=== PATIENT | female | born 1955 | race Caucasian/White ===

== ENCOUNTER → 2017-08-03 08:22 | Outpatient (CLI) | payer BC, SELFPAY ==
[2017-08-03 09:57] LABS: Absolute Lymphocyte Count 2.23 X10^3/ul (0.83-4.51); Absolute Neutrophil Count 3.3 X10^3/uL (2.0-7.7); Basophil# 0.04 X10^3/uL; Basophil% 0.6 % (0-1); Eosinophil# 0.09 X10^3/uL; Eosinophils% 1.4 % (0-5); Hematocrit 40.1 % (37-47); Hemoglobin 13.2 g/dl (12.0-15.0); Lymphocyte # 2.23 X10^3/ul (4.0); Mean Corp Hgb Conc 32.9 g/gl (32-36); Mean Corpuscular Hgb 30.2 pg (27.0-32.0); Mean Corpuscular Volume 91.8 fL (81-99); Mean Platelet Vol. 9.4 fl (6.2-12.0); Neutrophil # 3.31 X10^3/uL (2.7-7.7); Neutrophil % 51.8 % (47-70); POSITIVE COUNT NO; POSITIVE DIFFERENTIAL NO; POSITIVE MORPHOLOGY NO; Platelet Count 265 K/mm3 (150-450); RBC Distribution Width CV 13.2 % (11.6-14.6); Red Blood Count 4.37 M/mm3 (4.2-5.4); White Blood Count 6.4 K/mm3 (4.4-11.0)
[2017-08-03 10:49] LABS: AST(SGOT) 30 U/L (15-37); Alanine Aminotransfer ALT/SGPT 54 U/L (13-56); Albumin, Serum 3.8 g/dL (3.2-5.0); Alkaline Phosphatase 104 U/L (45-117); Anion Gap 5 (5-15); BUN 14 mg/dL (7-18); BUN/Creat Ratio 13.6 RATIO (10-20); Chloride 104 mmol/L (98-107); Creatinine, Serum 1.03 mg/dL (0.55-1.02); EST Glomerular Filtration Rate 58 mL/min (>60); Est Glom Filt Rate - Afr Amer 70 mL/min (>60); Globulin 3.9 g/dL (2.2-4.2); Glucose 70 mg/dL (74-106); Potassium 4.3 mmol/L (3.5-5.1); Protein, Total 7.7 g/dL (6.4-8.2); Sodium Level 139 mmol/L (136-145)
== END ==
PROVIDERS: Family Provider Family Medicine; PCP Family Medicine; Visit Provider Family Medicine
DX: K21.9 Gastro-esophageal reflux disease without esophagitis (principal); E53.1 Pyridoxine deficiency
CPT/HCPCS: 36415; 80053; 85025

== ENCOUNTER → 2017-08-16 08:24 | Outpatient (CLI) | payer BC, SELFPAY ==
[2017-08-16 10:31] LABS: Anion Gap 9 (5-15); BUN 15 mg/dL (7-18); BUN/Creat Ratio 13.4 RATIO (10-20); Calcium,Total 8.8 mg/dL (8.5-10.1); Chloride 106 mmol/L (98-107); Creatinine, Serum 1.12 mg/dL (0.55-1.02); EST Glomerular Filtration Rate 53 mL/min (>60); Est Glom Filt Rate - Afr Amer 64 mL/min (>60); Glucose 59 mg/dL (74-106); Potassium 3.9 mmol/L (3.5-5.1); Sodium Level 140 mmol/L (136-145)
== END ==
PROVIDERS: Family Provider Family Medicine; PCP Family Medicine; Visit Provider Family Medicine
DX: N28.9 Disorder of kidney and ureter, unspecified (principal)
CPT/HCPCS: 36415; 80048

== ENCOUNTER → 2017-08-18 08:11 | Outpatient (CLI) | payer BC, SELFPAY ==
--- NOTE | 2017-08-18 08:25 | RAD_ITS ---
STUDY: X-RAY - ESOPHAGUS (BARIUM SWALLOW) WITH FLUOROSCOPY REASON FOR EXAM: Female, 62 years old. Gastroesophageal reflux disease. Dysphagia. TECHNIQUE: 15 view(s) of the esophagus were obtained following swallowing of barium. FLUOROSCOPY TIME (if supplied): (0:33) minutes/seconds COMPARISON: None. FINDINGS: There is no demonstrated esophageal foreign body. There is no demonstrated stricture or mucosal abnormality. Normal gastroesophageal junction, without a demonstrated hiatal hernia. The patient ingested a 12 mm tablet of barium without any difficulty. There is atherosclerotic tortuosity of the aortic arch and descending thoracic aorta. Normal visualized pulmonary parenchyma. Normal visualized osseous structures of the thorax. RAD/Esophagus Only IMPRESSION: Normal plain film x-ray examination (barium swallow) of the esophagus. Electronically Signed: Darrin Esposito MD at 9:41 EDT Tel [phone], Service support ,
== END ==
PROVIDERS: Family Provider Family Medicine; PCP Family Medicine; Visit Provider Internal Medicine Gastroenterology
DX: R13.10 Dysphagia, unspecified (principal)
CPT/HCPCS: 74220

== ENCOUNTER → 2017-09-20 08:47 | Outpatient (CLI) | payer BC, SELFPAY | PROVIDERS: Family Provider Family Medicine; PCP Family Medicine; Visit Provider Family Medicine | DX: N32.9 Bladder disorder, unspecified (principal); N28.9 Disorder of kidney and ureter, unspecified | CPT/HCPCS: 76770 ==

== ENCOUNTER 2017-10-03 06:53 | Day surgery (SDC) | payer BC, SELFPAY ==
[2017-10-03 07:36] VITALS: BP 124/71; PULSE 67; RESP 12; TEMP 36.5; O2SAT 98; BMI 24.3
--- NOTE | 2017-10-03 08:50 | BLB_PTH ---
PATIENT: JAH PUCKETT LOC[place] [facility] [place][id number] AGE/SX: 62/F ROOM: RE10/03/[address]: Dr. Pilar Newton MD : 1955 BED: DIS: 10/03/2017 SPEC #: [id number] RECD: 10/03/17 13:48 STATUS: STONE SONIA #: [id number] HOSSEIN: 10/03/17 08:[address]: Pilar Newton DEPT: SURGICAL PATHOLOGY RECD BY: Yayo Espinal ENTERED: 10/03/17 13:48 SP TYPE: TURB OTHR DR: Dr. Wes Alex MD Tissues: Urinary bladder, NOS Procedures: Surgery Specimen Level V HEADER OPERATION: Cysto, TUR bladder tumor PRE-OP DIAGNOSIS: Bladder mass TISSUE SUBMITTED: Bladder tumor MICROSCOPIC DIAGNOSIS Urinary bladder tumor, transurethral resection: Papillary urothelial carcinoma. AM:kat 10/05/17 COMMENT BLADDER CANCER (TUR) SUMMARY: Procedure - TURBT Histologic type - urothelial carcinoma Associated epithelial lesions - none identified Histologic grade - low grade Tumor configuration - papillary Detrusor muscle - not present in biopsy. Lymph-Vascular invasion - not identified Microscopic extent of tumor - noninvasive papillary carcinoma Additional pathologic findings - none The above summary is in compliance with [employer] (CAP) Cancer Protocols Checklist and [place] [employer] on Cancer (AJCC), Staging Manual, 8th Ed. Discussed with Dr. Newton on 11/02/17 at 10:00 a.m. MICROSCOPIC DESCRIPTION Slides are reviewed. GROSS DESCRIPTION Received in fixative is one container labeled with the patient's name and designated bladder tumor. The specimen consists of multiple irregular and friable fragments of light pink-meyers soft tissue that in aggregate measure 2 x 1.5 x 0.2 cm. The specimen is totally submitted in one cassette. / AM:rg 10/03/17 TC:0 CPT: 67148
[2017-10-03] MEDS: Lubricating Jelly 60 GM Tube 30 GM TOPICAL (09:00)
[2017-10-03] MEDS: Cefazolin 2 GM in 0.9% Normal Saline 100 ML IV (09:10)
--- NOTE | 2017-10-03 09:13 | PCM.DC.URO ---
Discharge Diet: No Restrictions Discharge Activity: May not drive while taking narcotic pain medications., May Shower Call your doctor if you observe: Fever of 101 or Higher, Inability to urinate, Inability to have a bowel movement, Shortness of breath, Chest pain, Calf discomfort, Uncontrolled pain Allergies/Adverse Reactions: Allergies No Known Allergies Allergy (Verified 10/03/17 07:22) Medications to take at Discharge Adalimumab [Humira Pen] 40 mg SQ QWEEK 09/29/17 Calcium (Elemental) [Os-Jermaine 500] 500 mg PO DAILY@79909/29/17 Cyanocobalamin [Vitamin B12] 500 mcg PO DAILY@79909/29/17 Loratadine [Claritin] 10 mg PO DAILY 09/29/17 Omeprazole [Prilosec] 20 mg PO DAILY 09/29/17 Cephalexin [Keflex] 500 mg PO Q12 3 Days #6 cap 10/03/17 Ondansetron HCl [Zofran] 8 mg PO Q8H PRN PRN 3 Days #10 tab 10/03/17 Oxycodone HCl/Acetaminophen [Percocet 5/325] 2 tab PO Q6H PRN PRN 7 Days #30 tab 10/03/17 Phenazopyridine [Pyridium] 200 mg PO TID PRN 10 Days #30 tab 10/03/17 The following prescriptions were given: Oxycodone HCl/Acetaminophen [Percocet 5/325] 2 tab PO Q6H PRN PRN 7 Days #30 tab PRN Reason: Pain Ondansetron HCl [Zofran] 8 mg PO Q8H PRN PRN 3 Days #10 tab PRN Reason: Nausea Cephalexin [Keflex] 500 mg PO Q12 3 Days #6 cap Phenazopyridine [Pyridium] 200 mg PO TID PRN 10 Days #30 tab PRN Reason: Bladder Spasms Primary Care Physician: Wes Alex MD [Primary Care Provider] - Test Results: Test results from this visit will be discussed in further detail at your follow-up appointment, if applicable. Please Follow Up With: Pilar Newton MD When: 1 week
[2017-10-03 10:13] VITALS: BP 104/83; BP 124/71; PULSE 74; RESP 16; TEMP 35.9; O2SAT 96
[2017-10-03 10:15] VITALS: BP 111/68; BP 124/71; PULSE 70; RESP 16; O2SAT 95
[2017-10-03 10:26] VITALS: BP 107/78; BP 124/71; PULSE 69; RESP 16; TEMP 36.2; O2SAT 97
--- NOTE | 2017-10-03 10:37 | PCM.IMDPSTOP ---
Immediate Post-Op Note Date of Procedure: 10/03/17 Primary Surgeon/Physician: Pilar Newton MD surface supply breathing apparatus: Pilar Newton Pre-Operative Diagnosis: bladder mass Post-Operative Diagnosis: same Surgery/Procedure Performed:: cystoscopy, transurethral resection bladder tumor 2cm Description of Surgical Findings:: bladder mass left lateral wall, within 5mm of left ureteral orifice but not including the orifice. all tumor resected with muscle in specimen. No obvious perforation. Estimated Blood Loss: 3cc Specimen's removed: bladder mass - Admit VTE Documentation VTE Present on Admission: Yes VTE Mechan Device Prophylaxis: SCD's VTE Pharm Prophylaxis ordered?: No Reason prophylaxis not ordered:: Treatment Not Indicated
[2017-10-03 11:30] VITALS: BP 106/72; BP 124/71; PULSE 70; RESP 16; TEMP 36.4; O2SAT 97
--- NOTE | 2017-10-03 11:38 | PCM.OPRPT ---
Problem List (1) Bladder neoplasm of uncertain malignant potential Status: Acute Report of Operation Date of Procedure: 10/03/17 Pre-Operative Diagnosis: bladder mass Post-Operative Diagnosis: same Surgery/Procedure Performed:: cystoscopy, transurethral resection bladder tumor 2cm Description of Surgical Findings:: bladder mass left lateral wall, within 5mm of left ureteral orifice but not including the orifice. all tumor resected with muscle in specimen. No obvious perforation. organ builder: Pilar Newton Type of Anesthesia:: General Specimen's removed: bladder mass Estimated Blood Loss (mL): 3cc Description of Procedure: The patient is a 62-year-old female presented to the office with an incidental finding of a bladder mass on imaging study. After discussing all the risks benefits and alternatives she agreed to proceed with resection under anesthesia. The patient was taken in the operating room placed on the operating room table. Anesthesia monitored the head, neck, vital signs and IV access throughout the case. Once anesthesia was appropriately administered the patient was placed into dorsal lithotomy position and was prepped and draped in usual sterile fashion. Using a 21 Occitan cystoscope a thorough cystoscopic evaluation was performed of the urinary bladder and urethra. An approximately 2-2.5 cm left lateral bladder wall lesion was identified. As papillary in nature and approximately 0.5-0.75 cm away on the lateral side from the left ureteral orifice. There are no other satellite lesions identified. There is clear urine effluxing from both ureters. At this time using a resectoscope the lesion in its entirety was removed from the bladder. Muscle was present in the specimen. There was no perforation through the bladder wall. Coagulation was performed for hemostatic control and tissue treatment. The ureter remained entirely intact throughout the case and at the conclusion. At this time the specimen was removed via irrigation from the bladder. The patient's bladder was emptied and she was awakened and taken to the recovery room in good condition. There were no complications during this procedure. - Complications none - Admit VTE Documentation VTE Present on Admission: Yes VTE Mechan Device Prophylaxis: SCD's VTE Pharm Prophylaxis ordered?: No Reason prophylaxis not ordered:: Treatment Not Indicated
== END 2017-10-03 11:45 | disposition home or self-care (01) ==
LOC: SDC 06:54 → AC 06:55
PROVIDERS: Family Provider Family Medicine; PCP Family Medicine; Visit Provider Urology
PROC: 0TBB8ZZ Excision of Bladder, Via Natural or Artificial Opening Endoscopic (ICD-10-PCS; CPT 52234; principal; 2017-10-03 08:40)
DX: C67.2 Malignant neoplasm of lateral wall of bladder (principal); K21.9 Gastro-esophageal reflux disease without esophagitis; E53.8 Deficiency of other specified B group vitamins; L40.9 Psoriasis, unspecified; Z85.828 Personal history of other malignant neoplasm of skin; Z79.899 Other long term (current) drug therapy
CPT/HCPCS: 00912; 52234; 88307; 93005; J7120; J2405

== ENCOUNTER → 2017-10-18 14:46 | Outpatient (CLI) | payer BC, SELFPAY ==
[2017-10-18 16:01] LABS: Absolute Lymphocyte Count 2.59 X10^3/ul (0.83-4.51); Absolute Neutrophil Count 3.4 X10^3/uL (2.0-7.7); Anion Gap 8 (5-15); BUN 16 mg/dL (7-18); BUN/Creat Ratio 18.3 RATIO (10-20); Basophil# 0.03 X10^3/uL; Basophil% 0.4 % (0-1); Chloride 106 mmol/L (98-107); Creatinine, Serum 0.87 mg/dL (0.55-1.02); EST Glomerular Filtration Rate 70 mL/min (>60); Eosinophil# 0.07 X10^3/uL; Est Glom Filt Rate - Afr Amer 85 mL/min (>60); Glucose 91 mg/dL (74-106); Hematocrit 39.2 % (37-47); Hemoglobin 12.9 g/dl (12.0-15.0); Lymphocyte # 2.59 X10^3/ul (4.0); Lymphocyte % 38.3 % (19-41); Mean Corp Hgb Conc 32.9 g/gl (32-36); Mean Corpuscular Hgb 30.6 pg (27.0-32.0); Mean Corpuscular Volume 92.9 fL (81-99); Mean Platelet Vol. 9.7 fl (6.2-12.0); Monocyte# 0.62 X10^3/uL; Monocyte% 9.2 % (0-10); Neutrophil # 3.44 X10^3/uL (2.7-7.7); Phosphorus 3.6 mg/dL (2.5-4.9); Platelet Count 283 K/mm3 (150-450); Potassium 4.3 mmol/L (3.5-5.1); RBC Distribution Width CV 12.8 % (11.6-14.6); RBC Distribution Width SD 42.5 fl (35.1-43.9); Red Blood Count 4.22 M/mm3 (4.2-5.4); Sodium Level 143 mmol/L (136-145); White Blood Count 6.8 K/mm3 (4.4-11.0)
[2017-10-18 16:02] LABS: POSITIVE COUNT NO; POSITIVE DIFFERENTIAL NO; POSITIVE MORPHOLOGY NO
[2017-10-18 16:11] LABS: Creatinine, Urine (random) < 13.00 mg/dL (NO RANGE EST.); Protein, Urine (Random) < 6.0 mg/dL (<11.9)
[2017-10-18 16:20] LABS: Vitamin D,25 Hydroxy 34.8 ng/mL (29.95-100.01)
== END ==
PROVIDERS: Family Provider Family Medicine; PCP Family Medicine; Visit Provider Family Medicine
DX: N18.3 Chronic kidney disease, stage 3 (moderate) (principal)
CPT/HCPCS: 36415; 80048; 82306; 82570; 83970; 84100; 84156; 85025

== ENCOUNTER → 2017-12-13 07:21 | Outpatient (CLI) | payer BC, SELFPAY ==
[2017-12-13 10:26] LABS: Absolute Lymphocyte Count 2.56 X10^3/ul (0.83-4.51); Absolute Neutrophil Count 3.3 X10^3/uL (2.0-7.7); Basophil# 0.02 X10^3/uL; Basophil% 0.3 % (0-1); Eosinophil# 0.11 X10^3/uL; Eosinophils% 1.7 % (0-5); Hematocrit 39.5 % (37-47); Lymphocyte # 2.56 X10^3/ul (4.0); Lymphocyte % 38.4 % (19-41); Mean Corp Hgb Conc 32.9 g/gl (32-36); Mean Corpuscular Hgb 30.6 pg (27.0-32.0); Mean Corpuscular Volume 92.9 fL (81-99); Mean Platelet Vol. 9.8 fl (6.2-12.0); Monocyte% 10.5 % (0-10); Neutrophil # 3.26 X10^3/uL (2.7-7.7); Neutrophil % 48.9 % (47-70); POSITIVE COUNT NO; POSITIVE DIFFERENTIAL NO; POSITIVE MORPHOLOGY NO; Platelet Count 251 K/mm3 (150-450); RBC Distribution Width CV 12.7 % (11.6-14.6); RBC Distribution Width SD 42.4 fl (35.1-43.9); Red Blood Count 4.25 M/mm3 (4.2-5.4); White Blood Count 6.7 K/mm3 (4.4-11.0)
[2017-12-13 10:35] LABS: ALB/GLOB Ratio 0.9 RATIO (0.9-2.4); AST(SGOT) 23 U/L (15-37); Alanine Aminotransfer ALT/SGPT 62 U/L (13-56); Albumin, Serum 3.7 g/dL (3.2-5.0); Alkaline Phosphatase 134 U/L (45-117); Anion Gap 9 (5-15); BUN 16 mg/dL (7-18); BUN/Creat Ratio 14.8 RATIO (10-20); Calcium,Total 8.9 mg/dL (8.5-10.1); Chloride 105 mmol/L (98-107); Creatinine, Serum 1.08 mg/dL (0.55-1.02); EST Glomerular Filtration Rate 55 mL/min (>60); Est Glom Filt Rate - Afr Amer 66 mL/min (>60); Globulin 3.9 g/dL (2.2-4.2); Glucose 49 mg/dL (74-106); Potassium 4.3 mmol/L (3.5-5.1); Protein, Total 7.6 g/dL (6.4-8.2); Sodium Level 143 mmol/L (136-145)
== END ==
PROVIDERS: Family Provider Family Medicine; PCP Family Medicine; Referring Provider Dermatology Pediatric Dermatology; Visit Provider Dermatology Pediatric Dermatology
DX: L40.0 Psoriasis vulgaris (principal); L82.1 Other seborrheic keratosis; L81.4 Other melanin hyperpigmentation; D22.5 Melanocytic nevi of trunk; D18.01 Hemangioma of skin and subcutaneous tissue; L57.8 Other skin changes due to chronic exposure to nonionizing radiation; C44.41 Basal cell carcinoma of skin of scalp and neck; C44.219 Basal cell carcinoma of skin of left ear and external auricular canal; E53.1 Pyridoxine deficiency; N18.3 Chronic kidney disease, stage 3 (moderate); Z79.899 Other long term (current) drug therapy; Z85.820 Personal history of malignant melanoma of skin
CPT/HCPCS: 36415; 80053; 85025

== ENCOUNTER → 2018-01-04 07:44 | Outpatient (CLI) | payer BC, SELFPAY ==
[2018-01-04 10:22] LABS: Anion Gap 5 (5-15); BUN 14 mg/dL (7-18); BUN/Creat Ratio 13.9 RATIO (10-20); Calcium,Total 8.8 mg/dL (8.5-10.1); Chloride 106 mmol/L (98-107); Creatinine, Serum 1.01 mg/dL (0.55-1.02); EST Glomerular Filtration Rate 59 mL/min (>60); Est Glom Filt Rate - Afr Amer 72 mL/min (>60); Glucose 84 mg/dL (74-106); Potassium 3.9 mmol/L (3.5-5.1); Sodium Level 141 mmol/L (136-145)
--- OUTSIDE RECORDS SUMMARY | 2018-03-01 07:15 | XMS RPT_ITS ---
:1955 Author Organization [place] Support Name Relationship Address Phone LAVERN GERALD Unavailable [address] + [place] [address] MEADEN AND JORDAN Unavailable [address] + [place] [address] GERALD PUCKETT Unavailable [address] + [place] [address] MEADEN AND JORDAN Unavailable [address] + [place] [address] GERALD PUCKETT Unavailable [address] + [place] [address] MEADEN AND JORDAN Unavailable [address] + [place] [address] GERALD PUCKETT Unavailable [address] + [place] [address] MEADEN AND JORDAN Unavailable [address] + [place] [address] GERALD PUCKETT Unavailable [address] + [place] [address] FANYDEN AND JORDAN Unavailable [address] + [place] [address] GERALD PUCKETT Unavailable [address] + [place] [address] MEADEN AND JORDAN Unavailable [address] + [place] [address] GERALD PUCKETT Unavailable [address] + [place] [address] MEADEN AND JORDAN Unavailable [address] + [place] [address] GERALD PUCKETT Unavailable [address] + [place] [address] MEADEN [employer] JORDAN Unavailable [address] + [place] [address] MADDYEUGENIOGERALD Unavailable [address] + [place] [address] MEADEN AND JORDAN Unavailable [address] + [place] [address] MADDYJOANAGERALD Sherman Unavailable [address] + [place] [address] MEADEN AND JORDAN Unavailable [address] + [place] [address] GERALD PUCKETT Unavailable [address] + [place] [address] MEADEN AND JORDAN Unavailable [address] + [place] [address] Care Team Providers Name Role Phone ATIYA MIRANDA ([facility]) Attending Unavailable ATIYA MIRANDA ([facility]) Referring Unavailable Aramis Lopez Attending Unavailable Aramis Lopez Referring Unavailable Schian, Wes E Primary Care Unavailable Wes Alex E Attending Unavailable Wes Alex E Primary Care Unavailable Aramis Lopez Attending Unavailable Aramis Lopez Referring Unavailable SchWes sosa Primary Care Unavailable SchWes sosa Attending Unavailable Wes Alex Primary Care Unavailable SchWes sosa Attending Unavailable Wes Alex E Referring Unavailable Schlauraner, Wes E Primary Care Unavailable Pilar Newton Attending Unavailable Pilar Newton Referring Unavailable SchWes sosa Primary Care Unavailable SchWes sosa Attending Unavailable Wes Alex Referring Unavailable Schian, Wes E Primary Care Unavailable Ramon Sun Attending Unavailable Pilar Newton Referring Unavailable Schian, Wes Izquierdo Primary Care Unavailable Roxana Schuster Attending Unavailable Roxana Schuster Referring Unavailable Pilar Newton Attending Unavailable Pilar Newton Referring Unavailable SchWes sosa E Primary Care Unavailable Wes Alex E Attending Unavailable Wes Alex E Referring Unavailable SchWes sosa E Primary Care Unavailable PROBLEMS PROBLEMS DATE TYPE CONDITION / CODE ATTENDING STATUS SOURCE 01/16/2018 Unknown L40.0 - Psoriasis Roxana Schuster Active [place] vulgaris / Community L40.0(ICD-10) Hospital Repository 10/03/2017 Unknown N32.89 - Other Pilar Newton Active [place] specified disorders Community of bladder / Hospital N32.89(ICD-10) Repository 11/03/2017 Unknown Z01.810 - Encounter Ramon Sun Active [place] for preprocedural [facility] cardiovascular [facility] examination / Repository Z01.810(ICD-10) 08/15/2017 Unknown K21.9 - HeracliotracyWes Active [place] Gastro-esophageal E [facility] reflux disease Hospital without esophagitis Repository / K21.9(ICD-10) 03/02/2017 Active Encounter for NA Active [place] screening [facility] for malignant [place] neoplasm of breast / Repository Z12.31(ICD-10) PROCEDURES PROCEDURES No Procedure Records FoundRESULTS RESULTS CT ABD/PELVIS W/WO Observed: 01/08/2018 Status: F Source: [place] CONTRAST 5:00 PM [facility] REPOSITORY [facility] Imaging Services [address] [place] [address] CT Abd/Pelvis W/WO Contrast MR#: [id number] Acct: [id number] Name: LAVERNDOROTHY Aravind Rep #: [id number] : 1955 F 62 From: Jcarlos Hernandez MD PCP: Wes Alex MD Status: REG CLI Study: CT Abd/Pelvis W/WO Contrast Date of Exam: 01/08/18 Exam# [id number] Ordering Dr: Pilar Newton MD STUDY: CT ABDOMEN AND PELVIS WITH AND WITHOUT CONTRAST REASON FOR EXAM: Female, 62 years old. History of bladder neoplasm RADIATION DOSAGE (If Supplied By Facility): CTDIvol = ( 12.18 ) mGy, DLP = ( 1557.90 ) mGycm TECHNIQUE: Transaxial images were obtained from the dome of the diaphragm to the symphysis pubis with oral contrast. 100mL ml of Isovue 300 contrast was administered. Sagittal and coronal images were reconstructed. Individualized dose optimization techniques were used for this CT. COMPARISON: None. FINDINGS: The visualized lung bases are unremarkable. The visualized portions of the heart are within normal limits. Liver is unremarkable aside from scattered simple cysts. Normal gallbladder and extrahepatic biliary system. Normal spleen. Normal pancreas. Normal bilateral adrenal glands. Normal right kidney. Normal left kidney. Normal visualized stomach. Multiple nondistended fluid-filled small bowel loops are noted consistent with ileus. Retained stool is noted in the colon There is non-visualization of the appendix. Normal abdominal aorta. Normal inferior vena cava. Normal retroperitoneum. Normal urinary bladder. Uterus is still present, the endometrium is not visualized. Normal abdominal wall. There are diffuse degenerative changes of the visualized lumbar spine. CT/CT Abd/Pelvis W/WO Contrast IMPRESSION: Simple hepatic cysts No CT evidence of retroperitoneal or mesenteric adenopathy. Small bowel ileus, there are a few small bowel loops with internal debris likely food. Retained stool in the colon Unremarkable bladder Degenerative bony changes Electronically Signed: Josh Hernandez MD at 17:22 EST , Service support , CC: Pilar Newton MD; Wes Alex MD Chief Electrician: Signed BASIC METABOLIC Collected: 01/04/2018 Status: F Source: [place] PROFILE (BMP) 7:47 AM [facility] [place] TYPE CODE TESTS RESULT OUT OF RANGE REFERENCE UNITS LAB L501.0100 74-106 mg/dL Normal GLU 84 Result Comment: Please note revised GLUCOSE reference range effective 2017. LAB L501.1000 7-18 mg/dL Normal BUN 14 LAB L501.1100 0.55-1.02 mg/dL Normal CREAT,SERUM 1.01 Result Comment: The validity of the calculated GFR AND GFRAA in patients over 70 years has not been determined. Clinical correlation is essential. LAB L501.1110 >60 mL/min Low EST GFR 59 Result Comment: Non- GFR Calc LAB L501.1115 >60 mL/min Normal EST GFR - AA 72 Result Comment: GFR Calc LAB L501.1300 10-20 RATIO Normal BUN/CRE 13.9 LAB L501.2200 8.5-10.1 mg/dL CA Normal 8.8 LAB L501.5300 136-145 mmol/L NA Normal 141 LAB L501.5600 3.5-5.1 mmol/L K Normal 3.9 LAB L501.5900 98-107 mmol/L CL Normal 106 LAB L501.6100 21.0-32.0 mmol/L Normal CO2 30.0 LAB L501.6200 5-15 Normal GAP 5 Performed By: #### L500.2500 #### [facility] [address] [place], [place], [address] CBC W/DIFF, AUTOMATED Collected: 12/13/2017 Status: F Source: [place] 7:33 AM [facility] [place] Order Comment: DR DE LA TORRE ORDERED BMP/B6 DR SCHUSTER ORDERED CMP/QFT/CBCD TYPE CODE TESTS RESULT OUT OF RANGE REFERENCE UNITS LAB L100.1000 4.4-11.0 K/mm3 Normal WBC 6.7 LAB L100.1200 4.2-5.4 M/mm3 Normal RBC 4.25 LAB L100.1300 12.0-15.0 g/dl Normal HGB 13.0 LAB L100.1400 37-47 % Normal HCT 39.5 LAB L100.1500 81-99 fL Normal MCV 92.9 LAB L100.1600 27.0-32.0 pg Normal MCH 30.6 LAB L100.1700 32-36 g/gl Normal MCHC 32.9 LAB L100.1810 11.6-14.6 % Normal RDW CV 12.7 LAB L100.1820 35.1-43.9 fl Normal RDW SD 42.4 LAB L100.1900 150-450 K/mm3 Normal PLT 251 LAB L100.2000 6.2-12.0 fl Normal MPV 9.8 LAB L100.2100 47-70 % Normal NEUT% 48.9 LAB L100.2200 19-41 % Normal LY% 38.4 LAB L100.2300 0-10 % High MONO% 10.5 LAB L100.2400 0-5 % Normal EO% 1.7 LAB L100.2500 0-1 % Normal BASO% 0.3 LAB L100.2550 0.0-0.9 % Normal IM GRAN % 0.200 Result Comment: IG% - Immature Granulocytes (promyelocytes, myelocytes and metamyelocytes) > 1% indicates that a LEFT SHIFT is Present. LAB L100.2620 2.0-7.7 X10 3/uL Normal Absolute Neut 3.3 LAB L100.2720 0.83-4.51 X10 3/ul Normal Absolute Lymph 2.56 Performed By: #### L100.0100 #### [facility] [address] [place], [address] MISCELLANEOUS LAB Collected: 12/13/2017 Status: F Source: [place] PROCEDURE 2 7:33 AM [facility] [place] Order Comment: DR DE LA TORRE ORDERED BMP/B6 DR SCHUSTER ORDERED CMP/QFT/CBCD Comments: QFT [id number] List Test(s) Ordered by Physician: QFT [id number] TYPE CODE TESTS RESULT OUT OF RANGE REFERENCE UNITS LAB L801.1543 Normal [facility] LAB TEST 2 Result Comment: TEST RESULT UNITS REF INTERVAL QFT-TB Plus (Client Incubated) QuantiFERON Criteria The QuantiFERON-TB Gold Plus result is determined by subtracting the Nil value from either TB antigen (Ag) tube. The mitogen tube serves as a control for the test. QuantiFERON TB1 Ag Value 0.01 IU/mL QuantiFERON TB2 Ag Value 0.02 IU/mL QuantiFERON Nil Value 0.02 IU/mL QuantiFERON Mitogen Value >10.00 IU/mL QuantiFERON-TB Gold Plus Negative Negative The specimen received for QuantiFERON testing was incubated by the ordering institution. Specific procedures outlined in our Directory of Services and in the package insert for the QuantiFERON Gold (In Tube) test must be followed to enable for proper stimulation of cells for the production of interferon gamma. TESTING PERFORMED AT [facility]. ORIGINAL REPORT ON FILE IN LAB CONTAINS ADDITIONAL TEST SITE INFORMATION. Performed By: #### L801.1543 #### [facility] [address] [place], [address] MISCELLANEOUS LAB Collected: 12/13/2017 Status: F Source: [place] PROCEDURE 7:33 AM [facility] [place] Order Comment: DR DE LA TORRE ORDERED BMP/B6 DR SCHUSTER ORDERED CMP/QFT/CBCD Comments: QFT [id number] Test(s) Ordered: B6 [id number] LAV PLASMA LP FZ TYPE CODE TESTS RESULT OUT OF RANGE REFERENCE UNITS LAB L801.1541 Normal [facility] LAB TEST Result Comment: TEST RESULT FLAGS UNITS REF INTERVAL VITAMIN B6, PLASMA 68.6 HIGH ug/L 2.0 - 32.8 DISCLAIMER: This test was developed and its performance characteristics determined by [employer]. It has not been cleared or approved by the U.S. Food and Drug Administration. TESTING PERFORMED AT [facility]. ORIGINAL REPORT ON FILE IN LAB CONTAINS ADDITIONAL TEST SITE INFORMATION. Performed By: #### L801.1541 #### [facility] [address] [place], [address] COMPREHENSIVE METABOLIC Collected: 12/13/2017 Status: F Source: [place] PROFIL 7:28 AM [facility] [place] Order Comment: DR DE LA TORRE ORDERED BMP/B6 DR SCHUSTER ORDERED CMP/QFT/CBCD Comments: QFT [id number] TYPE CODE TESTS RESULT OUT OF RANGE REFERENCE UNITS LAB L501.0100 74-106 mg/dL Low GLU 49 Result Comment: Glucose result less than 50 mg/dL suggests HYPOGLYCEMIA. Please note revised GLUCOSE reference range effective 2017. LAB L501.1000 7-18 mg/dL Normal BUN 16 LAB L501.1100 0.55-1.02 mg/dL High CREAT,SERUM 1.08 Result Comment: The validity of the calculated GFR AND GFRAA in patients over 70 years has not been determined. Clinical correlation is essential. LAB L501.1110 >60 mL/min Low EST GFR 55 Result Comment: Non- GFR Calc LAB L501.1115 >60 mL/min Normal EST GFR - AA 66 Result Comment: GFR Calc LAB L501.1300 10-20 RATIO Normal BUN/CRE 14.8 LAB L501.1500 6.4-8.2 g/dL T Normal PROT 7.6 LAB L501.1800 3.2-5.0 g/dL Normal ALB 3.7 LAB L501.1950 2.2-4.2 g/dL Normal GLOB 3.9 LAB L501.2000 0.9-2.4 RATIO Normal A/G 0.9 LAB L501.2200 8.5-10.1 mg/dL CA Normal 8.9 LAB L501.4100 15-37 U/L Normal AST 23 LAB L501.4305 45-117 U/L High ALK P 134 LAB L501.4405 13-56 U/L High ALT 62 LAB L501.4600 0.20-1.00 mg/dL T Normal BILI 0.30 LAB L501.5300 136-145 mmol/L NA Normal 143 LAB L501.5600 3.5-5.1 mmol/L K Normal 4.3 LAB L501.5900 98-107 mmol/L CL Normal 105 LAB L501.6100 21.0-32.0 mmol/L Normal CO2 29.0 LAB L501.6200 5-15 Normal GAP 9 Performed By: #### L500.4050 #### [facility] [address] [place], [place], [address] PROTEIN+CREATININE Collected: Status: F [facility] 10/18/2017 2:51 PM [facility] [place] TYPE CODE TESTS RESULT OUT OF RANGE REFERENCE UNITS LAB L501.1200 NO RANGE EST. mg/dL < Normal UR 13.00 CREAT LAB L501.1930 <11.9 mg/dL < 6.0 Normal PROTEIN,UR. RAN. LAB L501.1940 0-200 mg/g CRE Test Normal not performed PROT:CRE RATIO Performed By: #### L501.0900 #### [facility] [address] [place], [address] BASIC METABOLIC Collected: 10/18/2017 Status: F Source: [place] PROFILE (BMP) 2:50 PM [facility] [place] Order Comment: Order Date: 10/18/17 Order Info: 0667-1 - BMP Order Info: 2777-1 - PHOS TYPE CODE TESTS RESULT OUT OF RANGE REFERENCE UNITS LAB L501.0100 74-106 mg/dL Normal GLU 91 Result Comment: Please note revised GLUCOSE reference range effective 2017. LAB L501.1000 7-18 mg/dL Normal BUN 16 LAB L501.1100 0.55-1.02 mg/dL Normal CREAT,SERUM 0.87 Result Comment: The validity of the calculated GFR AND GFRAA in patients over 70 years has not been determined. Clinical correlation is essential. LAB L501.1110 >60 mL/min Normal EST GFR 70 Result Comment: Non- GFR Calc LAB L501.1115 >60 mL/min Normal EST GFR - AA 85 Result Comment: GFR Calc LAB L501.1300 10-20 RATIO Normal BUN/CRE 18.3 LAB L501.2200 8.5-10.1 mg/dL CA Normal 9.0 LAB L501.5300 136-145 mmol/L NA Normal 143 LAB L501.5600 3.5-5.1 mmol/L K Normal 4.3 LAB L501.5900 98-107 mmol/L CL Normal 106 LAB L501.6100 21.0-32.0 mmol/L Normal CO2 29.0 LAB L501.6200 5-15 Normal GAP 8 Performed By: #### L500.2500, L501.2300, L100.0100, L506.1000, L509.1000 #### [facility] [address] [place], [address] PHOSPHORUS Collected: 10/18/2017 Status: F Source: [place] 2:50 PM [facility] [place] Order Comment: Order Date: 10/18/17 Order Info: 0667-1 - BMP Order Info: 2777-1 - PHOS TYPE CODE TESTS RESULT OUT OF RANGE REFERENCE UNITS LAB L501.2300 2.5-4.9 mg/dL Normal PHOS 3.6 Performed By: #### L500.2500, L501.2300, L100.0100, L506.1000, L509.1000 #### [facility] [place], [address] CBC W/DIFF, AUTOMATED Collected: 10/18/2017 Status: F Source: [place] 2:50 PM [facility] [place] Order Comment: Order Date: 10/18/17 Order Info: 0184-1 - CBCD TYPE CODE TESTS RESULT OUT OF RANGE REFERENCE UNITS LAB L100.1000 4.4-11.0 K/mm3 Normal WBC 6.8 LAB L100.1200 4.2-5.4 M/mm3 Normal RBC 4.22 LAB L100.1300 12.0-15.0 g/dl Normal HGB 12.9 LAB L100.1400 37-47 % Normal HCT 39.2 LAB L100.1500 81-99 fL Normal MCV 92.9 LAB L100.1600 27.0-32.0 pg Normal MCH 30.6 LAB L100.1700 32-36 g/gl Normal MCHC 32.9 LAB L100.1810 11.6-14.6 % Normal RDW CV 12.8 LAB L100.1820 35.1-43.9 fl Normal RDW SD 42.5 LAB L100.1900 150-450 K/mm3 Normal PLT 283 LAB L100.2000 6.2-12.0 fl Normal MPV 9.7 LAB L100.2100 47-70 % Normal NEUT% 51.0 LAB L100.2200 19-41 % Normal LY% 38.3 LAB L100.2300 0-10 % Normal MONO% 9.2 LAB L100.2400 0-5 % Normal EO% 1.0 LAB L100.2500 0-1 % Normal BASO% 0.4 LAB L100.2550 0.0-0.9 % Normal IM GRAN % 0.100 Result Comment: IG% - Immature Granulocytes (promyelocytes, myelocytes and metamyelocytes) > 1% indicates that a LEFT SHIFT is Present. LAB L100.2620 2.0-7.7 X10 3/uL Normal Absolute Neut 3.4 LAB L100.2720 0.83-4.51 X10 3/ul Normal Absolute Lymph 2.59 Performed By: #### L500.2500, L501.2300, L100.0100, L506.1000, L509.1000 #### [facility] [address] [place], [address] VITAMIN D,25 HYDROXY Collected: 10/18/2017 Status: F Source: [place] 2:50 PM [facility] [place] Order Comment: Order Date: 10/18/17 Order Info: 04410-0 - VITD25 TYPE CODE TESTS RESULT OUT OF RANGE REFERENCE UNITS LAB L506.1000 29.95-100.01 ng/mL Normal Vitamin D 34.8 25-OH Result Comment: Vitamin D 25(OH) Status Range Deficiency <20 ng/mL (50nmol/L) Insuffciency 20 - 30 ng/mL (50 - 75 nmol/L) Sufficiency 30 - 100 ng/mL (75 - 250 nmol/L) Toxicity >100 ng/mL (>250 nmol/L) Performed By: #### L500.2500, L501.2300, L100.0100, L506.1000, L509.1000 #### [facility] [address] [place], [address] PTHIN Collected: 10/18/2017 Status: F Source: [place] 2:50 PM [facility] [place] Order Comment: Order Date: 10/18/17 Order Info: 0565-1 - PTHIN TYPE CODE TESTS RESULT OUT OF RANGE REFERENCE UNITS LAB L509.1000 18.4-80.1 pg/mL Normal PTHIN 58.0 Performed By: #### L500.2500, L501.2300, L100.0100, L506.1000, L509.1000 #### [facility] [address] [place], [address] 12 LEAD ELECTROCARDIOGRAM Observed: 10/04/2017 Status: F Source: [place] 1:56 PM [facility] [place] [facility] Cardiovascular Services [address] [place] [address] 12 Lead EKG 10/03/17 0722 MR#: [id number] Acct: [id number] Name: DOROTHY PUCKETT Rep #: [id number] : 1955 62 From: Ramon Sun MD Attending Dr: Pilar Newton MD Status: DEP [facility] [place] Ordering Dr: Jareth Gonzalez MD Date: 10/03/17 Location: [facility] Sex: F C Admitted: Test Reason : PRE OP Blood Pressure : / mmHG Vent. Rate : 060 BPM Atrial Rate : 060 BPM P-R Int : 196 ms QRS Dur : 088 ms QT Int : 432 ms P-R-T Axes : 037 055 042 degrees QTc Int : 432 ms Normal sinus rhythm Normal ECG Confirmed by DINO AL, RAMON ([id number]), editor news JAMAL MASON ([id number]) on 10/04/2017 1:56:30 PM Referred By: Pilar Newton Confirmed By:RAMON SUN MD 10/04/17 1356 Date Ramon Sun MD CC: Jareth Gonzalez MD; Pilar Newton MD; Wes Alex MD Signed OPERATIVE REPORT Observed: 10/03/2017 Status: F Source: [place] 11:42 AM [facility] [place] [facility] Medical Records Department [address] [place] [address] Operative Report 10/03/17 1138 MR#: [id number] Acct: [id number] Name: DOROTHY PUCKETT Rep #: [id number] : 1955 62 From: Pilar Newton MD PCP: Wes Alex MD Status: [facility] Y Location: [place] [address] Problem List (1) Bladder neoplasm of uncertain malignant potential Status: Acute Report of Operation Date of Procedure: 10/03/17 Pre-Operative Diagnosis: bladder mass Post-Operative Diagnosis: same Surgery/Procedure Performed:: cystoscopy, transurethral resection bladder tumor 2cm Description of Surgical Findings:: bladder mass left lateral wall, within 5mm of left ureteral orifice but not including the orifice. all tumor resected with muscle in specimen. No obvious perforation. commercial energy rater: Pilar Newton Type of Anesthesia:: General Specimen's removed: bladder mass Estimated Blood Loss (mL): 3cc Description of Procedure: The patient is a 62-year-old female presented to the office with an incidental finding of a bladder mass on imaging study. After discussing all the risks benefits and alternatives she agreed to proceed with resection under anesthesia. The patient was taken in the operating room placed on the operating room table. Anesthesia monitored the head, neck, vital signs and IV access throughout the case. Once anesthesia was appropriately administered the patient was placed into dorsal lithotomy position and was prepped and draped in usual sterile fashion. Using a 21 [place]hi cystoscope a thorough cystoscopic evaluation was performed of the urinary bladder and urethra. An approximately 2-2.5 cm left lateral bladder wall lesion was identified. As papillary in nature and approximately 0.5-0.75 cm away on the lateral side from the left ureteral orifice. There are no other satellite lesions identified. There is clear urine effluxing from both ureters. At this time using a resectoscope the lesion in its entirety was removed from the bladder. Muscle was present in the specimen. There was no perforation through the bladder wall. Coagulation was performed for hemostatic control and tissue treatment. The ureter remained entirely intact throughout the case and at the conclusion. At this time the specimen was removed via irrigation from the bladder. The patient's bladder was emptied and she was awakened and taken to the recovery room in good condition. There were no complications during this procedure. - Complications none - Admit VTE Documentation VTE Present on Admission: Yes VTE Mechan Device Prophylaxis: SCD's VTE Pharm Prophylaxis ordered?: No Reason prophylaxis not ordered:: Treatment Not Indicated 10/03/17 1142 <Electronically signed by Pilar Newton MD> Date Pilar Newton MD CC: Pilar Newton MD; Wes Alex MD Signed DISCHARGE INSTRUCTION Observed: 10/03/2017 Status: F Source: [place] 9:15 AM [facility] [place] [facility] Medical Records Department [address] [place] [address] Instructions for Home/Discharge Instructions 10/03/17 0913 MR#: [id number] Acct: [id number] Name: DOROTHY PUCKETT Rep #: [id number] : 1955 62 From: Pilar Newton MD PCP: Wes Alex MD Status: REG [facility] Discharge Diet: No Restrictions Discharge Activity: May not drive while taking narcotic pain medications., May Shower Call your doctor if you observe: Fever of 101 or Higher, Inability to urinate, Inability to have a bowel movement, Shortness of breath, Chest pain, Calf discomfort, Uncontrolled pain Allergies/Adverse Reactions: Allergies No Known Allergies Allergy (Verified 10/03/17 07:22) Medications to take at Discharge Adalimumab [Humira Pen] 40 mg SQ QWEEK 09/29/17 Calcium (Elemental) [Os-Jermaine 500] 500 mg PO DAILY@79909/29/17 Cyanocobalamin [Vitamin B12] 500 mcg PO DAILY@79909/29/17 Loratadine [Claritin] 10 mg PO DAILY 09/29/17 Omeprazole [Prilosec] 20 mg PO DAILY 09/29/17 Cephalexin [Keflex] 500 mg PO Q12 3 Days #6 cap 10/03/17 Ondansetron HCl [Zofran] 8 mg PO Q8H PRN PRN 3 Days #10 tab 10/03/17 Oxycodone HCl/Acetaminophen [Percocet 5/325] 2 tab PO Q6H PRN PRN 7 Days #30 tab 10/03/17 Phenazopyridine [Pyridium] 200 mg PO TID PRN 10 Days #30 tab 10/03/17 The following prescriptions were given: Oxycodone HCl/Acetaminophen [Percocet 5/325] 2 tab PO Q6H PRN PRN 7 Days #30 tab PRN Reason: Pain Ondansetron HCl [Zofran] 8 mg PO Q8H PRN PRN 3 Days #10 tab PRN Reason: Nausea Cephalexin [Keflex] 500 mg PO Q12 3 Days #6 cap Phenazopyridine [Pyridium] 200 mg PO TID PRN 10 Days #30 tab PRN Reason: Bladder Spasms Primary Care Physician: Wes Alex MD [Primary Care Provider] - Test Results: Test results from this visit will be discussed in further detail at your follow-up appointment, if applicable. Please Follow Up With: Pilar Newton MD When: 1 week 10/03/17 0915 <Electronically signed by Pilar Newton MD> Date Pilar Newton MD CC: Wes Alex MD BLADDER TUR Observed: 10/03/2017 Status: F Source: [place] 8:50 AM [facility] [place] Patient: DOROTHY PUCKETT : 1955 (62/F) Acct Num: [id number] Phys: Pliar Newton MD Unit Num: [id number] Loc: [facility] Specimen: [id number] Received: 10/03/17 - 1348 Spec Type: TURB TISSUES 1 TISSUES: Urinary bladder, NOS COMMENT BLADDER CANCER (TUR) SUMMARY: Procedure - TURBT Histologic type - urothelial carcinoma Associated epithelial lesions - none identified Histologic grade - low grade Tumor configuration - papillary Detrusor muscle - not present in biopsy. Lymph-Vascular invasion - not identified Microscopic extent of tumor - noninvasive papillary carcinoma Additional pathologic findings - none The above summary is in compliance with [employer] ([employer]) Cancer Protocols Checklist and [place] Committee on Cancer (AJCC), Staging Manual, 8th Ed. Discussed with Dr. Newton on 11/02/17 at 10:00 a.m. GROSS DESCRIPTION Received in fixative is one container labeled with the patient's name and designated bladder tumor. The specimen consists of multiple irregular and friable fragments of light pink-meyers soft tissue that in aggregate measure 2 x 1.5 x 0.2 cm. The specimen is totally submitted in one cassette. / AM:kat TC:0 CPT: 18738 HEADER OPERATION: Cysto, TUR bladder tumor PRE-OP DIAGNOSIS: Bladder mass TISSUE SUBMITTED: Bladder tumor MICROSCOPIC DESCRIPTION Slides are reviewed. MICROSCOPIC DIAGNOSIS Urinary bladder tumor, transurethral resection: Papillary urothelial carcinoma. AM:kat 10/05/17 Signed Terry Davila 10/05/17 <signature on file> Performed By: #### PBLB #### [facility] [address] [place], [address] KIDNEY AND BLADDER Observed: 09/20/2017 Status: F Source: [place] 8:51 AM [facility] [place] [facility] Imaging Services [address] [place] [address] Kidney and Bladder MR#: [id number] Acct: [id number] Name: DOROTHY PUCKETT Rep #: [id number] : 1955 F 62 From: Morgan Nolasco MD PCP: Wes Alex MD Status: REG CLI Study: Kidney and Bladder Date of Exam: 09/20/17 Exam# [id number] Ordering Dr: Wes Alex MD STUDY: RENAL ULTRASOUND - COMPLETE REASON FOR EXAM: Female, 62 years old. Decreased renal function TECHNIQUE: Ultrasound evaluation of the kidneys was performed with real-time and static kwon-scale imaging. COMPARISON: None. FINDINGS: RIGHT KIDNEY: Normal location of the right kidney, which is normal in size. The right kidney measures 9.7 cm. There is a normal cortex of the right kidney. The renal cortex measures 1.8 cm. There is no right renal mass or cyst. There are 0.3 cm echogenic foci. There is no right hydronephrosis. DISTAL RIGHT URETER: There is non-visualization of the distal right ureter. There is no demonstrated right ureterovesical junction calculus. There is a visualized right ureteral jet. LEFT KIDNEY: Normal location of the left kidney, which is normal in size. The left kidney measures 9.9 cm. There is a normal cortex of the left kidney. The renal cortex measures 1.6 cm. There is no left renal mass or cyst. There are 0.3 cm echogenic foci. There is no left hydronephrosis. DISTAL LEFT URETER: There is non-visualization of the distal left ureter. There is no demonstrated left ureterovesical junction calculus. There is a visualized left ureteral jet. BLADDER: The distended urinary bladder has a volume of 287 ml. The empty urinary bladder has a volume of 6 ml. There is a normal wall thickness of the distended urinary bladder. There is 2.5 x 2.2 cm mass on the left side There are no demonstrated bladder calculi. US/Kidney and Bladder IMPRESSION: No hydronephrosis. Echogenic foci with small stones or vascular calcifications of the bilateral kidneys. Mass in the urinary bladder. Cystoscopic correlation recommended. Electronically Signed: Morgan Nolasco MD at 23:57 EDT , Service support , CC: Wes Alex MD Chief Electrician: Signed ESOPHAGUS ONLY Observed: 08/18/2017 Status: F Source: [place] 8:16 AM [facility] [place] [facility] Imaging Services [address] [place] [id number] Esophagus Only MR#: [id number] Acct: [id number] Name: DOROTHY PUCKETT Rep #: [id number] : 1955 F 62 From: Darrin Esposito MD PCP: Wes Alex MD Status: REG CLI Study: Esophagus Only Date of Exam: 08/18/17 Exam# [id number] Ordering Dr: Aramis Lopez MD STUDY: X-RAY - ESOPHAGUS (BARIUM SWALLOW) WITH FLUOROSCOPY REASON FOR EXAM: Female, 62 years old. Gastroesophageal reflux disease. Dysphagia. TECHNIQUE: 15 view(s) of the esophagus were obtained following swallowing of barium. FLUOROSCOPY TIME (if supplied): (0:33) minutes/seconds COMPARISON: None. FINDINGS: There is no demonstrated esophageal foreign body. There is no demonstrated stricture or mucosal abnormality. Normal gastroesophageal junction, without a demonstrated hiatal hernia. The patient ingested a 12 mm tablet of barium without any difficulty. There is atherosclerotic tortuosity of the aortic arch and descending thoracic aorta. Normal visualized pulmonary parenchyma. Normal visualized osseous structures of the thorax. RAD/Esophagus Only IMPRESSION: Normal plain film x-ray examination (barium swallow) of the esophagus. Electronically Signed: Darrin Esposito MD at 9:41 EDT Tel [phone], Service support , CC: Wes Alex MD; Aramis Lopez Chief Electrician: Signed BASIC METABOLIC Collected: 08/16/2017 Status: F Source: RADHA PROFILE (BMP) 8:52 AM [facility] [place] Order Comment: Order Date: 08/03/17 Order Info: [id number] - BMP TYPE CODE TESTS RESULT OUT OF RANGE REFERENCE UNITS LAB L501.0100 74-106 mg/dL Low GLU 59 Result Comment: Please note revised GLUCOSE reference range effective 2017. LAB L501.1000 7-18 mg/dL Normal BUN 15 LAB L501.1100 0.55-1.02 mg/dL High CREAT,SERUM 1.12 Result Comment: The validity of the calculated GFR AND GFRAA in patients over 70 years has not been determined. Clinical correlation is essential. LAB L501.1110 >60 mL/min Low EST GFR 53 Result Comment: Non- GFR Calc LAB L501.1115 >60 mL/min Normal EST GFR - AA 64 Result Comment: GFR Calc LAB L501.1300 10-20 RATIO Normal BUN/CRE 13.4 LAB L501.2200 8.5-10.1 mg/dL CA Normal 8.8 LAB L501.5300 136-145 mmol/L NA Normal 140 LAB L501.5600 3.5-5.1 mmol/L K Normal 3.9 LAB L501.5900 98-107 mmol/L CL Normal 106 LAB L501.6100 21.0-32.0 mmol/L Normal CO2 25.0 LAB L501.6200 5-15 Normal GAP 9 Performed By: #### L500.2500 #### [facility] [address] [place], [place], [id number] CBC W/DIFF, AUTOMATED Collected: 08/03/2017 Status: F Source: [place] 8:22 AM [facility] [place] Order Comment: Order Date: 08/03/17 Order Info: [id number] - CBCD TYPE CODE TESTS RESULT OUT OF RANGE REFERENCE UNITS LAB L100.1000 4.4-11.0 K/mm3 Normal WBC 6.4 LAB L100.1200 4.2-5.4 M/mm3 Normal RBC 4.37 LAB L100.1300 12.0-15.0 g/dl Normal HGB 13.2 LAB L100.1400 37-47 % Normal HCT 40.1 LAB L100.1500 81-99 fL Normal MCV 91.8 LAB L100.1600 27.0-32.0 pg Normal MCH 30.2 LAB L100.1700 32-36 g/gl Normal MCHC 32.9 LAB L100.1810 11.6-14.6 % Normal RDW CV 13.2 LAB L100.1820 35.1-43.9 fl High RDW SD 44.0 LAB L100.1900 150-450 K/mm3 Normal PLT 265 LAB L100.2000 6.2-12.0 fl Normal MPV 9.4 LAB L100.2100 47-70 % Normal NEUT% 51.8 LAB L100.2200 19-41 % Normal LY% 35.0 LAB L100.2300 0-10 % High MONO% 11.0 LAB L100.2400 0-5 % Normal EO% 1.4 LAB L100.2500 0-1 % Normal BASO% 0.6 LAB L100.2550 0.0-0.9 % Normal IM GRAN % 0.200 Result Comment: IG% - Immature Granulocytes (promyelocytes, myelocytes and metamyelocytes) > 1% indicates that a LEFT SHIFT is Present. LAB L100.2620 2.0-7.7 X10 3/uL Normal Absolute Neut 3.3 LAB L100.2720 0.83-4.51 X10 3/ul Normal Absolute Lymph 2.23 Performed By: #### L100.0100, L500.4050 #### [facility] [address] [place], [address] COMPREHENSIVE METABOLIC Collected: 08/03/2017 Status: F Source: RADHA [place] 8:22 AM [facility] [place] Order Comment: Order Date: 08/03/17 Order Info: [id number] - CMP Comments: #4655 B6 PLASMA FROZEN PFL TYPE CODE TESTS RESULT OUT OF RANGE REFERENCE UNITS LAB L501.0100 74-106 mg/dL Low GLU 70 Result Comment: Please note revised GLUCOSE reference range effective 2017. LAB L501.1000 7-18 mg/dL Normal BUN 14 LAB L501.1100 0.55-1.02 mg/dL High CREAT,SERUM 1.03 Result Comment: The validity of the calculated GFR AND GFRAA in patients over 70 years has not been determined. Clinical correlation is essential. LAB L501.1110 >60 mL/min Low EST GFR 58 Result Comment: Non- GFR Calc LAB L501.1115 >60 mL/min Normal EST GFR - AA 70 Result Comment: GFR Calc LAB L501.1300 10-20 RATIO Normal BUN/CRE 13.6 LAB L501.1500 6.4-8.2 g/dL T Normal PROT 7.7 LAB L501.1800 3.2-5.0 g/dL Normal ALB 3.8 LAB L501.1950 2.2-4.2 g/dL Normal GLOB 3.9 LAB L501.2000 0.9-2.4 RATIO Normal A/G 1.0 LAB L501.2200 8.5-10.1 mg/dL CA Normal 9.0 LAB L501.4100 15-37 U/L Normal AST 30 LAB L501.4305 45-117 U/L Normal ALK P 104 LAB L501.4405 13-56 U/L Normal ALT 54 LAB L501.4600 0.20-1.00 mg/dL T Normal BILI 0.50 LAB L501.5300 136-145 mmol/L NA Normal 139 LAB L501.5600 3.5-5.1 mmol/L K Normal 4.3 LAB L501.5900 98-107 mmol/L CL Normal 104 LAB L501.6100 21.0-32.0 mmol/L Normal CO2 30.0 LAB L501.6200 5-15 Normal GAP 5 Performed By: #### L100.0100, L500.4050 #### [facility] [address], [address] MISCELLANEOUS LAB Collected: 08/03/2017 Status: F Source: RAD[place]ED[place] 8:22 AM [facility] [place] Order Comment: Comments: #4655 B6 PLASMA FROZEN PFL Test(s) Ordered: #4655 B6 PLASMA FROZEN PFL TYPE CODE TESTS RESULT OUT OF RANGE REFERENCE UNITS LAB L801.1541 Normal [facility] LAB TEST Result Comment: TEST RESULT FLAG UNITS REFERENCE INTERVAL Vitamin B6, Plasma Vitamin B6 69.6 High ug/L 2.0 - 32.8 Disclaimer: This test was developed and its performance characteristics determined by [employer]. It has not been cleared or approved by the Food and Drug Administration. TESTING PERFORMED AT [facility]. ORIGINAL REPORT ON FILE IN LAB CONTAINS ADDITIONAL TEST SITE INFORMATION. Performed By: #### L801.1541 #### [facility] [address] [place], [address] [facility] Observed: 03/02/2017 Status: COMPLETED Source: [place] 11:54 AM [facility] REPOSITORY O ID: [id number] Author: Mammography Coordinator Service: (none) Author Type: Physician Type: Letter Filed: 03/06/2017 11:31 PM Note Text: March 02, 2017 PID: [id number] Dorothy Puckett [address] [place] [address] Dear Ms. Puckett, We are pleased to inform you that the results of your recent breast imaging exam on 03/02/2017 are normal. Your mammogram demonstrates that you have dense breast tissue, which could hide abnormalities. Dense breast tissue, in and of itself, is a relatively common condition. Therefore, this information is not provided to cause undue concern; rather, it is to raise your awareness and promote discussion with your health care provider regarding the presence of dense breast tissue in addition to other risk factors. Early detection of cancer is very important. We also understand recommendations regarding breast cancer screening are controversial. Please discuss with your primary care provider which strategy is best for you and whether a mammogram is right for you. Your imaging studies and report will be kept on file at [facility] as part of your permanent medical record and are available for your continuing care. Thank you for allowing us to help in meeting your health care needs. Sincerely, Dr. Maria Interpreting Radiologist [facility] (Normal over 40) PROGRESS Observed: 03/02/2017 Status: COMPLETED Source: [place] 8:01 AM [facility] REPOSITORY HNO ID: [id number] Author: Atiya Miranda Service: (none) Author Type: Nurse Practitioner Type: Progress Notes Filed: 03/02/2017 8:38 AM Note Text: Dorothy Puckett is a 61 year old who presents for her annual gynecologic exam without complaints. Postmenopausal: Yes since age early 50s HRT use: No. Last Pap: 2015 normal HPV: 2016 negative History of abnormal pap: No Last mammogram: Today, pending History of abnormal mammogram: No, after additional imaging Sexually active: No Patient concerns for STD exposure: No. Time with current partner: 32 years Pain with intercourse: No Postcoital bleeding: No Hot flashes: Yes, rare Night sweats: No Vaginal dryness: No Mood swings: No Insomnia: No Exercise: 2 times a week for 30 minutes. Type: gym; motion machine twice daily Diet: balanced Seatbelt use: Yes Obstetric History T2 L2 SAB0 TAB0 Ectopic0 Multiple0 Live Births0 PAST MEDICAL HISTORY Diagnosis Date - PMB (postmenopausal bleeding) - Psoriasis - Uterine fibroid PAST SURGICAL HISTORY Procedure Laterality Date - ANESTHESIA KNEE, ARTHROSCOPIC right knee meniscus repair - COLONOSCOPY 1999, 2009 - EXTRACTION ERUPTED TOOTH/EXR - L'SCOPE REM ADNEX W/PART/TOT OOPH/SALP 10/20/09 Performed by FER ROMO at [facility] - LAPAROSCOPY, SURGICAL, APPENDECTOMY 10/20/09 Performed by FER ROMO at [facility] - LIGATE FALLOPIAN TUBE - PAST SURGICAL HISTORY OF right thumb surgery FAMILY HISTORY Problem Relation Age of Onset - Hypertension Mother - Thyroid Mother - Stroke Mother fatal stroke @ 85yrs of age - Stroke Brother fatal aneurysm @ 72yrs of age SOCIAL HISTORY Social History Substance Use Topics - Smoking status: Never Smoker - Smokeless tobacco: Never Used - Alcohol use Yes Comment: Rarely REVIEW OF SYSTEMS Abdomen: No abdominal pain, nausea, vomiting, diarrhea, or constipation. No bloating, early satiety, indigestion, or increased flatulence. Bladder: No dysuria, gross hematuria, urinary frequency, urinary urgency, or incontinence Breast: No breast lumps, nipple d/c, overlying skin changes, redness or skin retraction Allergies and current medication updated:Yes EXAM: BP 110/68 Ht 5' 6 (1.68m) Wt 165 lb (74.8kg) LMP 09/07/2010 BMI 26.64 kg/(m2). GENERAL: pleasant, female in no apparent distress HEENT: Normocephalic, atraumatic, mucus membranes moist and no lesions NECK: Supple, full range of motion, no adenopathy and thyroid normal DERMATOLOGY: Normal, without lesions, non-icteric and non-hirsute BREAST: soft, non-tender, symmetric, no dominant mass, normal nipple-areolar complex, no lymphadenopathy and no nipple discharge CHEST: Normal inspiratory effort ABDOMEN: soft, non-tender and no masses PELVIC: external genitalia normal, normal Bartholin's glands, urethra, [place]'s glands, no vulvar lesions, no cervical lesions, good vaginal support, physiologic discharge present, normal appearing perineal body and perianal region BIMANUAL: uterus normal size, shape and consistency, no adnexal masses and non-tender RECTOVAGINAL: deferred. NEURO: alert and oriented x3,exam grossly non-focal EXTREMITIES: normal ASSESSMENT/PLAN: 1) Health maintenance: Pap/HPV up to date. Mammogram up to date Nutrition, exercise and routine health maintenance exams reviewed. Calcium/Vitamin D supplementation information provided. Colon cancer screening: will complete this summer 2) Follow up one year or sooner as needed ALANIS HUERTA Observed: 03/02/2017 Status: COMPLETED Source: [place] 8:00 AM [facility] REPOSITORY Office Visit (WOOB) DOROTHY PUCKETT ([id number]) 1955 F Date Time Provider Department 03/02/17 8:00 AM ATIYA MIRANDA (ALANIS) WOOB During your visit today, we recorded the following information about you: Blood pressure Weight Height 110/68 74.8 kg 1.676 m ATIYA MIRANDA CNP 03/02/2017 8:38 AM Signed Dorothy Puckett is a 61 year old who presents for her annual gynecologic exam without complaints. Postmenopausal: Yes since age early 50s HRT use: No. Last Pap: 2015 normal HPV: 2015 negative History of abnormal pap: No Last mammogram: Today, pending History of abnormal mammogram: No, after additional imaging Sexually active: No Patient concerns for STD exposure: No. Time with current partner: 32 years Pain with intercourse: No Postcoital bleeding: No Hot flashes: Yes, rare Night sweats: No Vaginal dryness: No Mood swings: No Insomnia: No Exercise: 2 times a week for 30 minutes. Type: gym; motion machine twice daily Diet: balanced Seatbelt use: Yes Obstetric History T2 L2 SAB0 TAB0 Ectopic0 Multiple0 Live Births0 PAST MEDICAL HISTORY Diagnosis Date - PMB (postmenopausal bleeding) - Psoriasis - Uterine fibroid PAST SURGICAL HISTORY Procedure Laterality Date - ANESTHESIA KNEE, ARTHROSCOPIC right knee meniscus repair - COLONOSCOPY 1999, 2009 - EXTRACTION ERUPTED TOOTH/EXR - L'SCOPE REM ADNEX W/PART/TOT OOPH/SALP 10/20/09 Performed by FER ROMO at [facility] - LAPAROSCOPY, SURGICAL, APPENDECTOMY 10/20/09 Performed by FER ROMO at [facility] - LIGATE FALLOPIAN TUBE - PAST SURGICAL HISTORY OF right thumb surgery FAMILY HISTORY Problem Relation Age of Onset - Hypertension Mother - Thyroid Mother - Stroke Mother fatal stroke @ 85yrs of age - Stroke Brother fatal aneurysm @ 72yrs of age SOCIAL HISTORY Social History Substance Use Topics - Smoking status: Never Smoker - Smokeless tobacco: Never Used - Alcohol use Yes Comment: Rarely REVIEW OF SYSTEMS Abdomen: No abdominal pain, nausea, vomiting, diarrhea, or constipation. No bloating, early satiety, indigestion, or increased flatulence. Bladder: No dysuria, gross hematuria, urinary frequency, urinary urgency, or incontinence Breast: No breast lumps, nipple d/c, overlying skin changes, redness or skin retraction Allergies and current medication updated:Yes EXAM: BP 110/68 Ht 5' 6ANDquot; (1.68m) Wt 165 lb (74.8kg) LMP 09/07/2010 BMI 26.64 kg/(m2). GENERAL: pleasant, female in no apparent distress HEENT: Normocephalic, atraumatic, mucus membranes moist and no lesions NECK: Supple, full range of motion, no adenopathy and thyroid normal DERMATOLOGY: Normal, without lesions, non-icteric and non-hirsute BREAST: soft, non-tender, symmetric, no dominant mass, normal nipple-areolar complex, no lymphadenopathy and no nipple discharge CHEST: Normal inspiratory effort ABDOMEN: soft, non-tender and no masses PELVIC: external genitalia normal, normal Bartholin's glands, urethra, [place]'s glands, no vulvar lesions, no cervical lesions, good vaginal support, physiologic discharge present, normal appearing perineal body and perianal region BIMANUAL: uterus normal size, shape and consistency, no adnexal masses and non-tender RECTOVAGINAL: deferred. NEURO: alert and oriented x3,exam grossly non-focal EXTREMITIES: normal ASSESSMENT/PLAN: 1) Health maintenance: Pap/HPV up to date. Mammogram up to date Nutrition, exercise and routine health maintenance exams reviewed. Calcium/Vitamin D supplementation information provided. Colon cancer screening: will complete this summer 2) Follow up one year or sooner as needed ALANIS HUERTA CNP 03/02/2017 8:26 AM Signed Calcium and Vitamin D Supplementation (from the National Institutes of Health Office of Dietary Supplements 2010) Calcium 600 mg twice daily and Vit D 1000 IU daily Calcium is required by the body for blood vessel, muscle, hormone and nerve functioning. Most of the body's calcium is stored in the bones and teeth where it supports structure and function. Bone is continuously broken down and reformed. When bone breakdown exceeds formation, especially in postmenopausal women, bone loss can increase the risk of osteoporosis and fractures. In addition to low calcium intake, women who smoke, have a family history of osteoporosis, are thin, or , or who take certain medications such as cancer chemotherapy, seizure mediations and steroids are at increased risk of osteoporosis. The calcium requirements in women change with age. The National Institutes of Health (NIH) recommends: 1000mg elemental calcium for premenopausal women age 19-50 1200mg elemental calcium for postmenopausal women and all women over 50 Milk, yogurt, and cheese are rich natural sources of calcium and are the major food contributors in the [place]. For example, 8oz of milk (whole, lowfat or skim) contains about 300mg calcium, 8oz of yogurt contains 415mg. Nondairy sources include salmon and sardines and vegetables, such as [place] cabbage, kale, and broccoli. Foods fortified with calcium include many fruit juices, tofu and cereals. For more food calcium content information, visit http://ods.od.nih.gov/factsheets/calcium. Calcium supplements come in several different forms. Remember that the recommendations are for millgrams (mg) of elemental calcium which may be less than the total weight of the supplement. The amount of elemental calcium is required to be printed on the label. Calcium carbonate is the least expensive form. It must be taken on a full stomach to be properly absorbed. Some patients may experience gas or constipation. Calcium phosphate and calcium citrate may be taken either with or without food and tend to have less side effects but are generally more expensive. Because of its ability to neutralize stomach acid, calcium carbonate is found in some pipy-cmo-oouawdl antacid products, such as Tums? and Rolaids?. Depending on its strength, each chewable pill or softchew provides 200 to 400 mg of elemental calcium. The percentage of calcium absorbed depends on the total amount of elemental calcium consumed at one time. Absorption is highest in doses ANDlt;500mg. So a woman who takes 1,000mg/day of calcium from supplements should split the dose and take 500mg at two separate times during the day. Too much calcium can cause kidney stones, constipation, difficulty absorbing other nutrients and calcium buildup in blood vessels. Women under 50 should not exceed 2500mg/day (2000mg/day for women over 50) of calcium from food and supplements. Excessive alcohol and caffeine intake can inhibit absorption of calcium. Calcium can reduce the absorption of some medications if taken at the same time of day (bisphosphonates, thyroid medication, Phenytoin and other seizure medications, some antibiotics and iron supplements). Vitamin D promotes calcium absorption in the gut and maintains adequate blood levels of calcium and phosphate for normal bone growth and bone remodeling. Vitamin D also helps regulate cell growth as well as nerve, muscle and immune system function. Vitamin D is produced in the skin as a result of ultraviolet sunlight rays and must be altered in the liver and kidney to become its active form. Recommended intake according to the National Institutes of Health is 600 International Units (IU) for girls and women ages 1-70 and 800 IU for women over 70. Very few foods in nature contain vitamin D. The flesh of fatty fish (such as salmon, tuna, and mackerel) and fish liver oils are among the best sources. Small amounts of vitamin D are found in beef liver, cheese, mushrooms and egg yolks. Most people meet at least some of their vitamin D needs through exposure to sunlight. Season, time of day, length of day, cloud cover, smog, skin melanin content, and sunscreen are among the factors that affect UV radiation exposure and vitamin D synthesis. Despite the importance of the sun for vitamin D synthesis, it is prudent to limit exposure of skin to sunlight and avoid tanning beds. UV radiation is a carcinogen responsible for most of the estimated 1.5 million skin cancers that occur annually in the [place]. Lifetime cumulative UV damage to skin is also responsible for some age-associated dryness and other cosmetic changes. In supplements and fortified foods, vitamin D is available in two forms, D2 (ergocalciferol) and D3 (cholecalciferol). The two are equivalent at normal supplement doses. For women who require high supplement doses because of vitamin D deficiency, D3 may work better to raise blood levels. Some medications can prevent proper absorption of Vitamin D. These include laxatives, corticosteroids like prednisone, the seizure drugs phenobarbital and phenytoin, the weight-loss drug orlistat ( Xenical? and AlliTM) and the cholesterol-lowering drug cholestyramine (Questran?, LoCholest?, and Prevalite?). Talk to your doctor about adjusting your recommended daily vitamin D dosage if you take these medications. You should not exceed 4000 mg of vitamin D supplementation daily unless specifically prescribed by your doctor. Referring Provider: SELF [200] Allergies As of Date: 03/02/2017 (No Known Allergies) Date Reviewed: 03/02/2017 Reviewed by: Atiya Miranda - Fully Assessed Reason for Visit: Yearly Exam [187] Primary Visit Diagnosis:Encounter for gynecological examination (general) (routine) without abnormal findings [Z01.419] Other Visit Diagnosis:Visit for screening mammogram [Z12.31] Order(s):[facility] SCREENING [[id number]] Order #: [id number] FUTURE Prescriptions as of 03/02/2017 Sig: VITAMIN B COMP WITH VIT C NO.* Take by mouth. OMEPRAZOLE 40 MG CAPSULE,RAMSES* TAKE 1 CAPSULE BY MOUTH ONCE * ADALIMUMAB 40 MG/0.8 ML SUBCU* Inject 40 mg subcutaneously o* Medication notes this encounter OMEPRAZOLE 40 MG CAPSULE,DELAYED RELEASE >> Ozzie Santana Ma 03/02/2017 8:02 AM >> OZZIE SANTANA MA Mar 02, 2017 8:02 AM Received from: External Pharmacy Problem List As Of Date 03/02/2017 Noted Resolved Ovarian mass [N83.9] INVALID FOR*09/06/2011 Ascites [R18.8] INVALID FOR*09/06/2011 Seborrheic dermatitis of scalp [L21.9] INVALID FOR* Thickened endometrium [R93.8] INVALID FOR* Uterine fibroid [D25.9] INVALID FOR* PMB (postmenopausal bleeding) [N95.0] INVALID FOR* Elevated ALT measurement [R74.0] INVALID FOR* More... Thumb pain [M79.646] INVALID FOR* More... Other instructions from your clinician: Calcium and Vitamin D Supplementation (from the National Institutes of Health Office of Dietary Supplements 2010) Calcium 600 mg twice daily and Vit D 1000 IU daily Calcium is required by the body for blood vessel, muscle, hormone and nerve functioning. Most of the body's calcium is stored in the bones and teeth where it supports structure and function. Bone is continuously broken down and reformed. When bone breakdown exceeds formation, especially in postmenopausal women, bone loss can increase the risk of osteoporosis and fractures. In addition to low calcium intake, women who smoke, have a family history of osteoporosis, are thin, or , or who take certain medications such as cancer chemotherapy, seizure mediations and steroids are at increased risk of osteoporosis. The calcium requirements in women change with age. The National Institutes of Health (NIH) recommends: 1000mg elemental calcium for premenopausal women age 19-50 1200mg elemental calcium for postmenopausal women and all women over 50 Milk, yogurt, and cheese are rich natural sources of calcium and are the major food contributors in the [place]. For example, 8oz of milk (whole, lowfat or skim) contains about 300mg calcium, 8oz of yogurt contains 415mg. Nondairy sources include salmon and sardines and vegetables, such as [place] cabbage, kale, and broccoli. Foods fortified with calcium include many fruit juices, tofu and cereals. For more food calcium content information, visit http://ods.od.nih.gov/factsheets/calcium. Calcium supplements come in several different forms. Remember that the recommendations are for millgrams (mg) of elemental calcium which may be less than the total weight of the supplement. The amount of elemental calcium is required to be printed on the label. Calcium carbonate is the least expensive form. It must be taken on a full stomach to be properly absorbed. Some patients may experience gas or constipation. Calcium phosphate and calcium citrate may be taken either with or without food and tend to have less side effects but are generally more expensive. Because of its ability to neutralize stomach acid, calcium carbonate is found in some pruc-pow-suimckj antacid products, such as Tums? and Rolaids?. Depending on its strength, each chewable pill or softchew provides 200 to 400 mg of elemental calcium. The percentage of calcium absorbed depends on the total amount of elemental calcium consumed at one time. Absorption is highest in doses <500mg. So a woman who takes 1,000mg/day of calcium from supplements should split the dose and take 500mg at two separate times during the day. Too much calcium can cause kidney stones, constipation, difficulty absorbing other nutrients and calcium buildup in blood vessels. Women under 50 should not exceed 2500mg/day (2000mg/day for women over 50) of calcium from food and supplements. Excessive alcohol and caffeine intake can inhibit absorption of calcium. Calcium can reduce the absorption of some medications if taken at the same time of day (bisphosphonates, thyroid medication, Phenytoin and other seizure medications, some antibiotics and iron supplements). Vitamin D promotes calcium absorption in the gut and maintains adequate blood levels of calcium and phosphate for normal bone growth and bone remodeling. Vitamin D also helps regulate cell growth as well as nerve, muscle and immune system function. Vitamin D is produced in the skin as a result of ultraviolet sunlight rays and must be altered in the liver and kidney to become its active form. Recommended intake according to the National Institutes of Health is 600 International Units (IU) for girls and women ages 1-70 and 800 IU for women over 70. Very few foods in nature contain vitamin D. The flesh of fatty fish (such as salmon, tuna, and mackerel) and fish liver oils are among the best sources. Small amounts of vitamin D are found in beef liver, cheese, mushrooms and egg yolks. Most people meet at least some of their vitamin D needs through exposure to sunlight. Season, time of day, length of day, cloud cover, smog, skin melanin content, and sunscreen are among the factors that affect UV radiation exposure and vitamin D synthesis. Despite the importance of the sun for vitamin D synthesis, it is prudent to limit exposure of skin to sunlight and avoid tanning beds. UV radiation is a carcinogen responsible for most of the estimated 1.5 million skin cancers that occur annually in the [place]. Lifetime cumulative UV damage to skin is also responsible for some age-associated dryness and other cosmetic changes. In supplements and fortified foods, vitamin D is available in two forms, D2 (ergocalciferol) and D3 (cholecalciferol). The two are equivalent at normal supplement doses. For women who require high supplement doses because of vitamin D deficiency, D3 may work better to raise blood levels. Some medications can prevent proper absorption of Vitamin D. These include laxatives, corticosteroids like prednisone, the seizure drugs phenobarbital and phenytoin, the weight-loss drug orlistat ( Xenical? and AlliTM) and the cholesterol-lowering drug cholestyramine (Questran?, LoCholest?, and Prevalite?). Talk to your doctor about adjusting your recommended daily vitamin D dosage if you take these medications. You should not exceed 4000 mg of vitamin D supplementation daily unless specifically prescribed by your doctor. Medications Discontinued During This Encounter meloxicam 7.5 mg tablet 30 t* 1 03/05/2013 03/02/2017 Route: ORAL Sig: Take 1 tablet by mouth once daily. Disc: Reason for discontinue is not on file. ibuprofen 200 mg tablet 01/31/2013 03/02/2017 Class: Med Update Route: ORAL Sig: Take 3 tablets by mouth three times daily. Disc: Reason for discontinue is not on file. Clobetasol Propionate (CLOBEX) 0.05 * 1 Tc* 12 01/31/2013 03/02/2017 Route: TOPICAL Sig: Apply 1 application to affected area once daily as needed. Disc: Reason for discontinue is not on file. benzonatate 100 mg capsule 30 c* 0 01/31/2013 03/02/2017 Route: ORAL Sig: Take 1 capsule by mouth three times daily as needed. Disc: Reason for discontinue is not on file. Dexlansoprazole (DEXILANT) 30 mg CpDM 03/02/2017 Class: Historical Med Route: ORAL Sig: Take 1 capsule by mouth twice daily. Disc: Reason for discontinue is not on file. Disposition: Return in 1 year (on 03/02/2018) for Annual Exam. Follow-up and Disposition History Recorded Encounter Status:Closed by ATIYA MIRANDA on 03/02/17 [facility] SCREENING Observed: 03/02/2017 Status: F Source: [place] 7:56 AM [facility] REPOSITORY * * *Final Report* * * DATE OF EXAM: Mar 02 2017 7:56AM [place] [address] - [facility] SCREENING / PROCEDURE REASON: Encounter for screening mammogram for malignant neoplasm of breast * * * * Physician Interpretation * * * * RESULT: #[id number] - [facility] SCREENING BILATERAL DIGITAL SCREENING MAMMOGRAM WITH CAD: 03/02/2017 HISTORY: Encounter For Screening Mammogram For Malignant Neoplasm Of Breast /Screening Mammogram - patient reports NO breast symptoms /Priors available for comparison. RESULT: TECHNIQUE: The study was acquired using full field digital technology and interpreted from soft copy. Current study was also evaluated with a Computer Aided Detection (CAD). Comparison is made to exams dated: 08/13/2015 mammogram and 01/09/2014 mammogram - [facility]. The tissue of both breasts is heterogeneously dense. This may lower the sensitivity of mammography. No significant masses, calcifications, or other findings are seen in either breast. There has been no significant interval change. IMPRESSION: NEGATIVE There is no mammographic evidence of malignancy. A 1 year screening mammogram is recommended. Saeid Maria M.D. 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 READ)(Aravind), [facility] letter sent: Normal over 40 Mammogram BI-RADS: 1 Negative Chief Electrician: Sofia Transcribe Date/Time: Mar 02 2017 7:39A Dictated by: SAEID MARIA MD This examination was interpreted and the report reviewed and electronically signed by: SAEID MARIA MD on Mar 02 2017 11:54AM EST [id number] ALLERGIES ALLERGIES DATE TYPE / CODE NAME / CODE REACTION SEVERITY SOURCE 10/03/2017 Drug No Known Unknown [facility] Allergy/416 Allergies/S57143 Hospital 698134(SNOM 0388(RXNORM) Repository ED CT) Drug NO KNOWN [facility] Class/29712 ALLERGIES Main [place] 1003(SNOMED Repository CT) ENCOUNTERS ENCOUNTERS ADMIT/DISCHARGE ACCOUNT ADMITTING ENCOUNTER LOCATION SOURCE NUMBER CLASS 01/23/2018 [id number] [facility] ing:LABSPEC Repository 01/08/2018 [id number] [facility] Hospital ing:CT Repository 01/04/2018 [id number] [facility] Hospital ing:MTLAB Repository 12/13/2017 [id number] [facility] Hospital ing:LAB.FUTUR Repository E 10/18/2017 [id number] [facility] Hospital ing:MTLAB Repository 10/03/2017/10/04/[id number] Hospital ing:SDCRoom: Repository AC08 10/03/2017 [id number] Ambulatory B[facility] Repository 09/20/2017 [id number] [facility] Repository 08/18/2017 [id number] Ambulatory [facility] acute [facility] Hospital ing:RAD Repository 08/16/2017 [id number] [facility] Hospital ing:MFPLAB Repository 08/03/2017 [id number] [facility] Hospital ing:MFPLAB Repository 03/02/2017/03/03/19 [id number] Ambulatory [address] Repository 03/02/2017/03/02/19 [id number] Ambulatory [address] Repository PAYERS PAYERS ENCOUNTER GUARANTOR PAYER SUBSCRIBER SOURCE 01/23/2018 GERALD [id number] Primary DOROTYH Garcia ANA MARIA Insurance:ANTHEMPolic MARLARDOB: [facility] [place] Number: [id number] Hospital [id number]: (330 [id number] Repository [phone] () Date:7596-21-16OY [address] [place] [address] 628[address]FE: 01/23/2018 Secondary NOT GIVENUNK Radha Insurance:SELF PAY [facility] Number: Effective Repository Date:2018-01-23 01/08/2018 GERALD [id number] Primary DOROTHY Sheaoster ANA MARIA Insurance:ANTHEMPolic MARLARDOB: [facility] [place] Number: [id number] Hospital 15385Ntd: (330) [id number] Repository [phone] () Date:8174-43-85ZG [address] [place] [address]77[address]FJ: 01/08/2018 Secondary NOT GIVENUNK [place] Insurance:SELF PAY [facility] Number: Effective Repository Date:2017-11-06 01/04/2018 GERALD [id number] Primary DOROTHY Garcia ANA MARIA Insurance:ANTHEMPolic MARLARDOB: [facility] [place] Number: [id number] Hospital 212[address]Hcw: (330) [id number] Repository [phone] () Date:2851-87-62QV [id number] [place] [address] 53491QZ: 01/04/2018 Secondary NOT GIVENUNK [place] Insurance:SELF PAY [facility] Number: Effective Repository Date:2018-01-04 12/13/2017 GERALD [id number] Primary DOROTHY Garcia ANA MARIA Insurance:ANTHEMPolic MARLARDOB: [facility] [place] Number: [id number] Hospital 23984Adh: (330) [id number] Repository [phone] () Date:0475-68-35WN [address]KIBQV [place] [address]TE: 12/13/2017 Secondary NOT GIVENUNK [place] Insurance:SELF PAY [facility] Number: Effective Repository Date:2017-11-29 10/18/2017 Gerald Kebeder4255 Primary DOROTHY M Radha Ana Maria Insurance:ANTHEMPolic [place]ARDOB: [facility] Number: [id number] Hospital 42226Wcp: (330) [id number] Repository [phone] () Date:3620-07-35GY [address] [place] [address] [place] [address]PR: 10/18/2017 Secondary NOT GIVENUNK [place] Insurance:SELF PAY [facility] Number: Effective Repository Date:2017-10-18 10/03/2017 Gerald Puckett4255 Primary DOROTHY M Radha [place] Insurance:ANTHEMPolic MARLARDOB: [facility] Number: [id number] Hospital 74848Dxv: (330) [id number] Repository [phone] () Date:4804-84-92GF [address]YVDLMRC [place] [address]PK: 10/03/2017 Secondary NOT GIVENUNK Radha Insurance:SELF PAY [facility] Number: Effective Repository Date:2017-09-28 10/03/2017 Gerald Puckett4255 Primary DOROTHY M [place] Insurance:ANTHEMPolic MARLARDOB: [facility] Number: [id number] Hospital 29153Afc: (330) [id number] Repository [phone] () Date:0967-96-14OA [address]MTSNT, [place] [address]QE: 10/03/2017 Secondary NOT GIVENUNK Radha Insurance:SELF PAY [facility] Number: Effective Repository Date:2017-10-03 09/20/2017 Gerald Puckett4255 Primary DOROTHY M [place] Insurance:ANTHEMPolic MARLARDOB: [facility], [place] Number: [id number] Hospital 49590Hdw: (330) [id number] Repository [phone] (HP) Date:1215-68-37AW [address]TZ[address]GEPP[address] [address]KX: 09/20/2017 Secondary NOT GIVENUNK Radha Insurance:SELF PAY [facility] Number: Effective Repository Date:2017-08-17 08/18/2017 Gerald Kebeder4255 Primary DOROTHY Sheaoster [place] Insurance:ANTHEMPolic MARLARDOB: [facility], [place] Number: [id number] Hospital 28[address]Dkx: (330) [id number] Repository [phone] (HP) Date:0666-16-53JL [address]JL[address], [place] [address]NZ: 08/18/2017 Secondary NOT GIVENUNK [place] Insurance:SELF PAY [facility] Number: Effective Repository Date:2017-08-14 08/16/2017 Gerald Kebeder4255 Primary DOROTHY Garcia [place] Insurance:ANTHEMPolic MARLARDOB: [facility], [place] Number: [id number] Hospital [id number]: (330) [id number] Repository [phone] () Date:3079-53-04YY [address]W, [place] [address]EK: 08/16/2017 Secondary NOT GIVENUNK [place] Insurance:SELF PAY [facility] Number: Effective Repository Date:2017-08-16 08/03/2017 Gerald Kebeedr4255 Primary DOROTHY Garcia Ana Maria Insurance:ANTHEMPolic [facility] Number: [id number] Hospital 984[address]Wjx: (330) [id number] Repository [phone] (HP) Date:4791-42-21LK [address]JSR, [place] [address]GN: 08/03/2017 Secondary NOT GIVENUNK Radha Insurance:[facility]LF PAY [facility] Effective Repository Date:2017-08-03
== END ==
PROVIDERS: Family Provider Family Medicine; PCP Family Medicine; Referring Provider Family Medicine; Visit Provider Family Medicine
DX: R94.4 Abnormal results of kidney function studies (principal)
CPT/HCPCS: 36415; 80048

== ENCOUNTER → 2018-01-08 16:56 | Outpatient (CLI) | payer BC, SELFPAY ==
--- NOTE | 2018-01-08 16:59 | CT_ITS ---
STUDY: CT ABDOMEN AND PELVIS WITH AND WITHOUT CONTRAST REASON FOR EXAM: Female, 62 years old. History of bladder neoplasm RADIATION DOSAGE (If Supplied By Facility): CTDIvol = ( 12.18 ) mGy, DLP = ( 1557.90 ) mGycm TECHNIQUE: Transaxial images were obtained from the dome of the diaphragm to the symphysis pubis with oral contrast. 100mL ml of Isovue 300 contrast was administered. Sagittal and coronal images were reconstructed. Individualized dose optimization techniques were used for this CT. COMPARISON: None. FINDINGS: The visualized lung bases are unremarkable. The visualized portions of the heart are within normal limits. Liver is unremarkable aside from scattered simple cysts. Normal gallbladder and extrahepatic biliary system. Normal spleen. Normal pancreas. Normal bilateral adrenal glands. Normal right kidney. Normal left kidney. Normal visualized stomach. Multiple nondistended fluid-filled small bowel loops are noted consistent with ileus. Retained stool is noted in the colon There is non-visualization of the appendix. Normal abdominal aorta. Normal inferior vena cava. Normal retroperitoneum. Normal urinary bladder. Uterus is still present, the endometrium is not visualized. Normal abdominal wall. There are diffuse degenerative changes of the visualized lumbar spine. CT/CT Abd/Pelvis W/WO Contrast IMPRESSION: Simple hepatic cysts No CT evidence of retroperitoneal or mesenteric adenopathy. Small bowel ileus, there are a few small bowel loops with internal debris likely food. Retained stool in the colon Unremarkable bladder Degenerative bony changes Electronically Signed: Josh Hernandez MD at 17:22 EST , Service support ,
== END ==
PROVIDERS: Family Provider Family Medicine; PCP Family Medicine; Referring Provider Urology; Visit Provider Urology
DX: C67.9 Malignant neoplasm of bladder, unspecified (principal)
CPT/HCPCS: 74178; Q9967

== ENCOUNTER → 2018-01-23 17:23 | Outpatient (CLI) | payer BC, SELFPAY ==
--- NOTE | 2018-01-23 08:25 | ESO_PTH ---
PATIENT: JAH PUCKETT LOC: [facility] U#:[id number] AGE/SX: 69/F ROOM: RE01/23/[address]: Dr. Aramis Lopez MD : 1955 BED: DIS: SPEC #: [id number] RECD: 01/23/18 16:10 STATUS: STONE SONIA #: [id number] HOSSEIN: 01/23/18 08:[address]: Aramis Lopez DEPT: SURGICAL PATHOLOGY RECD BY: Familia Kelsey ENTERED: 01/24/18 10:25 SP TYPE: SAULO MAE DR: Dr. Wes Alex MD [facility] Tissues: Esophagus, NOS Procedures: Surgery Specimen Level IV HEADER OPERATION: EGD with biopsy PRE-OP DIAGNOSIS: GERD, dysphagia TISSUE SUBMITTED: Esophageal biopsy, rule out EE MICROSCOPIC DIAGNOSIS Esophageal biopsy: Fragments of squamous epithelium with minimal chronic inflammation. See comment. KHRIS:kat 01/25/18 COMMENT Increased number of eosinophils consistent with eosinophilic esophagitis are not seen. MICROSCOPIC DESCRIPTION Slides are reviewed. GROSS DESCRIPTION Received in fixative is one container labeled with the patient's name and designated esophageal biopsy. The specimen consists of multiple irregular fragments of light meyers soft tissue that in aggregate measure 0.6 x 0.5 x 0.1 cm. The specimen is totally submitted in one cassette. / AM:kat 01/24/18 TC:3 [facility]: [id number]
--- OUTSIDE RECORDS SUMMARY | 2018-04-27 05:52 | XMS RPT_ITS ---
:1955 Author Organization [place] Support Name Relationship Address Phone LAVERN GERALD Unavailable [address] + [place] [address] MEADEN AND JORDAN Unavailable [address] + [place] [address] GERALD PUCKETT Unavailable [address] + [place] [address] MEADEN AND JORDAN Unavailable [address] + [place] [address] GERALD PUCKETT Unavailable [address] + [place] [address] MEADEN AND JORDAN Unavailable [address] + [place] [address] GERALD PUCKETT Unavailable [address] + [place] [address] MEADEN AND JORDAN Unavailable [address] + [place] [address] GERALD PUCKETT Unavailable [address] + [place] [address] FANYDEN AND JORDAN Unavailable [address] + [place] [address] GERALD PUCKETT Unavailable [address] + [place] [address] MEADEN AND JORDAN Unavailable [address] + [place] [address] GERALD PUCKETT Unavailable [address] + [place] [address] MEADEN AND JORDAN Unavailable [address] + [place] [address] GERALD PUCKETT Unavailable [address] + [place] [address] MEADEN AND JORDAN Unavailable [address] + [place] [address] GERALD PUCKETT Unavailable [address] + [place] [address] MEADEN AND JORDAN Unavailable [address] + [place] [address] GERALD PUCKETT Unavailable [address] + [place] [address] MEADEN AND JORDAN Unavailable [address] + [place] [address] GERALD PUCKETT Unavailable [address] + [place] [address] MEADEN AND JORDAN Unavailable [address] + [place] [address] GERALD PUCKETT Unavailable [address] + [place] [address] MEADEN AND JORDAN Unavailable [address] + [place] [address] GERALD PUCKETT Unavailable [address] + [place] [address] MEADEN AND JORDAN Unavailable [address] + [place] [address] Care Team Providers Name Role Phone ATIYA MIRANDA (HEALTH SAFETY COORDINATOR) Referring Unavailable ATIYA MIRANDA (HEALTH SAFETY COORDINATOR) Attending Unavailable Aramis Lopez Attending Unavailable Aramis Lopez Referring Unavailable Wes Alex Primary Care Unavailable Pilar Newton Attending Unavailable Pilar Newton Referring Unavailable Wes Alex Primary Care Unavailable Wes Alex Primary Care Unavailable Roxana Schuster Attending Unavailable Roxana Schuster Referring Unavailable Wes Alex Attending Unavailable Wes Alex Referring Unavailable Wes Alex Primary Care Unavailable Pilar Newton Attending Unavailable Pilar Newton Referring Unavailable Wes Alex Primary Care Unavailable Wes Alex Attending Unavailable Wes Alex Primary Care Unavailable Wes Alex Attending Unavailable Wes Alex Referring Unavailable SchWes sosa Primary Care Unavailable Wes Alex Attending Unavailable Wes Alex Referring Unavailable SchWes sosa Primary Care Unavailable Ramon Sun Attending Unavailable Pilar Newton Referring Unavailable Wes Alex Attending Unavailable Isai, Wes Izquierdo Referring Unavailable Wes Alex Primary Care Unavailable Wes Alex Attending Unavailable Isai, Wes Izquierdo Primary Care Unavailable Aramis Lopez Attending Unavailable Aramis Lopez Referring Unavailable Schian, Wes Izquierdo Primary Care Unavailable Wes Alex Primary Care Unavailable Referred, Self Attending Unavailable Referred, Self Referring Unavailable PROBLEMS PROBLEMS DATE TYPE CONDITION / CODE ATTENDING STATUS SOURCE 02/22/2018 Unknown N18.3 - Chronic Wes Alex Active [place] kidney disease, E [facility] stage 3 (moderate) / Hospital N18.3(ICD-10) Repository 01/16/2018 Unknown L40.0 - Psoriasis LandenRoxana vazquez Active [place] vulgaris / [facility] L40.0(ICD-10) Hospital Repository 10/03/2017 Unknown N32.89 - Other Pilar Newton Active [place] specified disorders Community of bladder / Hospital N32.89(ICD-10) Repository 11/03/2017 Unknown Z01.810 - Encounter Ramon Sun Active [place] for preprocedural [facility] cardiovascular [facility] examination / Repository Z01.810(ICD-10) 08/15/2017 Unknown K21.9 - Wes Alex Active [place] Gastro-esophageal E [facility] reflux disease [facility] without esophagitis Repository / K21.9(ICD-10) 03/02/2017 Active Encounter for NA Active [place] [facility] for malignant [place] neoplasm of breast / Repository Z12.31(ICD-10) PROCEDURES PROCEDURES No Procedure Records FoundRESULTS RESULTS MISCELLANEOUS LAB Collected: 02/09/2018 Status: F Source: [place] PROCEDURE 10:17 AM [facility] REPOSITORY Order Comment: Comments: [id number] B6 PLZ NO LIGHT RF Test(s) Ordered: [id number] B6 PLZ NO LIGHT RF TYPE CODE TESTS RESULT OUT OF RANGE REFERENCE UNITS LAB L801.1541 Normal [facility] LAB TEST Result Comment: TEST RESULT LIMITS Vitamin B6, Plasma Vitamin B6 116.9 High ug/L 2.0 - 32.8 Disclaimer: This test was developed and its performance characteristics determined by [facility]. It has not been cleared or approved by the Food and Drug Administration. TESTING PERFORMED AT [facility]. ORIGINAL REPORT ON FILE IN LAB CONTAINS ADDITIONAL TEST SITE INFORMATION. Performed By: #### L801.1541 #### [facility] [address] [place], [address] BASIC METABOLIC Collected: 02/09/2018 Status: F Source: [facility] PROFILE (BMP) 10:12 AM [facility] REPOSITORY Order Comment: Comments: [id number] B6 PLZ NO LIGHT RF TYPE CODE TESTS RESULT OUT OF RANGE REFERENCE UNITS LAB L501.0100 74-106 mg/dL Normal GLU 92 Result Comment: Please note revised GLUCOSE reference range effective 2017. LAB L501.1000 7-18 mg/dL Normal BUN 16 LAB L501.1100 0.55-1.02 mg/dL Normal CREAT,SERUM 0.93 Result Comment: The validity of the calculated GFR AND GFRAA in patients over 70 years has not been determined. Clinical correlation is essential. LAB L501.1110 >60 mL/min Normal EST GFR 65 Result Comment: Non- GFR Calc LAB L501.1115 >60 mL/min Normal EST GFR - AA 79 Result Comment: GFR Calc LAB L501.1300 10-20 RATIO Normal BUN/CRE 17.3 LAB L501.2200 8.5-10.1 mg/dL CA Normal 9.1 LAB L501.5300 136-145 mmol/L NA Normal 139 LAB L501.5600 3.5-5.1 mmol/L K Normal 4.1 LAB L501.5900 98-107 mmol/L CL Normal 103 LAB L501.6100 21.0-32.0 mmol/L Normal CO2 26.0 LAB L501.6200 5-15 Normal GAP 10 Performed By: #### L500.2500, L506.1000 #### [facility] [address] [place], [address] VITAMIN D,25 HYDROXY Collected: 02/09/2018 Status: F Source: [facility] 10:12 AM [facility] REPOSITORY TYPE CODE TESTS RESULT OUT OF RANGE REFERENCE UNITS LAB L506.1000 29.95-100.01 ng/mL Normal Vitamin D 30.9 25-OH Result Comment: Vitamin D 25(OH) Status Range Deficiency <20 ng/mL (50nmol/L) Insuffciency 20 - 30 ng/mL (50 - 75 nmol/L) Sufficiency 30 - 100 ng/mL (75 - 250 nmol/L) Toxicity >100 ng/mL (>250 nmol/L) Performed By: #### L500.2500, L506.1000 #### [facility] [address] [place], [address] VITAMIN B12 Collected: 02/09/2018 Status: F Source: [facility] 10:12 AM [facility] REPOSITORY TYPE CODE TESTS RESULT OUT OF RANGE REFERENCE UNITS LAB L503.0105 211-911 pg/mL Normal Vitamin B12 493 Performed By: #### L503.0105 #### [facility] [address] [place], [address] ESOPHAGEAL BIOPSY Observed: 01/23/2018 Status: F Source: [facility] 8:25 AM [facility] REPOSITORY Patient: DOROTHY PUCKETT : 1955 (62/F) Acct Num: [id number] Phys: Aramis Lopez Unit Num: [id number] Loc: [facility] Specimen: [id number] Received: 01/23/180 Spec Type: ESOPH BX TISSUES 1 TISSUES: Esophagus, NOS COMMENT Increased number of eosinophils consistent with eosinophilic esophagitis are not seen. GROSS DESCRIPTION Received in fixative is one container labeled with the patient's name and designated esophageal biopsy. The specimen consists of multiple irregular fragments of light meyers soft tissue that in aggregate measure 0.6 x 0.5 x 0.1 cm. The specimen is totally submitted in one cassette. / AM:kat 01/24/18 TC:3 CPT: 04974 HEADER OPERATION: EGD with biopsy PRE-OP DIAGNOSIS: GERD, dysphagia TISSUE SUBMITTED: Esophageal biopsy, rule out EE MICROSCOPIC DESCRIPTION Slides are reviewed. MICROSCOPIC DIAGNOSIS Esophageal biopsy: Fragments of squamous epithelium with minimal chronic inflammation. See comment. SJ:kat 01/25/18 Signed Seth Baeza MD 01/25/18 <signature on file> Performed By: #### PESO #### [facility] [address] [place], [address] CT ABD/PELVIS W/WO Observed: 01/08/2018 Status: F Source: [facility] CONTRAST 5:00 PM [facility] REPOSITORY [facility] Imaging Services [address] [place] [address] CT Abd/Pelvis W/WO Contrast MR#: [id number] Acct: [id number] Name: DOROTHY PUCKETT Rep #: [id number] : 1955 F 62 From: Jcarlos Hernandez MD PCP: Wes Alex MD Status: REG CLI Study: CT Abd/Pelvis W/WO Contrast Date of Exam: 01/08/18 Exam# [id number] Ordering Dr: Pilar Newton MD STUDY: CT [...] CC: Pilar Newton MD; Wes Alex MD Glass Worker: Signed BASIC METABOLIC Collected: 01/04/2018 Status: F Source: [place] PROFILE (BMP) 7:47 AM [facility] REPOSITORY TYPE CODE TESTS RESULT OUT OF [...] GAP 5 Performed By: #### L500.2500 #### [facility] [address] [place], [address] CBC W/DIFF, AUTOMATED Collected: 12/13/2017 Status: F Source: [place] 7:33 AM [facility] REPOSITORY Order Comment: DR DE LA TORRE [...] Lymph 2.56 Performed By: #### L100.0100 #### [facility] [address] [place], [address] MISCELLANEOUS LAB Collected: 12/13/2017 Status: F Source: [place] PROCEDURE 2 7:33 AM [facility] REPOSITORY Order Comment: DR DE LA TORRE ORDERED BMP/B6 DR SCHUSTER ORDERED CMP/QFT/CBCD Comments: QFT [id number] List Test(s) Ordered by Physician: QFT [id number] TYPE CODE TESTS RESULT OUT OF RANGE REFERENCE UNITS LAB L801.1543 Normal [facility] LAB TEST 2 Result Comment: TEST RESULT [...] production of interferon gamma. TESTING PERFORMED AT [facility]. ORIGINAL REPORT ON FILE IN LAB CONTAINS ADDITIONAL TEST SITE INFORMATION. Performed By: #### L801.1543 #### [facility] [address] [place], [address] MISCELLANEOUS LAB Collected: 12/13/2017 Status: F Source: [place] PROCEDURE 7:33 AM [facility] REPOSITORY Order Comment: DR DE LA TORRE ORDERED BMP/B6 DR SCHUSTER ORDERED CMP/QFT/CBCD Comments: QFT [id number] Test(s) Ordered: B6 up0141 LAV PLASMA LP FZ TYPE CODE TESTS RESULT OUT OF RANGE REFERENCE UNITS LAB L801.1541 Normal [facility] LAB TEST Result Comment: TEST RESULT FLAGS UNITS REF INTERVAL VITAMIN B6, PLASMA 68.6 HIGH ug/L 2.0 - 32.8 DISCLAIMER: This test was developed and its performance characteristics determined by [facility]. It has not been cleared or approved by the U.S. Food and Drug Administration. TESTING PERFORMED AT [facility]. ORIGINAL REPORT ON FILE IN LAB CONTAINS ADDITIONAL TEST SITE INFORMATION. Performed By: #### L801.1541 #### [facility] [place], [address] COMPREHENSIVE METABOLIC Collected: 12/13/2017 Status: F Source: [place] PROFIL 7:28 AM [facility] REPOSITORY Order Comment: DR DE LA TORRE ORDERED BMP/B6 DR SCHUSTER ORDERED CMP/QFT/CBCD Comments: QFT [id number] TYPE CODE TESTS RESULT OUT OF RANGE [...] GAP 9 Performed By: #### L500.4050 #### [facility] [address] [place], [place], [address] PROTEIN+CREATININE Collected: Status: F Source: [place] [facility],URINE 10/18/2017 2:51 PM [facility] REPOSITORY TYPE CODE TESTS RESULT OUT OF RANGE REFERENCE UNITS LAB L501.1200 NO RANGE EST. mg/dL < Normal UR 13.00 CREAT LAB L501.1930 <11.9 mg/dL < 6.0 Normal PROTEIN,UR. RAN. LAB L501.1940 0-200 mg/g CRE Test Normal not performed PROT:CRE RATIO Performed By: #### L501.0900 #### [facility] [address] [place], [place], [address] BASIC METABOLIC Collected: 10/18/2017 Status: F Source: [place] PROFILE (BMP) 2:50 PM [facility] REPOSITORY Order Comment: Order Date: 10/18/17 Order [...] #### L500.2500, L501.2300, L100.0100, L506.1000, L509.1000 #### [facility] [address] [place], [address] PHOSPHORUS Collected: 10/18/2017 Status: F Source: [place] 2:50 PM [facility] REPOSITORY Order Comment: Order Date: 10/18/17 Order Info: 0667-1 - BMP Order Info: 2777-1 - PHOS TYPE CODE TESTS RESULT OUT OF RANGE REFERENCE UNITS LAB L501.2300 2.5-4.9 mg/dL Normal PHOS 3.6 Performed By: #### L500.2500, L501.2300, L100.0100, L506.1000, L509.1000 #### [facility] [place], [address] CBC W/DIFF, AUTOMATED Collected: 10/18/2017 Status: F Source: [place] 2:50 PM [facility] REPOSITORY Order Comment: Order Date: 10/18/17 Order [...] #### L500.2500, L501.2300, L100.0100, L506.1000, L509.1000 #### [facility] [address] [facility] [place], [address] VITAMIN D,25 HYDROXY Collected: 10/18/2017 Status: F Source: [facility] 2:50 PM [facility] REPOSITORY Order Comment: Order Date: 10/18/17 Order Info: 87926-8 - VITD25 TYPE CODE TESTS RESULT OUT OF RANGE REFERENCE UNITS LAB L506.1000 29.95-100.01 ng/mL Normal Vitamin D 34.8 25-OH Result Comment: Vitamin D 25(OH) Status Range Deficiency <20 ng/mL (50nmol/L) Insuffciency 20 - 30 ng/mL (50 - 75 nmol/L) Sufficiency 30 - 100 ng/mL (75 - 250 nmol/L) Toxicity >100 ng/mL (>250 nmol/L) Performed By: #### L500.2500, L501.2300, L100.0100, L506.1000, L509.1000 #### [facility] [place], [address] PTHIN Collected: 10/18/2017 Status: F Source: [facility] 2:50 PM [facility] REPOSITORY Order Comment: Order Date: 10/18/17 Order Info: 0565-1 - PTHIN TYPE CODE TESTS RESULT OUT OF RANGE REFERENCE UNITS LAB L509.1000 18.4-80.1 pg/mL Normal PTHIN 58.0 Performed By: #### L500.2500, L501.2300, L100.0100, L506.1000, L509.1000 #### [facility] [address] [place], [address] 12 LEAD ELECTROCARDIOGRAM Observed: 10/04/2017 Status: F Source: [place] 1:56 PM [facility] REPOSITORY [facility] Cardiovascular Services [address] [place] [address] 12 Lead EKG 10/03/17 0722 MR#: [id number] Acct: [id number] Name: DOROTHY PUCKETT Rep #: [id number] : 1955 62 From: Ramon Sun MD Attending Dr: Pilar Newton MD Status: DEP [facility] Ordering Dr: Jareth Gonzalez MD Date: 10/03/17 Location: [facility] Sex: F C Admitted: Test Reason : PRE OP Blood Pressure : / mmHG Vent. Rate : 060 BPM Atrial Rate : 060 BPM P-R Int : 196 ms QRS Dur : 088 ms QT Int : 432 ms P-R-T Axes : 037 055 042 degrees QTc Int : 432 ms Normal sinus rhythm Normal ECG Confirmed by DINO AL, RAMON ([id number]), news editor JAMAL MASON ([id number]) on 10/04/2017 1:56:30 PM Referred By: Pilar Newton Confirmed By:RAOMN SUN MD 10/04/17 1356 Date Ramon Sun MD CC: Jareth Gonzalez MD; Pilar Newton MD; Wes Alex MD Signed OPERATIVE REPORT Observed: 10/03/2017 Status: F Source: [facility] 11:42 AM [facility] REPOSITORY [facility] Medical Records Department [address] [place] [address] Operative Report 10/03/17 1138 MR#: [id number] Acct: [id number] Name: DOROTHY PUCKETT Rep #: [id number] : 1955 62 From: Pilar Newton MD PCP: Wes Alex MD Status: [facility] Y Location: [place] [address] Problem List (1) Bladder neoplasm of uncertain malignant potential Status: Acute Report of Operation Date of Procedure: 10/03/17 Pre-Operative Diagnosis: bladder mass Post-Operative Diagnosis: same Surgery/Procedure Performed:: cystoscopy, transurethral resection bladder tumor 2cm Description of Surgical Findings:: bladder mass left lateral wall, within 5mm of left ureteral orifice but not including the orifice. all tumor resected with muscle in specimen. No obvious perforation. braille translator: Pilar Newton Type of Anesthesia:: General Specimen's [...] in usual sterile fashion. Using a 21 Serbian cystoscope a thorough cystoscopic evaluation was performed [...] 10/03/2017 Status: F Source: [place] 9:15 AM [facility] REPOSITORY [facility] Medical Records Department [address] [facility] [place] [address] Instructions for Home/Discharge Instructions 10/03/17 0913 MR#: [id number] Acct: [id number] Name: TOMEKALaneDOROTHY M Rep #: [id number] : 1955 62 From: Pilar Newton MD PCP: Wes Alex MD Status: REG [facility] Discharge Diet: No Restrictions Discharge Activity: May [...] 40 mg SQ QWEEK 09/29/17 Calcium (Elemental) [Os-Jermiane 500] 500 mg PO DAILY@79909/29/17 Cyanocobalamin [Vitamin [...] BLADDER TUR Observed: 10/03/2017 Status: F Source: [facility] 8:50 [facility] Patient: DOROTHY PUCKETT : 1955 (62/F) Acct Num: [id number] Phys: Pilar Newton MD Unit Num: [id number] Loc: [facility] Specimen: [id number] Received: 10/03/17 - 134 Spec Type: TURB TISSUES 1 TISSUES: Urinary [...] summary is in compliance with [employer] (CAP) Cancer Protocols Checklist and [place] Joint Committee on Cancer (AJCC), Staging Manual, [...] in one cassette. / AM:kat TC:0 CPT: 99995 HEADER OPERATION: Cysto, TUR bladder tumor PRE-OP DIAGNOSIS: Bladder mass TISSUE SUBMITTED: Bladder tumor MICROSCOPIC DESCRIPTION Slides are reviewed. MICROSCOPIC DIAGNOSIS Urinary bladder tumor, transurethral resection: Papillary urothelial carcinoma. AM:kat 10/05/17 Signed Terry Davila 10/05/17 <signature on file> Performed By: #### PBLB #### [facility] [address] [place], [address] KIDNEY AND BLADDER Observed: 09/20/2017 Status: F Source: [place] 8:51 AM [facility] REPOSITORY [facility] Imaging Services [address] [place] [address] Kidney and Bladder MR#: [id number] Acct: [id number] Name: DOROTHY PUCKETT Rep #: [id number] : 1955 F 62 From: Morgan Nolasco MD PCP: Wes Alex MD Status: REG CLI Study: Kidney and Bladder Date of Exam: 09/20/17 Exam# [id number] Ordering Dr: Wes Alex MD STUDY: RENAL [...] Service support , CC: Wes Alex MD Glass Worker: Signed ESOPHAGUS ONLY Observed: 08/18/2017 Status: F Source: [facility] 8:16 AM [facility] REPOSITORY [facility] Imaging Services [address] [place] [address] Esophagus Only MR#: [id number] Acct: [id number] Name: DOORTHY PUCKETT Rep #: [id number] : 1955 F 62 From: Darrin Esposito MD PCP: Wes Alex MD Status: REG CLI Study: Esophagus Only Date of Exam: 08/18/17 Exam# [id number] Ordering Dr: Aramis Lopez MD STUDY: X-RAY [...] Darrin Esposito MD at 9:41 EDT Tel [phone], Service support , CC: Wes Alex MD; Aramis Lopez Glass Worker: Signed BASIC METABOLIC Collected: 08/16/2017 Status: F Source: [place] PROFILE (BMP) 8:52 AM [facility] REPOSITORY Order Comment: Order Date: 08/03/17 Order [...] GAP 9 Performed By: #### L500.2500 #### [facility] [address] [place], [address] CBC W/DIFF, AUTOMATED Collected: 08/03/2017 Status: F Source: [place] 8:22 AM [facility] REPOSITORY Order Comment: Order Date: 08/03/17 Order [...] 2.23 Performed By: #### L100.0100, L500.4050 #### [facility] [address] [place], [address] COMPREHENSIVE METABOLIC Collected: 08/03/2017 Status: F [facility] AM [facility] REPOSITORY Order Comment: Order Date: 08/03/17 Order [...] 5 Performed By: #### L100.0100, L500.4050 #### [facility] [address] [place], [place], [address] MISCELLANEOUS LAB Collected: 08/03/2017 Status: F Source: [place] PROCEDURE 8:22 AM [facility] REPOSITORY Order Comment: Comments: #4655 B6 PLASMA FROZEN PFL Test(s) Ordered: #4655 B6 PLASMA FROZEN PFL TYPE CODE TESTS RESULT OUT OF RANGE REFERENCE UNITS LAB L801.1541 Normal [facility] LAB TEST Result Comment: TEST RESULT FLAG UNITS REFERENCE INTERVAL Vitamin B6, Plasma Vitamin B6 69.6 High ug/L 2.0 - 32.8 Disclaimer: This test was developed and its performance characteristics determined by [facility]. It has not been cleared or approved by the Food and Drug Administration. TESTING PERFORMED AT [facility]. ORIGINAL REPORT ON FILE IN LAB CONTAINS ADDITIONAL TEST SITE INFORMATION. Performed By: #### L801.1541 #### [place] [facility] [address] [place] [place], [address] [facility] Observed: 03/02/2017 Status: COMPLETED Source: [place] 11:54 AM [facility] [place] REPOSITORY HNO ID: [id number] Author: Mammography Coordinator Service: (none) Author Type: Physician Type: Letter Filed: 03/06/2017 11:31 PM Note Text: March 02, 2017 PID: [id number] Dorothy Puckett [address] [place] [address] Dear Ms. Puckett, We are pleased to [...] report will be kept on file at [facility] as part of your permanent medical record and are available for your continuing care. Thank you for allowing us to help in meeting your health care needs. Sincerely, Dr. Maria Interpreting Radiologist [facility] (Normal over 40) PROGRESS Observed: 03/02/2017 Status: COMPLETED Source: [place] 8:01 AM [facility] REPOSITORY HNO ID: [id number] Author: Atiya (Odilon Miranda Service: (none) Author Type: Nurse Practitioner [...] OOPH/SALP 10/20/09 Performed by FER ROMO at [facility] - LAPAROSCOPY, SURGICAL, APPENDECTOMY 10/20/09 Performed by FER ROMO at [facility] - [place] [facility] - PAST SURGICAL [...] external genitalia normal, normal Bartholin's glands, urethra, Wikieup's glands, no vulvar lesions, no cervical lesions, [...] up one year or sooner as needed ATIYA MIRANDA CNP CNOV Observed: 03/02/2017 Status: COMPLETED Source: [place] 8:00 AM [facility] REPOSITORY Office Visit (WOOB) DOROTHY PUCKETT ([id number]) 1955 F Date Time Provider Department 03/02/17 [...] OOPH/SALP 10/20/09 Performed by FER ROMO at [facility] - LAPAROSCOPY, SURGICAL, APPENDECTOMY 10/20/09 Performed by FER ROMO at [facility] - [place] [facility] - PAST SURGICAL [...] external genitalia normal, normal Bartholin's glands, urethra, Wikieup's glands, no vulvar lesions, no cervical lesions, [...] salmon and sardines and vegetables, such as Luxembourgish cabbage, kale, and broccoli. Foods fortified with [...] acid, calcium carbonate is found in some wvwm-gxg-sidlcaq antacid products, such as Tums? and Rolaids?. [...] Other Visit Diagnosis:Visit for screening mammogram [Z12.31] Order(s):[facility] SCREENING [[id number]] Order #: [id number] FUTURE Prescriptions as of 03/02/2017 Sig: VITAMIN [...] salmon and sardines and vegetables, such as [place]bourg[place] cabbage, kale, and broccoli. Foods fortified with [...] acid, calcium carbonate is found in some ddsz-vvc-maglmgb antacid products, such as Tums? and Rolaids?. [...] Encounter Status:Closed by ATIYA MIRANDA on 03/02/17 [facility] SCREENING Observed: 03/02/2017 Status: F Source: THAYER 7:56 AM [facility] REPOSITORY * * *Final Report* * * DATE OF EXAM: Mar 02 2017 7:56AM [facility] 0581 - [facility] SCREENING / PROCEDURE REASON: Encounter for screening mammogram for malignant neoplasm of breast * * * * Physician Interpretation * * * * RESULT: #[id number] - [facility] SCREENING BILATERAL DIGITAL SCREENING MAMMOGRAM WITH CAD: [...] dated: 08/13/2015 mammogram and 01/09/2014 mammogram - [facility]. The tissue of both breasts is heterogeneously dense. This may lower the sensitivity of mammography. No significant masses, calcifications, or other findings are seen in either breast. There has been no significant interval change. IMPRESSION: NEGATIVE There is no mammographic evidence of malignancy. A 1 year screening mammogram is recommended. Saeid rob/kalyan:03/02/2017 11:54:30 Program Research Specialist: Stormy READ)(Aravind), [facility] letter sent: Normal over 40 Mammogram BI-RADS: 1 Negative Glass Worker: Kalyan Transcribe Date/Time: Mar 02 2017 7:39A Dictated by: SAEID MARIA MD This examination was interpreted and the report reviewed and electronically signed by: SAEID MARIA MD on Mar 02 2017 11:54AM EST [id number] ALLERGIES ALLERGIES DATE TYPE / CODE NAME / CODE REACTION SEVERITY SOURCE 10/03/2017 Drug No Known Unknown [facility] Allergy/416 Allergies/E55865 Hospital 146571(SNOM 0388(RXNORM) Repository ED CT) Drug NO KNOWN [facility] Class/99903 ALLERGIES [facility] 1003(SNOMED Repository CT) ENCOUNTERS ENCOUNTERS ADMIT/DISCHARGE ACCOUNT ADMITTING ENCOUNTER LOCATION SOURCE NUMBER CLASS 02/09/2018 [id number] [facility] Hospital ing:MTLAB Repository 01/25/2018 [id number] Ambulatory [facility] Hospital ing:MASS Repository 01/23/2018 [id number] [facility] ing:LABSPEC Repository 01/08/2018 [id number] Ambulatory [facility] Hospital ing:CT Repository 01/04/2018 [id number] Ambulatory [facility] Hospital ing:MTLAB Repository 12/13/2017 [id number] Ambulatory [facility] Hospital ing:LAB.FUTUR Repository E 10/18/2017 [id number] Ambulatory [facility] Hospital ing:MTLAB Repository 10/03/2017/10/04/19 [id number] Ambulatory [address] Hospital ing:SDCRoom: Repository AC08 10/03/2017 [id number] Ambulatory [facility] Repository 09/20/2017 [id number] Ambulatory [facility] Hospital ing:US Repository 08/18/2017 [id number] Ambulatory [facility] Hospital ing:RAD Repository 08/16/2017 [id number] Ambulatory [facility] Hospital ing:MFPLAB Repository 08/03/2017 [id number] Ambulatory [facility] Hospital ing:MFPLAB Repository 03/02/2017/03/03/19 [id number] Ambulatory [address] Repository 03/02/2017/03/02/[id number] Repository PAYERS PAYERS ENCOUNTER GUARANTOR PAYER SUBSCRIBER SOURCE 02/09/2018 GERALD [id number] Primary DOROTHY Nazario Radha ANA MARIA Insurance:ANTHEMPolic [place] Number: [id number] Hospital 16317Btk: (216 [id number] Repository [phone] (HP) Date:7012-41-22[address]O [id number] [place] [address] 87452LW: 02/09/2018 Secondary NOT GIVENUNK [place] Insurance:SELF PAY [facility] Number: Effective Repository Date:2018-02-09 01/25/2018 GERALD [id number] Primary NOT GIVENUNK Radha ANA MARIA Insurance:SELF PAY [facility] 10976Xla: (330) Number: Effective Repository [phone] (HP) Date:2017-09-18 01/23/2018 GERALD [id number] Primary DOROTHY Nazario Radha ANA MARIA Insurance:ANTHEMPolic [place]: [place] Number: [id number] Hospital 24480Rta: (330 [id number] Repository [phone] (HP) Date:5773-19-50YF [address] [place] [address] 32151GI: 01/23/2018 Secondary NOT GIVENUNK Radha Insurance:SELF PAY [facility] Number: Effective Repository Date:2018-01-23 01/08/2018 GERALD [id number] Primary DOROTHY Nazario [place] ANA MARIA Insurance:ANTHEMPolic [place]: [place] Number: [id number] Hospital 73537Tjq: (330 [id number] Repository [phone] () Date:4065-35-11NA [id number] [place] [address] 41786CR: 01/08/2018 Secondary NOT GIVENUNK [place] Insurance:SELF PAY [facility] Number: Effective Repository Date:2017-11-06 01/04/2018 GERALD [id number] Primary DOROTHY Aravind [place] ANA MARIA Insurance:ANTHEMPolic [place]: [facility] Number: [id number] Hospital 14364Ruw: 330 [id number] Repository [phone] () Date:6948-23-95AN [address] [place] [address] 63437WO: 01/04/2018 Secondary NOT GIVENUNK Radha Insurance:SELF PAY [facility] Number: Effective Repository Date:2018-01-04 12/13/2017 GERALD [id number] Primary DOROTHY M Radha ANA MARIA Insurance:ANTHEMPolic [place]: [facility] Number: [id number] Hospital 85306Xzy: (330) [id number] Repository [phone] () Date:1150-88-32LC [id number] [place] [address] 45453ZN: 12/13/2017 Secondary NOT GIVENUNK Radha Insurance:SELF PAY [facility] Number: Effective Repository Date:2017-11-29 10/18/2017 Gerald Puckett4255 Primary DOROTHY Nazario [place] Insurance:ANTHEMPolic [place]: [facility] Number: [id number] Hospital 16942Yrr: (330) [id number] Repository [phone] () Date:2656-59-87KK [id number] [place] [address] 96715QN: 10/18/2017 Secondary NOT GIVENUNK Radha Insurance:SELF PAY [facility] Number: Effective Repository Date:2017-10-18 10/03/2017 Gerald Puckett4255 Primary DOROTHY Nazario Radha [place] Insurance:ANTHEMPolic [place]: [facility] Number: [id number] Hospital 45279Dla: (330) [id number] Repository [phone] () Date:3395-19-96TK [address] [place] [address] 88872BX: 10/03/2017 Secondary NOT GIVENUNK Radha Insurance:SELF PAY [facility] Number: Effective Repository Date:2017-09-28 10/03/2017 Gerald Puckett4255 Primary DOROTHY M Radha [place] Insurance:ANTHEMPolic [place]: [facility] Number: [id number] Hospital 16523Exa: (330) [id number] Repository [phone] () Date:9421-78-85HE [address] [place] [address] 66407YM: 10/03/2017 Secondary NOT GIVENUNK [place] Insurance:SELF PAY [facility] Number: Effective Repository Date:2017-10-03 09/20/2017 Gerald Puckett4255 Primary DOROTHY M Radha [place] Insurance:ANTHEMPolic [place]: [facility] Number: [id number] Hospital 90490Ohk: (330) [id number] Repository [phone] () Date:4468-56-87NR [address] [place] [address] 37299GV: 09/20/2017 Secondary NOT GIVENUNK Radha Insurance:SELF PAY [facility] Hospital Number: Effective Repository Date:2017-08-17 08/18/2017 Gerald Puckett4255 Primary DOROTHY M Radha [place] Insurance:ANTHEMPolic [place]: [facility] Number: [id number] Hospital 79903Hdz: (330) [id number] Repository [phone] () Date:2230-41-87AL [address] [place] [address] 18605EN: 08/18/2017 Secondary NOT GIVENUNK [place] Insurance:SELF PAY [facility] Hospital Number: Effective Repository Date:2017-08-14 08/16/2017 Gerald Puckett4255 Primary DOROTHY [place] Insurance:ANTHEMPolic MAR[place]ARDOB: [facility] [place] Number: [id number] Hospital 56201Fae: (330) [id number] Repository [phone] () Date:8786-21-67WE [address], [place] [address]KO: 08/16/2017 Secondary NOT GIVENUNK Radha Insurance:SELF PAY [facility] Number: Effective Repository Date:2017-08-16 08/03/2017 Gerald Puckett4255 Primary DOROTHY Garcia [place] Insurance:ANTHEMPolic MAR[place]OB: [facility] [place] Number: [id number] Hospital 49109Nie: (330 [id number] Repository [phone] () Date:4645-01-77XI [address], [place] [address]FO: 08/03/2017 Secondary NOT GIVENUNK Radha Insurance:SELF PAY [facility] Number: Effective Repository Date:2017-08-03
== END ==
PROVIDERS: Family Provider Family Medicine; PCP Family Medicine; Referring Provider Internal Medicine Gastroenterology; Visit Provider Internal Medicine Gastroenterology
DX: K21.9 Gastro-esophageal reflux disease without esophagitis (principal); R13.10 Dysphagia, unspecified
CPT/HCPCS: 88305

== ENCOUNTER → 2018-02-09 10:05 | Outpatient (CLI) | payer BC, SELFPAY ==
[2018-02-09 12:10] LABS: Anion Gap 10 (5-15); BUN 16 mg/dL (7-18); BUN/Creat Ratio 17.3 RATIO (10-20); Calcium,Total 9.1 mg/dL (8.5-10.1); Chloride 103 mmol/L (98-107); Creatinine, Serum 0.93 mg/dL (0.55-1.02); EST Glomerular Filtration Rate 65 mL/min (>60); Est Glom Filt Rate - Afr Amer 79 mL/min (>60); Glucose 92 mg/dL (74-106); Potassium 4.1 mmol/L (3.5-5.1); Sodium Level 139 mmol/L (136-145)
[2018-02-09 12:16] LABS: Vitamin B12 493 pg/mL (211-911); Vitamin D,25 Hydroxy 30.9 ng/mL (29.95-100.01)
== END ==
PROVIDERS: Family Provider Family Medicine; PCP Family Medicine; Referring Provider Family Medicine; Visit Provider Family Medicine
DX: N18.3 Chronic kidney disease, stage 3 (moderate) (principal); E53.1 Pyridoxine deficiency; G62.9 Polyneuropathy, unspecified
CPT/HCPCS: 36415; 80048; 82306; 82607; 84425

== ENCOUNTER → 2018-03-22 11:33 | Outpatient (CLI) | payer BC, SELFPAY ==
[2018-03-22 17:20] LABS: ALB/GLOB Ratio 1.1 RATIO (0.9-2.4); AST(SGOT) 22 U/L (15-37); Alanine Aminotransfer ALT/SGPT 49 U/L (13-56); Albumin, Serum 4.1 g/dL (3.2-5.0); Alkaline Phosphatase 110 U/L (45-117); Anion Gap 8 (5-15); BUN 19 mg/dL (7-18); BUN/Creat Ratio 20.9 RATIO (10-20); Chloride 104 mmol/L (98-107); Creatinine, Serum 0.91 mg/dL (0.55-1.02); EST Glomerular Filtration Rate 67 mL/min (>60); Est Glom Filt Rate - Afr Amer 81 mL/min (>60); Globulin 3.9 g/dL (2.2-4.2); Glucose 77 mg/dL (74-106); Potassium 4.1 mmol/L (3.5-5.1); Sodium Level 140 mmol/L (136-145)
[2018-03-27 20:09] LABS: Cytoplasmic Ab (C-ANCA) <1:20 titer (Neg:<1:20)
[2018-03-28 10:40] LABS: Perinuclear Ab (P-ANCA) <1:20 titer (Neg:<1:20)
[2018-03-28 11:12] LABS: ANTINUCLEAR ANTIBODIES DIRECT Negative (Negative)
== END ==
PROVIDERS: Family Provider Family Medicine; PCP Family Medicine; Visit Provider Internal Medicine Nephrology
DX: N18.2 Chronic kidney disease, stage 2 (mild) (principal); R31.21 Asymptomatic microscopic hematuria
CPT/HCPCS: 36415; 80053; 86038; 86256

== ENCOUNTER → 2018-07-25 07:56 | Outpatient (CLI) | payer BC, SELFPAY ==
[2018-07-25 10:32] LABS: AST(SGOT) 35 U/L (15-37); Alanine Aminotransfer ALT/SGPT 63 U/L (13-56); Albumin, Serum 3.8 g/dL (3.2-5.0); Alkaline Phosphatase 104 U/L (45-117); Anion Gap 6 (5-15); BUN 13 mg/dL (7-18); BUN/Creat Ratio 11.9 RATIO (10-20); Calcium,Total 9.2 mg/dL (8.5-10.1); Chloride 106 mmol/L (98-107); Creatinine, Serum 1.09 mg/dL (0.55-1.02); EST Glomerular Filtration Rate 54 mL/min (>60); Est Glom Filt Rate - Afr Amer 65 mL/min (>60); Globulin 3.8 g/dL (2.2-4.2); Glucose 100 mg/dL (74-106); Potassium 4.1 mmol/L (3.5-5.1); Protein, Total 7.6 g/dL (6.4-8.2); Sodium Level 142 mmol/L (136-145)
== END ==
PROVIDERS: Family Provider Family Medicine; PCP Family Medicine; Referring Provider Internal Medicine Nephrology; Visit Provider Internal Medicine Nephrology
DX: N18.2 Chronic kidney disease, stage 2 (mild) (principal)
CPT/HCPCS: 36415; 80053

== ENCOUNTER 2019-01-22 10:46 | Day surgery (SDC) | payer BC, SELFPAY ==
[2019-01-22 11:07] VITALS: BP 115/68; PULSE 64; RESP 16; TEMP 37.2; O2SAT 99; BMI 24.3
[2019-01-22] MEDS: Lactated Ringers 1,000 ML 100 ML IV (11:54)
--- NOTE | 2019-01-22 12:45 | BLA_PTH ---
PATIENT: JAH PUCKETT LOC[place] [facility] [place][id number] AGE/SX: 63/F ROOM: RE01/22/[address]: Dr. Pilar Newton MD : 1955 BED: DIS: 01/22/2019 SPEC #: [id number] RECD: 01/22/19 14:58 STATUS: STONE SONIA #: [id number] HOSSEIN: 01/22/19 12:[address]: Pilar Newton DEPT: SURGICAL PATHOLOGY RECD BY: Tosha Carvalho ENTERED: 01/23/19 12:00 SP TYPE: BLADDER BX OTHR DR: Dr. Wes Alex MD Tissues: Urinary bladder, NOS Procedures: Surgery Specimen Level IV HEADER OPERATION: Cysto, bladder biopsy PRE-OP DIAGNOSIS: History bladder cancer TISSUE SUBMITTED: Bladder biopsies MICROSCOPIC DIAGNOSIS Bladder, biopsy: Papillary urothelial carcinoma with the following characteristics: Grade - 1/3 Lamina propria invasion - not identified. Lymphvascular invasion - not identified. Detrusor muscle - detrusor muscle is not present in the submitted specimen. Focal chronic inflammation. KHRIS:kat 01/24/19 COMMENT Correlation with clinical and cystoscopic findings and appropriate follow up are necessary. Please make reference to previous specimen ([id number]) urinary bladder tumor, transurethral resection with diagnosis of papillary urothelial carcinoma. MICROSCOPIC DESCRIPTION Slides are reviewed. GROSS DESCRIPTION Received in fixative is one container labeled with the patient's name and designated bladder biopsy. The specimen consists of multiple irregular fragments of light meyers soft tissue that in aggregate measure 1 x 0.3 x 0.1 cm. The specimen is totally submitted in one cassette. / KHRIS:kat 01/23/19 TC:0 CPT: 40295
--- NOTE | 2019-01-22 12:58 | DCINST_ITS ---
Discharge Diet: No Restrictions Discharge Activity: Return to Normal Activity, May not drive while taking narcotic pain medications. May resume sexual activity in: 1 week Call your doctor if you observe: Fever of 101 or Higher, Inability to urinate, Inability to have a bowel movement, Calf discomfort, Uncontrolled pain Allergies/Adverse Reactions: Allergies No Known Allergies Allergy (Verified 01/22/19 11:06) Medications to take at Discharge RX: Adalimumab [Humira(Cf) Pen] 40 mg SQ QWEEK 09/29/17 RX: Calcium (Elemental) [Os-Jermaine 500] 500 mg PO DAILY@79909/29/17 RX: Cyanocobalamin [Vitamin B12] 500 mcg PO DAILY@79909/29/17 RX: Loratadine [Claritin] 10 mg PO DAILY 09/29/17 RX: Omeprazole [Prilosec] 20 mg PO DAILY 09/29/17 Primary Care Physician: Wes Alex MD [Primary Care Provider] - Test Results: Test results from this visit will be discussed in further detail at your follow- up appointment, if applicable. Please Follow Up With: Pilar Newton MD When: call office for appt to be seen next week Proposed Discharge Date: 01/22/19
--- NOTE | 2019-01-22 13:00 | PCM.OPRPT ---
Problem List (1) Bladder neoplasm of uncertain malignant potential Status: Acute Report of Operation Date of Procedure: 01/22/19 Pre-Operative Diagnosis: bladder neoplasm uncertain malignant potential Post-Operative Diagnosis: same Surgery/Procedure Performed:: cystoscopy, bladder biopsy with fulguration Type of Anesthesia:: General Specimen's removed: bladder biopsy Description of Procedure: The patient is a 63-year-old female who underwent a TURBT for a transitional cell carcinoma approximately 1 year ago. On her most recent cystoscopy in the office, I identified a very small piece of tissue on her scar site that was concerning to me. It was approximately 3 to 4 mm in size. She now presents for biopsy and fulguration of this area. All risk benefits and alternatives were discussed and informed consent was obtained. The patient was taken to the operating room and placed on the operating room table. Anesthesia monitored the head, neck, airway, IV access and vital signs throughout the case. Once anesthesia was appropriately administered, the patient was placed into dorsal lithotomy position and was prepped and draped in usual sterile fashion. A cystourethroscopy was performed. The areas of concern were once again identified on long area of the scar. There is another 5 mm lesion in the posterior bladder wall that was papillary in nature. This was not seen in the office. All 3 of these sites were removed with a biopsy forcep. A second bite was performed at the base of the papillary lesion. All 3 areas were fulgurated for hemostatic control and tissue treatment. The patient's bladder was emptied and the case was terminated. She tolerated the procedure well and was taken to the recovery room in good condition. No complications. - Complications None - Admit VTE Documentation VTE Present on Admission: Yes VTE Mechan Device Prophylaxis: SCD's VTE Pharm Prophylaxis ordered?: No Reason prophylaxis not ordered:: Treatment Not Indicated
[2019-01-22] MEDS: Cefazolin 2 GM in 0.9% Normal Saline 100 ML IV (13:10)
[2019-01-22 13:42] VITALS: BP 115/68; BP 98/55; PULSE 80; RESP 16; TEMP 36.6; O2SAT 94
[2019-01-22 13:45] VITALS: BP 115/68; BP 94/59; PULSE 77; RESP 16; O2SAT 95
[2019-01-22 14:00] VITALS: BP 110/66; BP 115/68; PULSE 76; RESP 16; O2SAT 100
[2019-01-22 14:12] VITALS: BP 115/68; BP 116/70; PULSE 71; RESP 16; TEMP 36.7; O2SAT 100
[2019-01-22 15:10] VITALS: BP 115/68; BP 116/75; PULSE 65; RESP 16; TEMP 36.6; O2SAT 99
== END 2019-01-22 15:39 | disposition home or self-care (01) ==
LOC: SDC 10:47 → AC 10:49
PROVIDERS: Family Provider Family Medicine; PCP Family Medicine; Referring Provider Urology; Visit Provider Urology
PROC: 0TBB8ZX Excision of Bladder, Via Natural or Artificial Opening Endoscopic, Diagnostic (ICD-10-PCS; CPT 52204; principal; 2019-01-22 12:35)
DX: C67.4 Malignant neoplasm of posterior wall of bladder (principal); K21.9 Gastro-esophageal reflux disease without esophagitis; Z85.51 Personal history of malignant neoplasm of bladder
CPT/HCPCS: 00910; 52204; 88305; J7120

== ENCOUNTER → 2019-01-28 07:43 | Outpatient (CLI) | payer BC, SELFPAY ==
[2019-01-22 11:07] VITALS: BMI 24.3
[2019-01-28 10:09] LABS: Absolute Neutrophil Count 2.3 X10^3/uL (2.0-7.7); Basophil# 0.05 X10^3/uL; Basophil% 0.9 % (0-1); Eosinophil# 0.11 X10^3/uL; Eosinophils% 1.9 % (0-5); Hematocrit 39.3 % (37-47); Hemoglobin 12.9 g/dL (12.0-15.0); Lymphocyte % 46.9 % (19-41); Mean Corp Hgb Conc 32.8 g/dL (32-36); Mean Corpuscular Hgb 30.4 pg (27.0-32.0); Mean Corpuscular Volume 92.7 fL (81-99); Mean Platelet Vol. 9.7 fl (6.2-12.0); Monocyte% 10.4 % (0-10); NRBC Flagged by Analyzer 0 % (0-5); Neutrophil # 2.28 X10^3/uL (2.7-7.7); Neutrophil % 39.6 % (47-70); Platelet Count 258 K/mm3 (150-450); RBC Distribution Width CV 12.5 % (11.6-14.6); RBC Distribution Width SD 42.1 fl (35.1-43.9); Red Blood Count 4.24 M/mm3 (4.2-5.4); White Blood Count 5.8 K/mm3 (4.4-11.0)
[2019-01-28 10:30] LABS: Vitamin B12 552 pg/mL (211-911)
[2019-01-28 10:39] LABS: AST(SGOT) 24 U/L (15-37); Alanine Aminotransfer ALT/SGPT 36 U/L (13-56); Albumin, Serum 3.5 g/dL (3.2-5.0); Alkaline Phosphatase 105 U/L (45-117); Anion Gap 5 (5-15); BUN 14 mg/dL (7-18); BUN/Creat Ratio 13.6 RATIO (10-20); Calcium,Total 8.5 mg/dL (8.5-10.1); Chloride 106 mmol/L (98-107); Cholesterol 175 mg/dL (200); Creatinine, Serum 1.03 mg/dL (0.55-1.02); EST Glomerular Filtration Rate 58 mL/min (>60); Est Glom Filt Rate - Afr Amer 70 mL/min (>60); Globulin 3.5 g/dL (2.2-4.2); Glucose 93 mg/dL (74-106); High Density Lipoprotein 67 mg/dL; Sodium Level 141 mmol/L (136-145); Thyroid Stim Hormone (TSH) 2.22 uIU/mL (0.358-3.74); Triglycerides 64 mg/dL; Very Low Density Lipoprotein 13 mg/dL (5-40)
[2019-01-31 17:03] LABS: Vitamin B1, Thiamine 83.2 nmol/L (66.5-200.0)
== END ==
PROVIDERS: Family Provider Family Medicine; PCP Family Medicine; Referring Provider Family Medicine; Visit Provider Family Medicine
DX: Z00.00 Encounter for general adult medical examination without abnormal findings (principal); E53.1 Pyridoxine deficiency; G62.9 Polyneuropathy, unspecified
CPT/HCPCS: 36415; 80053; 80061; 82607; 84425; 84443; 85025

== ENCOUNTER → 2019-02-21 17:10 | Outpatient (CLI) | payer BC, SELFPAY ==
[2019-01-22 11:07] VITALS: BMI 24.3
--- NOTE | 2019-02-21 | FLU_PTH ---
PATIENT: JAH PUCKETT LOC: [facility] U#:[id number] AGE/SX: 69/F ROOM: RE02/21/[address]: Davida Christianson : 1955 BED: DIS: SPEC #: [id number] RECD: 02/21/19 16:00 STATUS: STONE SONIA #: [id number] HOSSEIN: 02/21/19 00:[address]: Davida Christianson DEPT: CYTOLOGY RECD BY: Tosha Carvalho ENTERED: 02/22/19 09:28 SP TYPE: Fluid OTHR DR: Dr. Wes Alex MD Tissues: Urine Procedures: Special Stain Group II Surgery Specimen Level IV Cytospin Fluid HEADER OPERATION: Not noted PRE-OP DIAGNOSIS: Malignant neoplasm of bladder C67.9 TISSUE SUBMITTED: Urine for cytology DIAGNOSIS CYTOLOGY Urine for cytology (cytospin): Negative for malignant cells. AM:kat 02/25/19 CYTOLOGY STUDY Slides are reviewed. CYTOLOGY GROSS Received is 30 ml of clear pale yellow fluid labeled with the patient's name and and designated per the requisition as urine. Submitted for cytology preparation. /CC:cc 02/22/19 TC:5 [facility]: [id number]
[2019-02-21 17:13] LABS: Cytology, Body Fluid / CSF SEE PATHOLOGY REPORT
== END ==
PROVIDERS: PCP Family Medicine
DX: C67.9 Malignant neoplasm of bladder, unspecified (principal)
CPT/HCPCS: 88108; 88305; 88313

== ENCOUNTER → 2019-03-08 13:26 | Outpatient (CLI) | payer BC, SELFPAY | PROVIDERS: PCP Family Medicine | DX: C67.9 Malignant neoplasm of bladder, unspecified (principal) ==

== ENCOUNTER → 2019-04-10 08:25 | Outpatient (CLI) | payer BC, SELFPAY ==
[2019-04-13 04:07] LABS: QNTFERON TB Mitogen Value > 10.00 IU/mL (.); QNTFERON TB Nil Value 0.01 IU/mL (.); QNTFERON TB1+ Ag Value 0.01 IU/mL (.); QNTFERON TB2+ Ag Value 0.01 IU/mL (.)
[2019-04-13 04:39] LABS: QNTIFERON TB Positive Criteria Negative (Negative)
== END ==
PROVIDERS: PCP Family Medicine; Referring Provider Physician Assistant; Visit Provider Physician Assistant
DX: L40.0 Psoriasis vulgaris (principal); Z79.899 Other long term (current) drug therapy
CPT/HCPCS: 36415; 86480

== ENCOUNTER → 2019-05-06 11:34 | Outpatient (CLI) | payer BC, SELFPAY ==
[2019-04-11 11:24] VITALS: BMI 24.4
--- NOTE | 2019-05-06 11:38 | RAD_ITS ---
STUDY: X-RAY CHEST REASON FOR EXAM: Female, 64 years old. COUGH x3 WEEKS, NO OTHER SYMPTOMS TECHNIQUE: PA and lateral views of the chest. COMPARISON: 06/06/2014 FINDINGS: The lungs are clear and expanded. There is no demonstrated pleural abnormality. Normal size heart. Normal mediastinum and jayda. Normal visualized pulmonary arteries. Normal visualized aortic arch and descending thoracic aorta. Normal visualized thoracic spine. Normal visualized ribs, clavicles, and shoulders. There is no demonstrated abnormality of the visualized soft tissue structures of the upper abdomen. RAD/Chest PA and Lateral IMPRESSION: Normal x-ray examination of the chest. Electronically Signed: Dennis Gomez MD at 13:17 EDT Tel , Service support ,
== END ==
PROVIDERS: PCP Family Medicine; Referring Provider Family Medicine; Visit Provider Family Medicine
DX: J20.9 Acute bronchitis, unspecified (principal)
CPT/HCPCS: 71046

== ENCOUNTER → 2019-06-07 08:57 | Outpatient (CLI) | payer BC, SELFPAY ==
[2019-04-11 11:24] VITALS: BMI 24.4
--- NOTE | 2019-06-07 08:59 | ECHOD_ITS ---
Reason For Study: Syncope Procedure This was a 2D Doppler, Color Flow transthoracic echocardiogram. The study was technically difficult. Exam performed in department. Left Ventricle Normal LV size. Apical false tendon noted. Segmental dysfunction with preserved ejection fraction (see wall motion). The estimated ejection fraction is 55 %. No evidence for diastolic dysfunction. Mid-Lateral : Hypokinetic. Anterior [place] : Hypokinetic. Lateral [place] : Hypokinetic. Right Ventricle Normal RV size. Normal systolic function. Atria Normal left atrium. Normal right atrium. No doppler evidence for ASD. Mitral Valve There is no mitral annular calcification. Normal mitral valve. Trivial mitral valve insufficiency. Tricuspid Valve Normal tricuspid valve. Trivial tricuspid valve insufficiency. Unable to estimate RV systolic pressure/pulmonary artery pressure due to technically difficult study. Aortic Valve Trisinus/trileaflet aortic valve. Normal aortic valve. Pulmonic Valve The pulmonic valve is not well visualized. Great Vessels Normal sized aortic root. Pericardium/Pleural No pericardial effusion. MMode/2D Measurements & Calculations LVIDd: 4.3 cm IVSd: 0.84 cm Ao root diam: 2.7 cm LVIDs: 2.8 cm LVPWd: 0.81 cm RVDd: 3.3 cm FS: 34.8 % LAV(MOD-bp): 23.7 ml LA A4 area: 10.8 cm2 LA dimension(2D): 3.0 cm LAV(MOD-bp) Indexed: 13.4 ml/m2 LAV(MOD-sp2): 24.8 ml LAV(MOD-sp4): 22.2 ml RA A4 area: 11.4 cm2 Doppler Measurements & Calculations MV E max vince: 55.2 cm/sec Lat Peak E' Vince: 10.2 cm/sec Med Peak E' Vince: 7.6 cm/sec MV A max vince: 60.8 cm/sec E/E' lat: 5.4 E/E' med: 7.3 MV E/A: 0.91 Ao V2 max: 108.2 cm/sec LV V1 max: 93.9 cm/sec PA V2 max: 94.2 cm/sec Ao max P.7 mmHg LV V1 max P.5 mmHg Interpretation Summary The study was technically difficult. Segmental dysfunction with preserved ejection fraction (see wall motion). The estimated ejection fraction is 55 %. Trivial mitral valve insufficiency. Trivial tricuspid valve insufficiency. Unable to estimate RV systolic pressure/pulmonary artery pressure due to technically difficult study. No evidence for diastolic dysfunction. Ordering Physician: Ramon Larsen Referring Physician: Wes Alex Performed By: Katarzyna Robbins RDCS
--- NOTE | 2019-06-07 11:53 | STRESSREP_ITS ---
Stress Test Report Date: 06-07-2019 Procedure: Exercise tolerance test Indications: Syncope; family history of CAD Consent: Per the patient Procedure: The patient exercised on a Elmo protocol for 9 minutes completing Stage III achieving a peak heart rate of 151 bpm (96 % predicted maximal heart rate) with a peak blood pressure 148/80 mmHg and a peak MET capacity of approximately 10 mET's. The baseline ECG demonstrated normal sinus rhythm. The peak exercise ECG demonstrated no obvious ECG changes. There were no cardiac dysrhythmias pretest, during exercise, or recovery. The functional capacity was considered good. The patient had no complaint of chest discomfort during exercise or recovery. The examination was discontinued secondary to dyspnea. Impression: 1. Technically adequate (percent predicted maximal heart rate greater than 85%) exercise tolerance test 2. Peak exercise ECG with no obvious ECG changes 3. There were no cardiac dysrhythmias during exercise or recovery This note was generated with Best [employer] software. It may contain incorrect words, spelling, and punctuation that were not noted in checking the note before signing.
== END ==
PROVIDERS: PCP Family Medicine; Referring Provider Internal Medicine Cardiovascular Disease; Visit Provider Internal Medicine Cardiovascular Disease
DX: R55 Syncope and collapse (principal); Z82.49 Family history of ischemic heart disease and other diseases of the circulatory system
CPT/HCPCS: 93017; 93306

== ENCOUNTER 2019-06-18 07:47 | Day surgery (SDC) | payer BC, SELFPAY ==
[2019-04-11 11:24] VITALS: BMI 24.4
[2019-06-10 15:35] LABS: Absolute Lymphocyte Count 2.96 X10^3/uL (0.83-4.51); Basophil# 0.05 X10^3/uL; Basophil% 0.8 % (0-1); Eosinophil# 0.09 X10^3/uL; Eosinophils% 1.4 % (0-5); Hematocrit 38.4 % (37-47); Hemoglobin 12.8 g/dL (12.0-15.0); Lymphocyte # 2.96 X10^3/ul (4.0); Lymphocyte % 44.7 % (19-41); Mean Corp Hgb Conc 33.3 g/dL (32-36); Mean Corpuscular Hgb 30.4 pg (27.0-32.0); Mean Corpuscular Volume 91.2 fL (81-99); Mean Platelet Vol. 9.7 fl (6.2-12.0); Monocyte# 0.54 X10^3/uL; Monocyte% 8.2 % (0-10); NRBC Flagged by Analyzer 0 % (0-5); Neutrophil # 2.97 X10^3/uL (2.7-7.7); Neutrophil % 44.7 % (47-70); Platelet Count 229 K/mm3 (150-450); RBC Distribution Width CV 12.3 % (11.6-14.6); Red Blood Count 4.21 M/mm3 (4.2-5.4); White Blood Count 6.6 K/mm3 (4.4-11.0)
[2019-06-10 16:02] LABS: Anion Gap 4 (5-15); BUN 11 mg/dL (7-18); BUN/Creat Ratio 9.7 RATIO (10-20); Calcium,Total 8.8 mg/dL (8.5-10.1); Chloride 105 mmol/L (98-107); Creatinine, Serum 1.13 mg/dL (0.55-1.02); EST Glomerular Filtration Rate 52 mL/min (>60); Est Glom Filt Rate - Afr Amer 63 mL/min (>60); Glucose 104 mg/dL (74-106); Sodium Level 137 mmol/L (136-145)
[2019-06-17 10:02] VITALS: BMI 24.3
--- NOTE | 2019-06-17 16:35 | PCM.HP.BLA ---
<Drea Starkey - Last Filed: 06/17/19 16:35> History and Physical Date of Admission: 06/18/19 This is a 64 old white female that recently established with us for concerns of a family history of premature CAD/cardiovascular -her son. To the best of her knowledge she has no known cardiovascular diagnoses other than a history of syncope. She states approximately 8-10 times in her life, usually in the director of services hours before she has anything to drink or eat, sometimes standing by the refrigerator, she noticed that she does not feel right, she sees sparkles , and then she loses consciousness. She states this is not happened for some time now. It has not happened in other situations or occasions. It is never happened without any warning. She has never injured herself. She also is very active. She denies any resting or exertional chest discomfort when she is up and about. She has had no orthopnea or PND or peripheral pitting edema. There is been no concerns requiring cardiovascular testing in the past. She did undergo an echocardiogram which demonstrated LV with the appearance of regional wall motion abnormalities with overall preserved LV systolic function / LVEF of 55%. Stress treadmill was also negative. However with patient's history, family history and symptoms would like to pursue a diagnostic heart catheterization. Patient is here today to proceed with this. Intake Intake Visit Reasons: Amb Documentation Allergies No Known Allergies Allergy (Verified 06/17/19 16:25) Medications loratadine 10 mg tablet 10 mg PO DAILY PRN 04/02/19 [History Confirmed 06/17/19] pyridoxine (vitamin B6) 50 mg tablet 50 mg PO .QOD tab 04/02/19 [History Confirmed 06/17/19] adalimumab 40 mg/0.4 mL subcutaneous pen kit 40 mg SC Q2W ea 04/11/19 [History Confirmed 06/17/19] calcium carbonate 260 mg calcium (648 mg) tablet 260 mg PO DAILY 04/11/19 [History Confirmed 06/17/19] pantoprazole 20 mg tablet,delayed release 20 mg PO DAILY 04/11/19 [History Confirmed 06/17/19] clopidogrel 75 mg tablet 75 mg PO DAILY #30 tab 06/10/19 [Rx Confirmed 06/17/19] FOR[facility], LAT[facility] Medical History Family history of premature coronary artery disease (Acute) Bladder mass (Acute) Bladder neoplasm of uncertain malignant potential (Acute) Bladder cancer (Chronic) Surgical History History of appendectomy (Resolved) History of oophorectomy, unilateral (Resolved) S/P tendon repair (Resolved) transurethral resection of bladder (Resolved) Family History Son Myocardial infarction, Onset Age: 29 Father CHF (congestive heart failure) Brother CVA (cerebral vascular accident) Brother Cancer Prostate Mother CVA (cerebral vascular accident) Hypertension Social History Smoking Status: Never smoker alcohol intake: current details: occasional substance use type: does not use caffeine: Yes Type: tea Number of servings: 6 ROS Const Const: Negative for fatigue, weakness, frequent falls, excessive sweating, weight gain or weight loss Eyes Eyes: Negative for transient loss of vision, blurry vision or change in vision ENT ENT: Negative for dizziness or balance problems Cardio Chest Pain: No Palpitations: No Edema: None Muscle aches with walking: None Resp Respiratory: Positive for Cough (dry); negative for SOB with activity or SOB at rest GI GI: Negative vomiting or vomiting blood/hematemesis : Negative for hematuria Musc Musc: Negative for balance problems Skin Skin: Negative non-healing lesions or rash Neuro Neuro: Negative for dizziness, frequent falls, weakness or blurry vision Ritesh Hematologic/Lymphatic: Negative for easy bleeding Endo Endo: Negative for fatigue or excessive sweating Psych Psych: Negative for anxiety or depression Allergy Allergy/Immunology: Negative for rash Cardiology Exam Const Appearance: cooperative, healthy appearing, comfortable, well developed and well groomed Nutritional Appearance: average body habitus Orientation: alert, awake and oriented x3 Head Head: normal to inspection, normocephalic and atraumatic Ears: hearing grossly normal bilaterally Nose: external nose normal Face and Sinus: face symmetric Mouth: oral mucosae normal Teeth and gingiva: dentition normal Eyes Eyelids: eyelids normal Conjunctivae: conjunctivae normal Pupils: PERRL EOM: EOM intact bilaterally Neck Neck: normal visual inspection and full ROM Chest Chest inspection: normal inspection of the chest, symmetric chest movement and normal respiratory effort Auscultation: Bilateral: Clear to Auscultation Cardio Palpation: normal PMI Rate: regular rate Rhythm: regular rhythm Heart sounds: S1 normal and S2 normal GI GI: normal to inspection, soft and bowel sounds present Neuro General: alert, awake, oriented x3 and moves all extremities Skin Skin: no rashes or lesions noted Extremities Pulses: Normal: Right Radial Pulse, Left Radial Pulse Lower Extremity Edema: None: Bilateral Psych Psychological: normal affect Assessment & Plan Problems 1. Family history of premature coronary artery disease Z82.49 Plan - ISSA Apple Based upon patient's symptoms, recent negative testing, concern for premature coronary artery disease based on strong family history we will pursue a diagnostic heart catheterization. Patient will follow-up accordingly. <Ramon Larsen - Last Filed: 06/18/19 08:01> Problem List (1) Abnormal echocardiogram Status: Acute (2) Family history of premature coronary artery disease Status: Acute History and Physical Addendum: Date: 06-18-2019 The patient has undergone additional evaluation with noninvasive studies including a transthoracic echocardiogram and a treadmill stress test. Results are as noted below. Interpretation Summary The study was technically difficult. Segmental dysfunction with preserved ejection fraction (see wall motion). The estimated ejection fraction is 55 %. Trivial mitral valve insufficiency. Trivial tricuspid valve insufficiency. Unable to estimate RV systolic pressure/pulmonary artery pressure due to technically difficult study. No evidence for diastolic dysfunction. Stress Test Report Date: 06-07-2019 Procedure: Exercise tolerance test Indications: Syncope; family history of CAD Consent: Per the patient Procedure: The patient exercised on a Elmo protocol for 9 minutes completing Stage III achieving a peak heart rate of 151 bpm (96 % predicted maximal heart rate) with a peak blood pressure 148/80 mmHg and a peak MET capacity of approximately 10 mET's. The baseline ECG demonstrated normal sinus rhythm. The peak exercise ECG demonstrated no obvious ECG changes. There were no cardiac dysrhythmias pretest, during exercise, or recovery. The functional capacity was considered good. The patient had no complaint of chest discomfort during exercise or recovery. The examination was discontinued secondary to dyspnea. Impression: 1. Technically adequate (percent predicted maximal heart rate greater than 85%) exercise tolerance test 2. Peak exercise ECG with no obvious ECG changes 3. There were no cardiac dysrhythmias during exercise or recovery Based upon the patient's clinical course, family history, and abnormal transthoracic echocardiogram it was recommended the patient be considered for further evaluation for the possibility of underlying CAD, despite her exercise tolerance test findings, with diagnostic cardiac catheterization. The procedure and risks were discussed with her. She was agreeable to this approach. This note was generated using a voice recognition system and there may be incorrect words, spelling or punctuation that were not noted when reviewing the office note prior to saving. Essential Procedure Criteria Procedure Essential: Yes Criteria Note: On 04/23/2019 the [facility] ([facility]) Public Order signed by [facility] Director Atiya Rojas M.D., regarding the Management of Non-Essential Surgeries and Procedures for the purpose of preserving Personal Protective Equipment (PPE) and critical hospital capacity and resources within [place] went into effect as of 04/24/2019 at 5:00PM. According to the [facility] Public Order: This action will remain in full force and effect until the State of Emergency declared by the Governor no longer exists or the Director of the [facility] rescinds or modifies this Order.. This [facility] order stated all non-essential or elective surgeries and procedures that utilize PPE should be delayed unless there is undue risk to the current or future health of a patient. After reviewing the aforementioned [facility] Public Order and the patients clinical case, I have determined that the scheduled procedure meets the criteria to go forward. Risk to Patient if Procedure Delayed: Threat of permanent dysfunction of an extremity or organ if delayed - Abnormal Echocardiogram
--- NOTE | 2019-06-18 09:52 | CL.D_ITS ---
Patient Name: JAH PUCKETT Study Date: 06/18/2019 Performing: Ramon Larsen MD Ht: 66.14 inches 168 cm : 1955 Wt: 149.91 lbs 68 kg Age: 64 Gender: female BSA: 1.77 PROCEDURE(S) PERFORMED LG31-CJI/COR/LV CLINICAL PROFILE AND INDICATIONS Heart Failure: None Stress/Imaging Date: 06/07/2019 Angina Classification Anginal Classification w/in 2 Weeks: No symptoms CAD Presentations: Other: Syncope CONCLUSIONS Elevated Left Ventricular End Diastolic Pressure Normal LV size, wall motion,and systolic function LVEF: by LV gram 60 % Normal coronary arteries RECOMMENDATIONS Risk factor modification Medical therapy DESCRIPTION OF PROCEDURE The patient arrived to the procedure lab. The risks and benefits of the procedure as well as a full d escription of our services here and current unavailability of surgical backup were fully explained to the patient and/or their significant other prior to the catheterization. The Timeout was completed, verifying the correct patient and procedure. The patient's procedural site was prepped and draped in the usual fashion. Local anesthetic was given subcutaneously to right radial region with Lidocaine 2% . Using a modified Seldinger technique, arterial access was obtained via the right radial artery, a 6 Fr sheath was inserted. Right Coronary Artery selective angiography was then performed in multiple v iews using a 5 Fr. 4.0 [place] catheter. Left Coronary Artery selective angiography was performed in mu ltiple views using a 5 Fr. 4.0 [place] catheter. Left Ventriculography was performed in SMYTH projection using a 5 Fr. Pigtail catheter. LV to AO pullback pressures were then recorded.The arterial sheath was pulled and a TR Band was applied for hemostasis, there was 10cc of air placed in the band CORONARY ANGIOGRAPHY DOMINANCE: Right Dominant LEFT HEART ASSESSMENT Left Ventricular Ejection Fraction: by LV Gram 60 % Normal LV wall motion Elevated Left Ventricular End Diastolic Pressure LVEDP: 21 mmHg LEFT MAIN: Angiographically normal LEFT ANTERIOR DESCENDING ARTERY: Angiographically normal CIRCUMFLEX ARTERY: Angiographically normal RIGHT CORONARY ARTERY: Angiographically normal AORTIC ROOT: Angiographically normal COMPLICATIONS No Complications PROCEDURE MEDICATIONS Versed 1 mg IV Fentanyl 50 mcg IV Oxygen: 2 L/min via nasal cannula Heparin diluted in 23cc Heparinized saline. Patient given 10cc IA of this solution. 06/18/2019 09:19: 23 Verapamil 2.5mg, Ntg 100mcgs, 2000 units of Heparin diluted in 23cc Heparinized saline. Patient give n 10cc IA of this solution. 06/18/2019 09:19:23 SUMMARY OF HEMODYNAMIC DATA Time AIR REST ECG 08:06:15 AO 98/63 (79) SA 09:20:32 LV 134/-1, 22 09:25:52 LV 139/-3, 21 09:25:58 LV 143/-2, 25 09:27:04 LVp 142/-2, 24 09:27:10 AOp 133/77 (102) 09:27:15 Signed By Ramon Larsen MD On 06/18/2019 09:51:37 Ramon Larsen MD
== END 2019-06-18 12:00 | disposition home or self-care (01) ==
LOC: CLSP 07:49
PROVIDERS: PCP Family Medicine; Referring Provider Internal Medicine Cardiovascular Disease; Visit Provider Internal Medicine Cardiovascular Disease
DX: R94.31 Abnormal electrocardiogram [ECG] [EKG] (principal); Z86.79 Personal history of other diseases of the circulatory system; Z82.49 Family history of ischemic heart disease and other diseases of the circulatory system
CPT/HCPCS: 36415; 80048; 85025; 93458; 99152; 99153; J7040; C1769; C1894; Q9967

== ENCOUNTER → 2019-11-08 16:06 | Outpatient (CLI) | payer BC, SELFPAY ==
[2019-06-17 10:02] VITALS: BMI 24.3
[2019-11-08 17:43] LABS: Hematocrit 39.2 % (37-47); Hemoglobin 12.6 g/dL (12.0-15.0); Mean Corp Hgb Conc 32.1 g/dL (32-36); Mean Corpuscular Hgb 30.4 pg (27.0-32.0); Mean Corpuscular Volume 94.5 fL (81-99); Mean Platelet Vol. 9.5 fl (6.2-12.0); Platelet Count 262 K/mm3 (150-450); RBC Distribution Width CV 12.5 % (11.6-14.6); RBC Distribution Width SD 43.7 fl (35.1-43.9); Red Blood Count 4.15 M/mm3 (4.2-5.4); White Blood Count 7.4 K/mm3 (4.4-11.0)
[2019-11-08 18:00] LABS: Albumin, Serum 3.7 g/dL (3.2-5.0); BUN 16 mg/dL (7-18); Calcium,Total 8.9 mg/dL (8.5-10.1); Chloride 108 mmol/L (98-107); Creatinine, Serum 0.94 mg/dL (0.55-1.02); EST Glomerular Filtration Rate 64 mL/min (>60); Est Glom Filt Rate - Afr Amer 77 mL/min (>60); Glucose 104 mg/dL (74-106); Phosphorus 3.5 mg/dL (2.5-4.9); Potassium 3.8 mmol/L (3.5-5.1); Sodium Level 140 mmol/L (136-145)
[2019-11-08 18:18] LABS: Protein, Urine (Random) < 6.0 mg/dL (<11.9)
== END ==
PROVIDERS: PCP Family Medicine; Referring Provider Internal Medicine Nephrology; Visit Provider Internal Medicine Nephrology
DX: N18.2 Chronic kidney disease, stage 2 (mild) (principal)
CPT/HCPCS: 36415; 80069; 82570; 84156; 85027

== ENCOUNTER → 2019-12-02 11:38 | Outpatient (CLI) | payer BC, SELFPAY ==
[2019-06-17 10:02] VITALS: BMI 24.3
--- NOTE | 2019-12-02 09:15 | FLU_PTH ---
PATIENT: JAH PUCKETT LOC: [facility] U#:[id number] AGE/SX: 69/F ROOM: RE12/02/[address]: Dr. Michelet Rogers MD : 1955 BED: DIS: SPEC #: [id number] RECD: 12/02/19 12:18 STATUS: STONE REKaya #: [id number] HOSSEIN: 12/02/19 09:[address]: Michelet Rogers DEPT: CYTOLOGY RECD BY: Tosha Carvalho ENTERED: 12/02/19 12:19 SP TYPE: Fluid OTHR DR: Dr. Wes Alex MD Tissues: Urine Procedures: Special Stain Group II Cytospin Fluid HEADER OPERATION: Not noted PRE-OP DIAGNOSIS: Malignant neoplasm of bladder TISSUE SUBMITTED: Urine for cytology DIAGNOSIS CYTOLOGY Urine for cytology (cytospin): Negative for malignant cells. AM:kat 12/03/19 CYTOLOGY STUDY Slides are reviewed. CYTOLOGY GROSS Received is 60 ml of light yellow cloudy fluid labeled with the patient's name and and designated per the requisition as urine. Submitted for cytology preparation. / kat 12/02/19 TC:5 [facility]: [id number]
[2019-12-02 11:42] LABS: Cytology, Body Fluid / CSF SEE PATHOLOGY REPORT
== END ==
PROVIDERS: PCP Family Medicine; Visit Provider Urology
DX: C67.9 Malignant neoplasm of bladder, unspecified (principal)
CPT/HCPCS: 88108; 88313

== ENCOUNTER → 2020-04-22 08:28 | Outpatient (CLI) | payer BC, SELFPAY ==
[2019-06-17 10:02] VITALS: BMI 24.3
[2020-04-22 10:21] LABS: Absolute Lymphocyte Count 2.24 X10^3/uL (0.83-4.51); Absolute Neutrophil Count 2.9 X10^3/uL (2.0-7.7); Basophil# 0.05 X10^3/uL; Basophil% 0.9 % (0-1); Eosinophil# 0.08 X10^3/uL; Eosinophils% 1.4 % (0-5); Hematocrit 40.3 % (37-47); Hemoglobin 13.3 g/dL (12.0-15.0); Lymphocyte # 2.24 X10^3/ul (4.0); Lymphocyte % 38.7 % (19-41); Mean Corpuscular Hgb 30.4 pg (27.0-32.0); Mean Platelet Vol. 9.8 fl (6.2-12.0); Monocyte% 8.6 % (0-10); NRBC Flagged by Analyzer 0 % (0-5); Neutrophil % 50.1 % (47-70); Platelet Count 272 K/mm3 (150-450); RBC Distribution Width CV 12.6 % (11.6-14.6); RBC Distribution Width SD 42.7 fl (35.1-43.9); Red Blood Count 4.38 M/mm3 (4.2-5.4); White Blood Count 5.8 K/mm3 (4.4-11.0)
[2020-04-22 11:12] LABS: AST(SGOT) 22 U/L (15-37); Alanine Aminotransfer ALT/SGPT 33 U/L (13-56); Albumin, Serum 3.7 g/dL (3.2-5.0); Alkaline Phosphatase 122 U/L (45-117); Anion Gap 6 (5-15); BUN 11 mg/dL (7-18); BUN/Creat Ratio 10.8 RATIO (10-20); Bilirubin, Direct 0.11 mg/dL (0.00-0.30); Calcium,Total 9.2 mg/dL (8.5-10.1); Chloride 106 mmol/L (98-107); Creatinine, Serum 1.02 mg/dL (0.55-1.02); EST Glomerular Filtration Rate 58 mL/min (>60); Est Glom Filt Rate - Afr Amer 70 mL/min (>60); Globulin 3.9 g/dL (2.2-4.2); Glucose 76 mg/dL (74-106); Potassium 3.9 mmol/L (3.5-5.1); Protein, Total 7.6 g/dL (6.4-8.2); Sodium Level 141 mmol/L (136-145)
[2020-04-22 11:32] LABS: Hepatitis B Surface Antibody Non-Reactive; Hepatitis B Surface Antigen Non-Reactive (Nonreactive); Hepatitis C Antibody Non-Reactive (Nonreactive)
[2020-04-25 03:06] LABS: QNTFERON TB Mitogen Value > 10.00 IU/mL (.); QNTFERON TB Nil Value 0.03 IU/mL (.); QNTFERON TB1+ Ag Value 0.03 IU/mL (.); QNTFERON TB2+ Ag Value 0.03 IU/mL (.)
[2020-04-25 09:26] LABS: Hepatitis B Core Ab Total Negative (Negative); QNTIFERON TB Positive Criteria Negative (Negative)
== END ==
PROVIDERS: PCP Family Medicine; Referring Provider Physician Assistant; Visit Provider Physician Assistant
DX: L40.0 Psoriasis vulgaris (principal); Z79.899 Other long term (current) drug therapy; L40.53 Psoriatic spondylitis
CPT/HCPCS: 36415; 80048; 80076; 85025; 86480; 86704; 86706; 86803; 87340

== ENCOUNTER → 2020-06-11 | Outpatient (CLI) | payer BC, SELFPAY ==
[2020-05-29 08:58] VITALS: BMI 25.4
--- NOTE | 2020-06-11 | CYSPIN_PTH ---
PATIENT: JAH PUCKETT LOC: [facility] U#:[id number] AGE/SX: 65/F ROOM: RE06/11/[address]: Dr. Michelet Rogers MD : 1955 BED: DIS: 06/11/2020 SPEC #: [id number] RECD: 06/12/20 08:52 STATUS: STONE REQ #: [id number] HOSSEIN: 06/11/20 00:[address]: Michelet Rogers DEPT: CYTOLOGY RECD BY: Yayo Espinal ENTERED: 06/12/20 08:52 SP TYPE: CYSPIN FL OTHR DR: Dr. Wes Alex MD Tissues: Urine Procedures: Pap Stain (control) Special Stain Group II Cytospin Fluid HEADER OPERATION: Not noted PRE-OP DIAGNOSIS: Bladder cancer TISSUE SUBMITTED: Urine for cytology DIAGNOSIS CYTOLOGY Urine for cytology (cytospin): Negative for malignant cells. See comment. SJ:kat 06/12/2020 COMMENT Clinical correlation and appropriate follow up are necessary. Please make reference to previous specimens ([id number]) urinary bladder tumor, TUR with diagnosis of ?papillary urothelial carcinoma? and ([id number]) bladder, biopsy with diagnosis of ?papillary urothelial carcinoma.? CYTOLOGY STUDY Slides are reviewed. CYTOLOGY GROSS Received is 80 ml of light yellow cloudy fluid labeled with the patient's name and and designated per the requisition as urine. Submitted for cytology preparation. / kat 06/12/2020 TC:5 CPT: 80829
[2020-06-11 16:08] LABS: Cytology, Body Fluid / CSF SEE PATHOLOGY REPORT
== END | disposition home or self-care (01) ==
LOC: LABSPEC 15:46
PROVIDERS: PCP Family Medicine; Visit Provider Urology
DX: Z08 Encounter for follow-up examination after completed treatment for malignant neoplasm (principal); Z85.51 Personal history of malignant neoplasm of bladder
CPT/HCPCS: 88108; 88313

== ENCOUNTER → 2020-11-06 | Outpatient (CLI) | payer BC, SELFPAY | END | disposition home or self-care (01) | LOC: LABSPEC 11-07 07:14 | PROVIDERS: Visit Provider Physician Assistant Surgical | DX: Z11.52 Encounter for screening for COVID-19 (principal) | CPT/HCPCS: 87635; U0005; U0003 ==

== ENCOUNTER → 2020-11-11 08:02 | Outpatient (CLI) | payer BC, SELFPAY ==
--- NOTE | 2020-11-11 08:06 | RAD_ITS ---
STUDY: X-RAY CHEST REASON FOR EXAM: Female, 65 years old. Cough. Congestion. TECHNIQUE: Frontal and lateral views of the chest COMPARISON: 04/09/19 FINDINGS: The lungs are clear. There are no pleural effusions. There is no pneumothorax. The heart is normal in size. The visualized osseous structures are within normal limits. RAD/Chest PA and Lateral IMPRESSION: No acute thoracic pathology. Electronically Signed: Aram Azevedo MD at 15:48 EDT Tel , Service support ,
== END ==
PROVIDERS: PCP Family Medicine; Referring Provider Family Medicine; Visit Provider Family Medicine
DX: J20.9 Acute bronchitis, unspecified (principal)
CPT/HCPCS: 71046

== ENCOUNTER → 2021-01-07 | Outpatient (CLI) | payer BC, SELFPAY ==
--- NOTE | 2021-01-07 | CYSPIN_PTH ---
PATIENT: JAH PUCKETT LOC: [facility] U#:[id number] AGE/SX: 65/F ROOM: RE01/07/[address]: Dr. Michelet Rogers MD : 1955 BED: DIS: 01/07/2021 SPEC #: [id number] RECD: 01/08/21 07:44 STATUS: STONE REKaya #: [id number] HOSSEIN: 01/07/21 00:[address]: Michelet Rogers DEPT: CYTOLOGY RECD BY: Michelle Chicas ENTERED: 01/08/21 07:44 SP TYPE: CYSPIN FL OTHR DR: Dr. Wes Alex MD Tissues: Urine Procedures: Pap Stain (control) Special Stain Group II Cytospin Fluid HEADER OPERATION: Not noted PRE-OP DIAGNOSIS: Bladder cancer TISSUE SUBMITTED: Urine for cytology DIAGNOSIS CYTOLOGY Urine for cytology (cytospin): Rare mildly atypical urothelial cells noted. See comment. SJ:kat 01/08/2021 COMMENT Clinical correlation and appropriate follow up are necessary. Please make reference to previous specimens ([id number]) urinary bladder tumor, transurethral resection with diagnosis of ?papillary urothelial carcinoma? and ([id number]) bladder, biopsy with diagnosis of ?papillary urothelial carcinoma.? CYTOLOGY STUDY Slides are reviewed. CYTOLOGY GROSS Received is 60 ml of light yellow clear fluid labeled with the patient's name and and designated per the requisition as urine. Submitted for cytology preparation. / kat 01/07/21 TC:5 CPT: 19418
[2021-01-07 17:07] LABS: Cytology, Body Fluid / CSF SEE PATHOLOGY REPORT
== END | disposition home or self-care (01) ==
LOC: LABSPEC 16:56
PROVIDERS: PCP Family Medicine; Visit Provider Urology
DX: Z85.51 Personal history of malignant neoplasm of bladder (principal)
CPT/HCPCS: 88108; 88313

== ENCOUNTER → 2021-01-18 | Outpatient (CLI) | payer BC, SELFPAY | END | disposition home or self-care (01) | LOC: LABSPEC 13:41 | PROVIDERS: PCP Family Medicine; Visit Provider Physician Assistant | DX: Z20.822 Contact with and (suspected) exposure to COVID-19 (principal) | CPT/HCPCS: 87635; U0005; U0003 ==

== ENCOUNTER 2021-03-10 07:26 | Outpatient (CLI) | payer BC, SELFPAY ==
[2021-03-10 10:33] LABS: Absolute Lymphocyte Count 2.89 X10^3/uL (0.83-4.51); Absolute Neutrophil Count 2.8 X10^3/uL (2.0-7.7); Basophil# 0.05 X10^3/uL; Basophil% 0.8 % (0-1); Eosinophil# 0.13 X10^3/uL; Hematocrit 39.5 % (37-47); Lymphocyte # 2.89 X10^3/ul (0.83-4.51); Lymphocyte % 45.3 % (19-41); Mean Corp Hgb Conc 32.9 g/dL (32-36); Mean Corpuscular Hgb 30.2 pg (27.0-32.0); Mean Corpuscular Volume 91.9 fL (81-99); Mean Platelet Vol. 9.9 fl (6.2-12.0); Monocyte# 0.54 X10^3/uL; Monocyte% 8.5 % (0-10); NRBC Flagged by Analyzer 0 % (0-5); Neutrophil # 2.76 X10^3/uL (2.7-7.7); Neutrophil % 43.2 % (47-70); Platelet Count 274 K/mm3 (150-450); RBC Distribution Width CV 12.7 % (11.6-14.6); RBC Distribution Width SD 42.5 fl (35.1-43.9); White Blood Count 6.4 K/mm3 (4.4-11.0)
[2021-03-10 10:39] LABS: AST(SGOT) 21 U/L (15-37); Alanine Aminotransfer ALT/SGPT 32 U/L (13-56); Albumin, Serum 3.7 g/dL (3.2-5.0); Alkaline Phosphatase 109 U/L (45-117); Anion Gap 5 (5-15); BUN 17 mg/dL (7-18); Chloride 104 mmol/L (98-107); Creatinine, Serum 1.06 mg/dL (0.55-1.02); EST Glomerular Filtration Rate 55 mL/min (>60); Est Glom Filt Rate - Afr Amer 67 mL/min (>60); Globulin 3.7 g/dL (2.2-4.2); Glucose 95 mg/dL (74-106); Potassium 3.9 mmol/L (3.5-5.1); Protein, Total 7.4 g/dL (6.4-8.2); Sodium Level 139 mmol/L (136-145)
[2021-03-13 15:07] LABS: QNTFERON TB Mitogen Value > 10.00 IU/mL (.); QNTFERON TB Nil Value 0.01 IU/mL (.); QNTFERON TB1+ Ag Value 0.02 IU/mL (.); QNTFERON TB2+ Ag Value 0.02 IU/mL (.)
[2021-03-13 17:19] LABS: QNTIFERON TB Positive Criteria Negative (Negative)
== END 2021-03-10 23:59 | disposition short-term general hospital (02) ==
LOC: MTLAB 07:28
PROVIDERS: PCP Family Medicine; Referring Provider Physician Assistant Medical; Visit Provider Physician Assistant Medical
DX: L40.0 Psoriasis vulgaris (principal); L82.1 Other seborrheic keratosis; L81.4 Other melanin hyperpigmentation; D18.01 Hemangioma of skin and subcutaneous tissue; L57.8 Other skin changes due to chronic exposure to nonionizing radiation; Z71.89 Other specified counseling; D48.5 Neoplasm of uncertain behavior of skin; L29.8 Other pruritus; R20.8 Other disturbances of skin sensation; L81.5 Leukoderma, not elsewhere classified; L60.3 Nail dystrophy; Z08 Encounter for follow-up examination after completed treatment for malignant neoplasm; Z85.820 Personal history of malignant melanoma of skin; Z79.899 Other long term (current) drug therapy
CPT/HCPCS: 36415; 80053; 85025; 86480

== ENCOUNTER 2021-03-31 08:34 | Outpatient (CLI) | payer BC, SELFPAY | END 2021-03-31 23:59 | disposition home or self-care (01) | LOC: LABSPEC 04-01 08:34 | PROVIDERS: PCP Family Medicine; Visit Provider Nurse Practitioner Family | DX: J06.9 Acute upper respiratory infection, unspecified (principal) | CPT/HCPCS: 87635; U0003; U0005 ==

== ENCOUNTER → 2021-06-23 | Outpatient (CLI) | payer BC, SELFPAY | END | disposition home or self-care (01) | LOC: MTLAB 12:35 | PROVIDERS: PCP Family Medicine; Referring Provider Family Medicine; Visit Provider Family Medicine | DX: M25.50 Pain in unspecified joint (principal) | CPT/HCPCS: 36415; 84550 ==

== ENCOUNTER → 2021-08-02 | Outpatient (CLI) | payer BC, SELFPAY ==
--- NOTE | 2021-08-02 17:49 | CT_ITS ---
EXAM: CT LEFT LOWER EXTREMITY WITHOUT INTRAVENOUS CONTRAST CLINICAL INDICATION: PAIN Technologist Notes FOOT PAIN AND SWELLING TECHNIQUE: Helically acquired images were obtained of the left lower extremity without intravenous contrast. 2-D reformats were performed by the technologist. This CT exam was performed using one or more of the following dose reduction techniques: automated exposure control, adjustment of the mA and/or kV according to patient size, and/or use of iterative reconstruction technique. This report was created using [employer] report [employer] technology. RADIATION DOSE: CTDIvol = 15.35 mGy, DLP = 465.06 mGy-cm COMPARISON: None. FINDINGS: BONES/JOINTS: Degenerate findings of the first metatarsal phalangeal joint. Healing fracture of the distal shaft of the third metatarsal bone. There is an enthesophyte involving the posterior superior calcaneus at the site of insertion of the Achilles tendon. There is a calcaneal spur. Small talar spur. SOFT TISSUES: Soft tissue swelling around the foot and ankle. No radiopaque foreign body. CT/Extremity Lower without Contra IMPRESSION: 1. Soft tissue swelling around the foot and ankle. 2. Degenerate findings of the first metatarsal phalangeal joint. 3. Healing fracture of the distal shaft of the third metatarsal bone. Electronically Signed: Chirag Menendez MD at 18:18 EDT ,
== END | disposition home or self-care (01) ==
PROVIDERS: PCP Family Medicine; Visit Provider Physician Assistant
DX: M19.072 Primary osteoarthritis, left ankle and foot (principal); S92.332D Displaced fracture of third metatarsal bone, left foot, subsequent encounter for fracture with routine healing; X58.XXXD Exposure to other specified factors, subsequent encounter
CPT/HCPCS: 73700

== ENCOUNTER → 2021-12-29 | Outpatient (CLI) | payer BC, SELFPAY ==
[2021-12-29 07:54] LABS: Mucous, Urine 0 SEEN /hpf (<or=2+)
[2021-12-29 10:24] LABS: Absolute Neutrophil Count 4.1 X10^3/uL (2.0-7.7); Basophil# 0.07 X10^3/uL; Basophil% 0.9 % (0-1); Eosinophil# 0.09 X10^3/uL; Eosinophils% 1.2 % (0-5); Hematocrit 41.7 % (37-47); Lymphocyte % 32.5 % (19-41); Mean Corp Hgb Conc 33.6 g/dL (32-36); Mean Corpuscular Hgb 30.8 pg (27.0-32.0); Mean Corpuscular Volume 91.9 fL (81-99); Mean Platelet Vol. 9.9 fl (6.2-12.0); Monocyte% 9.5 % (0-10); NRBC Flagged by Analyzer 0 % (0-5); Neutrophil # 4.11 X10^3/uL (2.7-7.7); Neutrophil % 55.8 % (47-70); Platelet Count 281 K/mm3 (150-450); RBC Distribution Width CV 12.5 % (11.6-14.6); RBC Distribution Width SD 42.3 fl (35.1-43.9); Red Blood Count 4.54 M/mm3 (4.2-5.4); White Blood Count 7.4 K/mm3 (4.4-11.0)
[2021-12-29 10:35] LABS: PTHIN 41.3 pg/mL (18.4-80.1)
[2021-12-29 10:37] LABS: Color, Urine Yellow (Yellow); Glucose, Dipstick Normal (Normal); Ketone-Dipstick Negative (Negative); Leukocyte Esterase-Dipstick 500 /ul (Negative); Nitrite-Dipstick Negative (Negative); Occult Blood-Urine 250 /ul (Negative); Protein-Dipstick 15 mg/dl (Negative); Specific Gravity, Urine 1.015 (1.002-1.030); Urine Bilirubin Dipstick Negative (Negative); Urine Clarity Sl. Cloudy (Clear); Urine Urobilinogen Normal (Normal)
[2021-12-29 10:39] LABS: Vitamin B12 495 pg/mL (211-911); Vitamin D,25 Hydroxy 52.5 ng/mL
[2021-12-29 10:42] LABS: ALB/GLOB Ratio 0.9 RATIO (0.9-2.4); AST(SGOT) 23 U/L (15-37); Alanine Aminotransfer ALT/SGPT 39 U/L (13-56); Alkaline Phosphatase 129 U/L (45-117); Anion Gap 6 (5-15); BUN 12 mg/dL (7-18); BUN/Creat Ratio 12.1 RATIO (10-20); Calcium,Total 9.3 mg/dL (8.5-10.1); Chloride 103 mmol/L (98-107); Creatinine, Serum 0.99 mg/dL (0.55-1.02); EST Glomerular Filtration Rate 60 mL/min (>60); Est Glom Filt Rate - Afr Amer 72 mL/min (>60); Globulin 4.3 g/dL (2.2-4.2); Glucose 91 mg/dL (74-106); Phosphorus 4.1 mg/dL (2.5-4.9); Potassium 3.4 mmol/L (3.5-5.1); Protein, Total 8.3 g/dL (6.4-8.2); Sodium Level 138 mmol/L (136-145)
[2021-12-29 10:44] LABS: Protein, Urine (Random) 20.1 mg/dL (<11.9); Protein:Creat Ratio 137 mg/g CRE (0-200)
[2021-12-29 10:59] LABS: Bacteria 1+ /hpf (None Seen); Red Blood Cells-Urine 25-50 SEEN /hpf (0-5); Squamous Epithelial Cells - UA 0-5 SEEN /hpf (5-10); White Blood Cells 25-50 SEEN /hpf (0-5)
[2022-01-05 12:54] LABS: VITAMIN B6 43.8 ug/L (3.4-65.2)
== END | disposition home or self-care (01) ==
LOC: MTLAB 07:43
PROVIDERS: PCP Family Medicine; Referring Provider Family Medicine; Visit Provider Family Medicine
DX: N18.30 Chronic kidney disease, stage 3 unspecified (principal)
CPT/HCPCS: 80053; 81001; 82306; 82570; 82607; 83970; 84100; 84156; 84207; 85025

== ENCOUNTER → 2022-01-18 | Outpatient (CLI) | payer BC, SELFPAY ==
--- NOTE | 2022-01-18 | CYSPIN_PTH ---
PATIENT: JAH PUCKETT LOC: [facility] U#:[id number] AGE/SX: 66/F ROOM: RE01/18/[address]: Dr. Michelet Rogers MD : 1955 BED: DIS: 01/18/2022 SPEC #: [id number] RECD: 01/18/22 16:30 STATUS: STONE SCOTT #: [id number] HOSSEIN: 01/18/22 00:[address]: Michelet Rogers DEPT: CYTOLOGY RECD BY: Tosha Carvalho ENTERED: 01/19/22 08:46 SP TYPE: CYSPIN FL OTHR DR: Dr. Wes Alex MD Tissues: Urine Procedures: Pap Stain (control) Special Stain Group II Cytospin Fluid HEADER OPERATION: Not noted PRE-OP DIAGNOSIS: Bladder cancer TISSUE SUBMITTED: Urine for cytology DIAGNOSIS CYTOLOGY Urine for cytology (cytospin): Negative for high-grade urothelial carcinoma (Sherrie System Category II). See comment. AM:kat 01/19/2022 COMMENT The Sherrie System for urine cytology diagnostic categorization was used in the evaluation of this case. CYTOLOGY STUDY Slides are reviewed. CYTOLOGY GROSS Received is 7 ml of clear colorless fluid labeled with the patient's name and and designated per the requisition as urine. Submitted for cytology preparation. / kat 01/19/2022 TC:5 CPT: 15088
--- NOTE | 2022-01-18 16:13 | EKG12_ITS ---
Test Reason : PRE OP Blood Pressure : / mmHG Vent. Rate : 065 BPM Atrial Rate : 065 BPM P-R Int : 176 ms QRS Dur : 084 ms QT Int : 404 ms P-R-T Axes : 064 064 062 degrees QTc Int : 420 ms Normal sinus rhythm Normal ECG Confirmed by DINO AL, JORDAN ([id number]), deputy editor in chief RAFAEL DIGGS ([id number]) on 01/19/2022 8:59:30 AM Referred By: Michelet Rogers Confirmed By:OJRDAN SUN MD
[2022-01-18 17:00] LABS: Cytology, Body Fluid / CSF SEE PATHOLOGY REPORT
== END | disposition home or self-care (01) ==
LOC: PSN 16:06
PROVIDERS: PCP Family Medicine; Referring Provider Urology; Visit Provider Urology
DX: Z01.810 Encounter for preprocedural cardiovascular examination (principal); C67.9 Malignant neoplasm of bladder, unspecified
CPT/HCPCS: 87086; 87088; 88108; 88313; 93005

== ENCOUNTER → 2022-01-24 | Outpatient (CLI) | payer BC, SELFPAY ==
--- NOTE | 2022-01-24 08:00 | BLB_PTH ---
PATIENT: JAH PUCKETT LOC: [facility] U#:[id number] AGE/SX: 66/F ROOM: RE01/24/[address]: Dr. Michelet Rogers MD : 1955 BED: DIS: 01/24/2022 SPEC #: [id number] RECD: 01/24/22 14:51 STATUS: STONE REKaya #: [id number] HOSSEIN: 01/24/22 08:[address]: Michelet Rogers DEPT: SURGICAL PATHOLOGY RECD BY: Michelle Chicas ENTERED: 01/25/22 09:25 SP TYPE: TURB OTHR DR: Dr. Wes Alex MD [facility] Tissues: Urinary bladder, NOS Procedures: Surgery Specimen Level V HEADER OPERATION: Transurethral resection of bladder tumor, retrograde uropathy, stent placement PRE-OP DIAGNOSIS: Malignant neoplasm of posterior wall of bladder TISSUE SUBMITTED: Bladder tumor MICROSCOPIC DIAGNOSIS Urinary bladder tumor, transurethral resection: Papillary urothelial carcinoma. See cancer synoptic report below. AM:kat 01/26/2022 COMMENT BLADDER CANCER (TUR) SUMMARY Procedure: Transurethral resection of bladder tumor (TURBT) Tumor site: Not specified Histologic type: Papillary urothelial carcinoma Associated epithelial lesions: None identified Histologic grade: 1/3 Tumor configuration: Papillary Muscularis propria presence: Not present in biopsy. Lymphvascular invasion: Not identified Tumor extension: Confined to urothelium. Additional pathologic findings: None The above summary is in compliance with [employer] (CAP) Cancer Protocols Checklist and [place] Joint Committee on Cancer (AJCC), Staging Manual, 8th Ed. MICROSCOPIC DESCRIPTION Slides are reviewed. GROSS DESCRIPTION Received in fixative is one container labeled with the patient's name and designated bladder tumor. The specimen consists of two irregular fragments of meyers soft tissue that in aggregate measure 1.2 x 0.5 x 0.1 cm. The specimen is totally submitted in one cassette. / SJ:kat 01/25/2022 TC:[address] [facility]: [id number]
== END | disposition home or self-care (01) ==
PROVIDERS: PCP Family Medicine; Referring Provider Urology; Visit Provider Urology
DX: C67.4 Malignant neoplasm of posterior wall of bladder (principal)
CPT/HCPCS: 88307

== ENCOUNTER → 2022-04-19 | Outpatient (CLI) | payer BC, SELFPAY ==
--- NOTE | 2022-04-19 10:20 | BLA_PTH ---
PATIENT: JAH PUCKETT LOC: [facility] U#:[id number] AGE/SX: 66/F ROOM: RE04/19/[address]: Dr. Michelet Rogers MD : 1955 BED: DIS: 04/19/2022 SPEC #: [id number] RECD: 04/19/22 17:25 STATUS: STONE SCOTT #: [id number] HOSSEIN: 04/19/22 10:[address]: Michelet Rogers DEPT: SURGICAL PATHOLOGY RECD BY: Tosha Carvalho ENTERED: 04/20/22 07:58 SP TYPE: BLADDER BX OTHR DR: Dr. Wes Alex MD Tissues: Urinary bladder, NOS Procedures: Surgery Specimen Level IV HEADER OPERATION: Bladder biopsy PRE-OP DIAGNOSIS: C67.7 TISSUE SUBMITTED: Bladder biopsy MICROSCOPIC DIAGNOSIS Bladder, biopsy: Noninvasive papillary urothelial carcinoma, grade 1/3. See comment. SJ:kat 04/21/2022 COMMENT Angiolymphatic invasion is not seen. Detrusor muscle is not present in the specimen. Please make reference to previous specimens ([id number]) urinary bladder tumor, TUR and ([id number]) bladder, biopsy and ([id number]), urinary bladder, TUR with diagnosis of ?papillary urothelial carcinoma.? MICROSCOPIC DESCRIPTION Slides are reviewed. GROSS DESCRIPTION Received in fixative is one container labeled with the patient's name and designated bladder biopsy. The specimen consists of three minute pieces of meyers soft tissue measuring in aggregate 0.2 x 0.1 x <0.1 cm. The specimen is totally submitted in one cassette. / KHRIS:kat 04/20/2022 TC:0 CPT: 02441
== END | disposition home or self-care (01) ==
PROVIDERS: PCP Family Medicine; Visit Provider Urology
DX: C67.6 Malignant neoplasm of ureteric orifice (principal)
CPT/HCPCS: 88305

== ENCOUNTER → 2022-06-24 | Outpatient (CLI) | payer BC, SELFPAY ==
--- NOTE | 2022-06-24 12:53 | US_ITS ---
STUDY: RENAL ULTRASOUND - COMPLETE REASON FOR EXAM: Female, 67 years old. MALIGNANT NEOPLASM OF URETIC ORIFICE TECHNIQUE: Ultrasound evaluation of the kidneys was performed with real-time and static kwon-scale imaging. COMPARISON: CT scan 01/08/2018. FINDINGS: RIGHT KIDNEY: Normal location of the right kidney, which is normal in size. The right kidney measures 9.6 x 6.1 x 5.1 cm. There is a normal cortex of the right kidney. The renal cortex measures 1.4 cm. There is no right renal mass or cyst. There are no right renal calculi. There is no right hydronephrosis. DISTAL RIGHT URETER: There is non-visualization of the distal right ureter. There is no demonstrated right ureterovesical junction calculus. There is a visualized right ureteral jet. LEFT KIDNEY: Normal location of the left kidney, which is normal in size. The left kidney measures 10.2 x 4.2 x 5.0 cm. There is a normal cortex of the left kidney. The renal cortex measures 1.1 cm. There is no left renal mass or cyst. There are no left renal calculi. There is no left hydronephrosis. DISTAL LEFT URETER: There is non-visualization of the distal left ureter. There is no demonstrated left ureterovesical junction calculus. There is a visualized left ureteral jet. BLADDER: The distended urinary bladder has a volume of 203 ml. There is a normal wall thickness of the distended urinary bladder. There is no demonstrated mass within the urinary bladder. There are no demonstrated bladder calculi. US/Kidney and Bladder IMPRESSION: Normal ultrasound of the kidneys and urinary bladder. Electronically Signed: Hugh Moise MD at 22:51 EDT ,
== END | disposition home or self-care (01) ==
LOC: US 12:52
PROVIDERS: PCP Family Medicine; Referring Provider Urology; Visit Provider Urology
DX: C67.6 Malignant neoplasm of ureteric orifice (principal)
CPT/HCPCS: 76770

== ENCOUNTER → 2023-02-27 | Outpatient (CLI) | payer BC, SELFPAY ==
--- NOTE | 2023-02-27 | CYSPIN_PTH ---
PATHOLOGY RESULTS PATIENT: JAH PUCKETT LOC: [facility] U#:[id number] AGE/SX: 67/F ROOM: RE02/27/[address]: Dr. Michelet Rogers MD : [id number] BED: DIS: 02/27/2023 SPEC #: [id number] RECD: 02/28/23 08:15 STATUS: [facility] #: [id number] HOSSEIN: 02/27/23 00:[address]: Michelet Rogers DEPT: CYTOLOGY RECD BY: Yayo Espinal ENTERED: 02/28/23 08:16 SP TYPE: CYSPIN FL OTHR DR: Dr. 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 See comment. AM:kat 02/28/2023 COMMENT The Sherrie System for urine cytology diagnostic categorization was used in the evaluation of this case. CYTOLOGY STUDY Slides are reviewed. CYTOLOGY GROSS Received is 80 ml of clear yellow fluid labeled with the patient's name and and designated per the requisition as urine. Submitted for cytology preparation. / kat 02/27/2023 TC:5 CPT: 49989
[2023-02-27 16:17] LABS: Cytology, Body Fluid / CSF SEE PATHOLOGY REPORT
--- OUTSIDE RECORDS SUMMARY | 2023-02-27 16:27 | XMS RPT_ITS | CCD ---
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 0 07/05/2022 Discontinued Problems Active Problems Problem Classification Problem Date Documented Date Episodic/Chronic Chronic kidney disease (4 sources) Chronic kidney disease stage 3; Translations: [Chronic kidney disease, stage III (moderate)] Onset: 02-22-2018 03-07-2018 Chronic Esophageal disorders (4 sources) Gastroesophageal reflux disease without esophagitis; Translations: [Gastro-esophageal reflux disease without esophagitis] Onset: 08-15-2017 03-07-2018 Chronic Menopausal disorders (4 sources) Postmenopausal bleeding; Translations: [Postmenopausal bleeding] Onset: 05-02-2012 05-02-2012 Chronic Other diseases of bladder and urethra (4 sources) Disorder of bladder; Translations: [Other specified disorders of bladder] Onset: 10-03-2017 03-07-2018 Chronic Other inflammatory condition of skin (4 sources) Psoriasis vulgaris; Translations: [Psoriasis vulgaris] Onset: 01-16-2018 03-07-2018 Chronic Other screening for suspected conditions (not mental disorders or infectious disease) (4 sources) Endometrium thickened; Translations: [Abnormal findings on diagnostic imaging of other specified body structures] Onset: 10-21-2011 10-21-2011 Chronic Other screening for suspected conditions (not mental disorders or infectious disease) (7 sources) Patient encounter status; Translations: [Encounter for screening mammogram for malignant neoplasm of breast] Onset: 06-30-2022 Episodic Prolapse of female genital organs (1 source) Cystocele, midline; Translations: [Cystocele, midline] Onset: 07-05-2022 Chronic Residual codes; unclassified (1 source) Asymptomatic menopausal state; Translations: [Asymptomatic postmenopausal state] Onset: 07-19-2022 Episodic Residual codes; unclassified (1 source) Postmenopausal state; Translations: [Asymptomatic menopausal state] 07-19-2022 Episodic Thyroid disorders (4 sources) Non-toxic uninodular goiter; Translations: [Nontoxic single thyroid nodule] Onset: 12-09-2016 03-07-2018 Chronic Past or Other Problems Problem Classification Problem Date Documented Da te Episodic/Chronic Benign neoplasm of uterus (4 sources) Uterine leiomyoma; Translations: [Leiomyoma of uterus, unspecified] Onset: 05-02-2012 05-02-2012 Episodic Other and unspecified benign neoplasm (4 sources) Melanocytic nevus; Translations: [Melanocytic nevi, unspecified] Onset: 10-20-2016 03-07-2018 Episodic Other connective tissue disease (4 sources) Pain in thumb ; Translations: [Pain in unspecified finger(s)] Onset: 03-05-2013 03-05-2013 Episodic Other inflammatory condition of skin (4 sources) Seborrheic dermatitis of scalp; Translations: [Seborrheic dermatitis, unspecified] Onset: 09-06-2011 09-06-2011 Episodic Other liver diseases (4 sources) ALT (SGPT) level raised; Translations: [Elevated ALT measurement] Onset: 01-31-2013 03-05-2013 Episodic Results Test Name Value Interpretation Reference Range Facil ity Encounters Encounter Date Encounter Type Care Provider Facility Start: 07-19-2022 End: 07-19-2022 ambulatory ATIYA MIRANDA Facility:[facility] Start: 07-19-2022 Encounter for gynecological examination (general) (routine) without abnormal findings ATIYA MIRANDA [facility] Start: 07-19-2022 End: 07-19-2022 Patient encounter status Bone Wstr Work Phone: [facility] Start: 07-19-2022 End: 07-19-2022 Subsequent hospital visit by physician Bone Density [facility] Work Phone: Radiology Procedures Date Procedure Procedure Detail Performing Clinician Start: 07-19-2022 Dxa bone density rose dy 1/> sites axial skel Atiya Miranda APRN.CNP Work Phone: Start: 06-30-2022 End: 06-30-2022 Mammography Eliz Stafford MD Work Phone: Start: 03-26-2021 Mammography Eliz valdez MD Work Phone: Start: 10-04-2012 Lipid 1996 panel - S jimbo or Plasma Screen Ws Start: 09-20-2010 Colonoscopy Eliz valdez MD Work Phone: Plan of Treatment Date Care Activity Detail Author Start: 04-04-2030 Urine microalbumin profile DTaP,Tdap,Td Vaccine (3 - Td or Tdap) [facility] Start: 07-01-2023 Mammography [facility] Start: 01-31-2023 Urine microalbumin profile DTAP,TDAP,TD (2 - Td or Tdap) [facility] Start: 10-07-2022 Covid-19 Vaccine ( season) Covid-19 Vaccine () [facility] Start: 10-07-2022 Influenza vaccination [facility] Start: 03-26-2022 Mammography MAMMOGRAM [facility] Start: 02-06-2022 ADVANCE DIRECTIVE DISCUSSION ADVANCE DIRECTIVE DISCUSSION [facility] Start: 02-06-2022 DEPRESSION ASSESSMENT DEPRESSION ASSESSMENT [facility] Start: 2021 BONE DENSITY BONE DENSITY [facility] Start: 2021 COVID-19 VACCINE (4 - Booster for Moderna series) COVID-19 VACCINE (4 - Booster for Moderna series) [facility] Start: 10-04-2017 Lipid 1996 panel - Serum or Plasma Lipid Screening [facility] Start: 10-04-2017 LIPID SCREEN LIPID SCREEN [facility] Start: 2016 RSV Vaccine (1 - 1-dose 60+ series) RSV Vaccine (1 - 1-dose 60+ series) [facility] Start: 10-02-2015 DIABETES SCREEN DIABETES SCREEN [facility] Start: 10-02-2015 Diabetes Screening Diabetes Screening [facility] Start: 09-21-2015 Colonoscopy COLONOSCOPY [facility] Start: 09-21-2015 COLORECTAL CANCER SCREENING COLORECTAL CANCER SCREENING [facility] Start: 10-15-2010 SERUM CREATININE SERUM CREATININE [facility] Start: 2001 COLOGUARD (FIT-DNA) COLOGUARD (FIT-DNA) [facility] Start: [address] COLONOGRAPHY [facility] Start: 2001 FECAL OCCULT BLOOD FECAL OCCULT BLOOD [facility] Start: 2001 SIGMOIDOSCOPY SIGMOIDOSCOPY [facility] Start: 04-28-1975 SHINGRIX VACCINE (1 of 2) SHINGRIX VACCINE (1 of 2) [facility] Start: 1974 ANNUAL PCP TEAM CHRONIC DISEASE VISIT ANNUAL PCP TEAM CHRONIC DISEASE VISIT [facility] Start: 1962 Pneumococcal Vaccine: 65+ (1 - PCV) Pneumococcal Vaccine: 65+ (1 - PCV) [facility] Start: 1962 PNEUMOCOCCAL: 65+ (1 - PCV) PNEUMOCOCCAL: 65+ (1 - PCV) [facility] End: 07-02-2023 FRANCHESCA SCREENING W EVELIO FRANCHESCA SCREENING W EVELIO Radiology Routine Encounter for screening mammogram for malignant neoplasm of breast 1 Occurrences starting 06/02/2022 until 07/02/2023 [facility] Work Phone: Immunizations Immunization Date Immunization Notes Care Provider Ambrosio persaud 02-05-2022 influenza virus vaccine, unspecified formulation Screen Wstr [facility] 01-31-2013 tetanus toxoid, redu mckenzie diphtheria toxoid, and acellular pertussis vaccine, adsorbed Eliz Stafford MD Work Phone: [facility] 12-16-2006 influenza virus vaccine, live, attenuated, for intranasal use Eliz Stafford MD Work Phone: [facility] Work Phone: Payers Date Payer Category Payer Unknown [employer] PPO [id number] 2019-Present [phone] [address] [place] [address] PPO [id number] 2019 Unknown [id number] Social History Date Type Detail Facility Start: 09-20-2010 Tobacco smoking stat us NHIS Never smoked tobacco [facility] Start: 09-20-2010 Tobacco use and exposure Smoke less tobacco non-user [facility] Start: 03-26-2021 End: 07-05-2022 Alcohol intake Current drinker of alcohol (finding) [facility] Start: 1955 Sex Assigned At Not on file [facility] Start: 03-26-2021 End: 06-30-2022 History of Social function [facility] Start: 03-26-2021 End: 06-30-2022 Tobacco use panel [facility] National Score (1-10 0), lower number is lower risk 35 [facility] Clinical Notes 09-22-2009 to 07-19-2022 Ted Butts RT(R) - 07/19/2022 3:30 PM Hao - Mammography Coordinator - 07/01/2022 9:32 AM Kylie Forrester Mammo Tech - 06/30/2022 9:50 AM EDT Note Date & Type Note Facility 07-19-2022 Note HNO ID: [id number] Author: RT Magnus(Lane) Service: ? Author Type: Technologist Type: Progress Notes Filed: 07/19/2022 3:46 PM Note Text: Radiology Service Progress Note PATIENT NAME: Dorothy Martinez DATE OF SERVICE: July 19, 2022 TIME: 3:37 PM PATIENT IDENTITY VERIFICATION COMPLETED USING TWO (2) IDENTIFIERS: Name and Date of confirmed by patient verbally. FALL SCREENING: Has the patient had 2 falls in the last year or 1 fall with injury or currently using an Ambulatory Assistive Device (Walker, Cane, Wheelchair, Crutches, etc.)? No PATIENT GENDER DATA: Female. status: : No status: NO. PATIENT RELEVANT IMPLANT DATA REVIEWED: Not Applicable RADIOLOGY DEPARTMENT: Bone Density PERIPHERAL IV DATA: Not applicable SIGNED BY: RT Magnus(R) July 19, 2022 3:37 PM [facility] 07-19-2022 History of Presen t illness Narrative Radiology Service Progress Note PATIENT NAME: Dorothy Martinez DATE OF SERVICE: July 19, 2022 TIME: 3:37 PM PATIENT IDENTITY VERIFICATION COMPLETED USING TWO (2) IDENTIFIERS: Name and Date of confirmed by patient verbally. FALL SCREENING: Has the patient had 2 falls in the last year or 1 fall with injury or currently using an Ambulatory Assistive Device (Walker, Cane, Wheelchair, Crutches, etc.)? No PATIENT GENDER DATA: Female. status: : No status: NO. PATIENT RELEVANT IMPLANT DATA REVIEWED: Not Applicable RADIOLOGY DEPARTMENT: Bone Density PERIPHERAL IV DATA: Not applicable SIGNED BY: RT Magnus(R) July 19, 2022 3:37 PM documented in this encounter [facility] 07-05-2022 Note HNO ID: [id number] Author: Atiya Miranda APRN.RN IV THERAPY Service: ? Author Type: Nurse Practitioner Type: Progress Notes Filed: 07/05/2022 3:30 PM Note Text: Public Services Librarian offered: Patient declines. Dorothy is a 67 year old who presents for an annual gynecologic exam without complaints. Postmenopausal: Yes HRT use: No. Last Pap: 2021 normal HPV: 2021 negative History of abnormal pap: No Last mammogram: 2022 normal Sexually active: Yes Patient concerns for STD exposure: No. Pain with intercourse: No Postcoital bleeding: No Documentation from previous visit of 03/26/2021 was copied and pasted, documentation has been reviewed and edited as necessary for today's visit. 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 History Comments: Sexual Activity: Yes; Male; Postmenopausal Contraception: Tubal Ligation PAST MEDICAL HISTORY Diagnosis Date Bladder cancer (HCC) PMB (postmenopausal bleeding) Psoriasis Uterine fibroid PAST SURGICAL HISTORY Procedure Laterality Date ANESTHESIA KNEE, ARTHROSCOPIC right knee meniscus repair COLONOSCOPY 1999, 2009, 2018 5 year interval EXTRACTION, ERUPTED TOOTH OR EXPOSED ROOT (ELEVATION AND/OR FORCEPS REMOVAL) LAPAROSCOPIC APPENDECTOMY 10/20/09 Performed by FER ROMO at [facility] LAPAROSCOPY W/RMVL ADNEXAL STRUCTURES 10/20/09 Performed by FER ROMO at [facility] LIG/TRNSXJ FLP TUBE ABDL/VAG APPR UNI/BI PAST SURGICAL HISTORY OF right thumb surgery FAMILY HISTORY Problem Relation Age of Onset Hypertension Mother Thyroid Mother Stroke Mother fatal stroke @ 85yrs of age Stroke Brother fatal aneurysm @ 72yrs of age SOCIAL HISTORY Social History Tobacco Use Smoking status: Never Smokeless tobacco: Never Vaping Use Vaping Use: Never used Substance Use Topics Alcohol use: Yes Comment: Rarely Drug use: No REVIEW OF SYSTEMS Abdomen: No abdominal pain, nausea, vomiting, diarrhea, or constipation. No bloating, early satiety, indigestion, or increased flatulence. Bladder: bladder cancer - continues to remove growths. No incontinene. Breast: No breast lumps, nipple d/c, overlying skin changes, redness or skin retraction Allergies and current medication updated:Yes EXAM: BP 110/78 Ht 5' 5 (1.65m) Wt 155 lb (70.3kg) LMP 09/07/2010 BMI 25.79 kg/(m2). GENERAL: pleasant, female in no apparent distress HEENT: Normocephalic, atraumatic, mucus membranes moist, and no lesions NECK: Supple, full range of motion, no adenopathy, and thyroid normal DERMATOLOGY: Normal, without lesions, non-icteric, and non-hirsute BREAST: soft, non-tender, symmetric, no dominant mass, normal nipple-areolar complex, no lymphadenopathy, and no nipple discharge CHEST: Normal inspiratory effort ABDOMEN: soft, non-tender, and no masses PELVIC: external genitalia normal, normal Bartholin's glands, urethra, [place]'s glands, no vulvar lesions, no cervical lesions, physiologic discharge present, normal appearing perineal body and perianal region. Cystocele 1st degree BIMANUAL: uterus normal size, shape and consistency, no adnexal masses, and non-tender RECTOVAGINAL: deferred. NEURO: alert and oriented x3,exam grossly non-focal EXTREMITIES: normal ASSESSMENT/PLAN: 1) Health maintenance: Pap/HPV screening no longer needed Mammogram ordered Mammogram up to date Nutrition, exercise and routine health maintenance exams reviewed. Calcium/Vitamin D supplementation information provided. Colon cancer screening: up to date with screening BMD: ordered 2) Follow up one year or sooner as needed Atiya Miranda APRN.RN IV THERAPY [facility] 07-01-2022 Miscellaneous Notes July 04, 2022 PID: [id number] Dorothy Martinez [address] [place] [address] Dear Ms. Martinez, We are pleased to inform you that the results of your recent breast imaging exam on 06/30/2022 are normal. Your mammogram demonstrates that you [...] report will be kept on file at [facility] as part of your permanent medical record and are available for your continuing care. Thank you for allowing us to help in meeting your health care needs. Sincerely, Dr. Abbasi Interpreting Radiologist [facility] (Normal over 40) documented in this encounter [facility] 06-30-2022 Note HNO ID: [id number] Author: Kylie Pradhan, [employer] Service: ? Author Type: Film Cutter Type: Progress Notes Filed: 06/30/2022 10:32 AM Note Text: Radiology Service Progress Note PATIENT NAME: Dorothy Martinez DATE OF SERVICE: June 30, 2022 TIME: 10:13 AM PATIENT IDENTITY VERIFICATION COMPLETED USING TWO (2) IDENTIFIERS: Name and Date of confirmed by patient verbally. FALL SCREENING: Has the patient had 2 falls in the last year or 1 fall with injury or currently using an Ambulatory Assistive Device (Walker, Cane, Wheelchair, Crutches, etc.)? No PATIENT GENDER DATA: Female. status: : No status: NO. PATIENT RELEVANT IMPLANT DATA REVIEWED: Not Applicable RADIOLOGY DEPARTMENT: Mammography PERIPHERAL IV DATA: Not applicable SIGNED BY: Kylie Pradhan Bloominous June 30, 2022 10:13 AM [facility] 06-30-2022 History of Presen t illness Narrative Radiology Service Progress Note PATIENT NAME: Dorothy Martinez DATE OF SERVICE: June 30, 2022 TIME: 10:13 AM PATIENT IDENTITY VERIFICATION COMPLETED USING TWO (2) IDENTIFIERS: Name and Date of confirmed by patient verbally. FALL SCREENING: Has the patient had 2 falls in the last year or 1 fall with injury or currently using an Ambulatory Assistive Device (Walker, Cane, Wheelchair, Crutches, etc.)? No PATIENT GENDER DATA: Female. status: : No status: NO. PATIENT RELEVANT IMPLANT DATA REVIEWED: Not Applicable RADIOLOGY DEPARTMENT: Mammography PERIPHERAL IV DATA: Not applicable SIGNED BY: Kylie Pradhan Bloominous June 30, 2022 10:13 AM documented in this encounter [facility] 06-03-2022 Miscellaneous Notes Called and left vm. Advised pt of orders and to call at their convenience. 1st attempt. Karolyn PSS PSS- patient need annual exam and Mammogram. Please call to schedule her. Stephanie Irving RN Patient needing order for Franchesca with EVELIO order. Last seen by SW. Please file and then forward to PSS to assist patient with scheduling. Stephanie Irving RN documented in this encounter [facility] documented as of this encounter (statuses as of 06/07/2022) [facility]08-17-2010 History of Past illness Narrative* Problem Noted Date Resolved Date Ovarian mass 09/22/2009 09/06/2011 Ascites 09/22/2009 09/06/2011 documented as of this encounter (statuses as of 07/05/2022) [facility]08-17-2010 History of Past illness Narrative* Problem Noted Date Diagnosed Date Resolved Date Ovarian mass 09/22/2009 09/06/2011 Ascites 09/22/2009 09/06/2011 documented as of this encounter (statuses as of 12/11/2022) [facility]08-17-2010 History of Past illness Narrative* Problem Noted Date Diagnosed Date Resolved Date Ovarian mass 09/22/2009 09/06/2011 Ascites 09/22/2009 09/06/2011 documented as of this encounter (statuses as of 12/11/2022) [facility] Diagnosis Encounter for screening mammogram for malignant neoplasm of breast- Primary Other screening mammogram [facility] Diagnosis Encounter for screening mammogram for malignant neoplasm of breast Other screening mammogram [facility] Diagnosis Encounter for gynecological examination (general) (routine) without abnormal findings Asymptomatic postmenopausal state Encounter for screening for osteoporosis Special screening for osteoporosis [facility] Diagnostic Procedure Only (Routine) - Pending Review Specialty Diagnoses / Procedures Referred By Mikie martínez Referred To Contact [facility] Diagnoses Encounter for screening mammogram for malignant neoplasm of breast Procedures FRANCHESCA SCREENING W EVELIO SCREENING DIGITAL BREAST TOMOSYNTHESIS BI SCREENING MAMMOGRAPHY BI 2-VIEW BREAST INC Eliz Murray MD [address] [place] [address] [facility] [address] [place] [phone] Referral ID Status Reason Start Date Expiration Date Visits Requested Visits Authorized [id number] Pending Review Auto-Generat ed Referral 06/02/2022 07/02/2023 1 1 [facility] Diagnostic Procedure Only (Routine) - Closed Specialty Diagnoses / Procedures Referred By Mikie martínez Referred To Contact [facility] Diagnoses Encounter for screening mammogram for malignant neoplasm of breast Procedures FRANCHESCA SCREENING W EVELIO SCREENING DIGITAL BREAST TOMOSYNTHESIS BI SCREENING MAMMOGRAPHY BI 2-VIEW BREAST INC Eliz Murray MD [address] [place] [address] [facility] [address] [place] [address] Referral ID Status Reason Start Date Expiration Date V isits Requested Visits Authorized [id number] Closed Auto-Generate d Referral 06/02/2022 07/02/2023 1 1 [facility] for visit Narrative* Diagnostic Procedure Only (Routine) - Closed Specialty Diagnoses / Procedures Referred By Mikie t Referred To Contact [facility] Diagnoses Encounter for screening mammogram for malignant neoplasm of breast Procedures FRANCHESCA SCREENING W EVELIO SCREENING DIGITAL BREAST TOMOSYNTHESIS BI SCREENING MAMMOGRAPHY BI 2-VIEW BREAST INC CAD Eliz Stafford MD [address] [place] [address] [facility] [address] [place] [address] Referral ID Status Reason Start Date Expiration Date V isits Requested Visits Authorized [id number] Closed Auto-Generate d Referral 06/02/2022 07/02/2023 1 1 [facility] Summary Purpose Family History No Family History Records Found Advance Directives No Advanced Directives Records Found Additional Source Comments Source Comments (unrecognize d section and content) In the event this informatio n is protected by the Federal Confidentiality of Alcohol and Drug Abuse Patient Records regulations: The Federal rules restrict any use of the information to criminally investigate or prosecute any alcohol or drug abuse patient.[facility] the event this information is protected by the Federal Confidentiality of Alcohol and Drug Abuse Patient Records regulations: The Federal rules restrict any use of the information to criminally investigate or prosecute any alcohol or drug abuse patient.[facility] the event this information is protected by the Federal Confidentiality of Alcohol and Drug Abuse Patient Records regulations: The Federal rules restrict any use of the information to criminally investigate or prosecute any alcohol or drug abuse patient.[facility] the event this information is protected by the Federal Confidentiality of Alcohol and Drug Abuse Patient Records regulations: The Federal rules restrict any use of the information to criminally investigate or prosecute any alcohol or drug abuse patient.[facility] Reason for Visit (unrecogniz ed section and content) INFORMATION SOURCE (unrecogn ized section and content) FOR RECORDS PERTAINING TO PATIENTS WHO ARE OR HAVE BEEN ENROLLED IN A CHEMICAL DEPENDENCY/SUBSTANCEABUSE PROGRAM, SOME INFORMATION MAY BE OMITTED. This clinical summary was aggregated from multiple sources. Caution should be exercised in using it in the provision of clinical care. This summary normalizes information from multiple sources, and as a consequence, information in this document may materially change the coding, format and clinical context of patient data. In addition, data may be omitted in some cases. CLINICAL DECISIONS SHOULD BE BASED ON THE PRIMARY CLINICAL RECORDS. [facility] [employer] [facility]. provides no warranty or guarantee of the accuracy or completeness of information in this document.
== END | disposition home or self-care (01) ==
LOC: LABSPEC 16:06
PROVIDERS: PCP Family Medicine; Referring Provider Urology; Visit Provider Urology
DX: C67.6 Malignant neoplasm of ureteric orifice (principal)
CPT/HCPCS: 88108; 88313

== ENCOUNTER → 2023-03-14 | Outpatient (CLI) | payer BC, SELFPAY ==
--- OUTSIDE RECORDS SUMMARY | 2023-03-14 08:30 | XMS RPT_ITS | CCD ---
Author Name Unknown Address [address] [place] [address] Organization [facility] Care Team Providers Care Transportation Worker Name Role Phone Unavailable Primary Care Provider [...] Start: 07-19-2022 End: 07-19-2022 ambulatory ATIYA MIRANDA Facility:[facility] Start: 07-19-2022 Encounter for gynecological examination (general) (routine) without abnormal findings ATIYA MIRANDA [facility] Start: 07-19-2022 End: 07-19-2022 Patient encounter status Bone Wstr Work Phone: [facility] Start: 07-19-2022 End: 07-19-2022 Subsequent hospital visit by physician Bone Density Pending Sale To [facility] Work Phone: Radiology Procedures Date Procedure Procedure Detail Performing Clinician Start: 07-19-2022 Dxa bone density rose dy 1/> sites axial skel Atiya Miranda APRN.CNP Work Phone: Start: 06-30-2022 End: 06-30-2022 Mammography Eliz Stafford MD Work Phone: Start: 03-26-2021 Mammography Eliz valdez MD Work Phone: Start: 10-04-2012 Lipid 1996 panel - S jimob or Plasma Screen Ws Start: 09-20-2010 Colonoscopy Eliz valdez MD Work Phone: Plan of Treatment Date Care Activity Detail Author Start: 04-04-2030 Urine microalbumin profile DTaP,Tdap,Td Vaccine (3 - Td or Tdap) [facility] Start: 07-01-2023 Mammography [facility] Start: 01-31-2023 Urine microalbumin profile DTAP,TDAP,TD (2 - Td or Tdap) [facility] Start: 10-07-2022 Covid-19 Vaccine ( season) Covid-19 Vaccine () [facility] Start: 10-07-2022 Influenza vaccination [facility] Start: 03-26-2022 Mammography MAMMOGRAM [facility] Start: 02-06-2022 ADVANCE DIRECTIVE DISCUSSION ADVANCE DIRECTIVE DISCUSSION [facility] Start: 02-06-2022 DEPRESSION ASSESSMENT DEPRESSION ASSESSMENT [facility] Start: 2021 BONE DENSITY BONE DENSITY [facility] Start: 2021 COVID-19 VACCINE (4 - Booster for Moderna series) COVID-19 VACCINE (4 - Booster for Moderna series) [facility] Start: 10-04-2017 Lipid 1996 panel - Serum or Plasma Lipid Screening [facility] Start: 10-04-2017 LIPID SCREEN LIPID SCREEN [facility] Start: 2016 RSV Vaccine (1 - 1-dose 60+ series) RSV Vaccine (1 - 1-dose 60+ series) [facility] Start: 10-02-2015 DIABETES SCREEN DIABETES SCREEN [facility] Start: 10-02-2015 Diabetes Screening Diabetes Screening [facility] Start: 09-21-2015 Colonoscopy COLONOSCOPY [facility] Start: 09-21-2015 COLORECTAL CANCER SCREENING COLORECTAL CANCER SCREENING [facility] Start: 10-15-2010 SERUM CREATININE SERUM CREATININE [facility] Start: 2001 COLOGUARD (FIT-DNA) COLOGUARD (FIT-DNA) [facility] Start: [address] COLONOGRAPHY [facility] Start: 2001 FECAL OCCULT BLOOD FECAL OCCULT BLOOD [facility] Start: 2001 SIGMOIDOSCOPY SIGMOIDOSCOPY [facility] Start: 04-28-1975 SHINGRIX VACCINE (1 of 2) SHINGRIX VACCINE (1 of 2) [facility] Start: 1974 ANNUAL PCP TEAM CHRONIC DISEASE VISIT ANNUAL PCP TEAM CHRONIC DISEASE VISIT [facility] Start: 1962 Pneumococcal Vaccine: 65+ (1 - PCV) Pneumococcal Vaccine: 65+ (1 - PCV) [facility] Start: 1962 PNEUMOCOCCAL: 65+ (1 - PCV) PNEUMOCOCCAL: 65+ (1 - PCV) [facility] End: 07-02-2023 FRANCHESCA SCREENING W EVELIO FRANCHESCA SCREENING W EVELIO Radiology Routine Encounter for screening mammogram for malignant neoplasm of breast 1 Occurrences starting 06/02/2022 until 07/02/2023 [facility] Work Phone: Immunizations Immunization Date Immunization Notes Care Provider Ambrosio persaud 02-05-2022 influenza virus vaccine, unspecified formulation Screen Wstr [facility] 01-31-2013 tetanus toxoid, redu mckenzie diphtheria toxoid, and acellular pertussis vaccine, adsorbed Eliz Stafford MD Work Phone: [facility] 12-16-2006 influenza virus vaccine, live, attenuated, for intranasal use Eliz Stafford MD Work Phone: [facility] Work Phone: Payers Date Payer Category Payer Unknown [employer] P[employer] [id number] 2019-Present [phone] [address] [place] [address] PPO [id number] 2019 Unknown [id number] Social History Date Type Detail Facility Start: 09-20-2010 Tobacco smoking stat us NHIS Never smoked tobacco [facility] Start: 09-20-2010 Tobacco use and exposure Smoke less tobacco non-user [facility] Start: 03-26-2021 End: 07-05-2022 Alcohol intake Current drinker of alcohol (finding) [facility] Start: 1955 Sex Assigned At Not on file [facility] Start: 03-26-2021 End: 06-30-2022 History of Social function [facility] Start: 03-26-2021 End: 06-30-2022 Tobacco use panel [facility] National Score (1-10 0), lower number is lower risk 35 [facility] Clinical Notes 09-22-2009 to 07-19-2022 Ted Butts RT(R) - 07/19/2022 3:30 PM Hao - Mammography Coordinator - 07/01/2022 9:32 AM Kylie Forrester Mammo Tech - 06/30/2022 9:50 AM EDT Note Date & Type Note Facility 07-19-2022 Note HNO ID: [id number] Author: RT Magnus(Lane) Service: ? Author Type: [...] RT Magnus(R) July 19, 2022 3:37 PM [facility] 07-19-2022 History of Presen t illness Narrative [...] 2022 3:37 PM documented in this encounter [facility] 07-05-2022 Note HNO ID: [id number] Author: Atiya Miranda APRN.ROLL HAND Service: ? Author Type: Nurse Practitioner Type: Progress Notes Filed: 07/05/2022 3:30 PM Note Text: V Belt Inspector offered: Patient declines. 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 History Comments: Sexual Activity: Yes; Male; Postmenopausal Contraception: Tubal Ligation PAST MEDICAL HISTORY Diagnosis Date Bladder cancer (HCC) PMB (postmenopausal bleeding) Psoriasis Uterine fibroid PAST SURGICAL HISTORY Procedure Laterality Date ANESTHESIA KNEE, ARTHROSCOPIC right knee meniscus repair COLONOSCOPY 1999, 2009, 2018 5 year interval EXTRACTION, ERUPTED TOOTH OR EXPOSED ROOT (ELEVATION AND/OR FORCEPS REMOVAL) LAPAROSCOPIC APPENDECTOMY 10/20/09 Performed by FER ROMO at [facility] LAPAROSCOPY W/RMVL ADNEXAL STRUCTURES 10/20/09 Performed by FER ROMO at [facility] LIG/TRNSXJ FLP TUBE ABDL/VAG [...] external genitalia normal, normal Bartholin's glands, urethra, [place]'s glands, no vulvar lesions, no cervical lesions, [...] year or sooner as needed Atiya Miranda APRN.ROLL HAND [facility] 07-01-2022 Miscellaneous Notes July 04, 2022 PID: [id number] Dorothy Martinez [address] [place] [address] Dear Ms. Martinez, We are pleased to [...] report will be kept on file at [facility] as part of your permanent medical record and are available for your continuing care. Thank you for allowing us to help in meeting your health care needs. Sincerely, Dr. Abbasi Interpreting Radiologist [facility] (Normal over 40) documented in this encounter [facility] 06-30-2022 Note HNO ID: [id number] Author: Kylie Pradhan, IMVUo Got[employer] Personal Care Device Service: ? Author Type: Enrichment Specialist Type: Progress Notes Filed: 06/30/2022 10:32 AM [...] DATA: Not applicable SIGNED BY: Kylie Pradhan [employer] June 30, 2022 10:13 AM [facility] 06-30-2022 History of Presen t illness Narrative [...] DATA: Not applicable SIGNED BY: Kylie Pradhan [employer] June 30, 2022 10:13 AM documented in this encounter [facility] 06-03-2022 Miscellaneous Notes Called and left [...] Stephanie Irving RN documented in this encounter [facility] documented as of this encounter (statuses as of 06/07/2022) [facility]08-17-2010 History of Past illness Narrative* Problem Noted Date Resolved Date Ovarian mass 09/22/2009 09/06/2011 Ascites 09/22/2009 09/06/2011 documented as of this encounter (statuses as of 07/05/2022) [facility]08-17-2010 History of Past illness Narrative* Problem Noted Date Diagnosed Date Resolved Date Ovarian mass 09/22/2009 09/06/2011 Ascites 09/22/2009 09/06/2011 documented as of this encounter (statuses as of 12/11/2022) [facility]-2010 History of Past illness Narrative* Problem Noted Date Diagnosed Date Resolved Date Ovarian mass 09/22/2009 09/06/2011 Ascites 09/22/2009 09/06/2011 documented as of this encounter (statuses as of 12/11/2022) [facility] Diagnosis Encounter for screening mammogram for malignant neoplasm of breast- Primary Other screening mammogram [facility] Diagnosis Encounter for screening mammogram for malignant neoplasm of breast Other screening mammogram [facility] Diagnosis Encounter for gynecological examination (general) (routine) without abnormal findings Asymptomatic postmenopausal state Encounter for screening for osteoporosis Special screening for osteoporosis [facility] Diagnostic Procedure Only (Routine) - Pending Review Specialty Diagnoses / Procedures Referred By Mikie martínez Referred To Contact [facility] Diagnoses Encounter for screening mammogram for malignant neoplasm of breast Procedures FRANCHESCA SCREENING W EVELIO SCREENING DIGITAL BREAST TOMOSYNTHESIS BI SCREENING MAMMOGRAPHY BI 2-VIEW BREAST INC Eliz Murray MD [address] [place] [address] [facility] [address] [place] [id number] Referral ID Status Reason Start Date Expiration Date Visits Requested Visits Authorized [id number] Pending Review Auto-Generat ed Referral 06/02/2022 07/02/2023 [address] [facility] Diagnostic Procedure Only (Routine) - Closed Specialty Diagnoses / Procedures Referred By Mikie martínez Referred To Contact [facility] Diagnoses Encounter for screening mammogram for malignant neoplasm of breast Procedures FRANCHESCA SCREENING W EVELIO SCREENING DIGITAL BREAST TOMOSYNTHESIS BI SCREENING MAMMOGRAPHY BI 2-VIEW BREAST INC Eliz Murray MD [address] [place] [address] [facility] [address] [place] [address] Referral ID Status Reason Start Date Expiration Date V isits Requested Visits Authorized [id number] Closed Auto-Generate d Referral 06/02/2022 07/02/2023 1 1 [facility] for visit Narrative* Diagnostic Procedure Only (Routine) - Closed Specialty Diagnoses / Procedures Referred By Mikie t Referred To Contact [facility] Diagnoses Encounter for screening mammogram for malignant neoplasm of breast Procedures FRANCHESCA SCREENING W EVELIO SCREENING DIGITAL BREAST TOMOSYNTHESIS BI SCREENING MAMMOGRAPHY BI 2-VIEW BREAST INC CAD Eliz Stafford MD [address] [place] [address] [facility] [address] [place] [address] Referral ID Status Reason Start Date Expiration Date V isits Requested Visits Authorized [id number] Closed Auto-Generate d Referral 06/02/2022 07/02/2023 1 1 [facility] Summary Purpose Family History No Family [...] or prosecute any alcohol or drug abuse patient.[facility] the event this information is protected by the Federal Confidentiality of Alcohol and Drug Abuse Patient Records regulations: The Federal rules restrict any use of the information to criminally investigate or prosecute any alcohol or drug abuse patient.[facility] the event this information is protected by the Federal Confidentiality of Alcohol and Drug Abuse Patient Records regulations: The Federal rules restrict any use of the information to criminally investigate or prosecute any alcohol or drug abuse patient.[facility] the event this information is protected by the Federal Confidentiality of Alcohol and Drug Abuse Patient Records regulations: The Federal rules restrict any use of the information to criminally investigate or prosecute any alcohol or drug abuse patient.[facility] Reason for Visit (unrecogniz ed section [...] BE BASED ON THE PRIMARY CLINICAL RECORDS. [facility]. provides no warranty or guarantee of the accuracy or completeness of information in this document.
== END | disposition home or self-care (01) ==
PROVIDERS: PCP Family Medicine; Referring Provider Internal Medicine Critical Care Medicine; Visit Provider Internal Medicine Critical Care Medicine
DX: R05.3 Chronic cough (principal)
CPT/HCPCS: 94060; 94726; 94729

== ENCOUNTER → 2023-08-04 | Outpatient (CLI) | payer BC, SELFPAY ==
[2023-08-04 09:22] LABS: Bacteria 0 SEEN /hpf (None Seen); Mucous, Urine 0 SEEN /hpf (<or=2+); Squamous Epithelial Cells - UA 0 SEEN /hpf (5-10); White Blood Cells 0 SEEN /hpf (0-5)
[2023-08-04 10:25] LABS: Absolute Lymphocyte Count 2.68 X10^3/uL (0.83-4.51); Absolute Neutrophil Count 3.1 X10^3/uL (2.0-7.7); Basophil# 0.04 X10^3/uL; Basophil% 0.6 % (0-1); Eosinophil# 0.09 X10^3/uL; Eosinophils% 1.4 % (0-5); Hematocrit 38.9 % (37-47); Lymphocyte # 2.68 X10^3/ul (0.83-4.51); Lymphocyte % 41.3 % (19-41); Mean Corp Hgb Conc 33.4 g/dL (32-36); Mean Corpuscular Hgb 30.7 pg (27.0-32.0); Mean Corpuscular Volume 91.7 fL (81-99); Mean Platelet Vol. 9.5 fl (6.2-12.0); Monocyte% 9.2 % (0-10); NRBC Flagged by Analyzer 0 % (0-5); Neutrophil # 3.07 X10^3/uL (2.7-7.7); Neutrophil % 47.3 % (47-70); Platelet Count 254 K/mm3 (150-450); RBC Distribution Width SD 43.4 fl (35.1-43.9); Red Blood Count 4.24 M/mm3 (4.2-5.4); White Blood Count 6.5 K/mm3 (4.4-11.0)
[2023-08-04 10:27] LABS: Color, Urine Yellow (Yellow); Glucose, Dipstick Normal (Normal); Ketone-Dipstick Negative (Negative); Leukocyte Esterase-Dipstick Negative /ul (Negative); Nitrite-Dipstick Negative (Negative); Occult Blood-Urine 50 /ul (Negative); Protein-Dipstick Negative (Negative); Specific Gravity, Urine 1.005 (1.002-1.030); Urine Bilirubin Dipstick Negative (Negative); Urine Clarity Clear (Clear); Urine Urobilinogen Normal (Normal)
[2023-08-04 10:37] LABS: Protein, Urine (Random) < 6.0 mg/dL (<11.9); Red Blood Cells-Urine 0-5 SEEN /hpf (0-5)
[2023-08-04 10:59] LABS: AST(SGOT) 25 U/L (15-37); Alanine Aminotransfer ALT/SGPT 32 U/L (13-56); Albumin, Serum 3.7 g/dL (3.2-5.0); Alkaline Phosphatase 103 U/L (45-117); Anion Gap 6 (5-15); BUN 14 mg/dL (7-18); BUN/Creat Ratio 14.8 RATIO (10-20); Calcium,Total 9.4 mg/dL (8.5-10.1); Chloride 106 mmol/L (98-107); Cholesterol 172 mg/dL (200); Creatinine, Serum 0.95 mg/dL (0.55-1.02); EST Glomerular Filtration Rate 62 mL/min (>60); Est Glom Filt Rate - Afr Amer 76 mL/min (>60); Globulin 3.6 g/dL (2.2-4.2); Glucose 81 mg/dL (74-106); High Density Lipoprotein 67 mg/dL; Phosphorus 3.2 mg/dL (2.5-4.9); Potassium 4.2 mmol/L (3.5-5.1); Protein, Total 7.3 g/dL (6.4-8.2); Sodium Level 139 mmol/L (136-145); Triglycerides 159 mg/dL; Very Low Density Lipoprotein 32 mg/dL (5-40)
[2023-08-04 11:06] LABS: PTHIN 29.6 pg/mL (18.4-80.1)
[2023-08-04 11:08] LABS: Vitamin D,25 Hydroxy 49.1 ng/mL
[2023-08-08 08:11] LABS: VITAMIN B6 55.9 ug/L (3.4-65.2)
== END | disposition home or self-care (01) ==
LOC: MFPLAB 09:18
PROVIDERS: PCP Family Medicine; Visit Provider Family Medicine
DX: Z00.00 Encounter for general adult medical examination without abnormal findings (principal); N18.30 Chronic kidney disease, stage 3 unspecified
CPT/HCPCS: 80053; 80061; 81001; 82306; 82570; 83970; 84100; 84156; 84207; 85025

== ENCOUNTER → 2023-09-12 | Outpatient (CLI) | payer BC, SELFPAY ==
--- NOTE | 2023-09-12 17:03 | CYSPIN_PTH ---
PAT[facility]: [id number] AGE/SX: 68/F ROOM: RE09/12/[address]: Dr. Michelet Rogers MD : 1955 BED: DIS: 09/12/2023 SPEC #: [id number] RECD: 09/13/23 09:09 STATUS: [place] #: [id number] HOSSEIN: 09/12/23 17:[address]: Michelet Rogers DEPT: CYTOLOGY RECD BY: Michelle Chicas ENTERED: 09/13/23 09:10 SP TYPE: CYSPIN FL OTHR DR: Dr. Wes Alex MD Tissues: Urine Procedures: Pap Stain (control) Special Stain Group II Cytospin Fluid HEADER OPERATION: Not noted PRE-OP DIAGNOSIS: Malignant neoplasm of bladder TISSUE SUBMITTED: Urine for cytology DIAGNOSIS CYTOLOGY Urine for cytology (cytospin): Negative for high grade urothelial carcinoma (Sherrie System Category II). See comment. AM/ 09/13/2023 COMMENT The Sherrie System for urine cytology diagnostic categorization was used in the evaluation of this case. This specimen primarily contains benign squamous epithelial cells. Clinical correlation is suggested. CYTOLOGY STUDY Slides are reviewed. CYTOLOGY GROSS Received is 90 ml of hazy-yellow fluid labeled with the patient's name and and designated per the requisition as urine. Submitted for cytology preparation.mr 09/13/2023 TC:5 CPT: 39754
[2023-09-12 17:04] LABS: Cytology, Body Fluid / CSF SEE PATHOLOGY REPORT
== END | disposition home or self-care (01) ==
LOC: LABSPEC 16:53
PROVIDERS: PCP Family Medicine; Referring Provider Urology; Visit Provider Urology
DX: C67.9 Malignant neoplasm of bladder, unspecified (principal)
CPT/HCPCS: 88108; 88313

== ENCOUNTER → 2023-09-19 | Outpatient (CLI) | payer BC, SELFPAY ==
--- NOTE | 2023-09-19 10:30 | BD_ITS ---
STUDY: DUAL ENERGY X-RAY ABSORPTIOMETRY / DXA REASON FOR EXAM: Female, 68 years old. 627.8Menopausal postmenopausalBONE DENSITY REASON FOR EXAM TECHNIQUE: Bone Mineral Density (BMD) measurements of lumbar spine and bilateral hips were obtained. COMPARISON: None. FINDINGS: Lumbar Spine (L1-L4): g/cm2 (1.102) / T-score (0.5) / Z-score (2.4) Findings are suggestive of normal bone density with a low fracture risk. Left Femur Total: g/cm2 (0.706) / T-score (-1.9) / Z-score (-0.6) Left Femoral Neck: g/cm2 (0.637) / T-score (-1.9) / Z-score (-0.3) Right Femur Total: g/cm2 (0.726) / T-score (-1.8) / Z-score (-0.4) Right Femoral Neck: g/cm2 (0.643) / T-score (-1.9) / Z-score (-0.2) BD/Dexa Bone Density Study IMPRESSION: The patient is considered osteopenic as outlined below according to World Jew[employer] Organization (WHO) criteria with a moderate fracture risk. Reference Information: The T-score is the number of standard deviations above or below the standard which is normal for young adults at their peak bone mineral density. The World Health Organization (WHO) interprets the T-scores as follows: Above -1 Normal bone density Between -1 and -2.5 Osteopenia Equal to / or below -2.5 Osteoporosis As a practical clinical guideline, osteopenia may be graded as follows: Mild -1 through -1.5 Moderate -1.6 through -2.0 Severe -2.1 through -2.4 The Z-score is the number of standard deviations above or below age-matched controls. A Z-score of less than -1.5 would be considered abnormal. References: 1. NIH Osteoporosis and Related Bone Diseases www osteo.org 2. International Society for Clinical Densitometry www iscd.org 3. National Osteoporosis Foundation www nof.org Electronically Signed: Darrni Esposito MD at 15:35 EDT ,
== END | disposition home or self-care (01) ==
LOC: OPBD 10:29
PROVIDERS: PCP Family Medicine; Referring Provider Family Medicine; Visit Provider Family Medicine
DX: Z78.0 Asymptomatic menopausal state (principal)
CPT/HCPCS: 77080

== ENCOUNTER 2024-01-24 10:31 | Day surgery (SDC) | payer BC, SELFPAY ==
--- NOTE | 2024-01-19 13:48 | PAT.ANE_ITS ---
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 When Was Last Pacemaker Check QUESTION #4 FULL TEXT: You/Your Family Experience fever (hyperthermia) with Anesthesia Last Oral Intake Last Oral intake: Last Oral Intake NPO since Meds taken in AM with sips of water? Meds patient instructed to take am of surgery PONV PONV - elevator installer apprentice: PONV - elevator installer apprentice Female Yes 01/19/24 12:14 HX of Motion Sickness No 01/19/24 12:14 HX of N/V After Surgery No 01/19/24 12:14 Non-Smoker Yes 01/19/24 12:14 Duration of Surgery greater Yes 01/19/24 12:14 than 60 minutes Number of Risk Factors 3 01/19/24 12:14 PONV Score Moderate Risk 01/19/24 12:14 Height & Weight Height & Weight: Anesthesia: Height & Weight Height 5 ft 6 in 11/16/23 08:44 Respiratory Assessment Respiratory Assessment - elevator installer apprentice: Respiratory Tract Infection Hx - elevator installer apprentice Hx Respiratory Tract Infection No 01/19/24 12:14 STOP Sleep Apnea STOP Sleep Apnea - elevator installer apprentice: STOP Sleep Apnea - elevator installer apprentice Hx Hypertension No 01/19/24 12:14 Hx Sleep Apnea No 01/19/24 12:14 CPAP BIPAP Do you snore loudly (louder No 01/19/24 12:14 than talking or can be heard Do you often feel tired/ No 01/19/24 12:14 fatigued/ sleepy during daytime? Has anyone observed you stop No 01/19/24 12:14 breathing during sleep? STOP Results Negative 01/19/24 12:14 QUESTION #5 FULL TEXT : Do you snore loudly (louder than talking or can be heard through closed doors)? Tobacco Use History Tobacco Use History - elevator installer apprentice: Tobacco Use History - elevator installer apprentice Tobacco Use Smoking Status Never smoker 01/19/24 12:14 Hx Tobacco Use No 01/19/24 12:14 Years Smoking Packs Smoked per Day Smoking Cessation Date was within the last 15 years Hx Smoking Cessation Date Hx Smoking Cessation Counseling Hematologic Medial History Hematologic Hx - elevator installer apprentice: Hematologic Medical Hx - prick stitcher Hx of Blood Transfusion No 01/19/24 12:14 Hx of Transfusion in last 3 No 01/19/24 12:14 Months Date of Last Transfusion (if within last 3 months) Ever experience any problems No 01/19/24 12:14 with transfusion(s)? Specify any problems Hx of Preganancy in last 3 No 01/19/24 12:14 Months Nurse Filling Out Transfusion DSCHRIBER 01/19/24 12:14 & Questions: Date: 01/19/24 01/19/24 12:14 Time: 12:16 01/19/24 12:14 Patient unable to answer at this time (ie. confused, unrespo /Reproduction History /Reproductive History - elevator installer apprentice: /Reproductive Hx- elevator installer apprentice Hx Now No 01/19/24 12:14 Gestational Age (in weeks): EDC: Hx Hx Para Hx Section SAB No 01/19/24 12:14 [facility] Medical History (Updated 01/19/24 @ 12:22 by Jennifer Mayes) Wears glasses Post-menopausal Cancer Alcohol use History of steroid therapy Bladder disease Essential tremor Gastric reflux Non-smoker Bronchitis History of pain when walking History of echocardiogram History of stress test Cardiology follow-up encounter History of left heart catheterization (LHC) (~06/18/19) Bladder cancer Family history of premature coronary artery disease Bladder neoplasm of uncertain malignant potential Bladder mass Home Medications ?Medication ?Instructions ?Recorded ?Last Taken ?Type loratadine 10 mg tablet 10 mg PO DAILY PRN allergy symptoms 04/02/19 Unknown History pyridoxine (vitamin B6) 50 mg 50 mg PO QODAY 04/02/19 Unknown History tablet calcium carbonate 260 mg PO BID 04/11/19 Unknown History pantoprazole 20 mg tablet,delayed 20 mg PO DAILY 04/11/19 06/18/19 History release apremilast 30 mg tablet (Otezla) 30 mg PO QHS 01/19/24 Unknown History budesonide-formoterol HFA 160 2 inh inhalation BID PRN PRN SOB 01/19/24 Unknown History mcg-4.5 mcg/actuation aerosol inhaler (Symbicort) fluticasone propionate 50 2 spray intranasal DAILY PRN PRN 01/19/24 Unknown History mcg/actuation nasal nasal congestion spray,suspension propranolol 60 mg capsule,24 60 mg PO QHS 01/19/24 Unknown History hr,extended release Allergy/AdvReac Type Severity Reaction Status Date / Time No Known Allergies Allergy Verified 01/19/24 12:09 Family History Son Myocardial infarction, Onset Age: 29 Father CHF (congestive heart failure) Brother CVA (cerebral vascular accident) Brother Cancer Prostate Mother CVA (cerebral vascular accident) Hypertension Surgical History (Updated 01/19/24 @ 12:22 by Jennifer Mayes) Hx of colonoscopy Hx of arthroscopic knee surgery S/P tendon repair History of oophorectomy, unilateral transurethral resection of bladder History of appendectomy Social History Smoking Status: Never smoker alcohol intake: current details: occasional substance use type: does not use caffeine: Yes Type: tea Number of servings: 6 Audit: Pertinent Findings Pertinent Findings Stress test pertinent findings: neg Echo (EF%) pertinent findings: 06/2019 ef 55 Consult pertinent findings: cardio 2020 syncopenon recen . no further wkup Recommendation Anesthesia Recommendation Anesthesia recommendation: OPTIMIZED for anesthesia
[2024-01-24] VITALS (11 sets, daily range): BP systolic 86–131; BP diastolic 69–95; PULSE 71–82; RESP 16–18; TEMP 36.2–37.1; O2SAT 92–100; BMI 25.6
--- NOTE | 2024-01-24 10:41 | EKG12_ITS ---
Test Reason : PREOP Blood Pressure : */* mmHG Vent. Rate : 68 BPM Atrial Rate : 68 BPM P-R Int : 182 ms QRS Dur : 84 ms QT Int : 416 ms P-R-T Axes : 49 45 38 degrees QTcB Int : 442 ms Normal sinus rhythm Normal ECG When compared with ECG of 18-Jan-2022 16:24, No significant change was found Confirmed by LUANN AL, ROYAL ([id number]), film and video editor RAFAEL DIGGS ([id number]) on 01/25/2024 5:58:02 AM Referred By: Michelet Rogers Confirmed By: ROYAL KONG MD
--- NOTE | 2024-01-24 10:46 | PCM.PRE.AN2 ---
ASA Classification* ASA Classification ASA Classification: 2 Assessment & Plan Anesthesia* Anesthesia Assessment Anesthesia Assessment: Discussed sedation and/or anesthesia options, risks, benefits, and alternatives with patient/parents/legal guardian/POA. Questions invited. The patient/parents/legal guardian/POA seems to understand and agrees to proceed with anesthesia plan. Reviewed the physical assessment, medical history, allergy history and patient home medications list prior to surgery/procedure/anesthetic and documented any changes. Performed airway and anesthesia risk assessments. Anesthesia Type Anesthesia Type: General Anesthesia Focused Assessment* Airway Assessment Mouth opens: >3 cm Mallampati Score: II Focused Labs Anesthesia Preop lab: CBC WBC 6.5 K/mm3 (4.4-11.0) 08/04/23 09:19 RBC 4.24 M/mm3 (4.2-5.4) 08/04/23 09:19 Hgb 13.0 g/dL (12.0-15.0) 08/04/23 09:19 Hct 38.9 % (37-47) 08/04/23 09:19 Plt Count 254 K/mm3 (150-450) 08/04/23 09:19 CHEMISTRY Potassium 4.2 mmol/L (3.5-5.1) 08/04/23 09:19 Sodium 139 mmol/L (136-145) 08/04/23 09:19 Magnesium 2.0 mg/dL (1.8-2.4) 01/16/17 07:26 Phosphorus 3.2 mg/dL (2.5-4.9) 08/04/23 09:19 BUN 14 mg/dL (7-18) 08/04/23 09:19 Creatinine 0.95 mg/dL (0.55-1.02) 08/04/23 09:19 Glucose 81 mg/dL (74-106) 08/04/23 09:19 TSH 2.22 uIU/mL (0.358-3.74) 01/28/19 07:53 COAG Pre-Assessment Diagnosis/Proposed Procedure Planned Operative Procedure(s): TURBT SMALL WITH MITOMYCIN C Anesthesia History Anesthesia History - product support sales representative: Anesthesia History - product support sales representative Hx Hospitalization No 01/19/24 12:14 Any Problems With Anesthesia No 01/19/24 12:14 Cholinesterase deficiency No 01/19/24 12:14 You/Your Family Experience No 01/19/24 12:14 fever (hyperthermia) with Relationship Recent Exposure to Contagious No 01/22/19 11:07 Disease Does patient have nerve No 01/19/24 12:14 stimulator Patient instructed to have device shut off --Does patient have Pacemaker or ICD? When Was Last Pacemaker Check QUESTION #4 FULL TEXT: You/Your Family Experience fever (hyperthermia) with Anesthesia Last Oral Intake Last Oral intake: Last Oral Intake NPO since Meds taken in AM with sips of water? Meds patient instructed to take am of surgery PONV PONV - product support sales representative: PONV - product support sales representative Female Yes 01/19/24 12:14 HX of Motion Sickness No 01/19/24 12:14 HX of N/V After Surgery No 01/19/24 12:14 Non-Smoker Yes 01/19/24 12:14 Duration of Surgery greater Yes 01/19/24 12:14 than 60 minutes Number of Risk Factors 3 01/19/24 12:14 PONV Score Moderate Risk 01/19/24 12:14 Height & Weight Height & Weight: Anesthesia: Height & Weight Height 5 ft 6 in 01/23/24 08:04 Weight: 71.668 kg 01/23/24 08:04 Respiratory Assessment Respiratory Assessment - product support sales representative: Respiratory Tract Infection Hx - product support sales representative Hx Respiratory Tract Infection No 01/19/24 12:14 STOP Sleep Apnea STOP Sleep Apnea - product support sales representative: STOP Sleep Apnea - product support sales representative Hx Hypertension No 01/19/24 12:14 Hx Sleep Apnea No 01/19/24 12:14 CPAP BIPAP Do you snore loudly (louder No 01/19/24 12:14 than talking or can be heard Do you often feel tired/ No 01/19/24 12:14 fatigued/ sleepy during daytime? Has anyone observed you stop No 01/19/24 12:14 breathing during sleep? STOP Results Negative 01/19/24 12:14 QUESTION #5 FULL TEXT : Do you snore loudly (louder than talking or can be heard through closed doors)? Tobacco Use History Tobacco Use History - product support sales representative: Tobacco Use History - product support sales representative Tobacco Use Smoking Status Never smoker 01/19/24 12:14 Hx Tobacco Use No 01/19/24 12:14 Years Smoking Packs Smoked per Day Smoking Cessation Date was within the last 15 years Hx Smoking Cessation Date Hx Smoking Cessation Counseling Hematologic Medial History Hematologic Hx - product support sales representative: Hematologic Medical Hx - manuscript reader Hx of Blood Transfusion No 01/19/24 12:14 Hx of Transfusion in last 3 No 01/19/24 12:14 Months Date of Last Transfusion (if within last 3 months) Ever experience any problems No 01/19/24 12:14 with transfusion(s)? Specify any problems Hx of Preganancy in last 3 No 01/19/24 12:14 Months Nurse Filling Out Transfusion DSCHRIBER 01/19/24 12:14 & Questions: Date: 01/19/24 01/19/24 12:14 Time: 12:16 01/19/24 12:14 Patient unable to answer at this time (ie. confused, unrespo /Reproduction History /Reproductive History - product support sales representative: /Reproductive Hx- product support sales representative Hx Now No 01/19/24 12:14 Gestational Age (in weeks): EDC: Hx Hx Para Hx Section SAB No 01/19/24 12:14 Active Medications Active Medications: Current Medications Generic Name Dose Route Start Last Admin Trade Name Freq PRN Reason Stop Dose Admin Cefazolin Sodium 2 gm/ N/A 20 mls @ 400 mls/hr 01/24/24 12:40 IV 01/24/24 12:42 PREOP ONE Mitomycin 40 mg/ N/A 40 mls @ 2,400 mls/hr 01/24/24 12:40 INSTILLAT 01/24/24 12:41 X1 ONE Sodium Chloride 1,000 mls @ 15 mls/hr 01/24/24 10:40 IV 01/29/24 23:59 .Q48H [facility] Protocol PFSH Medical History (Updated 01/19/24 @ 12:22 by Jennifer Mayes) Wears glasses Post-menopausal Cancer Alcohol use History of steroid therapy Bladder disease Essential tremor Gastric reflux Non-smoker Bronchitis History of pain when walking History of echocardiogram History of stress test Cardiology follow-up encounter History of left heart catheterization (LHC) (~06/18/19) Bladder cancer Family history of premature coronary artery disease Bladder neoplasm of uncertain malignant potential Bladder mass Home Medications ?Medication ?Instructions ?Recorded ?Last Taken ?Type loratadine 10 mg tablet 10 mg PO DAILY PRN allergy symptoms 04/02/19 Unknown History pyridoxine (vitamin B6) 50 mg 50 mg PO QODAY 04/02/19 Unknown History tablet calcium carbonate 260 mg PO BID 04/11/19 Unknown History pantoprazole 20 mg tablet,delayed 20 mg PO DAILY 04/11/19 06/18/19 History release apremilast 30 mg tablet (Otezla) 30 mg PO QHS 01/19/24 Unknown History budesonide-formoterol HFA 160 2 inh inhalation BID PRN PRN SOB 01/19/24 Unknown History mcg-4.5 mcg/actuation aerosol inhaler (Symbicort) fluticasone propionate 50 2 spray intranasal DAILY PRN PRN 01/19/24 Unknown History mcg/actuation nasal nasal congestion spray,suspension propranolol 60 mg capsule,24 60 mg PO QHS 01/19/24 Unknown History hr,extended release Allergy/AdvReac Type Severity Reaction Status Date / Time No Known Allergies Allergy Verified 01/19/24 12:09 Family History Son Myocardial infarction, Onset Age: 29 Father CHF (congestive heart failure) Brother CVA (cerebral vascular accident) Brother Cancer Prostate Mother CVA (cerebral vascular accident) Hypertension Surgical History (Updated 01/19/24 @ 12:22 by Jennifer Mayes) Hx of colonoscopy Hx of arthroscopic knee surgery S/P tendon repair History of oophorectomy, unilateral transurethral resection of bladder History of appendectomy Social History Smoking Status: Never smoker alcohol intake: current details: occasional substance use type: does not use caffeine: Yes Type: tea Number of servings: 6 Review of Systems (Anesthesia) ROS Narrative System reviewed and no additional complaints, except as documented.
[2024-01-24] MEDS: 0.9% Normal Saline (1000mL) 1,000 ML 15 ML IV (11:05)
--- NOTE | 2024-01-24 12:38 | HP.PCM_ITS ---
[facility] - General General Date of Service: 01/24/24 Chief Complaint: Recurrent bladder cancer HPI Narrative JAH PUCKETT, is a 68 F who presents for treatment of recurrent bladder cancer she has a tumor right next to the left ureteral orifice that will have to be res ected. Also can do Mitomycin-C treatment afterwards. [facility] Medical History (Updated 01/19/24 @ 12:22 by Jennifer Mayes) Wears glasses Post-menopausal Cancer Alcohol use History of steroid therapy Bladder disease Essential tremor Gastric reflux Non-smoker Bronchitis History of pain when walking History of echocardiogram History of stress test Cardiology follow-up encounter History of left heart catheterization (LHC) (~06/18/19) Bladder cancer Family history of premature coronary artery disease Bladder neoplasm of uncertain malignant potential Bladder mass Home Medications ?Medication ?Instructions ?Recorded ?Last Taken ?Type loratadine 10 mg tablet 10 mg PO DAILY PRN allergy symptoms 04/02/19 Unknown History pyridoxine (vitamin B6) 50 mg 50 mg PO QODAY 04/02/19 Unknown History tablet calcium carbonate 260 mg PO BID 04/11/19 Unknown History pantoprazole 20 mg tablet,delayed 20 mg PO DAILY 04/11/19 06/18/19 History release apremilast 30 mg tablet (Otezla) 30 mg PO QHS 01/19/24 Unknown History budesonide-formoterol HFA 160 2 inh inhalation BID PRN PRN SOB 01/19/24 Unknown History mcg-4.5 mcg/actuation aerosol inhaler (Symbicort) fluticasone propionate 50 2 spray intranasal DAILY PRN PRN 01/19/24 Unknown History mcg/actuation nasal nasal congestion spray,suspension propranolol 60 mg capsule,24 60 mg PO QHS 01/19/24 Unknown History hr,extended release Allergy/AdvReac Type Severity Reaction Status Date / Time No Known Allergies Allergy Verified 01/24/24 11:08 Family History (Reviewed 11/16/23 @ 11:37 by Ade Noguera [employer]ACE SYSTEMS OPERATIONS SUPERINTENDENT, SPACE SYSTEMS OPERATIONS SUPERINTENDENT-C) Son Myocardial infarction, Onset Age: 29 Father CHF (congestive heart failure) Brother CVA (cerebral vascular accident) Brother Cancer Prostate Mother CVA (cerebral vascular accident) Hypertension Surgical History (Updated 01/19/24 @ 12:22 by Jennifer Mayes) Hx of colonoscopy Hx of arthroscopic knee surgery S/P tendon repair History of oophorectomy, unilateral transurethral resection of bladder History of appendectomy Social History (Reviewed 11/16/23 @ 11:37 by Ade Noguera SPACE SYSTEMS OPERATIONS SUPERINTENDENT, SPACE SYSTEMS OPERATIONS SUPERINTENDENT-C) Smoking Status: Never smoker alcohol intake: current details: occasional substance use type: does not use caffeine: Yes Type: tea Number of servings: 6 Vital Signs Vital Signs Vital Signs: 01/24/24 11:08 01/24/24 11:08 Temperature 98.1 F Temperature Source Temporal Pulse Rate 71 Respiratory Rate 16 Respiratory Pattern Normal Blood Pressure 117/71 Blood Pressure Mean 86 Blood Pressure Source Monitor Blood Pressure Position Sitting Blood Pressure Location Right Arm Pulse Ox 100 Oxygen Delivery Method Room Air Weight Weight: 72 kg Body Mass Index (BMI) 25.6
--- NOTE | 2024-01-24 12:40 | BLA_PTH ---
PATIENT: JAH PUCKETT LOC: [facility] U#:[id number] AGE/SX: 68/F ROOM: RE01/24/[address]: Dr. Michelet Rogers MD : 1955 BED: DIS: 01/24/2024 SPEC #: [id number] RECD: 01/24/24 16:37 STATUS: [facility] #: [id number] HOSSEIN: 01/24/24 12:[address]: Michelet Rogers DEPT: SURGICAL PATHOLOGY RECD BY: Tosha Carvalho ENTERED: 01/25/24 07:34 SP TYPE: BLADDER BX OTHR DR: Dr. Wes Alex MD Tissues: A - Urinary bladder, NOS B - Urinary bladder, NOS Procedures: Surgery Specimen Level IV HEADER OPERATION: Transurethral resection, bladder tumor-small PRE-OP DIAGNOSIS: Recurrent bladder cancer TISSUE SUBMITTED: A- Biopsy next to left ureteral orifice, B- Tumor in dome of bladder MICROSCOPIC DIAGNOSIS A. Biopsy next to left ureteral orifice: Fragments of urothelial mucosa with chronic inflammation. Negative for malignancy. B. Tumor in dome of bladder, transurethral resection: A fragment of urothelial mucosa with chronic inflammation. Negative for malignancy. . 01/26/2024 MICROSCOPIC DESCRIPTION Slides are reviewed. GROSS DESCRIPTION A. Received in fixative is one container labeled with the patient's name and designated Biopsy next to left ureteral orifice. The specimen consists of a fragment of meyers soft tissue measuring 0.5 x 0.2 x 0.1cm. A few minute fragments of tissue are also noted measuring <0.1cm in greatest dimension. B. Received in fixative is one container labeled with the patient's name and designated Tumor in dome of bladder. The specimen consists of one irregular fragment of light meyers soft tissue that measures 0.3 x 0.3 x 0.1 cm. The specimen is totally submitted in one cassette. KHRIS. 01/25/2024 TC:3 CPT:94280y2
[2024-01-24] MEDS: Cefazolin 2 GM in Syringe IV (13:08)
[2024-01-24] MEDS: MitoMYcin 40 MG in Syringe 1 EACH 2400 MG INSTILLAT (13:48)
--- NOTE | 2024-01-24 13:49 | PCM.DC ---
Discharge Instructions Diet Discharge Diet: No restrictions DC O2, CPAP, BIPAP needs Additional Home O2 Discharge instructions: No Dressing / Incision Discharge Activity: Return to Normal Activity and May Not Drive (while taking narcotic pain medications.) Dressing / Incision Call your doctor if you observe: Fever of 101 or Higher Follow Up Care Please Follow Up With: Michelet Rogers MD When: Call [phone] for an appointment Test Results: Test results from this visit will be discussed in further detail at your follow-up appointment, if applicable. Discharge Plan Admission Attending Provider: Michelet Rogers Primary Care Provider: Wes Alex Instructions Print Language: Chinese Discharge Orders/Prescriptions Prescriptions: No Action pantoprazole 20 mg tablet,delayed release (DR/EC) 20 mg PO DAILY calcium carbonate 260 mg calcium (648 mg) tablet 260 mg PO BID pyridoxine (vitamin B6) 50 mg tablet 50 mg PO QODAY loratadine 10 mg tablet 10 mg PO DAILY PRN (Reason: allergy symptoms) Otezla 30 mg tablet 30 mg PO QHS propranolol 60 mg capsule,extended release 24 hr 60 mg PO QHS fluticasone propionate 50 mcg/actuation spray,suspension 2 spray intranasal DAILY PRN PRN (Reason: nasal congestion) budesonide-formoterol [Symbicort] 160-4.5 mcg/actuation HFA aerosol inhaler 2 inh inhalation BID PRN PRN (Reason: SOB) Rx Instructions: administer with spacer, rinse mouth after each use Referrals / Follow Up: Wes Alxe MD [Primary Care Provider] - Disposition Disposition (needs filled in before D/C Order can be placed): Home, Self Care
--- NOTE | 2024-01-24 13:49 | PCM.OPRPT ---
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: No Type of Anesthesia: General RN Documented Start/Stop Times: Operation Date: 01/24/24 12:40 Case Time Into Pre-Op 01/24/24 10:42 Out of Pre-Op 01/24/24 13:05 Anesthesia Start 01/24/24 13:08 Into Room 01/24/24 13:08 Procedure Start 01/24/24 13:21 Procedure Start Time: 13:21 Procedure Stop Time: 13:50 Select all DRAINS/GRAFTS/IMPLANTS that apply: Drains Drain details: Left stent Estimated Blood Loss: None Specimen collected: Yes Description of specimen(s) removed: Biopsy from left ureteral orifice and dome of bladder Description of surgery: 68-year-old female with a history of recurrent superficial bladder cancer she has had to have multiple biopsies and resections in the past she has recurrence of the tumor that is right next to the left ureteral orifice I think again have to resect the oersted orifice in order to get rid of this tumor she also has another tumor in the dome of the bladder so plan to resect this as well. She may need a stent. Patient was taken back to the operating room after smooth induction of anesthesia she was placed in dorsolithotomy position. Went in the bladder with a 21 Guamanian rigid cystourethroscope I first did a cold cup biopsy of the tumor next the left ureteral orifice is tumor about 1 cm in size. I then went to the dome of the bladder and then another cold cup biopsy of another tumor that was 1 cm in size in the dome of the bladder I then went in with the resectoscope and I resected both the tumors completely but in order to resect the tumor next to the ureteral orifice the orifice had to be resected. This made the opening to the orifice somewhat stenotic so I put a wire through the ureteral orifice and balloon dilated with a 12 Guamanian balloon dilator and then I decided that the best course of action will be to leave the stent in 4.5 x 26 cm stent was left inside the left ureter allow this to heal properly and hopefully prevent scarring of the ureter and obstruction. We then placed a Flores catheter bladder she was given a treatment of Mitomycin-C 40 mg and 40 cc into the bladder with a Flores catheter clamped anesthetic is being reversed and taken back to the PACU in good condition we will have the catheter removed and will see her for follow-up in a few weeks to remove the stent. Surgical Findings: tumor in the left UO and dome of bladder resected and stent placed left Complications Complications: No Admit VTE Documentation VTE Present on Admission: No VTE Mechan Device Prophylaxis: SCD's VTE Pharm Prophylaxis ordered?: No
--- NOTE | 2024-01-24 14:01 | PCM.POST.ANE ---
Anesthesia: Postop Eval I Current Vital Signs Temperature: 98.7 F Pulse Rate: 78 Blood Pressure: 131/80 Respiratory Rate: 18 Pulse Ox: 95 Assessment Airway patent: Yes Spontaneous unlabored respirations: Yes nausea: No Vomiting: No Anesthesia Complication: No Fluid Hydration Crystalloid volume administer (ml): 1,000 Total IV fluid infused: 1,000 Progress Note Anesthesia document: Postop Eval 1 completed: Yes
[2024-01-24] MEDS: Ketorolac 15 MG/ML Vial IV (14:33)
--- NOTE | 2024-01-24 15:16 | SUR.PHASEI ---
AT 14:48 SCHULZ CATHETER UNCLAMPED AND DRAINING LIGHT PURPLE URINE INTO COLLECTION BAG
--- NOTE | 2024-01-24 15:16 | SUR.PHASEI ---
AT 15:05, SCHULZ CATHETER REMOVED INTACT.
--- NOTE | 2024-01-24 23:16 | POSTOPAN2_ITS ---
Anesthesia Postop Eval I Sum Postop Eval Completion status Anesthesia document: Postop Eval 1 completed: Yes Anesthesia Postop Eval I Summary Anesthesia Postop Eval I Summary: Anesthesia Postop Eval I: Assessment Summary Airway patent Yes 01/24/24 14:01 SKIN [email or web address] Spontaneous unlabored Yes 01/24/24 14:01 SKIN [email or web address].CSIR respirations Mental status nausea No 01/24/24 14:01 SKIN [email or web address].CSIR Vomiting No 01/24/24 14:01 SKIN [email or web address].CSIR Anesthesia Postop Eval I: Fluid Summary Crystalloid volume administer 1,000 01/24/24 14:01 SKIN [email or web address].CSIR (ml) Colloids volume administered ( ml) Blood Product volume administered (ml) Total IV fluid infused 1,000 01/24/24 14:01 SKIN [email or web address].CSIR Anesthesia Postop Eval I: Summary Notes Anesthesia Complication No 01/24/24 14:01 SKIN [email or web address].CSIR Anesthesia Complication Comment: Post-operative progress note Anesthesia: Postop Eval II Evaluation Mental status: Awake and Calm Pain Level: 1 nausea: No Vomiting: No Complications Anesthesia Complication: No
--- NOTE | 2024-01-24 23:16 | PCM.POSTANE2 ---
Anesthesia Postop Eval I Sum Postop Eval Completion status Anesthesia document: Postop Eval 1 completed: Yes Anesthesia Postop Eval I Summary Anesthesia Postop Eval I Summary: Anesthesia Postop Eval I: Assessment Summary Airway patent Yes 01/24/24 14:01 [email or web address] [email or web address] Spontaneous unlabored Yes 01/24/24 14:01 HERPETOLOGY TEACHER.CSIR respirations Mental status nausea No 01/24/24 14:01 HERPETOLOGY TEACHER.CSIR Vomiting No 01/24/24 14:01 [email or web address] [email or web address].CSIR Anesthesia Postop Eval I: Fluid Summary Crystalloid volume administer 1,000 01/24/24 14:01 HERPETOLOGY [email or web address].CSIR (ml) Colloids volume administered ( ml) Blood Product volume administered (ml) Total IV fluid infused 1,000 01/24/24 14:01 HERPETOLOGY [email or web address].CSIR Anesthesia Postop Eval I: Summary Notes Anesthesia Complication No 01/24/24 14:01 HERPETOLOGY TEACHER.CSIR Anesthesia Complication Comment: Post-operative progress note Anesthesia: Postop Eval II Evaluation Mental status: Awake and Calm Pain Level: 1 nausea: No Vomiting: No Complications Anesthesia Complication: No
== END 2024-01-24 15:52 | disposition home or self-care (01) ==
LOC: SDC 10:31 → AC 10:35
PROVIDERS: PCP Family Medicine; Referring Provider Urology; Visit Provider Urology
PROC: 0T5B8ZZ Destruction of Bladder, Via Natural or Artificial Opening Endoscopic (ICD-10-PCS; CPT 51720; principal; 2024-01-24 12:30)
DX: C67.1 Malignant neoplasm of dome of bladder (principal); K21.9 Gastro-esophageal reflux disease without esophagitis; Z79.899 Other long term (current) drug therapy
CPT/HCPCS: 52234; 52332; 00912; 88305; 93005; J9280; C1769; J2405

== ENCOUNTER → 2024-03-05 | Outpatient (CLI) | payer BC, SELFPAY ==
[2024-03-05 07:56] LABS: Mucous, Urine 0 SEEN /hpf (<or=2+); Squamous Epithelial Cells - UA 0 SEEN /hpf (5-10)
[2024-03-05 10:09] LABS: Color, Urine Yellow (Yellow); Glucose, Dipstick Normal (Normal); Ketone-Dipstick Negative (Negative); Leukocyte Esterase-Dipstick 25 /ul (Negative); Nitrite-Dipstick Negative (Negative); Occult Blood-Urine 150 /ul (Negative); Protein-Dipstick Negative (Negative); Urine Bilirubin Dipstick Negative (Negative); Urine Clarity Clear (Clear); Urine Urobilinogen Normal (Normal)
[2024-03-05 10:10] LABS: Absolute Lymphocyte Count 2.95 X10^3/uL (0.83-4.51); Absolute Neutrophil Count 3.7 X10^3/uL (2.0-7.7); Basophil# 0.04 X10^3/uL; Basophil% 0.5 % (0-1); Eosinophils% 1.3 % (0-5); Hematocrit 37.7 % (37-47); Hemoglobin 12.1 g/dL (12.0-15.0); Lymphocyte # 2.95 X10^3/ul (0.83-4.51); Lymphocyte % 39.2 % (19-41); Mean Corp Hgb Conc 32.1 g/dL (32-36); Mean Corpuscular Hgb 29.4 pg (27.0-32.0); Mean Corpuscular Volume 91.5 fL (81-99); Mean Platelet Vol. 9.2 fl (6.2-12.0); Monocyte# 0.68 X10^3/uL; NRBC Flagged by Analyzer 0 % (0-5); Neutrophil # 3.74 X10^3/uL (2.7-7.7); Neutrophil % 49.7 % (47-70); Platelet Count 273 K/mm3 (150-450); Protein:Creat Ratio 226 mg/g CRE (0-200); RBC Distribution Width CV 12.5 % (11.6-14.6); RBC Distribution Width SD 41.7 fl (35.1-43.9); Red Blood Count 4.12 M/mm3 (4.2-5.4); White Blood Count 7.5 K/mm3 (4.4-11.0)
[2024-03-05 10:30] LABS: PTHIN 31.8 pg/mL (18.4-80.1)
[2024-03-05 10:45] LABS: Red Blood Cells-Urine 10-25 SEEN /hpf (0-5); White Blood Cells 0-5 SEEN /hpf (0-5)
[2024-03-05 10:46] LABS: Bacteria RARE /hpf (None Seen)
[2024-03-05 10:54] LABS: AST(SGOT) 50 U/L (15-37); Alanine Aminotransfer ALT/SGPT 85 U/L (13-56); Albumin, Serum 3.5 g/dL (3.2-5.0); Alkaline Phosphatase 98 U/L (45-117); Anion Gap 9 (5-15); BUN 13 mg/dL (7-18); BUN/Creat Ratio 13.4 RATIO (10-20); Calcium,Total 9.2 mg/dL (8.5-10.1); Chloride 106 mmol/L (98-107); Creatinine, Serum 0.97 mg/dL (0.55-1.02); EST Glomerular Filtration Rate 61 mL/min (>60); Est Glom Filt Rate - Afr Amer 73 mL/min (>60); Globulin 3.6 g/dL (2.2-4.2); Glucose 57 mg/dL (74-106); Phosphorus 3.7 mg/dL (2.5-4.9); Protein, Total 7.1 g/dL (6.4-8.2); Sodium Level 140 mmol/L (136-145)
[2024-03-07 14:08] LABS: Vitamin D 1,25-Dihydroxy 36.8 pg/mL (24.8-81.5)
[2024-03-08 22:06] LABS: VITAMIN B6 72.9 ug/L (3.4-65.2)
== END | disposition home or self-care (01) ==
LOC: MTLAB 07:50
PROVIDERS: PCP Family Medicine; Referring Provider Family Medicine; Visit Provider Family Medicine
DX: M85.80 Other specified disorders of bone density and structure, unspecified site (principal); N18.30 Chronic kidney disease, stage 3 unspecified
CPT/HCPCS: 36415; 80053; 81001; 82306; 82570; 82652; 83970; 84100; 84156; 84207; 85025

== ENCOUNTER → 2024-05-27 | Outpatient (CLI) | payer BC, SELFPAY ==
--- NOTE | 2024-05-27 | CYSPIN_PTH ---
PATIENT: JAH PUCKETT LOC: [facility] U#:[id number] AGE/SX: 69/F ROOM: RE05/27/[address]: Dr. Michelet Rogers MD : 1955 BED: DIS: 05/27/2024 SPEC #: [id number] RECD: 05/27/24 14:45 STATUS: STONE REKaya #: [id number] HOSSEIN: 05/27/24 00:[address]: Michelet Rogers DEPT: CYTOLOGY RECD BY: Tosha Carvalho ENTERED: 05/28/24 07:17 SP TYPE: CYSPIN FL OTHR DR: Dr. 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 Urine, voided: * Atypical urothelial cells CYTOLOGY STUDY Slides are reviewed. CYTOLOGY GROSS A. Received is 40 ml of yellow-hazy fluid labeled with the patient's name and and designated per the requisition as urine. Submitted for cytology preparation. Mr 05/28/2024 CPT: 71813
[2024-05-27 14:46] LABS: Cytology, Body Fluid / CSF SEE PATHOLOGY REPORT
== END | disposition home or self-care (01) ==
LOC: LABSPEC 14:16
PROVIDERS: PCP Family Medicine; Referring Provider Urology; Visit Provider Urology
DX: C67.6 Malignant neoplasm of ureteric orifice (principal)
CPT/HCPCS: 88108; 88313

== ENCOUNTER 2024-08-14 16:30 | Outpatient (RCR) | payer BC, SELFPAY ==
--- NOTE | 2024-06-25 11:00 | HP.PTEVAL ---
Patient's Visit Information Visit Information Visit Information: JAH PUCKETT is a 69 year old F referred to Physical Therapy by Dr. Aram Chilel MD with a diagnosis of pain in R shoulder. Date of Evaluation: 06/25/24 Physical Therapist: DAYANARA Cueto Visit Plan Frequency: 2x /Week Duration: 2 Months Plan: 2X/ week for 8 week for chin tucks, scapular strengthening, RC strengthening with HEP. HEP: seated chin tucks, corner stretch and green t-band mid rows Subjective Subjective: Pt did not do anything to cause it but she has pain in the R shoulder and down her arm to her forearm and back by her shoulder blade. She got a cortisone shot in the back of the shoulder and it did help. She has some pain still but not like it was. She had pain with moving her shoulder up and into IR. She feels a pain also into her neck muscles. She has not N&T. She is R handed. 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 She sleeps well. It would hurt to sleep on the R side. She can not reach into the back seat of the car. 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 Strength: R 50# and L 62# C-spine AROM: flexion 100%, Ext 75%, SB B 75% with increase pain on the R mid trap with L SB, ROT B 90% Palpation: tender and very tight levator and mid traps on the R compared to the L UE AROM: Full B shoulder AROM flexion, IR and ABD with R 45 ER and L ER 59 UE MMT: R shoulder flex 5.2 and L 8.3 R shoulder ABD 6.4 and L 7.3 R shoulder ER 6.5 and L 7.4 R shoulder IR 6.4 and L 6.4 + Impingement sign on the R and + EC for pain and slight weakness on the R Chin tucks 2 X 10 (abolished R shoulder blade pain while doing the chin tuck but did not last once stopped the exercise) Balance/Special Test Scores Quick DASH Score: 38.6350 Goals Goal 1:: I HEP Goal Time Frame: 6-8 Weeks Goal 2:: Be more aware of posture during the workday Goal Time Frame: 6-8 Weeks Goal 3:: Increase R shoulder strength (at the time of the eval: R shoulder flex 5.2 and L 8.3 R shoulder ABD 6.4 and L 7.3 R shoulder ER 6.5 and L 7.4 R shoulder IR 6.4 and L 6.4 Goal Time Frame: 6-8 Weeks Goal 4:: Decrease R shoulder pain by 75% Goal Time Frame: 6-8 Weeks Rehabilitation Potential Rehabilitation Potential: Good Anticipated Interventions Patient/Client Instruction: Educate patient on: Condition and Plan of Care For the Purpose of:: To decrease pain, To increase ROM, To improve nutrient delivery to tissue, To improve muscle performance and motor function, To improve ability to perform ADL's, To increase tolerance to activity/condition/position, To decrease soft tissue restriction and To increase flexibility/ROM Therapeutic Exercise to Include: Strength training, Endurance training, Body mechanics, Postural training, Flexibilty training, Neuromotor development, Passive ROM, Active ROM and Scapular Strength/Stabilization For the Purpose of:: To decrease pain, To increase ROM, To improve nutrient delivery to tissue, To improve muscle performance and motor function, To improve ability to perform ADL's, To increase tolerance to activity/condition/position, To improve health of tissue, To decrease soft tissue restriction and To increase flexibility/ROM Manual Therapy Techniques to Include: Passive ROM and Soft tissue mobilization For the Purpose of:: To decrease pain and To increase ROM Ultrasound (thermal/non thermal): Yes For the Purpose of:: To decrease pain, To increase ROM, To improve nutrient delivery to tissue and To improve muscle performance and motor function Text: Thank you for the opportunity to evaluate your patient. For Medicare and Medicare HMO plans, please review the plan of care and approve it. It will need to be FAXED BACK to us at [phone] for Medicare purposes. For Medicare only, by signing this I certify the plan of care. Please let me know if there are questions or concerns regarding this plan of care. Physician Signature: Date:
--- NOTE | 2024-08-14 17:20 | HP.PTDCSUM ---
Discharge Summary D/C summary: It has been my pleasure to treat JAH PUCKETT referred by Dr. Aram Chilel MD, with the diagnosis of pain in R shoulder for a total of 8 visit(s). Discharge Date: 08/14/24 Please see the following information for a summary of their discharge status. Subjective Subjective: Pt is about the same. She has a zinger of pain when she moves her arm bW. Her pain is mostly in the back of the arm. She will do certain things if she knows that it will hurt. She is going to go back to see Dr Chilel. The first cortisone shot helped and does not have the pain in her neck like she used to. He has not done and MRI. He did an x-ray. Chest Press increases pain. Pain R shoulder pain: Pain Intensity (Out of 10): 6 Overall Improvement % Improvement: 0 Objective Objective/Function: Pain with resisted ER on the R and pain with horizontal abduction Tender to palpation posterior RC and tricep Increase pain with scapular retraction along the anterior aspect of the shoulder. Goals Goal 1:: I HEP Goal Progress: Goal Met Goal 2:: Be more aware of posture during the workday Goal Progress: Goal Met Goal 3:: Increase R shoulder strength (at the time of the eval: R shoulder flex 5.2 and L 8.3 R shoulder ABD 6.4 and L 7.3 R shoulder ER 6.5 and L 7.4 R shoulder IR 6.4 and L 6.4 Goal 4:: Decrease R shoulder pain by 75% Goal Progress: Not Progressing Plan Plan: 2X/ week for 8 week for chin tucks, scapular strengthening, RC strengthening with HEP. D/C Information Discharge Comments: DC PT back to DR. hoover/tesfaye sentence: If there are questions or concerns regarding this patient's physical therapy, please feel free to call me at [phone]. Thank you for the referral of this patient. Sincerely, Ruma Frances, MPT Balance/Gait/Functional tests Balance/Special Test Scores Quick DASH Score: 18.1800 Improvement % Improvement: 0
== END 2024-08-14 19:00 | disposition home or self-care (01) ==
LOC: PT 16:30
PROVIDERS: PCP Family Medicine; Referring Provider Specialist; Visit Provider Specialist
DX: M25.511 Pain in right shoulder (principal)
CPT/HCPCS: 97110; 97161; 97530

== ENCOUNTER → 2025-01-13 | Outpatient (CLI) | payer BC, SELFPAY ==
--- NOTE | 2025-01-13 07:47 | EKG12_ITS ---
Test Reason : PREOP Blood Pressure : */* mmHG Vent. Rate : 66 BPM Atrial Rate : 66 BPM P-R Int : 182 ms QRS Dur : 88 ms QT Int : 418 ms P-R-T Axes : 49 50 43 degrees QTcB Int : 438 ms Normal sinus rhythm Normal ECG Confirmed by Rocky Pinto ([id number]), story editor KAMERON POP ([id number]) on 01/14/2025 8:38:53 AM Referred By: Brady Roblero Confirmed By: Rocky Pinto
--- OUTSIDE RECORDS SUMMARY | 2025-01-13 08:01 | XMS RPT_ITS | CCD ---
Author Organization [facility] CliniSyms Care Team Providers Care Day Care Home Provider Name Role Phone Dr. Consuelo Alex Primary Care Provider Dr. Ramon Larsen Attending Provider Dr. Michelet Rogers Referring Provider [phone] Unavailable Primary Care Provider UnavailDr. Consuelo Toribio Primary Care Provider Dr. Consuelo Alex Referring Provider Dr. Elmo Hanson Attending Provider [phone] Unavailable Primary Care Provider UnavailATIYA Garcia Referring Unavailable ATIYA TIERNEY Referring Unavailable Consuelo Alex MD Primary Care Provider SENIA MARIA Attending Unavailable SAYRA LEAVITT Attending Unavailable CONSUELO ALEX Primary Care Unavailable CONSUELO ALEX Primary Care Unavailable SENIA MARIA Referring Unavailable Dr. Consuelo Alex MD Primary Care Provider Dr. Consuelo Alex MD Attending Provider Dr. Consuelo Alex MD Referring Provider Dr. Michelet Rogers MD Attending Provider [phone] Dr. Michelet Rogers MD Referring Provider [phone] Dr. Consuelo Alex MD Primary Care Provider [phone] Dr. Aram Chilel MD Attending Provider [phone] Aram Chilel MD Referring Provider [phone] Consuelo Alex Referring Unavailable Consuelo Alex Primary Care Unavailable Ade Noguera Attending Unavailable Consuelo Alex Referring Unavailable Ade Noguera Attending Unavailable Schinner, Consuelo E Primary Care Unavailable Gianna, [place] Attending Unavailable Gianna, Reji Referring Unavailable Schinner, Consuelo E Primary Care Unavailable Schinner, Consuelo E Referring Unavailable Schinner, Consuelo E Primary Care Unavailable Schinner, Consuelo E Attending Unavailable Schinner, Consuelo E Primary Care Unavailable Schinner, Consuelo E Attending Unavailable Schinner, Consuelo E Referring Unavailable Schinner, Consuelo E Referring Unavailable Schinner, Consuelo E Primary Care Unavailable Schinner, Consuelo E Attending Unavailable Schinner, Consuelo E Primary Care Unavailable Michelet Rogers Attending Unavailable KenMichelet Referring Unavailable Aarm Chilel Attending Unavailable Aram Chilel Referring Unavailable Schinner, Consuelo E Primary Care Unavailable Schinner, Consuelo E Primary Care Unavailable KenMichelet Attending Unavailable KenMichelet Referring Unavailable Schinner, Consuelo E Primary Care Unavailable KenMichelet Attending Unavailable KenMichelet Referring Unavailable Medications Current Medications Medication Drug Class(es) Dates Sig (Normalized) Sig (Original) apremilast 30 mg oral tablet (12 sources) Start: 01-19-2024 take 1 tablet by mouth at bedtime Apremilast (Otezla) 30 mg tablet Active 30 mg PO AT BEDTIME January 19, 2024 1:00am take 1 tablet by mouth twice josé manuel ly apremilast (OTEZLA) 30 mg tablet Take 30 mg by mouth twice daily. Active Comment on above: Take 30 mg by mouth twice daily. Budesonide-Formoterol (4 sources) Corticosteroid, beta2-Adrenergic Agonist Start: 01-19-2024 Budesonide-Formoterol (Symbicort) 160-4.5 mcg/actuation HFA aerosol inhaler Active 2 NMA INHALATION TWICE DAILY NEEDED as needed for SOB January 19, 2024 1:00am administer with spacer, rinse mouth after each use Start: 10-26-2023 End: 01-19-2024 Budesonide-Formoterol (Symbi juana) 160-4.5 mcg/actuation HFA aerosol inhaler Discontinued 2 NMA INHALATION TWICE A DAY 1 October 26, 2023 12:00am January 19, 2024 1:12pm administer with spacer, rinse mouth after each use Start: 10-26-2023 End: 01-19-2024 Budesonide-Formoterol (Symbi juana) 160-4.5 mcg/actuation HFA aerosol inhaler Discontinued 2 NMA INHALATION TWICE A DAY October 26, 2023 12:00am January 19, 2024 1:12pm administer with spacer, rinse mouth after each use calcium carbonate 648 mg oral tablet (20 sources) Start: 04-11-2019 take 1 tablet by mouth twice daily Calcium Carbonate 260 mg calcium (648 mg) tablet Active 260 mg PO TWICE A DAY April 11, 2019 1:00am Start: 04-11-2019 take 260 mg by mouth once jeanne y Calcium Carbonate Active 260 MG PO DAILY April 11, 2019 12:00am Start: 09-29-2017 End: 04-02-2019 take 1 tablet by mouth once daily Calcium Carbonate 500 MG tablet Discontinued 500 mg PO DAILY@0800 September 29, 2017 12:00am April 02, 2019 11:23am take 1 tablet by josefa th once daily calcium carbonate (CALCIUM 600 ORAL) Take 1 tablet by mouth once daily. Active take 1 tablet by josefa th once daily calcium carbonate (CALCIUM 600 ORAL) Take 1 tablet by mouth once daily. 0 Active Comment on above: Take 1 tablet by josefa th once daily. ciprofloxacin 500 mg oral tablet (2 sources) Quinolone Antimicrobial Start: 01-24-20 take 1 tablet by mouth twice daily Ciprofloxacin Hcl (Cipro) 500 mg tablet Active 500 mg PO TWICE A DAY 10 January 24, 2024 1:00am loratadine 10 mg oral tablet (20 sources) Start: 09-30-19 End: 04-02-19 take 1 tablet by mouth once daily as needed Loratadine 10 mg tablet Active 10 mg PO DAILY as needed for allergy symptoms April 02, 2019 11:22am oxyCODONE hydrochloride 5 mg oral tablet (2 sources) Opioid Agonist Start: 01-24-20 take 1 tablet by mouth every six hours as needed for pain Oxycodone 5 mg tablet Active 5 mg PO EVERY 6 HOURS as needed for pain 14 3 0 January 24, 2024 Malignant neoplasm of urinary bladder Malignant neoplasm of bladder, unspecified pantoprazole 20 mg delayed release oral tablet (10 sources) Proton Pump Inhibitor Start: 04-11-19 take 1 tablet by mouth once daily Pantoprazole 20 mg tablet,delayed release (DR/EC) Active 20 mg PO DAILY April 11, 2019 1:00am 24 hr propranolol hydrochloride 60 mg extended release oral capsule (9 sources) beta-Adrenergic Elva Start: 01-19-20 take 1 capsule by mouth every twenty-four hours at bedtime Propranolol 60 mg capsule,extended release 24 hr Active 60 mg PO AT BEDTIME January 19, 2024 1:00am Start: 03-14-2022 take 1 capsule by mo uth once daily at bedtime propranolol ER (INDERAL LA) 60 mg 24 hr capsule TAKE 1 CAPSULE BY MOUTH EVERY DAY AT BEDTIME 03/14/2022 Active Comment on above: TAKE 1 CAPSULE BY MO UTH EVERY DAY AT BEDTIME pyridoxine (2 sources) Start: 04-02-2019 take 1 tablet by mouth every other day Pyridoxine (Vitamin B6) 50 mg tablet Active 50 mg PO EVERY OTHER DAY April 02, 2019 1:00am VITAMIN B COMP AND VIT C NO.6 (VITAMIN B COMP WITH VIT C NO.6 ORAL) (10 sources) VITAMIN B COMP A ND VIT C NO.6 (VITAMIN B COMP WITH VIT C NO.6 ORAL) Take by mouth. Active VITAMIN B COMP A ND VIT C NO.6 (VITAMIN B COMP WITH VIT C NO.6 ORAL) Take by mouth. 0 Active Comment on above: Take by mouth. 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 Start: 01-22-2019 End: 01-29-2019 take 1 tablet by mouth every four hours as needed Hydrocodone-Acetaminophen Discontinued 1 TABLET PO EVERY 4 HOURS NEEDED 10 7 January 22, 2019 January 29, 2019 12:08am 0.4 ml adalimumab 100 mg/ml auto-injector (20 sources) Tumor Necrosis Factor Elva Start: 04-11-2019 End: 01-19-2024 Adalimumab 40 mg/0.4 mL pen injector kit Discontinued 40 mg SC every 2 weeks April 11, 2019 12:24pm January 19, 2024 1:10pm biweekly Start: 09-29-2017 End: 04-11-2019 Adalimumab 40 MG/0.4 ML pen injector kit Discontinued 40 mg SQ EVERY WEEK September 29, 2017 12:00am April 11, 2019 12:26pm biweekly End: 07-05-2022 inject 40 mg by subcutaneous injection once adalimumab (HUMIRA) 40 mg/0.8 mL injection Inject 40 mg subcutaneously one time only. 0 07/05/2022 Discontinued Comment on above: Inject 40 mg subcuta neously one time only. aspirin 81 mg oral tablet (10 sources) Platelet Aggregation Inhibitor, Nonsteroidal Anti-inflammatory Drug Start: 06-18-19 End: 05-30-19 take 1 tablet by mouth once daily Aspirin tablet Discontinued 81 mg PO DAILY June 18, 2019 12:00am May 29, 2020 8:58am cephalexin 500 mg oral capsule (10 sources) Cephalosporin Antibacterial Start: 01-23-20 End: 01-26-20 take 1 capsule by mouth every twelve hours Cephalexin 500 MG capsule Discontinued 500 mg PO EVERY 12 HOURS 6 3 0 January 22, 2019 1:00am January 24, 2019 1:00am January 25, 2019 1:10am post-operative clopidogrel 75 mg oral tablet (10 sources) P2Y12 Platelet Inhibitor Start: 06-10-19 End: 06-18-19 take 1 tablet by mouth once daily Clopidogrel (Plavix) 75 mg tablet Discontinued 75 mg PO DAILY 30 June 10, 2019 12:00am June 18, 2019 10:04am fluticasone propionate 0.05 mg/actuat metered dose nasal spray (6 sources) Corticosteroid Start: 11-16-19 End: 04-20-19 Fluticasone Propionate 50 mcg/actuation spray,suspension Discontinued 2 NMA INTRANASAL DAILY NEEDED as needed for nasal congestion January 19, 2024 1:00am April 19, 2024 12:22pm omeprazole 20 mg delayed release oral capsule (20 sources) Proton Pump Inhibitor Start: 09-30-19 18 End: 04-11-19 20 take 1 capsule by mouth once daily Omeprazole 20 MG capsule Discontinued 20 mg PO DAILY September 29, 2017 12:00am April 11, 2019 12:25pm Start: 02-07-2017 take 1 capsule by [facility] once daily, then take 1 capsule by mouth once daily Omeprazole 40 mg capsule TAKE 1 CAPSULE BY MOUTH ONCE A DAY TAKE ONE CAPSULE EVERY DAY 02/07/2017 Active Comment on above: TAKE 1 CAPSULE BY [facility] ONCE A DAY TAKE ONE CAPSULE EVERY DAY predniSONE 20 mg oral tablet (2 sources) Start: 4 End: 4 take 3 tablets by mouth once daily at mealtime Prednisone 20 mg tablet Discontinued 60 mg PO daily 15 0 October 02, 2023 12:00am January 19, 2024 1:11pm administer with food or milk psyllium 520 mg oral capsule (10 sources) Start: 0 End: 0 Psyllium Husk (Fiber (Psyllium Husk)) 0.52 gram capsule Discontinued 0.52 g PO DAILY April 02, 2019 1:00am April 11, 2019 12:26pm vitamin b12 0.5 mg oral tablet (10 sources) Vitamin B12 Start: 8 End: 0 take 1 tablet by mouth once daily Cyanocobalamin (Vitamin B-12) 500 MCG tablet Discontinued 500 ug PO DAILY@0800 September 29, 2017 12:00am April 02, 2019 11:23am Problems Active Problems Problem Classification Problem Date Documented Date Episodic/Chronic Asthma (3 sources) Unspecified asthma, uncomplicated; Translations: [Asthma, unspecified type, unspecified] Onset: 11-16-2023 01-17-2023 Chronic Cancer of bladder (5 sources) Malignant tumor of urinary bladder; Translations: [Malignant neoplasm of bladder, unspecified] Onset: 10-17-2023 01-24-2024 Chronic Chronic kidney disease (10 sources) Chronic kidney disease stage 3; Translations: [Chronic kidney disease, stage III (moderate)] Onset: 02-22-2018 03-07-2018 Chronic Esophageal disorders (10 sources) Gastroesophageal reflux disease without esophagitis; Translations: [Gastro-esophageal reflux disease without esophagitis] Onset: 08-15-2017 03-07-2018 Chronic Menopausal disorders (10 sources) Postmenopausal bleeding; Translations: [Postmenopausal bleeding] Onset: 05-02-2012 05-02-2012 Chronic Nonmalignant breast conditions (1 source) Breast finding ; Translations: [Dense breast tissue] 07-06-2023 Episodic Other aftercare (2 sources) Taking high risk medication; Translations: [Other tank terminal gauger (current) drug therapy] 09-13-2023 Episodic Other aftercare (1 source) Other residential (current) drug therapy; Translations: [High risk medication use] Onset: 11-22-2023 Episodic Other diseases of bladder and urethra (10 sources) Disorder of bladder; Translations: [Other specified disorders of bladder] Onset: 10-03-2017 03-07-2018 Chronic Other inflammatory condition of skin (10 sources) Psoriasis vulgaris; Translations: [Psoriasis vulgaris] Onset: 01-16-2018 03-07-2018 Chronic Other inflammatory condition of skin (2 sources) Psoriasis; Translations: [Psoriasis, unspecified] 09-13-2023 Chronic Other inflammatory condition of skin (1 source) Psoriasis, unspecified; Translations: [Psoriasis] Onset: 11-22-2023 Chronic Other non-traumatic joint disorders (3 sources) Multiple joint pain; Translations: [Pain in unspecified joint] 09-13-2023 Episodic Other non-traumatic joint disorders (1 source) Pain in unspecified joint; Translations: [Pain in joint, multiple sites] Onset: 11-22-2023 Episodic Other non-traumatic joint disorders (1 source) Joint pain Onset: 09-13-2023 Episodic Other non-traumatic joint disorders (1 source) Pain in right shoulder; Translations: [Pain in right shoulder] Onset: 08-15-2024 Episodic Other screening for suspected conditions (not mental disorders or infectious disease) (10 sources) Endometrium thickened; Translations: [Abnormal findings on diagnostic imaging of other specified body structures] Onset: 10-21-2011 10-21-2011 Chronic Residual codes; unclassified (10 sources) FH: premature coronary heart disease; Translations: [Family history of ischemic heart disease and other diseases of the circulatory system] 06-17-2019 Episodic Residual codes; unclassified (1 source) Postmenopausal state; Translations: [Asymptomatic menopausal state] 07-19-2022 Episodic Thyroid disorders (10 sources) Non-toxic uninodular goiter; Translations: [Nontoxic single thyroid nodule] Onset: 12-09-2016 03-07-2018 Chronic Unclassified (1 source) Dense breast tissue; Translations: [Dense breast tissue] Onset: 07-06-2023 Past or Other Problems Problem Classification Problem Date Documented Da te Episodic/Chronic Benign neoplasm of uterus (10 sources) Uterine leiomyoma; Translations: [Leiomyoma of uterus, unspecified] Onset: 05-02-2012 05-02-2012 Episodic Other and unspecified benign neoplasm (10 sources) Melanocytic nevus; Translations: [Melanocytic nevi, unspecified] Onset: 10-20-2016 03-07-2018 Episodic Other bone disease and musculoskeletal deformities (1 source) Other specified disorders of bone density and structure, unspecified site; Translations: [Other specified disorders of bone density and structure, unspecified site] Onset: 03-20-2024 Episodic Other connective tissue disease (10 sources) Pain in thumb ; Translations: [Pain in unspecified finger(s)] Onset: 03-05-2013 03-05-2013 Episodic Other female genital disorders (6 sources) Mass of ovary; Translations: [Other noninflammatory disorders of ovary, fallopian tube and broad ligament] Onset: 09-22-2009 Resolved: 09-06-2011 09-06-2011 Episodic Other gastrointestinal disorders (6 sources) Ascites; Translations: [Other ascites] Onset: 09-22-2009 Resolved: 09-06-2011 09-06-2011 Episodic Other inflammatory condition of skin (10 sources) Seborrheic dermatitis of scalp; Translations: [Seborrheic dermatitis, unspecified] Onset: 09-06-2011 09-06-2011 Episodic Other liver diseases (10 sources) ALT (SGPT) level raised; Translations: [Elevated ALT measurement] Onset: 01-31-2013 03-05-2013 Episodic Other lower respiratory disease (7 sources) Chronic cough; Translations: [Chronic cough] Onset: 11-16-2023 01-17-2023 Episodic Other screening for suspected conditions (not mental disorders or infectious disease) (17 sources) Echocardiogram abnormal; Translations: [Abnormal findings on diagnostic imaging of heart and coronary circulation] Onset: 07-19-2022 06-18-2019 Episodic Residual codes; unclassified (2 sources) Asymptomatic menopausal state; Translations: [Asymptomatic postmenopausal state] Onset: 07-19-2022 Episodic Results Test Name Value Interpretation Reference Range Facility PT D/C Summary (1)on 025 PT D/C Summary (1) [facility] [address] [place] [address] / REHABILITATION SERVICES DISCHARGE SUMMARY MR#: [id number] Acct: [id number] Name: DOROTHY PUCKETT Rep #: [id number] : 1955 69 From: Ruma Frances MPT Referring Dr.: Dr. Aram Chilel MD Status: RE G RCR Insurance: [employer] [facility] PACKAGE PLAN Discharge Summary D/C summary: It has been my pleasure to treat DOROTHY PUCKETT referred by Dr. Aram Chilel MD, with the diagnosis of pain in R shoulder for a total of 8 visit(s). Discharge Date: 08/14/24 Please see the following information for a summary of their discharge status. Subjective Subjective: Pt is about the same. She has a zinger of pain when she moves her arm bW. Her pain is mostly in the back of the arm. She will do certain things if she knows that it will hurt. She is going to go back to see Dr Chilel. The first cortisone shot helped and does not have the pain in her neck like she used to. He has not done and MRI. He did an x-ray. Chest Press increases pain. Pain R shoulder pain: Pain Intensity (Out of 10): 6 Overall Improvement % Improvement: 0 Objective Objective/Function: Pain with resisted ER on the R and pain with horizontal abduction Tender to palpation posterior RC and tricep Increase pain with scapular retraction along the anterior aspect of the shoulder. Goals Goal 1:: I HEP Goal Progress: Goal Met Goal 2:: Be more aware of posture during the workday Goal Progress: Goal Met Goal 3:: Increase R shoulder strength (at the time of the eval: R shoulder flex 5.2 and L 8.3 R shoulder ABD 6.4 and L 7.3 R shoulder ER 6.5 and L 7.4 R shoulder IR 6.4 and L 6.4 Goal 4:: Decrease R shoulder pain by 75% Goal Progress: Not Progressing Plan Plan: 2X/ week for 8 week for chin tucks, scapular strengthening, RC strengthening with HEP. D/C Information Discharge Comments: DC PT back to DR. parham sentence: If there are questions or concerns regarding this patient's physical therapy, please feel free to call me at [phone]. Thank you for the referral of this patient. Sincerely, DAYANARA Cueto Balance/Gait/Functional tests Balance/Special Test Scores Quick DASH Score: 18.1800 Improvement % Improvement: 0 08/14/24 1720 CC: Dr. Consuelo Alex MD; Dr. Aram Chilel MD Signed Normal [facility] Inital Evaluation (1) - PTon 06-25-2024 Inital Evaluation (1) - PT [facility] [address] [place] [address] [address] [place] [address] / REHABILITATION SERVICES INITIAL EVALUATION MR#: [id number] Acct: [id number] Name: DOROTHY PUCKETT Rep #: [id number] : 1955 69 From: Ruma NICHOLE Referring Dr.: Dr. Aram Chilel MD Status: RE G RCR Insurance: [facility] PACKAGE PLAN Patient's Visit Information Visit Information Visit Information: DOROTHY PUCKETT is a 69 year old F referred to Physical Therapy by Dr. Aram Chilel MD with a diagnosis of pain in R shoulder. Date of Evaluation: 06/25/24 Physical Therapist: DAYANARA Cueto Visit Plan Frequency: 2x /Week Duration: 2 Months Plan: 2X/ week for 8 week for chin tucks, scapular strengthening, RC strengthening with HEP. HEP: seated chin tucks, corner stretch and green t-band mid rows Subjective Subjective: Pt did not do anything to cause it but she has pain in the R shoulder and down her arm to her forearm and back by her shoulder blade. She got a cortisone shot in the back of the shoulder and it did help. She has some pain still but not like it was. She had pain with moving her shoulder up and into IR. She feels a pain also into her neck muscles. She has not N T. She is R handed. 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 She sleeps well. It would hurt to sleep on the R side. She can not reach into the back seat of the car. 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 Strength: R 50# and L 62# C-spine AROM: flexion 100%, Ext 75%, SB B 75% with increase pain on the R mid trap with L SB, ROT B 90% Palpation: tender and very tight levator and mid traps on the R compared to the L UE AROM: Full B shoulder AROM flexion, IR and ABD with R 45 ER and L ER 59 UE MMT: R shoulder flex 5.2 and L 8.3 R shoulder ABD 6.4 and L 7.3 R shoulder ER 6.5 and L 7.4 R shoulder IR 6.4 and L 6.4 + Impingement sign on the R and + EC for pain and slight weakness on the R Chin tucks 2 X 10 (abolished R shoulder blade pain while doing the chin tuck but did not last once stopped the exercise) Balance/Special Test Scores Quick DASH Score: 38.6350 Goals Goal 1:: I HEP Goal Time Frame: 6-8 Weeks Goal 2:: Be more aware of posture during the workday Goal Time Frame: 6-8 Weeks Goal 3:: Increase R shoulder strength (at the time of the eval: R shoulder flex 5.2 and L 8.3 R shoulder ABD 6.4 and L 7.3 R shoulder ER 6.5 and L 7.4 R shoulder IR 6.4 and L 6.4 Goal Time Frame: 6-8 Weeks Goal 4:: Decrease R shoulder pain by 75% Goal Time Frame: 6-8 Weeks Rehabilitation Potential Rehabilitation Potential: Good Anticipated Interventions Patient/Client Instruction: Educate patient on: Condition and Plan of Care For the Purpose of:: To decrease pain, To increase ROM, To improve nutrient delivery to tissue, To improve muscle performance and motor function, To improve ability to perform ADL's, To increase tolerance to activity/condition/position, To decrease soft tissue restriction and To increase flexibility/ROM Therapeutic Exercise to Include: Strength training, Endurance training, Body mechanics, Postural training, Flexibilty training, Neuromotor development, Passive ROM, Active ROM and Scapular Strength/Stabilization For the Purpose of:: To decrease pain, To increase ROM, To improve nutrient delivery to tissue, To improve muscle performance and motor function, To improve ability to perform ADL's, To increase tolerance to activity/condition/position, To improve health of tissue, To decrease soft tissue restriction and To increase flexibility/ROM Manual Therapy Techniques to Include: Passive ROM and Soft tissue mobilization For the Purpose of:: To decrease pain and To increase ROM Ultrasound (thermal/non thermal): Yes For the Purpose of:: To decrease pain, To increase ROM, To improve nutrient delivery to tissue and To improve muscle performance and motor function Text: Thank you for the opportunity to evaluate your patient. For Medicare and Medicare HMO plans, please review the plan of care and approve it. It will need to be FAXED BACK to us at [phone] for Medicare purposes. For Medicare only, by signing this I certify the plan of care. Please let me know if there are questions or concerns regarding this plan of care. Physician Signature: _Date: 06/25/24 1100 CC: Dr. Consuelo Alex MD; Dr. Aram Chilel MD Signed Normal [facility] Non-gynecologic cytology rep ortOrdered By: Hina Baltazar on 05-28-2024 Study report [facility] Cytology report Cyto stain D oc (Body fld)Ordered By: Michelet Rogers on 05-27-2024 Miscellaneous Cytology SEE PATHOLOGY REPORT [facility] Comment on above: Specimen submitted t o Anatomical Pathology Department for testing. Cytology report of Body flui d Cyto stainOrdered By: Michelet Rogers on 05-27-2024 Cytology report Cyto stain Doc (Body fld) SEE PATHOLOGY REPORT [facility] Comment on above: Specimen submitted t o Anatomical Pathology Department for testing. Cytology, Body Fluid / CSFon 05-27-2024 CYTOLOGY,BF/CSF SEE PATHOLOGY REPORT Normal [facility] Comment on above: Order Comment: URINE Result Comment: Spec imen submitted to Anatomical Pathology Department for testing. Performed By: #### L 350.1000 #### [facility] [place], [address] Pap Stain (control)on 2024 Pap Stain (control) --------- ----- Patient Age/Sex Location Account Attending Physician ----- DOROTHY PUCKETT 69[facility] [id number] Dr. Michelet Rogers MD ----- Specimen: [id number] Received: 05/27/24 Status: STONE Cazares Num: [id number] Spec Type: CYSPIN FL Subm Dr: Dr. 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 Urine, voided: * Atypical urothelial cells CYTOLOGY STUDY Slides are reviewed. CYTOLOGY GROSS A. Received is 40 ml of yellow-hazy fluid labeled with the patient's name and and designated per the requisition as urine. Submitted for cytology preparation. Mr 05/28/2024 CPT: 56897 Signed (signature on file) Dr. Hina Baltazar, DO 05/28/24 1044 ----- Normal [facility] Comment on above: Performed By: #### P PAPS ####[facility] [address] [place], [place], [address] L3300.8200on 03-08-2024 VITAMIN B6 72.9 ug/L High 3.4-65.2 [facility] Comment on above: Order Comment: Test( s) 801136-Apiaxnt B6was developed and its performance characteristicsdetermined by [facility]. It has not been cleared or approvedby the Food and Drug Administration. Result Comment: Defi ciency: <3.4 Marginal: 3.4 - 5.1 Adequate: >5.1 Performed at: [address] [id number] [employer] Operator: Brenda King MD, Phone: [phone] Performed By: #### L 501.0900, L3300.0960, L400.0001, L3300.8200 ####[facility] [address] [place], [place], [address] Vitamin D 1,25-Dihydroxyon 0 03-07-2024 VIT D 1,25 DIHY 36.8 pg/mL Normal 24.8-81.5 [facility] Comment on above: Result Comment: Perf ormed at: [facility] - [facility] [address] [id number] [employer] Operator: Brenda King MD, Phone: [phone] Performed By: #### L 501.0900, L3300.0960, L400.0001, L3300.8200 ####[facility] [address] [place], [place], [address] 1,25-dihydroxyvitamin D3 [Ma ss/Vol]Ordered By: Consuelo Alex on 03-05-2024 Vitamin D 1,25-Dihydroxy 36.8 pg/mL 24.8-81.5 [facility] Comment on above: Performed at: [facility] - L [address] [id number] Director: Brenda King MD, Phone: [phone] 22-QT-Rbwinnt DOrdered By: Rebekah Alex on 03-05-2024 Vitamin D 25-Hydroxy 59.0 ng/mL [facility] Comment on above: Vitamin D 25(OH) Sta tus Range Deficiency <20 ng/mL (50nmol/L) Insufficiency 20 - 30 ng/mL (50 - 75 nmol/L) Sufficiency 30 - 100 ng/mL (75 - 250 nmol/L) Toxicity >100 ng/mL (>250 nmol/L) Absolute neutrophil countOrd ered By: Consuelo Alex on 03-05-2024 Neutrophils (Bld) [#/Vol] 3.7 10*3/uL 2.0-7.7 [facility] Albumin to globulin ratioOrd ered By: Consuelo Alex on 03-05-2024 Albumin/Globulin [Mass ratio] 1.0 {ratio} 0.9-2.4 [facility] Bacteria LM.HPF (Urine sed) [#/Area]Ordered By: Consuelo Alex on 03-05-2024 Urine Bacteria RARE /hpf None Seen [facility] Basophil percentageOrdered B y: Consuelo Alex on 03-05-2024 Basophils/100 WBC (Bld) 0.5 % 0-1 [facility] Bilirubin Test strip Ql (U)O rdered By: Consuelo Isai on 03-05-2024 Bilirubin Ql (U) Negative Negative [facility] Bilirubin, totalOrdered By: Consuelo Alex on 03-05-2024 Bilirubin [Mass/Vol] 0.30 mg/dL 0.20-1.00 [facility] Comment on above: For patients on eltr ombopag therapy, use of Dimension [place] TBIL is not recommended. Blood urea nitrogen (BUN)/cr eatinine ratioOrdered By: Consuelo Alex on 03-05-2024 Urea nitrogen/Creatinine [Mass ratio] 13.4 mg/mg 11-25 [facility] CBC W/Diff, Automatedon 02-07 Absolute Lymph 2.95 X10 3/uL Normal 0.83-4.51 [facility] Comment on above: Order Comment: Order Date: 01/19/24Order Info: 0184-1 - CBCD Performed By: #### L 500.4050, L100.0100, L506.1000, L509.1000, L501.2300 ####[facility] [address] [place], [place], [phone] Absolute Neut 3.7 X10 3/uL Normal 2.0-7.7 [facility] Comment on above: Order Comment: Order Date: 01/19/24Order Info: 0184-1 - CBCD Performed By: #### L 500.4050, L100.0100, L506.1000, L509.1000, L501.2300 ####[facility] [address] [place], [address] Basophils/100 WBC (Bld) 0.5 % Normal 0-1 [facility] Comment on above: Order Comment: Order Date: 01/19/24Order Info: 0184-1 - CBCD Performed By: #### L 500.4050, L100.0100, L506.1000, L509.1000, L501.2300 ####[facility] [address] [place], [address] Eosinophils/100 WBC (Bld) 1.3 % Normal 0-5 [facility] Comment on above: Order Comment: Order Date: 01/19/24Order Info: 018-1 - CBCD Performed By: #### L 500.4050, L100.0100, L506.1000, L509.1000, L501.2300 ####[facility] [address] [place], [address] Erythrocyte distribution width (RBC) [Ratio] 12.5 % Normal 11.6-14.6 [facility] Comment on above: Order Comment: Order Date: 01/19/24Order Info: 183- - CBCD Performed By: #### L 500.4050, L100.0100, L506.1000, L509.1000, L501.2300 ####[facility] [address] [place], [address] Hematocrit (Bld) [Volume fraction] 37.7 % Normal 37-47 [facility] Comment on above: Order Comment: Order Date: 01/19/24Order Info: 183- - CBCD Performed By: #### L 500.4050, L100.0100, L506.1000, L509.1000, L501.2300 ####[facility] [address] [place], [address] Hemoglobin (Bld) [Mass/Vol] 12.1 g/dL Normal 12.0-15.0 [facility] Comment on above: Order Comment: Order Date: 01/19/24Order Info: 018-1 - CBCD Performed By: #### L 500.4050, L100.0100, L506.1000, L509.1000, L501.2300 ####[facility] [address] [place], [address] IG% 0.300 Normal 0.0-0.9 [facility] Comment on above: Order Comment: Order Date: 01/19/24Order Info: 0184-1 - CBCD Result Comment: IG% - Immature Granulocytes (promyelocytes, myelocytes and metamyelocytes) > 1% indicates that a LEFT SHIFT is Present. Performed By: #### L 500.4050, L100.0100, L506.1000, L509.1000, L501.2300 ####[facility] [address] [place], [address] Lymphocytes/100 WBC (Bld) 39.2 % Normal 19-41 [facility] Comment on above: Order Comment: Order Date: 01/19/24Order Info: 0184-1 - CBCD Performed By: #### L 500.4050, L100.0100, L506.1000, L509.1000, L501.2300 ####[facility] [address] [place], [address] MCH (RBC) [Entitic mass] 29.4 pg Normal 27.0-32.0 [facility] Comment on above: Order Comment: Order Date: 01/19/24Order Info: 0184-1 - CBCD Performed By: #### L 500.4050, L100.0100, L506.1000, L509.1000, L501.2300 ####[facility] [address] [place], [address] MCHC (RBC) [Mass/Vol] 32.1 g/dL Normal 32-36 [facility] Comment on above: Order Comment: Order Date: 01/19/24Order Info: 0184-1 - CBCD Performed By: #### L 500.4050, L100.0100, L506.1000, L509.1000, L501.2300 ####[facility] [address] [place], [address] MCV (RBC) [Entitic vol] 91.5 fL Normal 81-99 [facility] Comment on above: Order Comment: Order Date: 01/19/24Order Info: 018- - CBCD Performed By: #### L 500.4050, L100.0100, L506.1000, L509.1000, L501.2300 ####[facility] [address] [place], [address] Monocytes/100 WBC (Bld) 9.0 % Normal 0-10 [facility] Comment on above: Order Comment: Order Date: 01/19/24Order Info: 183- - CBCD Performed By: #### L 500.4050, L100.0100, L506.1000, L509.1000, L501.2300 ####[facility] [address] [place], [address] Neutrophils/100 WBC (Bld) 49.7 % Normal 47-70 [facility] Comment on above: Order Comment: Order Date: 01/19/24Order Info: 183- - CBCD Performed By: #### L 500.4050, L100.0100, L506.1000, L509.1000, L501.2300 ####[facility] [address] [place], [address] Nucleated RBC (Bld) [#/Vol] 0 10*3/uL Normal 0-5 [facility] Comment on above: Order Comment: Order Date: 01/19/24Order Info: 018- - CBCD Performed By: #### L 500.4050, L100.0100, L506.1000, L509.1000, L501.2300 ####[facility] [address] [place], [address] Platelet mean volume (Bld) [Entitic vol] 9.2 fL Normal 6.2-12.0 [facility] Comment on above: Order Comment: Order Date: 01/19/24Order Info: 018- - CBCD Performed By: #### L 500.4050, L100.0100, L506.1000, L509.1000, L501.2300 ####[facility] [address] [place], [address] Platelets (Bld) [#/Vol] 273 10*3/uL Normal 150-450 [facility] Comment on above: Order Comment: Order Date: 01/19/24Order Info: 0184-1 - CBCD Performed By: #### L 500.4050, L100.0100, L506.1000, L509.1000, L501.2300 ####[facility] [address] [place], [address] RBC (Bld) [#/Vol] 4.12 10*6/uL Low 4.2-5.4 [facility] Comment on above: Order Comment: Order Date: 01/19/24Order Info: 018-1 - CBCD Performed By: #### L 500.4050, L100.0100, L506.1000, L509.1000, L501.2300 ####[facility] [address] [place], [address] RDW SD 41.7 fl Normal 35.1-43.9 [facility] Comment on above: Order Comment: Order Date: 01/19/24Order Info: 018-1 - CBCD Performed By: #### L 500.4050, L100.0100, L506.1000, L509.1000, L501.2300 ####[facility] [address] [place], [address] WBC (Bld) [#/Vol] 7.5 10*3/uL Normal 4.4-11.0 [facility] Comment on above: Order Comment: Order Date: 01/19/24Order Info: 0184-1 - CBCD Performed By: #### L 500.4050, L100.0100, L506.1000, L509.1000, L501.2300 ####[facility] [address] [place], [address] Carbon dioxide measurementOr dered By: Consuelo Alex on 03-05-2024 CO2 [Moles/Vol] 26.0 mmol/L 21.0-32.0 [facility] Chloride measurementOrdered By: Consuelo Alex on 03-05-2024 Chloride [Moles/Vol] 106 mmol/L 98-107 [facility] Comprehensive Metabolic Prof ilon 03-05-2024 Albumin [Mass/Vol] 3.5 g/dL Normal 3.2-5.0 [facility] Comment on above: Order Comment: Order Date: 01/19/24Order Info: 0786-1 - CMPOrder Info: 2777- - PHOS Performed By: #### L 500.4050, L100.0100, L506.1000, L509.1000, L501.2300 ####[facility] [address] [place], [address] Albumin/Globulin [Mass ratio] 1.0 {ratio} Normal 0.9-2.4 [facility] Comment on above: Order Comment: Order Date: 01/19/24Order Info: 0786-1 - CMPOrder Info: 2777- - PHOS Performed By: #### L 500.4050, L100.0100, L506.1000, L509.1000, L501.2300 ####[facility] [address] [place], [address] ALK P 98 U/L Normal 45-117 [facility] Comment on above: Order Comment: Order Date: 01/19/24Order Info: 0786-1 - CMPOrder Info: 2777- - PHOS Performed By: #### L 500.4050, L100.0100, L506.1000, L509.1000, L501.2300 ####[facility] [address] [place], [address] ALT [Catalytic activity/Vol] 85 U/L High 13-56 [facility] Comment on above: Order Comment: Order Date: 01/19/24Order Info: 0786-1 - CMPOrder Info: 2777-1 - PHOS Performed By: #### L 500.4050, L100.0100, L506.1000, L509.1000, L501.2300 ####[facility] [address] [place], [address] AST [Catalytic activity/Vol] 50 U/L High 15-37 [facility] Comment on above: Order Comment: Order Date: 01/19/24Order Info: 0786-1 - CMPOrder Info: 2777- - PHOS Performed By: #### L 500.4050, L100.0100, L506.1000, L509.1000, L501.2300 ####[facility] [address] [place], [address] Bilirubin [Mass/Vol] 0.30 mg/dL Normal 0.20-1.00 [facility] Comment on above: Order Comment: Order Date: 01/19/24Order Info: 0786-1 - CMPOrder Info: 277- - PHOS Result Comment: For patients on eltrombopag therapy, use of Dimension [place] TBIL is not recommended. Performed By: #### L 500.4050, L100.0100, L506.1000, L509.1000, L501.2300 ####[facility] [address] [place], [address] BUN/CRE 13.4 RATIO Normal 10-20 [facility] Comment on above: Order Comment: Order Date: 01/19/24Order Info: 0786-1 - CMPOrder Info: 2777- - PHOS Performed By: #### L 500.4050, L100.0100, L506.1000, L509.1000, L501.2300 ####[facility] [address] [place], [address] CA,Total 9.2 mg/dL Normal 8.5-10.1 [facility] Comment on above: Order Comment: Order Date: 01/19/24Order Info: 0786-1 - CMPOrder Info: 2777-1 - PHOS Performed By: #### L 500.4050, L100.0100, L506.1000, L509.1000, L501.2300 ####[facility] [address] [place], [address] Chloride [Moles/Vol] 106 mmol/L Normal 98-107 [facility] Comment on above: Order Comment: Order Date: 01/19/24Order Info: 0786-1 - CMPOrder Info: 2777- - PHOS Performed By: #### L 500.4050, L100.0100, L506.1000, L509.1000, L501.2300 ####[facility] [address] [place], [address] CO2 [Moles/Vol] 26.0 mmol/L Normal 21.0-32.0 [facility] Comment on above: Order Comment: Order Date: 01/19/24Order Info: 0786-1 - CMPOrder Info: 2777 - PHOS Performed By: #### L 500.4050, L100.0100, L506.1000, L509.1000, L501.2300 ####[facility] [address] [place], [address] Creatinine [Mass/Vol] 0.97 mg/dL Normal 0.55-1.02 [facility] Comment on above: Order Comment: Order Date: 01/19/24Order Info: 0786-1 - CMPOrder Info: [id number]- - PHOS Result Comment: The validity of the calculated GFR GFRAA in patients over 70 years has not been determined. Clinical correlation is essential. Performed By: #### L 500.4050, L100.0100, L506.1000, L509.1000, L501.2300 ####[facility] [address] [place], [address] EST GFR - AA 73 mL/min Normal >60 [facility] Comment on above: Order Comment: Order Date: 01/19/24Order Info: 0786-1 - CMPOrder Info: [id number] - PHOS Result Comment: Afri can Citizen [place] GFR Calc Performed By: #### L 500.4050, L100.0100, L506.1000, L509.1000, L501.2300 ####[facility] [address] [place], [address] GAP 9 Normal 5-15 [facility] Comment on above: Order Comment: Order Date: 01/19/24Order Info: 0786-1 - CMPOrder Info: [id number] - PHOS Performed By: #### L 500.4050, L100.0100, L506.1000, L509.1000, L501.2300 ####[facility] [address] [place], [address] GFR/1.73 sq M.predicted among non-blacks MDRD (S/P/Bld) [Vol rate/Area] 61 mL/min/{1.73_m2} Normal >60 [facility] Comment on above: Order Comment: Order Date: 01/19/24Order Info: 0786-1 - CMPOrder Info: [id number] - PHOS Result Comment: Non- GFR Calc Performed By: #### L 500.4050, L100.0100, L506.1000, L509.1000, L501.2300 ####[facility] [address] [place], [address] Globulin (S) [Mass/Vol] 3.6 g/dL Normal 2.2-4.2 [facility] Comment on above: Order Comment: Order Date: 01/19/24Order Info: 0786-1 - CMPOrder Info: 2777 - PHOS Performed By: #### L 500.4050, L100.0100, L506.1000, L509.1000, L501.2300 ####[facility] [address] [place], [address] Glucose [Mass/Vol] 57 mg/dL Low 74-106 [facility] Comment on above: Order Comment: Order Date: 01/19/24Order Info: 0786-1 - CMPOrder Info: 2777-1 - PHOS Performed By: #### L 500.4050, L100.0100, L506.1000, L509.1000, L501.2300 ####[facility] [address] [place], [address] Potassium [Moles/Vol] 4.0 mmol/L Normal 3.5-5.1 [facility] Comment on above: Order Comment: Order Date: 01/19/24Order Info: 0786-1 - CMPOrder Info: 2777-1 - PHOS Performed By: #### L 500.4050, L100.0100, L506.1000, L509.1000, L501.2300 ####[facility] [address] [place], [address] Sodium [Moles/Vol] 140 mmol/L Normal 136-145 [facility] Comment on above: Order Comment: Order Date: 01/19/24Order Info: 0786- - CMPOrder Info: 2777- - PHOS Performed By: #### L 500.4050, L100.0100, L506.1000, L509.1000, L501.2300 ####[facility] [address] [place], [address] T PROT 7.1 g/dL Normal 6.4-8.2 [facility] Comment on above: Order Comment: Order Date: 01/19/24Order Info: 0786- - CMPOrder Info: 2777- - PHOS Performed By: #### L 500.4050, L100.0100, L506.1000, L509.1000, L501.2300 ####[facility] [address] [place], [address] Urea nitrogen [Mass/Vol] 13 mg/dL Normal 7-18 [facility] Comment on above: Order Comment: Order Date: 01/19/24Order Info: 0786-1 - CMPOrder Info: [id number]- - PHOS Performed By: #### L 500.4050, L100.0100, L506.1000, L509.1000, L501.2300 ####[facility] [address] [place], [address] Eosinophil percentageOrdered By: Consuelo Alex on 03-05-2024 Eosinophils/100 WBC (Bld) 1.3 % 0-5 [facility] Epithelial cells.squamous LM Ql (Urine sed)Ordered By: Consuelo Alex on 03-05-2024 Epithelial cells.squamous LM.HPF (Urine sed) [#/Area] 0 /[HPF] 5-10 [facility] Erythrocyte distribution wid th (RBC) [Ratio]Ordered By: Consuelo Alex on 03-05-2024 Erythrocyte distribution width (RBC) [Entitic vol] 41.7 fL 35.1-43.9 [facility] Erythrocyte distribution wid th ratioOrdered By: Consuelo Alex on 03-05-2024 Erythrocyte distribution width (RBC) [Ratio] 12.5 % 11.6-14.6 [facility] Estimated glomerular filtrat ion rate (GFR) AmericanOrdered By: Consuelo Alex on 03-05-2024 Estimated GFR (MDRD) Amer 73 mL/min >60 [facility] Comment on above: GFR Calc Glomerular filtration rate ( GFR) estimationOrdered By: Consuelo Alex on 03-05-2024 Estimated GFR (MDRD) Non-Af Amer 61 mL/min >60 [facility] Comment on above: Non- GFR Calc Glucose Ql (U)Ordered By: Bridgette Alex on 03-05-2024 Urine Glucose (UA) Normal mg/dl Normal [facility] Glucose measurementOrdered B y: Consuelo Alex on 03-05-2024 Glucose [Mass/Vol] 57 mg/dL Low 74-106 [facility] Hematocrit Auto (Bld) [Volum e fraction]Ordered By: Consuelo Alex on 03-05-2024 Hematocrit (Bld) [Volume fraction] 37.7 % 37-47 [facility] Hemoglobin measurementOrdere d By: Consuelo Alex on 03-05-2024 Hemoglobin (Bld) [Mass/Vol] 12.1 g/dL 12.0-15.0 [facility] Immature granulocytes/100 WB C Auto (Bld)Ordered By: Consuelo Alex on 03-05-2024 Immature granulocytes/100 WBC (Bld) 0.300 % 0.0-0.9 [facility] Comment on above: IG% - Immature Granu locytes (promyelocytes, myelocytes and metamyelocytes) > 1% indicates that a LEFT SHIFT is Present. Intact parathyroid hormone ( iPTH) measurementOrdered By: Consuelo Alex on 03-05-2024 Parathyroid Hormone (Intact) 31.8 pg/mL 18.4-80.1 [facility] Ketones Test strip Ql (U)Ord ered By: Consuelo Alex on 03-05-2024 Ketones Ql (U) Negative Negative [facility] Laboratory - Chemistry and C hemistry - challengeOrdered By: Consuelo Alex on 03-05-2024 AST [Catalytic activity/Vol] 50 U/L High 15-37 [facility] Lymphocytes Auto (Unsp spec) [#/Vol]Ordered By: Consuelo Alex on 03-05-2024 Lymphocytes (Bld) [#/Vol] 2.95 10*3/uL 0.83-4.51 [facility] Lymphocytes/100 WBC Auto (Un sp spec)Ordered By: Consuelo Alex on 03-05-2024 Lymphocytes/100 WBC (Bld) 39.2 % 19-41 [facility] MCV (mean corpuscular volume ) determinationOrdered By: Consuelo Alex on 03-05-2024 MCV (RBC) [Entitic vol] 91.5 fL 81-99 [facility] Mean corpuscular hemoglobin (MCH) determinationOrdered By: Consuelo Alex on 03-05-2024 MCH (RBC) [Entitic mass] 29.4 pg 27.0-32.0 [facility] Mean corpuscular hemoglobin concentration (MCHC) determinationOrdered By: Consuelo Alex on 03-05-2024 MCHC (RBC) [Mass/Vol] 32.1 g/dL 32-36 [facility] Mean platelet volume determi nationOrdered By: Consuelo Alex on 03-05-2024 Platelet mean volume (Bld) [Entitic vol] 9.2 fL 6.2-12.0 [facility] Microscopic analysis of urin e for red blood cells (RBC)Ordered By: Consuelo Alex on 03-05-2024 Urine RBC 10-25 SEEN /hpf 0-5 [facility] Monocyte percentageOrdered B y: Consuelo Alex on 03-05-2024 Monocytes/100 WBC (Bld) 9.0 % 0-10 [facility] Mucus LM Ql (Urine sed)Order ed By: Consuelo Alex on 03-05-2024 Mucus Ql (Urine sed) 0 SEEN /hpf [facility] Neutrophil percentageOrdered By: Consuelo Alex on 03-05-2024 Neutrophils/100 WBC (Bld) 49.7 % 47-70 [facility] Nitrite Test strip Ql (U)Ord ered By: Consuelo Alex on 03-05-2024 Nitrite Ql (U) Negative Negative [facility] Nucleated red blood cell per centageOrdered By: Consuelo Alex on 03-05-2024 Nucleated RBC/100 WBC (Bld) [Ratio] 0 % 0-5 [facility] PTHINon 03-05-2024 PTH 31.8 pg/mL Normal 18.4-80.1 [facility] Comment on above: Order Comment: Order Date: 01/19/24Order Info: [id number] - PTHIN Performed By: #### L 500.4050, L100.0100, L506.1000, L509.1000, L501.2300 ####[facility] [address] [place], [place], [address] Phosphoruson 03-05-2024 Phosphate [Mass/Vol] 3.7 mg/dL Normal 2.5-4.9 [facility] Comment on above: Order Comment: Order Date: 01/19/24Order Info: 0786-1 - CMPOrder Info: [id number] - PHOS Performed By: #### L 500.4050, L100.0100, L506.1000, L509.1000, L501.2300 ####[facility] [address] [place], [address] Phosphorus measurementOrdere d By: Consuelo Alex on 03-05-2024 Phosphorus Level 3.7 mg/dL 2.5-4.9 [facility] Platelet countOrdered By: Bridgette Alex on 03-05-2024 Platelets (Bld) [#/Vol] 273 10*3/uL 150-450 [facility] Potassium measurementOrdered By: Consuelo Alex on 03-05-2024 Potassium [Moles/Vol] 4.0 mmol/L 3.5-5.1 [facility] Protein Test strip Ql (U)Ord ered By: Consuelo Alex on 03-05-2024 Protein Ql (U) Negative Negative [facility] Protein+Creatinine Ratio,Uri neon 03-05-2024 PROT:CRE RATIO 226 mg/g CRE High 0-200 [facility] Comment on above: Performed By: #### L 501.0900, L3300.0960, L400.0001, L3300.8200 #### [facility] [address] [place], [address] Protein (U) [Mass/Vol] 11.0 mg/dL Normal <11.9 [facility] Comment on above: Performed By: #### L 501.0900, L3300.0960, L400.0001, L3300.8200 #### [facility] [address] [place], [address] UR CREAT 48.60 mg/dL Normal NO RANGE EST. [facility] Comment on above: Performed By: #### L 501.0900, L3300.0960, L400.0001, L3300.8200 #### [facility] [address] [place], [address] Protein/Creatinine (U) [Mass ratio]Ordered By: Consuelo Alex on 03-05-2024 Urine Protein/Creatinine Ratio 226 mg/g CRE High 0-200 [facility] RBC Auto (Bld) [#/Vol]Ordere d By: Consuelo Alex on 03-05-2024 RBC (Bld) [#/Vol] 4.12 10*6/uL Low 4.2-5.4 [facility] Random urine protein measure mentOrdered By: Consuelo Alex on 03-05-2024 Protein (U) [Mass/Vol] 11.0 mg/dL 0.0-11.8 [facility] Serum anion gap measurementO rdered By: Consuelo Alex on 03-05-2024 Anion gap [Moles/Vol] 9 mmol/L 5-15 [facility] Serum globulin measurementOr dered By: Consuelo Alex on 03-05-2024 Globulin (S) [Mass/Vol] 3.6 g/dL 2.2-4.2 [facility] Serum or plasma alanine gonzalez otransferase (ALT) measurementOrdered By: Consuelo Alex on 03-05-2024 ALT [Catalytic activity/Vol] 85 U/L High 13-56 [facility] Serum or plasma albumin mindy urement (mass/volume)Ordered By: Consuelo Alex on 03-05-2024 Albumin [Mass/Vol] 3.5 g/dL 3.2-5.0 [facility] Serum or plasma alkaline yaneth sphatase measurementOrdered By: Consuelo Alex on 03-05-2024 ALP [Catalytic activity/Vol] 98 U/L 45-117 [facility] Serum or plasma calcium mindy urement (mass/volume)Ordered By: Consuelo Alex on 03-05-2024 Calcium [Mass/Vol] 9.2 mg/dL 8.5-10.1 [facility] Serum or plasma creatinine m easurement (mass/volume)Ordered By: Consuelo Alex on 03-05-2024 Creatinine [Mass/Vol] 0.97 mg/dL 0.55-1.02 [facility] Comment on above: The validity of the calculated GFR & GFRAA in patients over 70 years has not been determined. Clinical correlation is essential. Serum or plasma urea nitroge n measurement (mass/volume)Ordered By: Consuelo Alex on 03-05-2024 Urea nitrogen [Mass/Vol] 13 mg/dL 7-18 [facility] Sodium levelOrdered By: Consuelo Alex on 03-05-2024 Sodium [Moles/Vol] 140 mmol/L 136-145 [facility] Total proteinOrdered By: Lazaro Alex on 03-05-2024 Protein [Mass/Vol] 7.1 g/dL 6.4-8.2 [facility] Urinalysis, Completeon 03-05 BACTERIA RARE Normal None Seen [facility] Comment on above: Order Comment: CLEAN CATCH Performed By: #### L 501.0900, L3300.0960, L400.0001, L3300.8200 ####[facility] [address] [place], [address] RBC 10-25 SEEN Normal 0-5 [facility] Comment on above: Order Comment: CLEAN CATCH Performed By: #### L 501.0900, L3300.0960, L400.0001, L3300.8200 ####[facility] [address] [place], [address] WBC 0-5 SEEN Normal 0-5 [facility] Comment on above: Order Comment: CLEAN CATCH Performed By: #### L 501.0900, L3300.0960, L400.0001, L3300.8200 ####[facility] [address] [place], [address] EPI,SQUAMOUS 0 SEEN Normal 5-10 [facility] Comment on above: Order Comment: CLEAN CATCH Performed By: #### L 501.0900, L3300.0960, L400.0001, L3300.8200 ####[facility] [address] [place], [address] Mucus Ql (Urine sed) 0 SEEN Normal [facility] Comment on above: Order Comment: CLEAN CATCH Performed By: #### L 501.0900, L3300.0960, L400.0001, L3300.8200 ####[facility] [address] [place], [address] Urine blood detectionOrdered By: Consuelo Alex on 03-05-2024 Urine Occult Blood 150 /ul High Negative [facility] Urine clarityOrdered By: Lazaro Alex on 03-05-2024 Clarity (U) Clear Clear [facility] Urine color determinationOrd ered By: Consuelo Alex on 03-05-2024 Color (U) Yellow Yellow [facility] Urine creatinine measurement (mass/volume)Ordered By: Consuelo Alex on 03-05-2024 Creatinine (U) [Mass/Vol] 48.60 mg/dL NO RANGE EST. [facility] Urine leukocyte esterase det ection by dipstickOrdered By: Consuelo Alex on 03-05-2024 Leukocyte esterase Test strip Ql (U) 25 /ul High Negative [facility] Urine pHOrdered By: Consuelo sosa on 03-05-2024 pH (U) 7.0 [pH] 5.0 - 8.0 [facility] Urine specific gravity measu rementOrdered By: Consuelo Alex on 03-05-2024 Specific gravity (U) [Rel density] 1.010 1.002-1.03 0 [facility] Urobilinogen Ql (U)Ordered B y: Consuelo Alex on 03-05-2024 Urine Urobilinogen Normal mg/dl Normal [facility] Vitamin B6, plasmaOrdered By : Consuelo Alex on 03-05-2024 Vitamin B6 Level 72.9 ug/L High 3.4-65.2 [facility] Comment on above: Deficiency: <3.4 Mar ginal: 3.4 - 5.1 Adequate: >5.1Performed at: [facility] [address] [id number] Director: Brenda King MD, Phone: [phone] Vitamin D,25 Hydroxyon 03-05 Vitamin D 25-OH 59.0 ng/mL Normal [facility] Comment on above: Order Comment: Order Date: 01/19/24Order Info: [id number] - [id number] Result Comment: Taina min D 25(OH) Status Range Deficiency <20 ng/mL (50nmol/L) Insufficiency 20 - 30 ng/mL (50 - 75 nmol/L) Sufficiency 30 - 100 ng/mL (75 - 250 nmol/L) Toxicity >100 ng/mL (>250 nmol/L) Performed By: #### L 500.4050, L100.0100, L506.1000, L509.1000, L501.2300 ####[facility] [address] [place], [address] White blood cell (WBC) count Ordered By: Consuelo Alex on 03-05-2024 WBC (Bld) [#/Vol] 7.5 10*3/uL 4.4-11.0 [facility] White blood cell countOrdere d By: Consuelo Alex on 03-05-2024 Urine WBC 0-5 SEEN /hpf 0-5 [facility] 12 Lead EKGon 01-24-2024 12 Lead EKG [facility] [address] [address] 12 Lead EKG 01/24/24 1045 MR#: [id number] Acct: [id number] Name: DOROTHY PUCKETT Rep #: [id number] : 1955 68 From: Reji Katz MD Attending Dr: Dr. Michelet Rogers MD Status: DEP [facility] Ordering Dr: Norbert Bueno MD Date: 01/24/24 Location: [facility] Sex: F C Admitted: Test Reason : PREOP Blood Pressure : */* mmHG Vent. Rate : 68 BPM Atrial Rate : 68 BPM P-R Int : 182 ms QRS Dur : 84 ms QT Int : 416 ms P-R-T Axes : 49 45 38 degrees QTcB Int : 442 ms Normal sinus rhythm Normal ECG When compared with ECG of 18-Jan-2022 16:24, No significant change was found Confirmed by GIANNA AL, REJI ([id number]), electronic news gathering editor RAFAEL DIGGS ([id number]) on 01/25/2024 5:58:02 AM Referred By: Michelet Rogers Confirmed By: REJI KATZ MD 01/25/24 0558 Date Reji Katz MD CC: Dr. Norbert Bueno MD; Dr. Consuelo Alex MD; Dr. Michelet Rogers MD Signed Normal [facility] Discharge Instructionon 01-06 Discharge Instruction [facility] Medical Records Department [address] [place] [address] Instructions for Home/Discharge Instructions 01/24/24 1349 MR#: [id number] Acct: [id number] Name: DOROTHY PUCKETT Rep #: [id number] : 1955 68 From: Michelet Rogers MD PCP: Dr. Consuelo Alex MD Status:REG [facility] Discharge Instructions Diet Discharge Diet: No restrictions DC O2, CPAP, BIPAP needs Additional Home O2 Discharge instructions: No Dressing / Incision Discharge Activity: Return to Normal Activity and May Not Drive (while taking narcotic pain medications.) Dressing / Incision Call your doctor if you observe: Fever of 101 or Higher Follow Up Care Please Follow Up With: Michelet Rogers MD When: Call [phone] for an appointment Test Results: Test results from this visit will be discussed in further detail at your follow-up appointment, if applicable. Discharge Plan Admission Attending Provider: Michelet Rogers Primary Care Provider: Consuelo Alex Instructions Print Language: Guatemalan Discharge Orders/Prescriptions Prescriptions: No Action pantoprazole 20 mg tablet,delayed release (DR/EC) 20 mg PO DAILY calcium carbonate 260 mg calcium (648 mg) tablet 260 mg PO BID pyridoxine (vitamin B6) 50 mg tablet 50 mg PO QODAY loratadine 10 mg tablet 10 mg PO DAILY PRN (Reason: allergy symptoms) Otezla 30 mg tablet 30 mg PO QHS propranolol 60 mg capsule,extended release 24 hr 60 mg PO QHS fluticasone propionate 50 mcg/actuation spray,suspension 2 spray intranasal DAILY PRN PRN (Reason: nasal congestion) budesonide-formoterol [Symbicort] 160-4.5 mcg/actuation HFA aerosol inhaler 2 inh inhalation BID PRN PRN (Reason: SOB) Rx Instructions: administer with spacer, rinse mouth after each use Referrals / Follow Up: Consuelo Alex MD [Primary Care Provider] - Disposition Disposition (needs filled in before D/C Order can be placed): Home, Self Care 01/24/24 1344 Michelet Rogers MD CC: Dr. Consuelo Alex MD Signed [facility] MR/POSTOP.ANEon 01-24-2024 MR/POSTOP.ANE [facility] Medical Records Department [address] [place] [address] Anesthesia Postop Eval I 01/24/24 1401 MR#: [id number] Acct: [id number] Name: DOROTHY PUCKETT Rep #: [id number] : 1955 68 From: Kayley Kumari PCP: Dr. Consuelo Alex MD Status:[facility] Y Race: C Location: [place] [address] Anesthesia: Postop Eval I Current Vital Signs Temperature: 98.7 F Pulse Rate: 78 Blood Pressure: 131/80 Respiratory Rate: 18 Pulse Ox: 95 Assessment Airway patent: Yes Spontaneous unlabored respirations: Yes nausea: No Vomiting: No Anesthesia Complication: No Fluid Hydration Crystalloid volume administer (ml): 1,000 Total IV fluid infused: 1,000 Progress Note Anesthesia document: Postop Eval 1 completed: Yes 01/24/24 1401 Date Kayley Valencia Signature: Date CC: Signed [facility] MR/QODMHLHJ1tz 01-24-2024 MR/POSTOPAN2 [facility] Medical Records Department [address] [place] [address] Anesthesia Postop Eval II 01/24/24 2316 MR#: [id number] Acct: [id number] Name: DOROTHY PUCKETT Rep #: [id number] : 1955 68 From: Pedro Luis Brown MD PCP: Dr. Consuelo Alex MD Status:[facility] Y Race: C Location: [facility] Anesthesia Postop Eval I Sum Postop Eval Completion status Anesthesia document: Postop Eval 1 completed: Yes Anesthesia Postop Eval I Summary Anesthesia Postop Eval I Summary: Anesthesia Postop Eval I: Assessment Summary Airway patent Yes 01/24/24 14:01 METALIZING MACHINE OPERATOR AUTOMATIC.CSIR Spontaneous unlabored Yes 01/24/24 14:01 METALIZING MACHINE OPERATOR AUTOMATIC.CSIR respirations Mental status nausea No 01/24/24 14:01 METALIZING MACHINE OPERATOR AUTOMATIC.CSIR Vomiting No 01/24/24 14:01 METALIZING MACHINE OPERATOR AUTOMATIC.CSIR Anesthesia Postop Eval I: Fluid Summary Crystalloid volume administer 1,000 01/24/24 14:01 METALIZING MACHINE OPERATOR AUTOMATIC.CSIR (ml) Colloids volume administered ( ml) Blood Product volume administered (ml) Total IV fluid infused 1,000 01/24/24 14:01 METALIZING MACHINE OPERATOR AUTOMATIC.CSIR Anesthesia Postop Eval I: Summary Notes Anesthesia Complication No 01/24/24 14:01 METALIZING MACHINE OPERATOR AUTOMATIC.CSIR Anesthesia Complication Comment: Post-operative progress note Anesthesia: Postop Eval II Evaluation Mental status: Awake and Calm Pain Level: 1 nausea: No Vomiting: No Complications Anesthesia Complication: No 01/24/24 2316 Date Pedro Luis Brown MD Cosigner Signature: Date CC: Signed Normal [facility] Operative Reporton 4 Operative Report [facility] Medical Records Department [address] [place] [address] Operative Report 01/24/24 1349 MR#: [id number] Acct: [id number] Name: DOROTHY PUCKETT Rep #: [id number] : 1955 68 From: Michelet Rogers MD PCP: Dr. Consuelo Alex MD Status:REG [facility] Location: [place] [address] 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 baseball scout: No Type of Anesthesia: General RN Documented Start/Stop Times: Operation Date: 01/24/24 12:40 Case Time Into Pre-Op 01/24/24 10:42 Out of Pre-Op 01/24/24 13:05 Anesthesia Start 01/24/24 13:08 Into Room 01/24/24 13:08 Procedure Start 01/24/24 13:21 Procedure Start Time: 13:21 Procedure Stop Time: 13:50 Select all DRAINS/GRAFTS/IMPLANTS that apply: Drains Drain details: Left stent Estimated Blood Loss: None Specimen collected: Yes Description of specimen(s) removed: Biopsy from left ureteral orifice and dome of bladder Description of surgery: 68-year-old female with a history of recurrent superficial bladder cancer she has had to have multiple biopsies and resections in the past she has recurrence of the tumor that is right next to the left ureteral orifice I think again have to resect the oersted orifice in order to get rid of this tumor she also has another tumor in the dome of the bladder so plan to resect this as well. She may need a stent. Patient was taken back to the operating room after smooth induction of anesthesia she was placed in dorsolithotomy position. Went in the bladder with a 21 Ukrainian rigid cystourethroscope I first did a cold cup biopsy of the tumor next the left ureteral orifice is tumor about 1 cm in size. I then went to the dome of the bladder and then another cold cup biopsy of another tumor that was 1 cm in size in the dome of the bladder I then went in with the resectoscope and I resected both the tumors completely but in order to resect the tumor next to the ureteral orifice the orifice had to be resected. This made the opening to the orifice somewhat stenotic so I put a wire through the ureteral orifice and balloon dilated with a 12 Ukrainian balloon dilator and then I decided that the best course of action will be to leave the stent in 4.5 x 26 cm stent was left inside the left ureter allow this to heal properly and hopefully prevent scarring of the ureter and obstruction. We then placed a Flores catheter bladder she was given a treatment of Mitomycin-C 40 mg and 40 cc into the bladder with a Flores catheter clamped anesthetic is being reversed and taken back to the PACU in good condition we will have the catheter removed and will see her for follow-up in a few weeks to remove the stent. Surgical Findings: tumor in the left UO and dome of bladder resected and stent placed left Complications Complications: No Admit VTE Documentation VTE Present on Admission: No VTE Mechan Device Prophylaxis: SCD's VTE Pharm Prophylaxis ordered?: No 01/24/24 5471 Cosigner Signature (if applicable): CC: Dr. Consuelo Alex MD; Dr. Michelet Rogers MD Signed Normal [facility] Surgery Specimen Level Taylor 01-24-2024 Surgery Specimen Level IV ----- Patient Age/Sex Location Account Attending Physician ----- DOROTHY PUCKETT 68/F [facility] [id number] Dr. Michelet Rogers MD ----- Specimen: [id number] Received: 01/24/24 Status: STONE Cazares Num: [id number] Spec Type: BLADDER BX Subm Dr: Dr. Michelet Rogers MD HEADER OPERATION: Transurethral resection, bladder tumor-small PRE-OP DIAGNOSIS: Recurrent bladder cancer TISSUE SUBMITTED: A- Biopsy next to left ureteral orifice, B- Tumor in dome of bladder ----- MICROSCOPIC DIAGNOSIS A. Biopsy next to left ureteral orifice: Fragments of urothelial mucosa with chronic inflammation. Negative for malignancy. B. Tumor in dome of bladder, transurethral resection: A fragment of urothelial mucosa with chronic inflammation. Negative for malignancy. 01/26/2024 MICROSCOPIC DESCRIPTION Slides are reviewed. GROSS DESCRIPTION A. Received in fixative is one container labeled with the patient's name and designated Biopsy next to left ureteral orifice. The specimen consists of a fragment of meyers soft tissue measuring 0.5 x 0.2 x 0.1cm. A few minute fragments of tissue are also noted measuring <0.1cm in greatest dimension. B. Received in fixative is one container labeled with the patient's name and designated Tumor in dome of bladder. The specimen consists of one irregular fragment of light meyers soft tissue that measures 0.3 x 0.3 x 0.1 cm. The specimen is totally submitted in one cassette. 01/25/2024 TC:3 CPT:83371n0 ----- Patient Age/Sex Location Account Attending Physician ----- TOMEKADOROTHY Sherman 68/F [facility] [id number] Dr. Michelet Rogers MD ----- Signed (signature on file) Dr. Seth Baeza MD 01/26/24 1026 ----- Normal [facility] Comment on above: Performed By: #### P SUIV #### [facility] [address] [place], [place], [address] MR/PAT.FELICIAon 01-19-2024 MR/PAT.[facility] Medical Records Department [address] [place] [address] PAT - Anesthesia 01/19/24 1348 MR#: [id number] Acct: [id number] Name: DOROTHY PUCKETT Rep #: [id number] : 1955 68 From: Norbert Bueno MD PCP: Dr. Consuelo Alex MD Status:PRE [facility] Y Race: C Location: [facility] Pre-Assessment Diagnosis/Proposed Procedure Planned Operative Procedure(s): TURBT SMALL WITH MITOMYCIN C Anesthesia History Anesthesia History - public information relations manager: Anesthesia History - public information relations manager Hx Hospitalization No 01/19/24 12:14 Any Problems With Anesthesia No 01/19/24 12:14 Cholinesterase deficiency No 01/19/24 12:14 You/Your Family Experience No 01/19/24 12:14 fever (hyperthermia) with Relationship Recent Exposure to Contagious No 01/22/19 11:07 Disease Does patient have nerve No 01/19/24 12:14 stimulator Patient instructed to have device shut off --Does patient have Pacemaker or ICD? When Was Last Pacemaker Check QUESTION #4 FULL TEXT: You/Your Family Experience fever (hyperthermia) with Anesthesia Last Oral Intake Last Oral intake: Last Oral Intake NPO since Meds taken in AM with sips of water? Meds patient instructed to take am of surgery PONV PONV - public information relations manager: PONV - public information relations manager Female Yes 01/19/24 12:14 HX of Motion Sickness No 01/19/24 12:14 HX of N/V After Surgery No 01/19/24 12:14 Non-Smoker Yes 01/19/24 12:14 Duration of Surgery greater Yes 01/19/24 12:14 than 60 minutes Number of Risk Factors 3 01/19/24 12:14 PONV Score Moderate Risk 01/19/24 12:14 Height Weight Height Weight: Anesthesia: Height Weight Height 5 ft 6 in 11/16/23 08:44 Respiratory Assessment Respiratory Assessment - public information relations manager: Respiratory Tract Infection Hx - public information relations manager Hx Respiratory Tract Infection No 01/19/24 12:14 STOP Sleep Apnea STOP Sleep Apnea - public information relations manager: STOP Sleep Apnea - public information relations manager Hx Hypertension No 01/19/24 12:14 Hx Sleep Apnea No 01/19/24 12:14 CPAP BIPAP Do you snore loudly (louder No 01/19/24 12:14 than talking or can be heard Do you often feel tired/ No 01/19/24 12:14 fatigued/ sleepy during daytime? Has anyone observed you stop No 01/19/24 12:14 breathing during sleep? STOP Results Negative 01/19/24 12:14 QUESTION #5 FULL TEXT : Do you snore loudly (louder than talking or can be heard through closed doors)? Tobacco Use History Tobacco Use History - public information relations manager: Tobacco Use History - public information relations manager Tobacco Use Smoking Status Never smoker 01/19/24 12:14 Hx Tobacco Use No 01/19/24 12:14 Years Smoking Packs Smoked per Day Smoking Cessation Date was within the last 15 years Hx Smoking Cessation Date Hx Smoking Cessation Counseling Hematologic Medial History Hematologic Hx - public information relations manager: Hematologic Medical Hx - planting supervisor Hx of Blood Transfusion No 01/19/24 12:14 Hx of Transfusion in last 3 No 01/19/24 12:14 Months Date of Last Transfusion (if within last 3 months) Ever experience any problems No 01/19/24 12:14 with transfusion(s)? Specify any problems Hx of Preganancy in last 3 No 01/19/24 12:14 Months Nurse Filling Out Transfusion DSCHRIBER 01/19/24 12:14 Questions: Date: 01/19/24 01/19/24 12:14 Time: 12:16 01/19/24 12:14 Patient unable to answer at this time (ie. confused, unrespo /Reproduction History /Reproductive History - public information relations manager: /Reproductive Hx- public information relations manager Hx Now No 01/19/24 12:14 Gestational Age (in weeks): EDC: Hx Hx Para Hx Section SAB No 01/19/24 12:14 PFSH Medical History (Updated 01/19/24 @ 12:22 by Jennifer Mayes) Wears glasses Post-menopausal Cancer Alcohol use History of steroid therapy Bladder disease Essential tremor Gastric reflux Non-smoker Bronchitis History of pain when walking History of echocardiogram History of stress test Cardiology follow-up encounter History of left heart catheterization (LHC) ( 06/18/19) Bladder cancer Family history of premature coronary artery disease Bladder neoplasm of uncertain malignant potential Bladder mass Home Medications ???Medication ???Instructions ???Recorded ???Last Taken ???Type loratadine 10 mg tablet 10 mg PO DAILY PRN allergy symptoms 04/02/19 Unknown History pyridoxine (vitamin B6) 50 mg 50 mg PO QODAY 04/02/19 Unknown History tablet calcium carbonate 260 mg PO BID 04/11/19 Unknown History pantoprazole 20 mg tablet,delayed 20 mg PO DAILY 04/11/19 06/18/19 History release apremilast 30 mg tablet (Otezla) 30 (more content not included)... Normal [facility] CNOVon 11-22-2023 CNOV Office Visit (RHBATH ) DOROTHY PUCKETT ([id number]) 1955 F Date Time Provider Department 11/22/23 8:40 AM SAYRA LEAVITT During your visit today, we recorded the following information about you: Pulse Respiration Blood pressure 115/minute 12/minute 121/56 Sayra Leavitt PA-C 11/22/2023 9:04 AM Signed [facility] Sayra Leavitt [address] [place] [address] Subjective Last OV: 09/13/23 HPI: Dorothy Puckett is a 68 year old female who presents for follow up of arthralgia, psoriasis. She notes she started Otezla for her psoriasis and it helped with the R hand / thumb. Her knees had also been painful. She uses CBD oil and thinks it is helping. Otezla helping well with the psoriasis. Rheumatologic disease summary: First OV date: 09/13/23 Diagnosis: arthralgia, psoriasis Serologies: HBV neg, HCV neg, TB neg Erosions: none Current therapy: Otezla 30 BID Prior therapy: none Bone health: DXA: 07/19/22 osteopenia Initial rheumatology visit HPI (09/13/23 Dr. Maria): 68 year old female seen for joint pain. Psoriasis on Otezla (3 years). Psoriasis 10 years ago. Tried Humira. Bladder cancer switched from humira to Otezla. Joint pain - better now. Some days right thumb hurts. 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 Knee pain - will be seeing ortho. Small swelling. More when she goes up and down strairs. Family h/o autoimmune disease - none Smoking - never Interval Review of Systems CONSTITUTIONAL: Recent Weight change: No Fever: No EENT: Dryness in eyes: No Dryness of mouth: No Oral ulcers: No CARDIOVASCULAR: Pain in chest: No RESPIRATORY: Shortness of breath: No Cough: No GASTROINTESTINAL: Nausea: No Vomiting: No Changes in bowel movements: No Heartburn: No MUSCULOSKELETAL: Per HPI INTEGUMENTARY: Rash: No NEUROLOGICAL SYSTEM: Headaches: No All other ROS reviewed, pertinent positives in HPI PAST MEDICAL HISTORY Diagnosis Date Acid reflux Bladder cancer (HCC) PMB (postmenopausal bleeding) Psoriasis Uterine fibroid PAST SURGICAL HISTORY Procedure Laterality Date ANESTHESIA KNEE, ARTHROSCOPIC right knee meniscus repair COLONOSCOPY 1999, 2009, 2018 5 year interval EXTRACTION, ERUPTED TOOTH OR EXPOSED ROOT (ELEVATION AND/OR FORCEPS REMOVAL) LAPAROSCOPIC APPENDECTOMY 10/20/2009 Performed by FER ROMO at [facility] LAPAROSCOPY W/RMVL ADNEXAL STRUCTURES 10/20/2009 Performed by FER ROMO at [facility] LIG/TRNSXJ FLP TUBE ABDL/VAG APPR UNI/BI PART REMV BLADDER,SIMPLE 2021 bladder tumors removed PAST SURGICAL HISTORY OF right thumb surgery History Review: I have reviewed and modified as needed, the following during this visit: Allergies, Past Medical History, Past Surgical History, Past Family History, Past Social History. Physical Exam BP 121/56 Pulse 115 Resp 12 LMP 09/07/2010 GENERAL: Well appearing, alert, comfortable, in no acute distress, well-hydrated, well nourished. HEENT: Negative for external ears normal. Canals are clear. Eye Exam normal. External nose normal, no nasal ulcer or throat ulcer. NECK: NECK Supple, no adenopathy CARDIAC: regular rate and rhythm, No murmur asculated., and Equal peripheral pulses RESPIRATORY: Lungs clear to auscultation. No wheezing, rhonchi, rales NEURO: Motor and sensory exam normal MOTOR: Normal; including tone, gait, stressed gait, power and coordination. SKIN: Negative for alopecia, skin rash, malar rash, skin lesion, skin ulcer, pits, thickening, color changes, telangiectasias, nail changes, nail ridging, nail pitting, onycholysis MUSCULOSKELETAL: tenderness R 1st CMC; squared bilateral 1st CMC, [place] node R 2nd DIP; bunion L MTP Pertinent Serologies: HBV neg, HCV neg, TB neg Recent Lab Results: WBC (k/uL) Date Value 10/15/2009 5.72 RBC (m/uL) Date Value 10/15/2009 4.40 Hemoglobin (g/dL) Date Value 10/15/2009 13.3 Hematocrit (%) Date Value 10/15/2009 40.2 Platelet Count (k/uL) Date Value 10/15/2009 228 Creatinine (mg/dL) Date Value 10/15/2009 0.84 Calcium (mg/dL) Date Value 10/15/2009 9.4 Alkaline Phosphatase (U/L) Date Value 10/15/2009 95 AST (U/L) Date Value 10/15/2009 29 ALT (U/L) Date Value 10/15/2009 41 Recent Radiology Results: None Pertinent Radiology Results: 07/19/22 DXA: LUMBAR SPINE: The bone mineral density from L1 through L4 is 1.077 grams per square centimeter which yields a T-score of 0.3. There has been a 3.8% interval increase in bone mineral density. LEFT HIP: The bone mineral density of the total region of the hip is 0.772 grams per square centimeter which yields a T-score of -1.4. There has been an 18.8% interval decrease in bone mineral density. LEFT FEMORAL NECK: The bone mineral density of the femoral (more content not included)... Normal [facility] XR HAND 3V PA/LAT/OBL LTon 1 XR HAND 3V PA/LAT/OBL LT * * *Final Report* * * DATE OF EXAM: Nov 22 2023 9:50AM [id number] - XR HAND 3V PA/LAT/OBL LT / PROCEDURE REASON: Pain in joint, multiple sites * * * * Physician Interpretation * * * * EXAM TITLE: XR HAND 3V PA/LAT/OBL LT, XR HAND 3V PA/LAT/OBL RT DATE: 11/28/2023 9:52 AM INDICATION: Bilateral hand pain COMPARISON: None. FINDINGS: At both hands, there are severe changes of osteoarthritis at the first CMC joint. Milder osteoarthritis at the interphalangeal joints. No erosions, fractures, or dislocations. No acute soft tissue abnormality. There is a surgical anchor at the base of the proximal phalanx of the right thumb. IMPRESSION: Osteoarthritis. Service Operator: PITER Transcribe Date/Time: Nov 28 2023 9:52A Dictated by : DANNA BOX MD This examination was interpreted and the report reviewed and electronically signed by: DANNA BOX MD on Nov 28 2023 9:53AM EST [id number] Normal [facility] XR HAND 3V PA/LAT/OBL RTon 1 XR HAND 3V PA/LAT/OBL RT * * *Final Report* * * DATE OF EXAM: Nov 22 2023 9:50AM [id number] - XR HAND 3V PA/LAT/OBL RT / PROCEDURE REASON: Pain in joint, multiple sites * * * * Physician Interpretation * * * * EXAM TITLE: XR HAND 3V PA/LAT/OBL LT, XR HAND 3V PA/LAT/OBL RT DATE: 11/28/2023 9:52 AM INDICATION: Bilateral hand pain COMPARISON: None. FINDINGS: At both hands, there are severe changes of osteoarthritis at the first CMC joint. Milder osteoarthritis at the interphalangeal joints. No erosions, fractures, or dislocations. No acute soft tissue abnormality. There is a surgical anchor at the base of the proximal phalanx of the right thumb. IMPRESSION: Osteoarthritis. Service Operator: PITER Transcribe Date/Time: Nov 28 2023 9:52A Dictated by : DANNA BOX MD This examination was interpreted and the report reviewed and electronically signed by: DANNA BOX MD on Nov 28 2023 9:53AM EST [id number] Normal [facility] Pulmonary Visit Reporton Pulmonary Visit Report [facility] Pulmonary Medicine of [address] [place] [address] OFFICE VISIT Date of Service: 11/16/23 MR#: [id number] Acct: [id number] Name: DOROTHY PUCKETT Rep #: [id number] : 1955 Provider: RODGER Noguera Age/Sex: 68/F Location: [facility].PMW Status: Signed Assessment and Plan Assessment and Plan (1) Chronic cough: Status: Chronic Plan: Improving. NIOX procedure performed in the office today, this returned within normal limits. This indicates that she does not require any systemic corticosteroids. Likely postviral. She does have some postnasal drip and therefore will be placed on nasal steroid spray. Otherwise, follow-up as needed. No indication for antibiotics or steroids. Orders: Orders NIOX 11/16/23 R05.3 - Chronic cough Medications: New fluticasone propionate 50 mcg/actuation 2 sprays intranasal DAILY 16 grams 3RF J45.909 - Unspecified asthma, uncomplicated HPI HPI Comments Details: This patient presents to the office today for an acute visit regarding cough. She is ambulatory and currently on room air. She has not recently been seen in the ED or urgent care. She is compliant with Symbicort, 2 puffs twice daily. She does report rinsing her mouth out after each use. She has been compliant with loratadine daily. She has been using Mucinex DM, seems to be helpful in suppressing her cough. The cough has been ongoing for the past 3 to 4 weeks. It is sometimes productive of clear-colored sputum. She denies any hemoptysis. She feels as though there is something caught in the back of the throat. She does have postnasal drainage. She denies any chest congestion, chest pain or palpitations. She also denies any wheezing. She has not had any fever, chills or body aches. Intake Vital Signs 09/18/23 07:42 11/16/23 08:44 Height 5 ft 6 in 5 ft 6 in Weight: 155 lb 157 lb BMI 25.0 25.3 BP 110/72 107/67 Blood Pressure Location Lt brachial Lt brachial Position Sitting Sitting Respiration 18 18 Pulse 64 65 Pulse Source Monitor Monitor Temp 97.1 F L 97.1 F L Temperature Source Temporal Artery Temporal Artery Pulse Oximetry (%) 98 97 Oxygen Delivery Method room air room air Intake Visit Reasons: Cough Chief Complaint: cough x 2 months DME Vendor: N/A Accompanied by: Self Allergies No Known Allergies Allergy (Verified 11/16/23 11:26) Medications ???Medication ???Instructions ???Recorded ???Confirmed ???Type loratadine 10 mg tablet 10 mg PO DAILY PRN allergy symptoms 04/02/19 11/16/23 History pyridoxine (vitamin B6) 50 mg 50 mg PO .QOD 04/02/19 11/16/23 History tablet adalimumab 40 mg/0.4 mL 40 mg subcut Q2W 04/11/19 11/16/23 History subcutaneous pen kit calcium carbonate 260 mg PO DAILY 04/11/19 11/16/23 History pantoprazole 20 mg tablet,delayed 20 mg PO DAILY 04/11/19 11/16/23 History release prednisone 20 mg tablet 60 mg (3 x 20 mg) PO QDAY #15 tabs 10/02/23 11/16/23 Rx budesonide-formoterol HFA 160 2 inh inhalation BID #1 ea 10/26/23 11/16/23 Rx mcg-4.5 mcg/actuation aerosol inhaler (Symbicort) fluticasone propionate 50 2 spray intranasal DAILY #16 grams 11/16/23 11/16/23 Rx mcg/actuation nasal spray,suspension Have you fallen in the past year?: No PFS Medical History History of left heart catheterization (LHC) ( 06/18/19) Bladder cancer Family history of premature coronary artery disease Bladder neoplasm of uncertain malignant potential Bladder mass Surgical History S/P tendon repair History of oophorectomy, unilateral transurethral resection of bladder History of appendectomy Family History Son Myocardial infarction, Onset Age: 29 Father CHF (congestive heart failure) Brother CVA (cerebral vascular accident) Brother Cancer Prostate Mother CVA (cerebral vascular accident) Hypertension Social History Smoking Status: Never smoker alcohol intake: current details: occasional substance use type: does not use caffeine: Yes Type: tea Number of servings: 6 Review of Systems Resp Respiratory: Yes as per HPI Exam Const Constitutional: Positive conversant, cooperative, in no acute respiratory distress, healthy appearing, well developed, well nourished and good hygiene Head Head: Yes normocephalic, Yes atraumatic and No cyanosis of lips/distal nose Eyes Eye: Positive clear conjunctiva; Negative nystagmus Ears Ear: Positive hearing normal and external ears normal Nose Nose: Yes external nose normal (more content not included)... Normal [facility] Dexa Bone Density Studyon Dexa Bone Density Study [facility] Imaging Services [address] [place] [id number] Dexa Bone Density Study MR#: [id number] Acct: [id number] Name: DOROTHY PUCKETT Rep #: [id number] : 1955 F 68 From: Darrin buitrago MD PCP: Dr. Consuelo Alex MD Status: [facility] Study: Dexa Bone Density Study Date of Exam: 09/19/23 Exam# [id number] Ordering Dr: Consuelo Alex MD [id number] STUDY: DUAL ENERGY X-RAY ABSORPTIOMETRY / DXA REASON FOR EXAM: Female, 68 years old. 627.8Menopausal postmenopausalBONE DENSITY REASON FOR EXAM TECHNIQUE: Bone Mineral Density (BMD) measurements of lumbar spine and bilateral hips were obtained. COMPARISON: None. FINDINGS: Lumbar Spine (L1-L4): g/cm2 (1.102) / T-score (0.5) / Z-score (2.4) Findings are suggestive of normal bone density with a low fracture risk. Left Femur Total: g/cm2 (0.706) / T-score (-1.9) / Z-score (-0.6) Left Femoral Neck: g/cm2 (0.637) / T-score (-1.9) / Z-score (-0.3) Right Femur Total: g/cm2 (0.726) / T-score (-1.8) / Z-score (-0.4) Right Femoral Neck: g/cm2 (0.643) / T-score (-1.9) / Z-score (-0.2) BD/Dexa Bone Density Study IMPRESSION: The patient is considered osteopenic as outlined below according to World [employer] Organization (WHO) criteria with a moderate fracture risk. Reference Information: The T-score is the number of standard deviations above or below the standard which is normal for young adults at their peak bone mineral density. The World Health Organization (WHO) interprets the T-scores as follows: Above -1 Normal bone density Between -1 and -2.5 Osteopenia Equal to / or below -2.5 Osteoporosis As a practical clinical guideline, osteopenia may be graded as follows: Mild -1 through -1.5 Moderate -1.6 through -2.0 Severe -2.1 through -2.4 The Z-score is the number of standard deviations above or below age-matched controls. A Z-score of less than -1.5 would be considered abnormal. References: 1. NIH Osteoporosis and Related Bone Diseases www osteo.org 2. International Society for Clinical Densitometry www iscd.org 3. National Osteoporosis Foundation www nof.org Electronically Signed: Darrin Esposito MD at 15:35 EDT Reading Location ID and State: [id number] / [place] , Service support , CC: Dr. Consuelo Alex MD Service Operator: Signed Normal [facility] Pulmonary Visit Reporton Pulmonary Visit Report [facility] Pulmonary Medicine of [address] [place] [address] OFFICE VISIT Date of Service: 09/18/23 MR#: [id number] Acct: [id number] Name: DOROTHY PUCKETT Rep #: [id number] : 1955 Provider: RODGER Noguera Age/Sex: 68/F Location: [facility].PMW Status: Signed Assessment and Plan Assessment and Plan (1) Chronic cough: Status: Chronic Plan: Asymptomatic at this time. She will contact the office if symptoms return. Follow-up as needed. HPI 6 M FU Chief Complaint: Chronic cough HPI Comments Details: This patient presents to the office today to discuss recent test results regarding cough. She is ambulatory and currently on room air. She has not recently been seen in the ED or urgent care for any respiratory illness. She has not required any antibiotics or prednisone for any breathing problems. She is not currently on any maintenance inhalers. She has not required the use of albuterol. She is no longer on loratadine. The patient reports that she has been asymptomatic since she was here last year. She denies any difficulty with shortness of breath whatsoever. She denies any cough, sputum production or hemoptysis. She denies any wheezing, chest tightness, chest pain or palpitations. She also denies any fever, chills or body aches. She is a lifelong never smoker. Intake Vital Signs 03/29/23 07:23 09/18/23 07:42 Height 5 ft 6 in 5 ft 6 in Weight: 154 lb 155 lb BMI 24.8 25.0 BP 122/56 H 110/72 Blood Pressure Location Lt brachial Lt brachial Position Sitting Sitting Respiration 20 H 18 Pulse 66 64 Pulse Source Monitor Monitor Temp 97.3 F L 97.1 F L Temperature Source Temporal Artery Temporal Artery Pulse Oximetry (%) 96 98 Oxygen Delivery Method room air room air Intake Visit Reasons: 6 M Change Of Address Clerk Required: No DME Vendor: n/a Accompanied by: Self Is patient in pain?: No Allergies No Known Allergies Allergy (Verified 09/18/23 08:50) Medications ???Medication ???Instructions ???Recorded ???Confirmed ???Type loratadine 10 mg tablet 10 mg PO DAILY PRN allergy symptoms 04/02/19 09/18/23 History pyridoxine (vitamin B6) 50 mg 50 mg PO .QOD 04/02/19 09/18/23 History tablet adalimumab 40 mg/0.4 mL 40 mg subcut Q2W 04/11/19 09/18/23 History subcutaneous pen kit calcium carbonate 260 mg PO DAILY 04/11/19 09/18/23 History pantoprazole 20 mg tablet,delayed 20 mg PO DAILY 04/11/19 09/18/23 History release Have you fallen in the past year?: No PFSH Medical History History of left heart catheterization (LHC) ( 06/18/19) Bladder cancer Family history of premature coronary artery disease Bladder neoplasm of uncertain malignant potential Bladder mass Surgical History S/P tendon repair History of oophorectomy, unilateral transurethral resection of bladder History of appendectomy Family History Son Myocardial infarction, Onset Age: 29 Father CHF (congestive heart failure) Brother CVA (cerebral vascular accident) Brother Cancer Prostate Mother CVA (cerebral vascular accident) Hypertension Social History Smoking Status: Never smoker alcohol intake: current details: occasional substance use type: does not use caffeine: Yes Type: tea Number of servings: 6 Review of Systems Resp Respiratory: Yes as per HPI Exam Const Constitutional: Positive conversant, cooperative, in no acute respiratory distress, healthy appearing, well developed, well nourished and good hygiene Head Head: Yes normocephalic, Yes atraumatic and No cyanosis of lips/distal nose Eyes Eye: Positive clear conjunctiva; Negative nystagmus Ears Ear: Positive hearing normal and external ears normal Nose Nose: Yes external nose normal Mouth Mouth: Positive oral mucosae normal Neck Neck: Positive normal visual inspection, full ROM and trachea midline Chest Wall Chest: Positive normal inspection of the chest and symmetric chest movement Resp lung sounds: Positive clear to auscultation, good air exchange and normal expiratory time; Negative wheezes, rhonchi, rales or use of accessory muscles Cardio Cardiac: Positive regular rate, regular rhythm, S1 normal and S2 normal; Negative murmur, rub or gallop GI GI: Positive normal to inspection; Negative distended Musc Musculoskeletal: Positive steady gait; Negative using an assistive device for ambulation, kyphosis or scoliosis Skin Pulmonary Skin Exam: Positive intact; Negative lesion, rash, ulcers or erythema (more content not included)... [facility] ([facility] DOROTHY PUCKETT ([id number]) 1955 F Date Time Provider Department 09/13/23 SENIA MARIA During your visit today, we recorded the following information about you: Cecilia Nassar 09/13/2023 3:53 PM Signed Was going to call pt to finish appt. Noticed x-ray order was not in pt's chart. Sent Dr. Maria a bubble chat to see if she could add it. Checked at 3:53pm and it still hadn't been added. Allergies As of Date: 09/13/2023 (No Known Allergies) Date Reviewed: 07/05/2022 Reviewed by: Atiya Tierney APRN.OFFICE EQUIPMENT MECHANIC - Fully Assessed Prescriptions as of 09/29/2023 - propranolol ER (INDERAL LA) 60 mg 24 hr capsule TAKE 1 CAPSULE BY MOUTH EVERY DAY AT BEDTIME - apremilast (OTEZLA) 30 mg tablet Take 30 mg by mouth twice daily. - calcium carbonate (CALCIUM 600 ORAL) Take 1 tablet by mouth once daily. - Omeprazole 40 mg capsule TAKE 1 CAPSULE BY MOUTH ONCE A DAY TAKE ONE CAPSULE EVERY DAY - VITAMIN B COMP AND VIT C NO.6 (VITAMIN B COMP WITH VIT C NO.6 ORAL) Take by mouth. Problem List As Of Date 09/13/2023 Noted Resolved Ovarian mass [N83.8] 09/22/2009 09/06/2011 Ascites [R18.8] 09/22/2009 09/06/2011 Seborrheic dermatitis of scalp [L21.9] 09/06/2011 Thickened endometrium [R93.89] 10/21/2011 Uterine fibroid [D25.9] 05/02/2012 PMB (postmenopausal bleeding) [N95.0] 05/02/2012 Elevated ALT measurement [R74.01] 01/31/2013 Thumb pain [M79.646] 03/05/2013 Gastro-esophageal reflux disease without esopha*08/15/2017 Psoriasis vulgaris [L40.0] 01/16/2018 Melanocytic nevi, unspecified [D22.9] 10/20/2016 Chronic kidney disease, stage III (moderate) (H*02/22/2018 Other specified disorders of bladder [N32.89] 10/03/2017 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 Performed By: #### L 350.1000 #### [facility] [address] [place], [address] Pap Stain (control)on 2023 Pap Stain (control) --------- ----- Patient Age/Sex Location Account Attending Physician ----- DOROTHY PUCKETT 68/F [facility] [id number] Dr. Michelet Rogers MD ----- Specimen: [id number] Received: 09/13/23-908 Status: SOUKarla Redavina Num: [id number] Spec Type: CYSPIN FL Subm Dr: Dr. Michelet Rogers MD HEADER OPERATION: Not noted PRE-OP DIAGNOSIS: Malignant neoplasm of bladder TISSUE SUBMITTED: Urine for cytology ----- DIAGNOSIS CYTOLOGY Urine for cytology (cytospin): Negative for high grade urothelial carcinoma (Sherrie System Category II). See comment. AM/mr 09/13/2023 COMMENT The Sherrie System for urine cytology diagnostic categorization was used in the evaluation of this case. This specimen primarily contains benign squamous epithelial cells. Clinical correlation is suggested. CYTOLOGY STUDY Slides are reviewed. CYTOLOGY GROSS Received is 90 ml of hazy-yellow fluid labeled with the patient's name and and designated per the requisition as urine. Submitted for cytology preparation. 09/13/2023 TC:5 CPT: 56547 Signed (signature on file) Dr. Terry Davila, DO 09/13/23 1138 ----- Normal [facility] Comment on above: Performed By: #### P PAPS #### [facility] [address] [place], [place], [address] [facility] 07-06-2023 [facility] HNO ID: [id number] Author: COORDINATOR, MAMMOGRAPHY, ? Service: ? Author Type: Physician Type: Letter Filed: 07/06/2023 10:56 Note Text: July 06, 2023 PID: [id number] Dorothy Puckett [address] [place] [address] Dear Ms. Puckett, We are pleased to inform you that the results of your recent breast imaging exam on 07/06/2023 are normal. Your mammogram demonstrates that you [...] report will be kept on file at [facility] as part of your permanent medical record and are available for your continuing care. Thank you for allowing us to help in meeting your health care needs. Sincerely, Dr. Browning Interpreting Radiologist [facility] (Normal over 40) Normal [facility] DBT Breast - bilateral scree ningon 07-06-2023 IMPRESSION: NEGATIVE There is no mammographic evidence of malignancy. A 1 year screening mammogram is recommended. Salma Browning M.D. sb/penrad:07/06/2023 10:56:05 Lottery Manager(s): RT Rosey(Lane)(Araivnd), [facility] letter sent: Normal over 40 Mammogram BI-RADS: 1 Negative Multiple national specialty organizations have released breast cancer screening guidelines for women at average risk for developing breast cancer - guidelines that are based on both evidence and opinion, yet differ on when to start and how often to screen for breast cancer. With representation from Breast Imaging, Internal Medicine, Women's Health, Family Medicine, and Medical/Surgical Oncology, the [facility] has carefully reviewed the data and reached the following consensus: 1) All women should engage in shared decision-making with their providers to decide when to start and how often to screen; 2) All women should have the opportunity to start screening mammography at age 40; 3) For women ages 45-55, we recommend annual screening mammograms; 4) For women ages 55 and over, we support both the transition from an annual to a biennial interval if this aligns more with patient's values and preferences, or continuation with annual screening; 5) All women should discuss with their providers when to stop screening mammograms. Service Operator: Sofia Transcribe Date/Time: Jul 06 2023 7:54A Dictated by: SALMA BROWNING MD This examination was interpreted and the report reviewed and electronically signed by: SALMA BROWNING MD on Jul 06 2023 10:56AM [facility] DIVISION OF RADIOLOGY * * *Final Report* * * DATE OF EXAM: Jul 06 2023 8:07AM [facility] 0582 - [facility] SCREENING W EVELIO / PROCEDURE REASON: multiple diagnoses * * * * Physician Interpretation * * * * RESULT: #[id number] - [facility] SCREENING W EVELIO BILATERAL DIGITAL SCREENING MAMMOGRAM TOMOSYNTHESIS WITH CAD: 07/06/2023 HISTORY: Multiple Diagnoses /Screening Mammogram with EVELIO - patient reports NO breast symptoms /priors available for comparison. RESULT: TECHNIQUE: The study was acquired using full field digital technology and interpreted from soft copy. Digital Breast Tomosynthesis (DBT) images were obtained and used to assist in the interpretation of this examination. Current study was also evaluated with a Computer Aided Detection (CAD). Comparison is made to exams dated: 06/30/2022 mammogram, 03/26/2021 mammogram, 03/12/2020 mammogram, and 03/08/2019 mammogram - [facility]. The breasts are heterogeneously dense, which may obscure small masses. No significant masses, calcifications, or other findings are seen in either breast. There has been no significant interval change. DIVISION OF RADIOLOGY Provider, [facility] - 07/06/2023 * * *Final Report* * * DATE OF EXAM: Jul 06 2023 8:07AM [facility] 0582 - [facility] SCREENING W EVELIO / PROCEDURE REASON: multiple diagnoses * * * * Physician Interpretation * * * * RESULT: #[id number] - [facility] SCREENING W EVELIO BILATERAL DIGITAL SCREENING MAMMOGRAM TOMOSYNTHESIS WITH CAD: 07/06/2023 HISTORY: Multiple Diagnoses /Screening Mammogram with EVELIO - patient reports NO breast symptoms /priors available for comparison. RESULT: TECHNIQUE: The study was acquired using full field digital technology and interpreted from soft copy. Digital Breast Tomosynthesis (DBT) images were obtained and used to assist in the interpretation of this examination. Current study was also evaluated with a Computer Aided Detection (CAD). Comparison is made to exams dated: 06/30/2022 mammogram, 03/26/2021 mammogram, 03/12/2020 mammogram, and 03/08/2019 mammogram - [facility]. The breasts are heterogeneously dense, which may obscure small masses. No significant masses, calcifications, or other findings are seen in either breast. There has been no significant interval change. IMPRESSION IMPRESSION: NEGATIVE There is no mammographic evidence of malignancy. A 1 year screening mammogram is recommended. Salma garcia/sofia:07/06/2023 10:56:05 Lottery Manager(s): RT Rosey(R)(M), [facility] letter sent: Normal over 40 Mammogram BI-RADS: 1 Negative Multiple national specialty organizations have released breast cancer screening guidelines for women at average risk for developing breast cancer - guidelines that are based on both evidence and opinion, yet differ on when to start and how often to screen for breast cancer. With representation from Breast Imaging, Internal Medicine, Women's Health, Family Medicine, and Medical/Surgical Oncology, the [facility] has carefully reviewed the data and reached the following consensus: 1) All women should engage in shared decision-making with their providers to decide when to start and how often to screen; 2) All women should have the opportunity to start screening mammography at age 40; 3) For women ages 45-55, we recommend annual screening mammograms; 4) For women ages 55 and over, we support both the transition from an annual to a biennial interval if this aligns more with patient's values and preferences, or continuation with annual screening; 5) All women should discuss with their providers when to stop screening mammograms. Service Operator: Sofia Transcribe Date/Time: Jul 06 2023 7:54A Dictated by: SALMA BROWNING MD This examination was interpreted and the report reviewed and electronically signed by: SALMA BROWNING MD on Jul 06 2023 10:56AM EST [facility] Radiology Study observation (narrative) [facility] DBT Breast - bilateral scree ningOrdered By: Ccf Provider on 07-06-2023 [facility] FRANCHESCA SCREENING W TOMOon 07-05 FRANCHESCA SCREENING W EVELIO * * *Final Report* * * DATE OF EXAM: Jul 06 2023 8:07AM [id number] - [facility] SCREENING W EVELIO / PROCEDURE REASON: multiple diagnoses * * * * Physician Interpretation * * * * RESULT: #[id number] - FRANCHESCA SCREENING W EVELIO BILATERAL DIGITAL SCREENING MAMMOGRAM TOMOSYNTHESIS WITH CAD: 07/06/2023 HISTORY: Multiple Diagnoses /Screening Mammogram with EVELIO - patient reports NO breast symptoms /priors available for comparison. RESULT: TECHNIQUE: The study was acquired using full field digital technology and interpreted from soft copy. Digital Breast Tomosynthesis (DBT) images were obtained and used to assist in the interpretation of this examination. Current study was also evaluated with a Computer Aided Detection (CAD). Comparison is made to exams dated: 06/30/2022 mammogram, 03/26/2021 mammogram, 03/12/2020 mammogram, and 03/08/2019 mammogram - [facility]. The breasts are heterogeneously dense, which may obscure small masses. No significant masses, calcifications, or other findings are seen in either breast. There has been no significant interval change. IMPRESSION: NEGATIVE There is no mammographic evidence of malignancy. A 1 year screening mammogram is recommended. Salma Browning M.D. sb/penrad:07/06/2023 10:56:05 Lottery Manager(s): RT Rosey(R)(M), [facility] letter sent: Normal over 40 Mammogram BI-RADS: 1 Negative Multiple national specialty organizations have released breast cancer screening guidelines for women at average risk for developing breast cancer - guidelines that are based on both evidence and opinion, yet differ on when to start and how often to screen for breast cancer. With representation from Breast Imaging, Internal Medicine, Women's Health, Family Medicine, and Medical/Surgical Oncology, the [facility] has carefully reviewed the data and reached the following consensus: 1) All women should engage in shared decision-making with their providers to decide when to start and how often to screen; 2) All women should have the opportunity to start screening mammography at age 40; 3) For women ages 45-55, we recommend annual screening mammograms; 4) For women ages 55 and over, we support both the transition from an annual to a biennial interval if this aligns more with patient's values and preferences, or continuation with annual screening; 5) All women should discuss with their providers when to stop screening mammograms. Service Operator: Sofia Transcribe Date/Time: Jul 06 2023 7:54A Dictated by: SALMA BROWNING MD This examination was interpreted and the report reviewed and electronically signed by: SALMA BROWNING MD on Jul 06 2023 10:56AM EST [id number] Normal [facility] Cytology report of Body flui d Cyto stainOrdered By: Michelet Rogers on 02-27-2023 Cytology report Cyto stain Doc (Body fld) SEE PATHOLOGY REPORT [facility] Comment on above: Specimen submitted t o Anatomical Pathology Department for testing. CNCOon 07-20-2022 [facility]CO Letter Text Normal [facility] BD DXA - AXIAL SKELETONon BD DXA - AXIAL SKELETON * * *Final Report* * * DATE OF EXAM: Jul 19 2022 3:55PM WRB [id number] - BD DXA - AXIAL SKELETON / PROCEDURE REASON: multiple diagnoses * * * * Physician Interpretation * * * * PROCEDURE: BD DXA - AXIAL SKELETON INDICATION: Asymptomatic postmenopausal state. Encounter for screening for osteoporosis TECHNIQUE: Low dose AP spine and hip images COMPARISON: October 06, 2010 LUMBAR SPINE: The bone mineral density from L1 through L4 is 1.077 grams per square centimeter which yields a T-score of 0.3. There has been a 3.8% interval increase in bone mineral density. LEFT HIP: The bone mineral density of the total region of the hip is 0.772 grams per square centimeter which yields a T-score of -1.4. There has been an 18.8% interval decrease in bone mineral density. LEFT FEMORAL NECK: The bone mineral density of the femoral neck is 0.683 grams per square centimeter which yields a T-score of -1.5. There has been a 13.8% interval decrease in bone mineral density. RIGHT HIP: The bone mineral density of the total region of the hip is 0.798 grams per square centimeter which yields a T-score of -1.2. RIGHT FEMORAL NECK: The bone mineral density of the femoral neck is 0.646 grams per square centimeter which yields a T-score of -1.8. 10-year Fracture Risk (FRAX): Major osteoporotic fracture risk 10% Hip fracture risk 1.4% IMPRESSION: Osteopenia in the bilateral hips and femoral necks. WORLD HEALTH ORG. CLASSIFICATION OF BONE MASS CLASSIFICATION T-SCORE Normal Greater than -1 Low Bone Mass Between -1 and -2.5 (Osteopenia) Osteoporosis Less than or equal to -2.5 Service Operator: PITER Transcribe Date/Time: Jul 19 2022 4:28P Dictated by : FREDRICK HERNANDEZ MD This examination was interpreted and the report reviewed and electronically signed by: FREDRICK HERNANDEZ MD on Jul 19 2022 4:33PM EST [id number] Normal [facility] DXA-AXIAL SKELETONon 023 [facility] FRANCHESCA SCREENING W TOMOon 06-30 [facility] Culture, urineOrdered By: Dr Stacia Alex on 01-19-2022 Bacteria identified Cx Nom (U) Positive [facility] Cytology report of Body flui d Cyto stainOrdered By: Dr. Alex on 01-18-2022 Cytology report Cyto stain Doc (Body fld) SEE PATHOLOGY REPORT [facility] Comment on above: Specimen submitted t o Anatomical Pathology Department for testing. Absolute lymphocyte countOrd ered By: Dr. Alex on 12-29-2021 Lymphocytes Auto (Unsp spec) [#/Vol] 2.40 10*3/uL 0.83-4.51 [facility] Basophil percentageOrdered B y: Dr. Alex on 12-29-2021 Basophil percentage 25-50 SEEN /hpf 0-5 [facility] Basophil percentage 4.1 mg/dL 2.5-4.9 [facility] Basophils/100 WBC (Bld) 0.9 % 0-1 [facility] Bilirubin [Mass/Vol] 0.30 mg/dL 0.20-1.00 [facility] Comment on above: For patients on eltr ombopag therapy, use of Dimension [place] TBIL is not recommended. Chloride [Moles/Vol] 103 mmol/L 98-107 [facility] Eosinophils/100 WBC (Bld) 1.2 % 0-5 [facility] Glucose [Mass/Vol] 91 mg/dL 74-106 [facility] Neutrophils (Bld) [#/Vol] 4.1 10*3/uL 2.0-7.7 [facility] Neutrophils/100 WBC (Bld) 55.8 % 47-70 [facility] Potassium [Moles/Vol] 3.4 mmol/L 3.5-5.1 [facility] Protein [Mass/Vol] 8.3 g/dL 6.4-8.2 [facility] Sodium [Moles/Vol] 138 mmol/L 136-145 [facility] WBC (Bld) [#/Vol] 7.4 10*3/uL 4.4-11.0 [facility] Bilirubin Test strip Ql (U)O rdered By: Dr. Alex on 12-29-2021 Bilirubin Ql (U) Negative Negative [facility] Blood erythrocytes count (nu mber/volume)Ordered By: Dr. Alex on 12-29-2021 RBC (Bld) [#/Vol] 4.54 10*6/uL 4.2-5.4 [facility] Blood hemoglobin measurement (mass/volume)Ordered By: Dr. Alex on 12-29-2021 Hemoglobin (Bld) [Mass/Vol] 14.0 g/dL 12.0-15.0 [facility] Blood lymphocytes/100 leukoc ytesOrdered By: Dr. Alex on 12-29-2021 Lymphocytes/100 WBC (Bld) 32.5 % 19-41 [facility] Blood monocytes/100 leukocyt esOrdered By: Dr. Alex on 12-29-2021 Monocytes/100 WBC (Bld) 9.5 % 0-10 [facility] Blood platelet mean volumeOr dered By: Dr. Alxe on 12-29-2021 Platelet mean volume (Bld) [Entitic vol] 9.9 fL 6.2-12.0 [facility] Determination of erythrocyte mean corpuscular volume (MCV)Ordered By: Dr. Alex on 12-29-2021 MCV (RBC) [Entitic vol] 91.9 fL 81-99 [facility] Hematocrit Auto (Bld) [Volum e fraction]Ordered By: Dr. Alex on 12-29-2021 Hematocrit (Bld) [Volume fraction] 41.7 % 37-47 [facility] Ketones Test strip Ql (U)Ord ered By: Dr. Alex on 12-29-2021 Ketones Ql (U) Negative Negative [facility] Laboratory - Chemistry and C hemistry - challengeOrdered By: Dr. Alex on 12-29-2021 ALP [Catalytic activity/Vol] 129 U/L 45-117 [facility] ALT [Catalytic activity/Vol] 39 U/L 13-56 [facility] CO2 [Moles/Vol] 29.0 mmol/L 21.0-32.0 [facility] Cobalamin (Vitamin B12) [Mass/Vol] 495 pg/mL 211-911 [facility] Globulin (S) [Mass/Vol] 4.3 g/dL 2.2-4.2 [facility] Urea nitrogen/Creatinine [Mass ratio] 12.1 mg/mg 10-20 [facility] Laboratory - Hematology and Cell countsOrdered By: Dr. Alex on 12-29-2021 Erythrocyte distribution width (RBC) [Entitic vol] 42.3 fL 35.1-43.9 [facility] Erythrocyte distribution width (RBC) [Ratio] 12.5 % 11.6-14.6 [facility] Immature granulocytes/100 WBC (Bld) 0.100 % 0.0-0.9 [facility] Comment on above: IG% - Immature Granu locytes (promyelocytes, myelocytes and metamyelocytes) > 1% indicates that a LEFT SHIFT is Present. MCH (RBC) [Entitic mass] 30.8 pg 27.0-32.0 [facility] Nucleated RBC/100 WBC (Bld) [Ratio] 0 % 0-5 [facility] MCHC Auto (RBC) [Mass/Vol]Or dered By: Dr. Alex on 12-29-2021 MCHC (RBC) [Mass/Vol] 33.6 g/dL 32-36 [facility] Mucus LM Ql (Urine sed)Order ed By: Dr. Alex on 12-29-2021 Mucus Ql (Urine sed) 0 SEEN /hpf [facility] Nitrite Test strip Ql (U)Ord ered By: Dr. Alex on 12-29-2021 Nitrite Ql (U) Negative Negative [facility] No Panel InformationOrdered By: Dr. Alex on 12-29-2021 Estimated GFR (MDRD) Amer 72 mL/min >60 [facility] Comment on above: GFR Calc Estimated GFR (MDRD) Non-Af Amer 60 mL/min >60 [facility] Comment on above: Non- GFR Calc Parathyroid Hormone (Intact) 41.3 pg/mL 18.4-80.1 [facility] Vitamin B6 Level 43.8 ug/L 3.4-65.2 [facility] Comment on above: Deficiency: <3.4 Mar ginal: 3.4 - 5.1 Adequate: >5.1Performed at: [facility] Lab[address] [id number] Director: Brenda King MD, Phone: [phone] Vitamin D 25-Hydroxy 52.5 ng/mL [facility] Comment on above: Vitamin D 25(OH) Sta tus Range Deficiency <20 ng/mL (50nmol/L) Insufficiency 20 - 30 ng/mL (50 - 75 nmol/L) Sufficiency 30 - 100 ng/mL (75 - 250 nmol/L) Toxicity >100 ng/mL (>250 nmol/L) Platelets bldOrdered By: Dr. Alex on 12-29-2021 Platelets (Bld) [#/Vol] 281 10*3/uL 150-450 [facility] Protein Test strip Ql (U)Ord ered By: Dr. Alex on 12-29-2021 Protein Ql (U) 15 mg/dl Negative [facility] Serum or plasma albumin mindy urement (mass/volume)Ordered By: Dr. Alex on 12-29-2021 Albumin [Mass/Vol] 4.0 g/dL 3.2-5.0 [facility] Serum or plasma albumin/glob ulin mass ratioOrdered By: Dr. Alex on 12-29-2021 Albumin/Globulin [Mass ratio] 0.9 {ratio} 0.9-2.4 [facility] Serum or plasma calcium mindy urement (mass/volume)Ordered By: Dr. Alex on 12-29-2021 Calcium [Mass/Vol] 9.3 mg/dL 8.5-10.1 [facility] Serum or plasma creatinine m easurement (mass/volume)Ordered By: Dr. Alex on 12-29-2021 Creatinine [Mass/Vol] 0.99 mg/dL 0.55-1.02 [facility] Comment on above: The validity of the calculated GFR & GFRAA in patients over 70 years has not been determined. Clinical correlation is essential. Serum or plasma urea nitroge n measurement (mass/volume)Ordered By: Dr. Alex on 12-29-2021 Urea nitrogen [Mass/Vol] 12 mg/dL 7-18 [facility] Squamous epithelial cells de tection in urine sediment by light microscopyOrdered By: Dr. Alex on 12-29-2021 Epithelial cells.squamous LM Ql (Urine sed) 0-5 SEEN /hpf 5-10 [facility] Thin prep Papanicolaou smear with manual screeningOrdered By: Dr. Alex on 12-29-2021 Thin prep Papanicolaou smear with manual screening 23 U/L 15-37 [facility] Thin prep Papanicolaou smear with manual screening 6 5-15 [facility] Urine blood detectionOrdered By: Dr. Alex on 12-29-2021 RBC Ql (U) 250 /ul Negative [facility] RBC Ql (U) 25-50 SEEN /hpf 0-5 [facility] Urine clarityOrdered By: Dr. Alex on 12-29-2021 Clarity (U) Sl. Cloudy Clear [facility] Urine color determinationOrd ered By: Dr. Alex on 12-29-2021 Color (U) Yellow Yellow [facility] Urine creatinine measurement (mass/volume)Ordered By: Dr. Alex on 12-29-2021 Creatinine (U) [Mass/Vol] 147.00 mg/dL NO RANGE EST. [facility] Urine glucose detectionOrder ed By: Dr. Alex on 12-29-2021 Glucose Ql (U) Normal mg/dl Normal [facility] Urine leukocyte esterase det ection by dipstickOrdered By: Dr. Alex on 12-29-2021 Leukocyte esterase Test strip Ql (U) 500 /ul Negative [facility] Urine pHOrdered By: Dr. Milena morris on 12-29-2021 pH (U) 6.0 [pH] 5.0 - 8.0 [facility] Urine protein measurement (m ass/volume)Ordered By: Dr. Alex on 12-29-2021 Protein (U) [Mass/Vol] 20.1 mg/dL 0.0-11.8 [facility] Urine protein/creatinine mas s ratioOrdered By: Dr. Alex on 12-29-2021 Protein/Creatinine (U) [Mass ratio] 137 mg/g CRE 0-200 [facility] Urine sediment bacteria coun t by microscopy (number/high power field)Ordered By: Dr. Alex on 12-29-2021 Bacteria LM.HPF (Urine sed) [#/Area] 1 /[HPF] None Seen [facility] Urine specific gravity measu rementOrdered By: Dr. Alex on 12-29-2021 Specific gravity (U) [Rel density] 1.015 1.002-1.03 0 [facility] Urobilinogen Auto test strip Ql (U)Ordered By: Dr. Alex on 12-29-2021 Urobilinogen Ql (U) Normal mg/dl Normal [facility] Serum or plasma uric acid me asurement (mass/volume)on 06-23-2021 Urate [Mass/Vol] 4.0 mg/dL 2.6-6.0 [facility] Work Phone: Comment on above: The drugs N-Acetylcy steine and Metamizole may falsely depress this assay. Laboratory - Microbiology an d Antimicrobial susceptibilityon 03-31-2021 SARS-CoV-2 (COVID-19) RNA IRMA+probe Ql (Unsp spec) Not detected Not Detect [facility] Work Phone: Comment on above: Normal Reference Ran ge: Not DetectedMethod:(RT-PCR) real-time reverse transcriptase PCRLuminex KYRA Instrument*The Food and Drug Administration (FDA) has issued an Emergency Use Authorization (EAU) for the KYRA SARS-CoV-2 Assay for the rapid detection of the virus that causes COVID-19. This test has been validated, but the FDAs independent review of this validation is pending.*Negative results do not preclude infection and should not be used as the sole basis for treatment or patient management. Optimum specimen types and timing for peak viral levels during infections caused by SARS-CoV-2 have not been determined. Collection of multiple specimens from the same patient may be necessary to detect the virus. The possibility of a false negative result should be considered if the patient has clinical presentation or has had recent exposure. Absolute lymphocyte counton 03-10-2021 Lymphocytes Auto (Unsp spec) [#/Vol] 2.89 10*3/uL 0.83-4.51 [facility] Work Phone: Basophil percentageon 2021 Basophils/100 WBC (Bld) 0.8 % 0-1 [facility] Work Phone: Bilirubin [Mass/Vol] 0.40 mg/dL 0.20-1.00 [facility] Work Phone: Comment on above: For patients on eltr ombopag therapy, use of Dimension [place] TBIL is not recommended. Chloride [Moles/Vol] 104 mmol/L 98-107 [facility] Work Phone: Eosinophils/100 WBC (Bld) 2.0 % 0-5 [facility] Work Phone: Glucose [Mass/Vol] 95 mg/dL 74-106 [facility] Work Phone: Neutrophils (Bld) [#/Vol] 2.8 10*3/uL 2.0-7.7 [facility] Work Phone: Neutrophils/100 WBC (Bld) 43.2 % 47-70 [facility] Work Phone: Potassium [Moles/Vol] 3.9 mmol/L 3.5-5.1 [facility] Work Phone: Protein [Mass/Vol] 7.4 g/dL 6.4-8.2 [facility] Work Phone: Sodium [Moles/Vol] 139 mmol/L 136-145 [facility] Work Phone: WBC (Bld) [#/Vol] 6.4 10*3/uL 4.4-11.0 [facility] Work Phone: [phone] Blood erythrocytes count (nu mber/volume)on 03-10-2021 RBC (Bld) [#/Vol] 4.30 10*6/uL 4.2-5.4 [facility] Work Phone: [phone] Blood hemoglobin measurement (mass/volume)on 03-10-2021 Hemoglobin (Bld) [Mass/Vol] 13.0 g/dL 12.0-15.0 [facility] Work Phone: Blood lymphocytes/100 leukoc yteson 03-10-2021 Lymphocytes/100 WBC (Bld) 45.3 % 19-41 [facility] Work Phone: Blood monocytes/100 leukocyt eson 03-10-2021 Monocytes/100 WBC (Bld) 8.5 % 0-10 [facility] Work Phone: Blood platelet mean volumeon 03-10-2021 Platelet mean volume (Bld) [Entitic vol] 9.9 fL 6.2-12.0 [facility] Work Phone: [phone] Determination of erythrocyte mean corpuscular volume (MCV)on 03-10-2021 MCV (RBC) [Entitic vol] 91.9 fL 81-99 [facility] Work Phone: Hematocrit Auto (Bld) [Volum e fraction]on 03-10-2021 Hematocrit (Bld) [Volume fraction] 39.5 % 37-47 [facility] Work Phone: [phone] Laboratory - Chemistry and C hemistry - challengeon 03-10-2021 ALP [Catalytic activity/Vol] 109 U/L 45-117 [facility] Work Phone: ALT [Catalytic activity/Vol] 32 U/L 13-56 [facility] Work Phone: CO2 [Moles/Vol] 30.0 mmol/L 21.0-32.0 [facility] Work Phone: [phone] Globulin (S) [Mass/Vol] 3.7 g/dL 2.2-4.2 [facility] Work Phone: Urea nitrogen/Creatinine [Mass ratio] 16.0 mg/mg 10-20 [facility] Work Phone: Laboratory - Hematology and Cell countson 03-10-2021 Erythrocyte distribution width (RBC) [Entitic vol] 42.5 fL 35.1-43.9 [facility] Work Phone: Erythrocyte distribution width (RBC) [Ratio] 12.7 % 11.6-14.6 [facility] Work Phone: Immature granulocytes/100 WBC (Bld) 0.200 % 0.0-0.9 [facility] Work Phone: Comment on above: IG% - Immature Granu locytes (promyelocytes, myelocytes and metamyelocytes) > 1% indicates that a LEFT SHIFT is Present. MCH (RBC) [Entitic mass] 30.2 pg 27.0-32.0 [facility] Work Phone: Nucleated RBC/100 WBC (Bld) [Ratio] 0 % 0-5 [facility] Work Phone: MCHC Auto (RBC) [Mass/Vol]on 03-10-2021 MCHC (RBC) [Mass/Vol] 32.9 g/dL 32-36 [facility] Work Phone: No Panel Informationon 03-10 Estimated GFR (MDRD) Amer 67 mL/min >60 [facility] Work Phone: Comment on above: GFR Calc Estimated GFR (MDRD) Non-Af Amer 55 mL/min >60 [facility] Work Phone: Comment on above: Non- GFR Calc Platelets bldon 03-10-2021 Platelets (Bld) [#/Vol] 274 10*3/uL 150-450 [facility] Work Phone: Qualitative QuantiFERON-TB g old in tube teston 03-10-2021 M. tuberculosis tuberculin stim IFN-g Ql (Bld) 0.02 IU/mL [facility] Work Phone: Serum or plasma albumin mindy urement (mass/volume)on 03-10-2021 Albumin [Mass/Vol] 3.7 g/dL 3.2-5.0 [facility] Work Phone: Serum or plasma albumin/glob ulin mass ratioon 03-10-2021 Albumin/Globulin [Mass ratio] 1.0 {ratio} 0.9-2.4 [facility] Work Phone: Serum or plasma calcium mindy urement (mass/volume)on 03-10-2021 Calcium [Mass/Vol] 9.0 mg/dL 8.5-10.1 [facility] Work Phone: Serum or plasma creatinine m easurement (mass/volume)on 03-10-2021 Creatinine [Mass/Vol] 1.06 mg/dL 0.55-1.02 [facility] Work Phone: Comment on above: The validity of the calculated GFR & GFRAA in patients over 70 years has not been determined. Clinical correlation is essential. Serum or plasma urea nitroge n measurement (mass/volume)on 03-10-2021 Urea nitrogen [Mass/Vol] 17 mg/dL 7-18 [facility] Work Phone: Thin prep Papanicolaou smear with manual screeningon 03-10-2021 Thin prep Papanicolaou smear with manual screening 21 U/L 15-37 [facility] Work Phone: Thin prep Papanicolaou smear with manual screening 5 5-15 [facility] Work Phone: Thin prep Papanicolaou smear with manual screening Comment [facility] Work Phone: Comment on above: The QuantiFERON-TB G old Plus result is determined bysubtracting the Nil value from either TB antigen (Ag) tube.The mitogen tube serves as a control for the test. Thin prep Papanicolaou smear with manual screening 0.02 IU/mL [facility] Work Phone: Thin prep Papanicolaou smear with manual screening 0.01 IU/mL [facility] Work Phone: Thin prep Papanicolaou smear with manual screening > 10.00 IU/mL [facility] Work Phone: Thin prep Papanicolaou smear with manual screening Negative Negative [facility] Work Phone: Comment on above: The specimen receive d for QuantiFERON testing was incubatedby the ordering institution. Specific procedures outlinedin our Directory of Services and in the package insert forthe QuantiFERON Gold (In Tube) test must be followed toenable for proper stimulation of cells for the productionof interferon gamma. Chemiluminescence immunoassaymethodologyPerformed at: [facility] [id number] Director: Aramis De La Fuente PhD, Phone: [phone] Culture, urine Bacteria identified Cx Nom (U) Positive [facility] Work Phone: Vital Signs Date Time Vital Sign Value Performing Clinician Narciso gregory 11-22-2023 08:45-0400 Diastolic blood pressure 56 mm[Hg] Sayra [place] PA-C Work Phone: [facility] 11-22-2023 08:45-0400 Heart rate 115 /min Sayra [place] PA-C Work Phone: [facility] 11-22-2023 08:45-0400 Respiratory rate 12 /min Sayra Tree PA-C Work Phone: [facility] 11-22-2023 08:45-0400 Systolic blood pressure 121 mm[Hg] Sayra [place] PA-C Work Phone: [facility] 01-17-2023 05:34-0500 Body height 167.[address] Consuelo Alex Work Phone: [facility] 01-17-2023 05:34-0500 Body mass index (BMI) [Ratio] 25 kg/m2 Dr. Consuelo Alex Work Phone: [facility] 01-17-2023 05:34-0500 Body temperature 95.8 [degF] Dr. Consuelo Alex Work Phone: [facility] 01-17-2023 05:34-0500 Body weight 70.[address] Consuelo Alex Work Phone: [facility] 01-17-2023 05:34-0500 Diastolic blood pressure 66 mm[Hg] Dr. Consuelo Alex Work Phone: [facility] 01-17-2023 05:34-0500 Heart rate 67 /min Dr. Consuelo Alex Work Phone: [facility] 01-17-2023 05:34-0500 Respiratory rate 18 /min Dr. Consuelo Alex Work Phone: [facility] 01-17-2023 05:34-0500 SaO2% (BldA) [Mass fraction] 99 % Dr. Consuelo Alex Work Phone: [facility] 01-17-2023 05:34-0500 Systolic blood pressure 118 mm[Hg] Dr. Consuelo Alex Work Phone: [facility] Encounters Encounter Date Encounter Type Care Provider Facility Start: 08-14-2024 End: 08-14-[address] Consuelo Alex MD Work Phone: -Physical Therapy Start: 08-14-2024 End: 08-14-[address] Aram Chilel MD -Physical Therapy Work Phone: Start: 05-27-2024 End: 05-27-[address] Consuelo Alex MD Work Phone: [facility] Work Phone: Start: 05-27-2024 End: 05-27-[address] Michelet Rogers MD -Laboratory, Specimen Work Phone: Start: 05-27-2024 End: 05-27-2024 ambulatory Consuelo Alex Facility:[facility] Start: 03-11-2024 ambulatory Consuelo Alex [facility] [facility] Start: 03-05-2024 End: 03-05-[address] Consuelo Alex MD -Laboratory, [place] Work Phone: Start: 03-05-2024 End: 03-05-2024 ambulatory Consuelo Alex Facility:[facility] Start: 01-24-2024 End: 01-24-2024 ambulatory Consuelo Alex Facility:[facility] Start: 11-22-2023 End: 11-22-2023 Subsequent hospital visit by physician Xr Bath 2 [facility] Comment on above: Pain in joint, multi ple sites [M25.50] Start: 11-22-2023 End: 11-22-2023 ambulatory CONSUELO ALEX Facility:[facility] Start: 11-22-2023 End: 11-22-2023 Office outpatient visit 25 minutes Sayra Leavitt PA-C Work Phone: [facility] General Rheumatology and Arthritis Comment on above: Pain in joint, multi ple sites (Primary Dx); Psoriasis; High risk medication use Start: 11-16-2023 End: 11-16-2023 ambulatory Consuelo Alex Facility:[facility] Start: 09-18-2023 End: 09-19-2023 ambulatory Consuelo Alex Facility:[facility] Start: 09-13-2023 End: 09-13-2023 Patient encounter procedure Senia Maria MD Work Phone: [facility] Rhe[facility]ology [facility] Comment on above: Pain in joint, multi ple sites (Primary Dx); High risk medication use; Psoriasis Start: 09-13-2023 End: 09-13-2023 Telemedicine consultation with patient Senia Maria MD Work Phone: [facility] [place] [facility] Rheumatology [facility] Arthritis Start: 09-13-2023 End: 09-13-2023 ambulatory SENIA MARIA Facility:[facility] Start: 09-13-2023 End: 09-29-2023 Telephone encounter Senia Maria MD Work Phone: [facility] [place] [facility] Rheumatology [facility] Arth[facility] Start: 09-12-2023 End: 09-12-2023 ambulatory Consuelo Alex Facility:[facility] Start: 07-06-2023 Documentation procedure Mammog jonathan Coordinator [facility] Start: 07-06-2023 Letter encounter Mammography Coordinator [facility] Start: 07-06-2023 End: 07-06-2023 ambulatory ATIYA TIERNEY Facility:[facility] Start: 07-06-2023 Encounter for gynecological examination (general) (routine) without abnormal findings ATIYA TIERNEY [facility] Start: 07-06-2023 End: 07-06-2023 Patient encounter status Screen Wstr [facility] Start: 07-06-2023 End: 07-06-2023 Subsequent hospital visit by physician Screen Mammo [facility] Wstr Mammogram Comment on above: Encounter for gyneco logical examination (general) (routine) without abnormal findings [Z01.419] Start: 03-14-2023 End: 03-14-[address] Cosnuelo Alex Work Phone: [facility] Work Phone: Start: 03-14-2023 End: 03-14-[address] Consuelo Alex Work Phone: [facility]-Pulmonary Services/Neurology Work Phone: Start: 02-27-2023 End: 02-27-[address] Consuelo Alex Work Phone: [facility] Work Phone: Start: 02-27-2023 End: 02-27-[address] Consuelo Alex Work Phone: [facility]-Laboratory, Specimen Work Phone: Start: 01-17-2023 End: 01-17-[address] Consuelo Alex Work Phone: [facility]-Pulmonary Medicine [facility] Work Phone: Start: 07-19-2022 End: 07-19-2022 ambulatory ATIYA TIERNEY Facility:[facility] Start: 07-19-2022 End: 07-19-2022 Patient encounter status Bone Wstr Work Phone: [facility] Start: 07-19-2022 End: 07-19-2022 Subsequent hospital visit by physician Bone Density [facility] Wstr Work Phone: Radiology Comment on above: Encounter for gyneco logical examination (general) (routine) without abnormal findings [Z01.419] Start: 07-01-2022 Documentation procedure Mammog jonathan Coordinator [facility] Start: 07-01-2022 Letter encounter Mammography Coordinator [facility] Department Start: 06-30-2022 End: 06-30-2022 Subsequent hospital visit by physician Screen Mammo [facility] Wstr Mammogram Comment on above: Encounter for screen ing mammogram for malignant neoplasm of breast [Z12.31] Start: 06-02-2022 Telephone encounter Ryan valdez MD Work Phone: OB/Gynecology Comment on above: Orders (Mammogram) Start: 04-19-2022 End: 04-19-[address] Consuelo Alex Work Phone: [facility] Work Phone: Start: 04-19-2022 End: 04-19-[address] Consuelo Alex Work Phone: [facility]-Laboratory, Specimen Start: 01-24-2022 End: 01-24-2022 ambulatory [facility] Work Phone: Start: 01-24-2022 End: 01-24-2022 Patient encounter procedure [facility]-Laboratory, [place] Start: 01-18-2022 End: 01-18-2022 Non-patient / Non-visit Dr. Consuelo Alex Work Phone: [facility] Start: 01-18-2022 End: 01-18-2022 Patient encounter procedure [facility]-Pulmonary Services/Neurology Start: 12-29-2021 End: 12-29-2021 ambulatory [facility] Work Phone: Start: 12-29-2021 End: 12-29-2021 Patient encounter procedure [facility]-Laboratory, [place] Start: 08-02-2021 End: 08-02-2021 Patient encounter procedure [facility]-Cat Scan, [facility] Start: 06-23-2021 End: 06-23-2021 Patient encounter procedure [facility]-Laboratory, [place] Start: 03-31-2021 End: 03-31-2021 Patient encounter procedure [facility]-Laboratory, [place] Start: 03-10-2021 End: 03-10-2021 Patient encounter procedure [facility]-Laboratory, [place] Procedures Date Procedure Procedure Detail Performing Clinician Start: 07-06-2023 Screening digital br east tomosynthesis bi Atiya Tierney APRN.OFFICE EQUIPMENT MECHANIC Work Phone: Start: 07-19-2022 Dxa bone density rose dy 1/> sites axial skel Atiya Tierney APRN.OFFICE EQUIPMENT MECHANIC Work Phone: Start: 06-30-2022 End: 06-30-2022 Mammography Ryan Anderson MD Work Phone: Start: 08-02-2021 MRI of lower extremity Start: 03-26-2021 Mammography Ryan valdez MD Work Phone: Start: 10-04-2012 Lipid 1996 panel - S jimbo or Plasma Screen Wstr Start: 09-20-2010 Colonoscopy Ryan valdez MD Work Phone: Urine culture Urine culture Dr. Consuelo molina Work Phone: Plan of Treatment Date Care Activity Detail Author Start: 04-04-2030 Urine microalbumin profile DTaP,Tdap,Td Vaccine (3 - Td or Tdap) [facility] Start: 07-05-2024 Screening for malign ant neoplasm of breast Mammogram Screening [facility] Start: 04-04-2024 End: 04-04-2024 Patient encounter procedure 04/04/2024 9:40 AM EST Office Visit [facility] [place] [facility]ology [facility]th[facility] [address] [place], [place] [address] Senia Maria MD [address] [place], [place] [address] 4 months [facility] [place] [facility] Comment on above: 4 months Start: 11-16-2023 End: 11-16-2023 Patient encounter procedure 11/16/2023 3:00 PM EDT Office Visit [facility] [place] [facility] [address] [facility] [address] [place], [place] [address] Senia Maria MD [address] [place] [address] X- rays [facility] [place] [facility] Comment on above: X- rays Start: 10-08-2023 Covid-19 Vaccine ( season) Covid-19 Vaccine () [facility] Start: 10-08-2023 Influenza vaccination Influenza Vacc ine (#1) [facility] Start: 07-01-2023 Mammography [facility] Start: 02-06-2023 Advance Directive Discussion Advance Directive Discussion [facility] Start: 02-06-2023 Behavioral Health Screening Behavioral Health Screening [facility] Start: 01-31-2023 Urine microalbumin profile DTAP,TDAP,TD (2 - Td or Tdap) [facility] Start: 10-07-2022 Covid-19 Vaccine () Covid-19 Vaccine () [facility] Start: 10-07-2022 Influenza vaccination C [facility] Start: 03-26-2022 Mammography MAMMOGRAM [facility] Start: 03-26-2022 Screening for malign ant neoplasm of cervix Cervical Cancer Screening [facility] Start: 02-06-2022 ADVANCE DIRECTIVE DISCUSSION ADVANCE DIRECTIVE DISCUSSION [facility] Start: 02-06-2022 DEPRESSION ASSESSMENT DEPRESSION ASS ESSMENT [facility] Start: 2021 BONE DENSITY BONE DENSITY [facility] Start: 2021 COVID-19 VACCINE (4 - Booster for Moderna series) COVID-19 VACCINE (4 - Booster for Moderna series) [facility] Start: 10-04-2017 Lipid 1996 panel - Serum or Plasma Lipid Screening [facility] Start: 10-04-2017 Lipid panel Lipid Screening [place] Start: 10-04-2017 LIPID SCREEN LIPID SCREEN [facility] Start: 2016 RSV Vaccine (1 - 1-d ose 60+ series) RSV Vaccine (1 - 1-dose 60+ series) [facility] Start: 2016 RSV Vaccine (1 - Ris k 60-74 years 1-dose series) RSV Vaccine (1 - Risk 60-74 years 1-dose series) [facility] Start: 10-02-2015 DIABETES SCREEN DIABETES SCREEN [facility] Start: 10-02-2015 Diabetes Screening Diabetes Screenin g [facility] Start: 09-21-2015 Colonoscopy COLONOSCOPY [facility] Start: 09-21-2015 COLORECTAL CANCER SCREENING COLORECTAL CANCER SCREENING [facility] Start: 09-21-2015 Screening for malign ant neoplasm of colon [facility] Start: 10-15-2010 Creatinine measurement Serum Creatin ine [facility] Start: 10-15-2010 SERUM CREATININE SERUM CREATININE [facility] Start: 2001 COLOGUARD (FIT-DNA) COLOGUARD (FIT-D NA) [facility] Start: [address] COLONOGRAPHY [facility] Start: 2001 FECAL OCCULT BLOOD FECAL OCCULT BLOO D [facility] Start: 2001 Screening for malign ant neoplasm of colon [facility] Start: 2001 SIGMOIDOSCOPY SIGMOIDOSCOPY [facility] Start: 04-28-1975 SHINGRIX VACCINE (1 of 2) SHINGRIX VACCINE (1 of 2) [facility] Start: 1974 ANNUAL PCP TEAM 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 NEFTALI DISEASE VISIT ANNUAL PCP TEAM CHRONIC DISEASE VISIT [facility] Start: 1974 Anxiety Screening Anxiety Screening [facility] Start: 1974 Depression Screening Depression Scre ening [facility] Start: 1962 Pneumococcal Vaccine : 65+ (1 - PCV) Pneumococcal Vaccine: 65+ (1 - PCV) [facility] Start: 1962 Pneumococcal Vaccine : 65+ (1 of 2 - PCV) Pneumococcal Vaccine: 65+ (1 of 2 - PCV) [facility] Start: 1962 PNEUMOCOCCAL: 65+ (1 - PCV) PNEUMOCOCCAL: 65+ (1 - PCV) [facility] End: 07-02-2023 FRANCHESCA SCREENING W EVELIO FRANCHESCA SCREENING W EVELIO Radiology Routine Encounter for screening mammogram for malignant neoplasm of breast 1 Occurrences starting 06/02/2022 until 07/02/2023 [facility] Work Phone: Comment on above: 1 Occurrences starti ng 06/02/2022 until 07/02/2023 Measurement of respiratory function [facility] End: 12-21-2024 XR Hand - left PA and Lateral and Oblique XR HAND GENERAL 3V PA/LAT/OBL LEFT Radiology Routine Pain in joint, multiple sites Psoriasis High risk medication use 1 Occurrences starting 11/22/2023 until 12/21/2024 [facility] Work Phone: Comment on above: 1 Occurrences starti ng 11/22/2023 until 12/21/2024 End: 11-22-2023 XR Hand - left PA and Lateral and Oblique [facility] Work Phone: Comment on above: 1 Occurrences starti ng 11/22/2023 until 11/22/2023 End: 12-21-2024 XR Hand - right PA and Lateral and Oblique XR HAND GENERAL 3V PA/LAT/OBL RIGHT Radiology Routine Pain in joint, multiple sites Psoriasis High risk medication use 1 Occurrences starting 11/22/2023 until 12/21/2024 [facility] Comment on above: 1 Occurrences starti ng 11/22/2023 until 12/21/2024 End: 11-22-2023 XR Hand - right PA and Lateral and Oblique [facility] Comment on above: 1 Occurrences starti ng 11/22/2023 until 11/22/2023 [facility] Immunizations Immunization Date Immunization Notes Care Provider Ambrosio franks 02-26-2023 influenza virus vaccine, unspecified formulation Senia Maria MD Work Phone: [facility] 02-05-2022 influenza virus vaccine, unspecified formulation Screen Wstr [facility] 01-31-2013 tetanus toxoid, redu mckenzie diphtheria toxoid, and acellular pertussis vaccine, adsorbed Ryan Anderson MD Work Phone: [facility] 12-16-2006 influenza virus vaccine, live, attenuated, for intranasal use Ryan Anderson MD Work Phone: [facility] Work Phone: Payers Date Payer Category Payer Self-pay [id number] 2023 Self-pay [id number] 2019 Unknown [employer] PPO [id number] 2019-Present [phone] [address] [place] [address] PPO [id number] 2013 Unknown [id number] Unknown [facility] PACKAGE PLAN [id number] Unknown [facility] PACKAGE PLAN [id number] [id number] Unknown [id number] Unknown [id number] Unknown [id number] Unknown [id number] Unknown [id number] Unknown [id number] Unknown [id number] Unknown [id number] Unknown [id number] Unknown [id number] Social History Date Type Detail Facility Start: 05-29-2020 End: 01-17-2023 Tobacco smoking status NHIS Unknown if ever smoked [facility] Start: 1955 Sex Assigned At Female [facility] Start: 09-20-2010 End: 01-19-2024 Tobacco smoking status NHIS Never smoked tobacco [facility] Start: 09-20-2010 Tobacco use and exposure Smokeless tobacco non-user [facility] Start: 03-26-2021 End: 11-22-2023 Alcohol intake Current drinker of alcohol (finding) [facility] Start: 1955 Sex Assigned At Not on file C [facility] Start: 03-26-2021 End: 11-22-2023 History of Social function [facility] Start: 03-26-2021 End: 11-22-2023 Tobacco use panel [facility] National Score (1-100), lower number is lower risk 35 [facility] Start: 05-29-2024 Sex Female (finding) [facility] Medical Equipment Procedure Code Equipment Code Equipment Origin al Text Equipment Identifier Dates Cystoscopy, with TURBT using bipolar energy device and mitomycin instillation Polymeric ureteral stent ([id number] FDA Start: 01-24-2024 Clinical Notes 09-22-2009 to 08-14-2024 Note Date & Type Note Facility 08-14-2024 Discharge summary Note Date/Time August 14, 2024 7:00p m [facility] [address] [place] [address] [address] [place] [address] / REHABILITATION SERVICES DISCHARGE SUMMARY MR#: [id number] Acct: [id number] Name: DORTOHY PUCKETT Rep #: [id number] : 1955 69 From: Ruma Martínez Referring Dr.: Dr. Aram Chilel MD Status: REG R Insurance: [facility] PACKAGE PLAN Discharge Summary D/C summary: It has been my pleasure to treat DOROTHY PUCKETT referred by Dr. Aram Chilel MD, with the diagnosis of pain in R shoulder for a total of 8 visit(s). Discharge Date: 08/14/24 Please see the following information for a summary of their discharge status. Subjective Subjective: Pt is about the same. She has a zinger of pain when she moves her arm bW. Her pain is mostly in the back of the arm. She will do certain things if she knows that it will hurt. She is going to go back to see Dr Chilel. The first cortisone shot helped and does not have the pain in her neck like she usedto. He has not done and MRI. He did an x-ray. Chest Press increases pain. Pain R shoulder pain: Pain Intensity (Out of 10): 6 Overall Improvement % Improvement: 0 Objective Objective/Function: Pain with resisted ER on the R and pain with horizontal abduction Tender to palpation posterior RC and tricep Increase pain with scapular retraction along the anterior aspect of the shoulder. Goals Goal 1:: I HEP Goal Progress: Goal Met Goal 2:: Be more aware of posture during the workday Goal Progress: Goal Met Goal 3:: Increase R shoulder strength (at the time of the eval: R shoulder flex5.2 and L 8.3 R shoulder ABD 6.4 and L 7.3 R shoulder ER 6.5 and L 7.4 R shoulder IR 6.4 and L 6.4 Goal 4:: Decrease R shoulder pain by 75% Goal Progress: Not Progressing Plan Plan: 2X/ week for 8 week for chin tucks, scapular strengthening, RC strengthening with HEP. D/C Information Discharge Comments: DC PT back to d/c sentence: If there are questions or concerns regarding this patient's physical therapy, please feel free to call me at [phone]. Thank you for the referral of thispatient. Sincerely, DAYANARA Cueto Balance/Gait/Functional tests Balance/Special Test Scores Quick DASH Score: 18.1800 Improvement % Improvement: 0 <Electronically signed by Ruma Frances MPT> 08/14/24 1720 CC: Dr. Consuelo Alex MD; Dr. Aram Chilel MD ~ Signed [facility] Work Phone: 1(396) 817-541707-09-2025 Discharge summary [facility] Physical Therapy [address] [place] [address] / REHABILITATION SERVICES DISCHARGE SUMMARY MR#: [id number] Acct: [id number] Name: DOROTHY PUCKETT Rep #: [id number] : 1955 69 From: Ruma Frances MP T Referring Dr.: Dr. Aram Chilel MD Status: REG RCR Insurance: [facility] PACKAGE PLAN Discharge Summary D/C summary: It has been my pleasure to treat DOROTHY PUCKETT referred by Dr. Aram Chilel MD, with the diagnosis of pain in R shoulder for a total of 8 visit(s). Discharge Date: 08/14/24 Please see the following information for a summary of their discharge status. Subjective Subjective: Pt is about the same. She has a zinger of pain when she moves her arm bW. Her pain is mostly in the back of the arm. She will do certain things if she knows that it will hurt. She is going to go back to see Dr Chilel. The first cortisone shot helped and does not have the pain in her neck like she usedto. He has not done and MRI. He did an x-ray. Chest Press increases pain. Pain R shoulder pain: Pain Intensity (Out of 10): 6 Overall Improvement % Improvement: 0 Objective Objective/Function: Pain with resisted ER on the R and pain with horizontal abduction Tender to palpation posterior RC and tricep Increase pain with scapular retraction along the anterior aspect of the shoulder. Goals Goal 1:: I HEP Goal Progress: Goal Met Goal 2:: Be more aware of posture during the workday Goal Progress: Goal Met Goal 3:: Increase R shoulder strength (at the time of the eval: R shoulder flex5.2 and L 8.3 R shoulder ABD 6.4 and L 7.3 R shoulder ER 6.5 and L 7.4 R shoulder IR 6.4 and L 6.4 Goal 4:: Decrease R shoulder pain by 75% Goal Progress: Not Progressing Plan Plan: 2X/ week for 8 week for chin tucks, scapular strengthening, RC strengthening with HEP. D/C Information Discharge Comments: DC PT back to DR. parham sentence: If there are questions or concerns regarding this patient's physical therapy, please feel free to call me at [phone]. Thank you for the referral of thispatient. Sincerely, Ruma Frances, MPT Balance/Gait/Functional tests Balance/Special Test Scores Quick DASH Score: 18.1800 Improvement % Improvement: 0 08/14/24 1720 CC: Dr. Consuelo Alex MD; Dr. Aram Chilel MD ~ Signed [facility]12-18-2024 [facility] Medical Records Department [address] [place] [address] History Physical Exam 01/24/24 1238 MR#: [id number] Acct: [id number] Name: DOROTHY PUCKETT Rep #: [id number] : 1955 68 From: Michelet Rogers MD PCP: Dr. Consuelo Alex MD Status:REG [facility] Location: [place] [address] HPI - General General Date of Service: 01/24/24 Chief Complaint: Recurrent bladder cancer HPI Narrative DOROTHY PUCKETT, is a 68 F who presents for treatment of recurrent bladder cancer she has a tumor right next to the left ureteral orifice that will have to be resected. Also can do Mitomycin-C treatment afterwards. [facility] Medical History (Updated 01/19/24 @ 12:22 by Jennifer Mayes) Wears glasses Post-menopausal Cancer Alcohol use History of steroid therapy Bladder disease Essential tremor Gastric reflux Non-smoker Bronchitis History of pain when walking History of echocardiogram History of stress test Cardiology follow-up encounter History of left heart catheterization (LHC) ( 06/18/19) Bladder cancer Family history of premature coronary artery disease Bladder neoplasm of uncertain malignant potential Bladder mass Home Medications ???Medication ???Instructions ???Recorded ???Last Taken ???Type loratadine 10 mg tablet 10 mg PO DAILY PRN allergy symptoms 04/02/19 Unknown History pyridoxine (vitamin B6) 50 mg 50 mg PO QODAY 04/02/19 Unknown History tablet calcium carbonate 260 mg PO BID 04/11/19 Unknown History pantoprazole 20 mg tablet,delayed 20 mg PO DAILY 04/11/19 06/18/19 History release apremilast 30 mg tablet (Otezla) 30 mg PO QHS 01/19/24 Unknown History budesonide-formoterol HFA 160 2 inh inhalation BID PRN PRN SOB 01/19/24 Unknown History mcg-4.5 mcg/actuation aerosol inhaler (Symbicort) fluticasone propionate 50 2 spray intranasal DAILY PRN PRN 01/19/24 Unknown History mcg/actuation nasal nasal congestion spray,suspension propranolol 60 mg capsule,24 60 mg PO QHS 01/19/24 Unknown History hr,extended release Allergy/AdvReac Type Severity Reaction Status Date / Time No Known Allergies Allergy Verified 01/24/24 11:08 Family History Son Myocardial infarction, Onset Age: 29 Father CHF (congestive heart failure) Brother CVA (cerebral vascular accident) Brother Cancer Prostate Mother CVA (cerebral vascular accident) Hypertension Surgical History (Updated 01/19/24 @ 12:22 by Jennifer Mayes) Hx of colonoscopy Hx of arthroscopic knee surgery S/P tendon repair History of oophorectomy, unilateral transurethral resection of bladder History of appendectomy Social History Smoking Status: Never smoker alcohol intake: current details: occasional substance use type: does not use caffeine: Yes Type: tea Number of servings: 6 Vital Signs Vital Signs Vital Signs: 01/24/24 11:08 01/24/24 11:08 Temperature 98.1 F Temperature Source Temporal Pulse Rate 71 Respiratory Rate 16 Respiratory Pattern Normal Blood Pressure 117/71 Blood Pressure Mean 86 Blood Pressure Source Monitor Blood Pressure Position Sitting Blood Pressure Location Right Arm Pulse Ox 100 Oxygen Delivery Method Room Air Weight Weight: 72 kg Body Mass Index (BMI) 25.6 01/24/24 1238 Cosigner Signature (if applicable): CC: Dr. Consuelo Alex MD; Dr. Michelet Rogers MD [facility]10-16-2024 NoteHNO ID: [id number] Author: SAYRA LEAVITT PA-C Service: ? Author Type: Physician Bakery Technician Type: Progress Notes Filed: 11/22/2023 09:04 Note Text: [facility] General Arthritis and Rheumatology Sayra Leavitt [address] [place] [address] Subjective Last OV: 09/13/23 HPI: Dorothy Puckett is a 68 year old female who presents for follow up of arthralgia, psoriasis. She notes she started Otezla for her psoriasis and it helped with the R hand / thumb. Her knees had also been painful. She uses CBD oil and thinks it is helping. Otezla helping well with the psoriasis. Rheumatologic disease summary: First OV date: 09/13/23 Diagnosis: arthralgia, psoriasis Serologies: HBV neg, HCV neg, TB neg Erosions: none Current therapy: Otezla 30 BID Prior therapy: none Bone health: DXA: 07/19/22 osteopenia Initial rheumatology visit HPI (09/13/23 Dr. Maria): 68 year old female seen for joint pain. Psoriasis on Otezla (3 years). Psoriasis 10 years ago. Tried Humira. Bladder cancer switched from humira to Otezla. Joint pain - better now. Some days right thumb hurts. 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 Knee pain - will be seeing ortho. Small swelling. More when she goes up and down strairs. Family h/o autoimmune disease - none Smoking - never Interval Review of Systems CONSTITUTIONAL: Recent Weight change: No Fever: No EENT: Dryness in eyes: No Dryness of mouth: No Oral ulcers: No CARDIOVASCULAR: Pain in chest: No RESPIRATORY: Shortness of breath: No Cough: No GASTROINTESTINAL: Nausea: No Vomiting: No Changes in bowel movements: No Heartburn: No MUSCULOSKELETAL: Per HPI INTEGUMENTARY: Rash: No NEUROLOGICAL SYSTEM: Headaches: No All other ROS reviewed, pertinent positives in HPI PAST MEDICAL HISTORY Diagnosis Date Acid reflux Bladder cancer (HCC) PMB (postmenopausal bleeding) Psoriasis Uterine fibroid PAST SURGICAL HISTORY Procedure Laterality Date ANESTHESIA KNEE, ARTHROSCOPIC right knee meniscus repair COLONOSCOPY 1999, 2009, 2017 5 year interval EXTRACTION, ERUPTED TOOTH OR EXPOSED ROOT (ELEVATION AND/OR FORCEPS REMOVAL) LAPAROSCOPIC APPENDECTOMY 10/20/2009 Performed by [facility] ROMO at [facility] LAPAROSCOPY W/RMVL ADNEXAL STRUCTURES 10/20/2009 Performed by FER ROMO at [facility] LIG/TRNSXJ FLP TUBE ABDL/VAG APPR UNI/BI PART REMV BLADDER,SIMPLE 2021 bladder tumors removed PAST SURGICAL HISTORY OF right thumb surgery History Review: I have reviewed and modified as needed, the following during this visit: Allergies, Past Medical History, Past Surgical History, Past Family History, Past Social History. Physical Exam BP 121/56 Pulse 115 Resp 12 LMP 09/07/2010 GENERAL: Well appearing, alert, comfortable, in no acute distress, well-hydrated, well nourished. HEENT: Negative for external ears normal. Canals are clear. Eye Exam normal. External nose normal, no nasal ulcer or throat ulcer. NECK: NECK Supple, no adenopathy CARDIAC: regular rate and rhythm, No murmur asculated., and Equal peripheral pulses RESPIRATORY: Lungs clear to auscultation. No wheezing, rhonchi, rales NEURO: Motor and sensory exam normal MOTOR: Normal; including tone, gait, stressed gait, power and coordination. SKIN: Negative for alopecia, skin rash, malar rash, skin lesion, skin ulcer, pits, thickening, color changes, telangiectasias, nail changes, nail ridging, nail pitting, onycholysis MUSCULOSKELETAL: tenderness R 1st CMC; squared bilateral 1st CMC, [place] node R 2nd DIP; bunion L MTP Pertinent Serologies: HBV neg, HCV neg, TB neg Recent Lab Results: WBC (k/uL) Date Value 10/15/2009 5.72 RBC (m/uL) Date Value 10/15/2009 4.40 Hemoglobin (g/dL) Date Value 10/15/2009 13.3 Hematocrit (%) Date Value 10/15/2009 40.2 Platelet Count (k/uL) Date Value 10/15/2009 228 Creatinine (mg/dL) Date Value 10/15/2009 0.84 Calcium (mg/dL) Date Value 10/15/2009 9.4 Alkaline Phosphatase (U/L) Date Value 10/15/2009 95 AST (U/L) Date Value 10/15/2009 29 ALT (U/L) Date Value 10/15/2009 41 Recent Radiology Results: None Pertinent Radiology Results: 07/19/22 DXA: LUMBAR SPINE: The bone mineral density from L1 through L4 is 1.077 grams per square centimeter which yields a T-score of 0.3. There has been a 3.8% interval increase in bone mineral density. LEFT HIP: The bone mineral density of the total region of the hip is 0.772 grams per square centimeter which yields a T-score of -1.4. There has been an 18.8% interval decrease in bone mineral density. LEFT FEMORAL NECK: The bone mineral density of the femoral neck is 0.683 grams per square centimeter which yields a T-score of -1.5. There has been a 13.8% interval decrease in bone mineral density. RIGHT HIP: The bone mineral density of the total region of the hip is 0.798 grams per square cent (more content not included)...[facility]10-16-2024 History of Present illness Narrative* Sayra Leavitt PA-C - 11/22/2023 8:48 AM EDT Images from the original note were not included. [facility] Arthritis and Rheumatology Sayra Leavitt [address] [place] [address] Subjective Last OV: 09/13/23 HPI: Dorothy Puckett is a 68 year old female who presents for follow up of arthralgia, psoriasis. She notes she started Otezla for her psoriasis and it helped with the R hand / thumb. Her knees hadalso been painful. She uses CBD oil and thinks it is helping. Otezla helping well with the psoriasis. Rheumatologic disease summary: First OV date: 09/13/23 Diagnosis: arthralgia, psoriasis Serologies: HBV neg, HCV neg, TB neg Erosions: none Current therapy: Otezla 30 BID Prior therapy: none Bone health: DXA: 07/19/22 osteopenia Initial rheumatology visit HPI (09/13/23 Dr. Maria): 68 year old female seen for joint pain. Psoriasis on Otezla (3 years). Psoriasis 10 years ago. Tried Humira. Bladder cancer switched from humira to Otezla. Joint pain - better now. Some days right thumb hurts. 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 Knee pain - will be seeing ortho. Small swelling. More when she goes up and down strairs. Family h/o autoimmune disease - none Smoking - never Interval Review of Systems CONSTITUTIONAL: Recent Weight change: No Fever: No EENT: Dryness in eyes: No Dryness of mouth: No Oral ulcers: No CARDIOVASCULAR: Pain in chest: No RESPIRATORY: Shortness of breath: No Cough: No GASTROINTESTINAL: Nausea: No Vomiting: No Changes in bowel movements: No Heartburn: No MUSCULOSKELETAL: Per HPI INTEGUMENTARY: Rash: No NEUROLOGICAL SYSTEM: Headaches: No All other ROS reviewed, pertinent positives in HPI PAST MEDICAL HISTORY Diagnosis Date Acid reflux Bladder cancer (HCC) PMB (postmenopausal bleeding) Psoriasis Uterine fibroid PAST SURGICAL HISTORY Procedure Laterality Date ANESTHESIA KNEE, ARTHROSCOPIC right knee meniscus repair COLONOSCOPY 1999, 2009, 2018 5 year interval EXTRACTION, ERUPTED TOOTH OR EXPOSED ROOT (ELEVATION AND/OR FORCEPS REMOVAL) LAPAROSCOPIC APPENDECTOMY 10/20/2009 Performed by FER ROMO at [facility] LAPAROSCOPY W/RMVL ADNEXAL STRUCTURES 10/20/2009 Performed by FER ROMO at [facility] LIG/TRNSXJ FLP TUBE ABDL/VAG APPR UNI/BI PART REMV BLADDER,SIMPLE 2021 bladder tumors removed PAST SURGICAL HISTORY OF right thumb surgery History Review: I have reviewed and modified as needed, the following during this visit: Allergies,Past Medical History, Past Surgical History, Past Family History, Past Social History. Physical Exam BP 121/56 Pulse 115 Resp 12 LMP 09/07/2010 GENERAL: Well appearing, alert, comfortable, in no acute distress, well- hydrated, well nourished. HEENT: Negative for external ears normal. Canals are clear. Eye Exam normal. External nose normal, no nasal ulcer or throat ulcer. NECK: NECK Supple, no adenopathy CARDIAC: regular rate and rhythm, No murmur asculated., and Equal peripheral pulses RESPIRATORY: Lungs clear to auscultation. No wheezing, rhonchi, rales NEURO: Motor and sensory exam normal MOTOR: Normal; including tone, gait, stressed gait, power and coordination. SKIN: Negative for alopecia, skin rash, malar rash, skin lesion, skin ulcer, pits, thickening, color changes, telangiectasias, nail changes, nail ridging, nail pitting, onycholysis MUSCULOSKELETAL: tenderness R 1st CMC; squared bilateral 1st CMC, [place] node R 2nd DIP; bunion LMTP Pertinent Serologies: HBV neg, HCV neg, TB neg Recent Lab Results: WBC (k/uL) Date Value 10/15/2009 5.72 RBC (m/uL) Date Value 10/15/2009 4.40 Hemoglobin (g/dL) Date Value 10/15/2009 13.3 Hematocrit (%) Date Value 10/15/2009 40.2 Platelet Count (k/uL) Date Value 10/15/2009 228 Creatinine (mg/dL) Date Value 10/15/2009 0.84 Calcium (mg/dL) Date Value 10/15/2009 9.4 Alkaline Phosphatase (U/L) Date Value 10/15/2009 95 AST (U/L) Date Value 10/15/2009 29 ALT (U/L) Date Value 10/15/2009 41 Recent Radiology Results: None Pertinent Radiology Results: 07/19/22 DXA: LUMBAR SPINE: The bone mineral density from L1 through L4 is 1.077 grams per square centimeter which yields a T-score of 0.3. There has been a 3.8% interval increase in bone mineral density. LEFT HIP: The bone mineral density of the total region of the hip is 0.772 grams per square centimeter which yields a T-score of -1.4. There has been an 18.8% interval decrease in bone mineral density. LEFT FEMORAL NECK: The bone mineral density of the femoral neck is 0.683 grams per square centimeter which yields a T-score of -1.5. There has been a 13.8% interval decrease in bone mineral density. RIGHT HIP: The bone mineral density of the total region of the hip is 0.798 grams per square centimeter which yields a T-score of -1.2. RIGHT FEMORAL NECK: The bone mineral density of the femoral neck is 0.646 grams per square centimeter which yields a T-score of -1.8. 10-year Fracture Risk (FRAX): Major osteoporotic fracture risk 10% Hip fracture risk 1.4% Assessment / Plan: (M25.50) Pain in joint, multiple sites (primary encounter diagnosis) (L40.9) Psoriasis (Z79.899) High risk medication use The patient presents for follow up today. 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 No signs of inflammatory arthritis. Recommend ibuprofen or naproxen as tolerated for her pain. Continue Otezla. Will get hand imaging to evaluate for underlying changes, although suspect OA changes. Discussed treatment of OA in the hands can be somewhat difficult at times and currently there are no treatments to stop the progression of hand OA. I reviewed conservative measures for OA of the hands with the patient. I recommend topical analgesics (voltaren gel, Blue Emu, hemp oil, SalonPas, Bengay, IcyHot, Biofreeze, etc), warm water soaks with epsom salts, paraffin wax baths, play- dough exercises, gentle stretching of the hands. Also could consider formal OT evaluation. Patient advised to contact the clinic with questions. Last rheumatology OV note reviewed. Discussed the above in detail with the patient. All questions were answered. Medications: no changes Testing: as below Follow up: 4 months Pt instructed to contact the clinic with concerns or questions. Office Visit on 11/22/23 XR HAND GENERAL 3V PA/LAT/OBL LEFT XR HAND GENERAL 3V PA/LAT/OBL RIGHT Sayra Leavitt PA-C I spent a total of 13 minutes on the date of the service which included preparing to see the patient, [id number] patient care, completing clinical documentation, obtaining and/or reviewing separately obtained history, performing a medically appropriate examination, counseling and educating the pat ient/family/caregiver, ordering medications, tests, or procedures, and communicating results to thepatient/family/caregiver. [facility] Telephone encounter Note * Telephone Encounter - Cecilia Nassar - 09/13/2023 3:52 PM EDT Was going to call pt to finish appt. Noticed x-ray order was not in pt's chart. Sent Dr. Maria a bubble chat to see if she could add it. Checked at 3:53pm and it still hadn't been added. [facility]08-07-2024 Miscellaneous Notes* Telephone Encounter - Cecilia Nassar - 09/13/2023 3:52 PM EDT Was going to call pt to finish appt. Noticed x-ray order was not in pt's chart. Sent Dr. Maria a bubble chat to see if she could add it. Checked at 3:53pm and it still hadn't been added. documented in this encounterMer[facility]08-07-2024 NoteHNO ID: [id number] Author: SENIA MARIA MD Service: ? Author Type: Physician Type: Progress Notes Filed: 09/13/2023 15:07 Note Text: VIRTUAL VISIT PROGRESS NOTE This is a virtual visit using [employer] Video Visit. It required patient-provider interaction for the medical decision making as documented below. I have communicated my name and active licensure. The patient's identity and physical location were verified at the time of this visit. Either the patient or their legal customer field representative has been informed of the risks and benefits of -- and alternatives to -- treatment through a remote evaluation and consents to proceed with the evaluation remotely. Dorothy Puckett is a 68 year old female seen for joint pain. Psoriasis on Otezla (3 years). Psoriasis 10 years ago. Tried Humira. Bladder cancer switched from humira to Otezla. Joint pain - better now. Some days right thumb hurts. 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 Knee pain - will be seeing ortho. Small swelling. More when she goes up and down strairs. Family h/o autoimmune disease - none Smoking - never Rheumatology REVIEW OF SYSTEMS: Constitutional: Recent Weight Change: No Fatigue: No Fever: No Night sweats: No Heent: Alopecia: No H/o Inflammatory eye disease (iritis/scleritis): No Hearing loss: No Frequent sinusitis: No Oral ulcers: No Sicca: No Parotid swelling: No Hoarseness: No Dysphagia: No Heme/lymph: Lymphadenopathy: No Hematological abnormalities (anemia, thrombocytopenia, leukopenia): No Abnormal bleeding: No Skin: Malar or discoid lesions: No Photosensitivity: No Other rashes: No Raynaud's phenomenon: No Hives: No Tightness: No Nodules/bumps: No Easy Bruising: No Nail changes: No H/o psoriasis: No Gastroenterology: Nausea: No Vomiting: No Change in bowel movements: No Heartburn: No Respiratory: Dry cough/SOB: No Cardiovascular: Pain in chest: No Musculoskeletal: Per HPI Genitourinary: Vaginal dryness: No Rash/ulcers: No Neurological: Headaches: No Sensitivity or pain of hands and/or feet: No Psychiatry: Anxiety: No Depression: No Poor sleep: No H/o loss: No H/o thrombosis: No Increased susceptibility to infection: No HISTORY REVIEWED (electronic chart updated): PAST MEDICAL HISTORY No date: Acid reflux No date: Bladder cancer (HCC) No date: PMB (postmenopausal bleeding) No date: Psoriasis No date: Uterine fibroid PAST SURGICAL HISTORY No date: ANESTHESIA KNEE, ARTHROSCOPIC Comment: right knee meniscus repair 1999, 2009, 2018: COLONOSCOPY Comment: 5 year interval No date: EXTRACTION, ERUPTED TOOTH OR EXPOSED ROOT (ELEVATION AND/OR FORCEPS REMOVAL) 10/20/2009: LAPAROSCOPIC APPENDECTOMY Comment: Performed by FER ROMO at [facility] 10/20/2009: LAPAROSCOPY W/RMVL ADNEXAL STRUCTURES Comment: Performed by FER ROMO at [facility] No date: LIG/TRNSXJ FLP TUBE ABDL/VAG APPR UNI/BI 2021: PART REMV BLADDER,SIMPLE Comment: bladder tumors removed No date: PAST SURGICAL HISTORY OF Comment: right thumb surgery FAMILY HISTORY Problem Relation Age of Onset Hypertension Mother Thyroid Mother Stroke Mother fatal stroke @ 85yrs of age Stroke Brother fatal aneurysm @ 72yrs of age Social History Tobacco Use Smoking status: Never Smokeless tobacco: Never Vaping Use Vaping Use: Never used Substance Use Topics Alcohol use: Yes Comment: Rarely Drug use: No Current Outpatient Medications Medication Sig propranolol ER (INDERAL LA) 60 mg 24 hr capsule TAKE 1 CAPSULE BY MOUTH EVERY DAY AT BEDTIME apremilast (OTEZLA) 30 mg tablet Take 30 mg by mouth twice daily. calcium carbonate (CALCIUM 600 ORAL) Take 1 tablet by mouth once daily. Omeprazole 40 mg capsule TAKE 1 CAPSULE BY MOUTH ONCE A DAY TAKE ONE CAPSULE EVERY DAY VITAMIN B COMP AND VIT C NO.6 (VITAMIN B COMP WITH VIT C NO.6 ORAL) Take by mouth. No current facility-administered medications for this visit. ALLERGIES No Known Allergies REVIEW OF SYSTEMS: All other ROS: negative As noted in HPI PHYSICAL EXAMINATION: VIDEO EXAM: (if completed, performed via video enabled technology) GENERAL: alert and appropriate, in no distress, well-hydrated, well nourished, and happy, smiling, interactive LUMBAR SPINE: The bone mineral density from L1 through L4 is 1.077 grams per square centimeter which yields a T-score of 0.3. There has been a 3.8% interval increase in bone mineral density. LEFT HIP: The bone mineral density of the total region of the hip is 0.772 grams per square centimeter which yields a T-score of -1.4. There has been an 18.8% interval decrease in bone mineral density. LEFT FEMORAL NECK: The bone mineral density of the femoral neck is 0.683 grams per square centimeter which yields a T-score of -1.5. There has been a 13.8% interval decrease in bone mineral density. RIGHT HIP: The bone mineral density of the t (more content not included)...[facility]08-07-2024 History of Present illness Narrative* Senia Maria MD - 09/13/2023 2:44 PM EDT VIRTUAL VISIT PROGRESS NOTE This is a virtual visit using [employer] Video Visit. It required patient- provider interaction for the medical decision making as documented below. I have communicated my name and active licensure. The patient's identity and physical location wereverified at the time of this visit. Either the patient or their legal customer field representative has been informed of the risks and benefits of -- and alternatives to -- treatment through a remote evaluation andconsents to proceed with the evaluation remotely. Dorothy Puckett is a 68 year old female seen for joint pain. Psoriasis on Otezla (3 years). Psoriasis 10 years ago. Tried Humira. Bladder cancer switched from humira to Otezla. Joint pain - better now. Some days right thumb hurts. 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 Knee pain - will be seeing ortho. Small swelling. More when she goes up and down strairs. Family h/o autoimmune disease - none Smoking - never Rheumatology REVIEW OF SYSTEMS: Constitutional: Recent Weight Change: No Fatigue: No Fever: No Night sweats: No Heent: Alopecia: No H/o Inflammatory eye disease (iritis/scleritis): No Hearing loss: No Frequent sinusitis: No Oral ulcers: No Sicca: No Parotid swelling: No Hoarseness: No Dysphagia: No Heme/lymph: Lymphadenopathy: No Hematological abnormalities (anemia, thrombocytopenia, leukopenia): No Abnormal bleeding: No Skin: Malar or discoid lesions: No Photosensitivity: No Other rashes: No Raynaud's phenomenon: No Hives: No Tightness: No Nodules/bumps: No Easy Bruising: No Nail changes: No H/o psoriasis: No Gastroenterology: Nausea: No Vomiting: No Change in bowel movements: No Heartburn: No Respiratory: Dry cough/SOB: No Cardiovascular: Pain in chest: No Musculoskeletal: Per HPI Genitourinary: Vaginal dryness: No Rash/ulcers: No Neurological: Headaches: No Sensitivity or pain of hands and/or feet: No Psychiatry: Anxiety: No Depression: No Poor sleep: No H/o loss: No H/o thrombosis: No Increased susceptibility to infection: No HISTORY REVIEWED (electronic chart updated): PAST MEDICAL HISTORY No date: Acid reflux No date: Bladder cancer (HCC) No date: PMB (postmenopausal bleeding) No date: Psoriasis No date: Uterine fibroid PAST SURGICAL HISTORY No date: ANESTHESIA KNEE, ARTHROSCOPIC Comment: right knee meniscus repair 1999, 2009, 2018: COLONOSCOPY Comment: 5 year interval No date: EXTRACTION, ERUPTED TOOTH OR EXPOSED ROOT (ELEVATION AND/OR FORCEPS REMOVAL) 10/20/2009: LAPAROSCOPIC APPENDECTOMY Comment: Performed by FER ROMO at [facility] 10/20/2009: LAPAROSCOPY W/RMVL ADNEXAL STRUCTURES Comment: Performed by FER ROMO at [facility] No date: LIG/TRNSXJ FLP TUBE ABDL/VAG APPR UNI/BI 2021: PART REMV BLADDER,SIMPLE Comment: bladder tumors removed No date: PAST SURGICAL HISTORY OF Comment: right thumb surgery FAMILY HISTORY Problem Relation Age of Onset Hypertension Mother Thyroid Mother Stroke Mother fatal stroke @ 85yrs of age Stroke Brother fatal aneurysm @ 72yrs of age Social History Tobacco Use Smoking status: Never Smokeless tobacco: Never Vaping Use Vaping Use: Never used Substance Use Topics Alcohol use: Yes Comment: Rarely Drug use: No Current Outpatient Medications Medication Sig propranolol ER (INDERAL LA) 60 mg 24 hr capsule TAKE 1 CAPSULE BY MOUTH EVERY DAY AT BEDTIME apremilast (OTEZLA) 30 mg tablet Take 30 mg by mouth twice daily. calcium carbonate (CALCIUM 600 ORAL) Take 1 tablet by mouth once daily. Omeprazole 40 mg capsule TAKE 1 CAPSULE BY MOUTH ONCE A DAY TAKE ONE CAPSULE EVERY DAY VITAMIN B COMP AND VIT C NO.6 (VITAMIN B COMP WITH VIT C NO.6 ORAL) Take by mouth. No current facility-administered medications for this visit. ALLERGIES No Known Allergies REVIEW OF SYSTEMS: All other ROS: negative As noted in HPI PHYSICAL EXAMINATION: VIDEO EXAM: (if completed, performed via video enabled technology) GENERAL: alert and appropriate, in no distress, well-hydrated, well nourished, and happy, smiling, interactive LUMBAR SPINE: The bone mineral density from L1 through L4 is 1.077 grams per square centimeter which yields a T-score of 0.3. There has been a 3.8% interval increase in bone mineral density. LEFT HIP: The bone mineral density of the total region of the hip is 0.772 grams per square centimeter which yields a T-score of -1.4. There has been an 18.8% interval decrease in bone mineral density. LEFT FEMORAL NECK: The bone mineral density of the femoral neck is 0.683 grams per square centimeter which yields a T-score of -1.5. There has been a 13.8% interval decrease in bone mineral density. RIGHT HIP: The bone mineral density of the total region of the hip is 0.798 grams per square centimeter which yields a T-score of -1.2. RIGHT FEMORAL NECK: The bone mineral density of the femoral neck is 0.646 grams per square centimeter which yields a T-score of -1.8. 10-year Fracture Risk (FRAX): Major osteoporotic fracture risk 10% Hip fracture risk 1.4% ASSESSMENT: (M25.50) Pain in joint, multiple sites (primary encounter diagnosis) (Z79.899) High risk medication use (L40.9) Psoriasis PLAN: 68-year-old female is here for evaluation management recommendation for joint pain. Patient has history of psoriasis and well-controlled on Otezla. She was on Humira but this was switched to Otezla because of bladder cancer. She intermittently has right thumb pain. Works on the computer a lot. She also reports bilateral knee pain while climbing stairs. Evaluation of the low x-rays for psoriatic arthritis however seems to be having more noninflammatory pain from either osteoarthritis/tendinitis.Close follow-up to discuss results There are no Patient Instructions on file for this visit. I spent a total of 40 minutes on the date of the service which included preparing to see the patient, [id number] patient care, completing clinical documentation, obtaining and/or reviewing separately obtained history, performing a medically appropriate examination, counseling and educating the pat ient/family/caregiver, ordering medications, tests, or procedures, independently interpreting results (not separately reported), and communicating results to the patient/family/caregiver Senia Maria MD No orders found for this visit on 09/13/23. No orders of the defined types were placed in this encounter. documented in this encounterMer[facility]05-[facility] Note* Letter - [facility] - 07/06/2023 10:56 AM EDT July 06, 2023 PID: [id number] Dorothy Puckett [address] [place] [address] Dear Ms. Puckett, We are pleased to inform you that the results of your recent breast imaging exam on 07/06/2023 are normal. Your mammogram demonstrates that you have dense breast tissue, which could hide abnormalities. Dense breast tissue, in and of itself, is a relatively common condition. Therefore, this information is not provided to cause undue concern; rather, it is to raise your awareness and promote discussion with your health care provider regarding the presence of dense breast tissue in addition to other riskfactors. Early detection of cancer is very important. We also understand recommendations regarding breast cancer screening are controversial. Please discuss with your primary care provider which strategy is best for you and whether a mammogram is right for you. Your imaging studies and report will be [facility] at [facility] as part of your permanent medical record and are available for your continuing care. Thank you for allowing us to help in meeting your health care needs. Sincerely, Dr. Browning Interpreting Radiologist [facility] (Normal over 40) [facility]05-30-2024 Miscellaneous Notes* Letter - Ari Mammography - 07/06/2023 10:56 AM EDT July 06, 2023 PID: [id number] Dorothy Puckett [address] [place] [address] Dear Ms. Puckett, We are pleased to inform you that the results of your recent breast imaging exam on 07/06/2023 are normal. Your mammogram demonstrates that you have dense breast tissue, which could hide abnormalities. Dense breast tissue, in and of itself, is a relatively common condition. Therefore, this information is not provided to cause undue concern; rather, it is to raise your awareness and promote discussion with your health care provider regarding the presence of dense breast tissue in addition to other riskfactors. Early detection of cancer is very important. We also understand recommendations regarding breast cancer screening are controversial. Please discuss with your primary care provider which strategy is best for you and whether a mammogram is right for you. Your imaging studies and report will be kept on file at [facility] as part of your permanent medical record and are available for your continuing care. Thank you for allowing us to help in meeting your health care needs. Sincerely, Dr. Browning Interpreting Radiologist [facility] (Normal over 40) documented in this encounterMercy Health [facility]05-30-2024 History of Present illness Narrative* Bonnie Pradhan Mammo Tech - 07/06/2023 7:50 AM EDT Radiology Service Progress Note PATIENT NAME: Dorothy Puckett DATE OF SERVICE: July 06, 2023 TIME: 7:51 AM PATIENT IDENTITY VERIFICATION COMPLETED USING TWO (2) IDENTIFIERS: Name and Date of confirmedby patient verbally. FALL SCREENING: Has the patient had 2 falls in the last year or 1 fall with injury or currently using an Ambulatory Assistive Device (Walker, Cane, Wheelchair, Crutches, etc.)? No PATIENT GENDER DATA: Female. status: : No status: NO. PATIENT RELEVANT IMPLANT DATA REVIEWED: Not Applicable PATIENT PRESENTS WITH AN IMPLANTABLE OR ATTACHED DRAW BENCH OPERATOR HELPER: No RADIOLOGY DEPARTMENT: Mammography PERIPHERAL IV DATA: Not applicable SIGNED BY: Gloria Rutledgeo Pierce July 06, 2023 7:51 AM documented in this encounterMercy [facility]05-30-2024 NoteHNO ID: [id number] Author: BONNIE PRADHAN Mammo Tech Service: ? Author Type: Scale Reclamation Tender Type: Progress Notes Filed: 07/06/2023 08:07 Note Text: Radiology Service Progress Note PATIENT NAME: Dorothy Puckett DATE OF SERVICE: July 06, 2023 TIME: 7:51 AM PATIENT IDENTITY VERIFICATION COMPLETED USING TWO (2) IDENTIFIERS: Name and Date of confirmed by patient verbally. FALL SCREENING: Has the patient had 2 falls in the last year or 1 fall with injury or currently using an Ambulatory Assistive Device (Walker, Cane, Wheelchair, Crutches, etc.)? No PATIENT GENDER DATA: Female. status: : No status: NO. PATIENT RELEVANT IMPLANT DATA REVIEWED: Not Applicable PATIENT PRESENTS WITH AN IMPLANTABLE OR ATTACHED DRAW BENCH OPERATOR HELPER: No RADIOLOGY DEPARTMENT: Mammography PERIPHERAL IV DATA: Not applicable SIGNED BY: Bonnie Pradhan Bellstrikeo [employer] July 06, 2023 7:51 [facility]06-13-2023 History of Present illness Narrative* Ted Butts RT(R) - 07/19/2022 3:30 PM EDT Radiology Service Progress Note PATIENT NAME: Dorothy Puckett DATE OF SERVICE: July 19, 2022 TIME: 3:37 PM PATIENT IDENTITY VERIFICATION COMPLETED USING TWO (2) IDENTIFIERS: Name and Date of confirmedby patient verbally. FALL SCREENING: Has the patient had 2 falls in the last year or 1 fall with injury or currently using an Ambulatory Assistive Device (Walker, Cane, Wheelchair, Crutches, etc.)? No PATIENT GENDER DATA: Female. status: : No status: NO. PATIENT RELEVANT IMPLANT DATA REVIEWED: Not Applicable RADIOLOGY DEPARTMENT: Bone Density PERIPHERAL IV DATA: Not applicable SIGNED BY: RORO Agudelo) July 19, 2022 3:37 PM documented in this encounterMercy Health [facility]06-13-2023 NoteHNO ID: [id number] Author: RORO Agudelo) Service: ? Author Type: Technologist Type: Progress Notes Filed: 07/19/2022 3:46 PM Note Text: Radiology Service Progress Note PATIENT NAME: Dorothy Puckett DATE OF SERVICE: July 19, 2022 TIME: [...] BY: RT Magnus(R) July 19, 2022 3:37 [facility]05-26-2023 Miscellaneous Notes* Letter - Mammography Coordinator - 07/01/2022 9:32 AM EDT July 04, 2022 PID: [id number] Dorothy Puckett [address] [place] [address] Dear Ms. Puckett, We are pleased to [...] dense breast tissue in addition to other riskfactors. Early detection of cancer is very important. We also understand recommendations regarding breast cancer screening are controversial. Please discuss with your primary care provider which strategy is best for you and whether a mammogram is right for you. Your imaging studies and report will be kept on file at [facility] as part of your permanent medical record and are available for your continuing care. Thank you for allowing us to help in meeting your health care needs. Sincerely, Dr. Abbasi Interpreting Radiologist [facility] (Normal over 40) documented in this encounterMercy Health [facility]05-25-2023 History of Present illness Narrative* Bonnie Pradhan, Mammo Tech - 06/30/2022 9:50 AM EDT Radiology Service Progress Note PATIENT NAME: Dorothy Puckett DATE OF SERVICE: June 30, 2022 TIME: 10:13 AM PATIENT IDENTITY VERIFICATION COMPLETED USING TWO (2) IDENTIFIERS: Name and Date of confirmedby patient verbally. FALL SCREENING: Has the patient had 2 falls in the last year or 1 fall with injury or currently using an Ambulatory Assistive Device (Walker, Cane, Wheelchair, Crutches, etc.)? No PATIENT GENDER DATA: Female. status: : No status: NO. PATIENT RELEVANT IMPLANT DATA REVIEWED: Not Applicable RADIOLOGY DEPARTMENT: Mammography PERIPHERAL IV DATA: Not applicable SIGNED BY: Bonnie Pradhan Bellstrikeo Pierce June 30, 2022 10:13 AM documented in this encounterMercy Health [facility]04-28-2023 Miscellaneous Notes* Telephone Encounter - Karolyn Lawson - 06/03/2022 1:20 PM EDT Called and left vm. Advised pt of orders and to call at their convenience. 1st attempt. Karolyn BAILEY * Telephone Encounter - Stephanie Irving RN - 06/02/2022 10:32 AM EDT PSS- patient need annual exam and Mammogram. Please call to schedule her. Stephanie Irving RN * Telephone Encounter - Stephanie Irving RN - 06/02/2022 10:24 AM EDT Patient needing order for Franchesca with EVELIO order. Last seen by SW. Please file and then forward to PSSto assist patient with scheduling. Stephanie Irving RN documented in this encounterMer[facility]08-17-2010 History of Past illness Narrative* Problem Noted Date Resolved Date Ovarian mass 09/22/2009 09/06/2011 Ascites 09/22/2009 09/06/2011 documented as of this encounter (statuses as of 06/07/2022) [facility]08-[facility] History of Past illness Narrative* Problem Noted Date Resolved Date Ovarian mass 09/22/2009 09/06/2011 Ascites 09/22/2009 09/06/2011 documented as of this encounter (statuses as of 07/05/2022) [facility] History of Past illness Narrative* Problem Noted Date Diagnosed Date Resolved Date Ovarian mass 09/22/2009 09/06/2011 Ascites 09/22/2009 09/06/2011 documented as of this encounter (statuses as of 12/11/2022) [place] [address]-17-2010 History of Past illness Narrative* Problem Noted Date Diagnosed Date Resolved Date Ovarian mass 09/22/2009 09/06/2011 Ascites 09/22/2009 09/06/2011 documented as of this encounter (statuses as of 12/11/2022) [facility] noteNo assessment information availableWHighland District Hospital Work Phone: evaluation note* Diagnosis Encounter for screening mammogram for malignant neoplasm of breast- Primary Other screening mammogram [facility] Diagnosis Encounter for screening mammogram for malignant neoplasm of breast Other screening mammogram [facility]* Diagnosis Encounter for gynecological examination (general) (routine) without abnormal findings Asymptomatic postmenopausal state Encounter for screening for osteoporosis Special screening for osteoporosis documented in this encounter [facility] note* Diagnosis Onset Date Resolution Status Chronic cough chronic Asthma noneactive [facility] Work Phone: evaluation note* Diagnosis Encounter for gynecological examination (general) (routine) without abnormal findings Encounter for screening mammogram for breast cancer Dense breast tissue documented [facility] this encounter [facility]* Diagnosis Pain in joint, multiple sites- Primary High risk medication use Encounter for long-term (current) use of other medications Psoriasis Other psoriasis documented in this [facility]* Diagnosis Annual physical exam- Primary Routine general medical examination at a health care facility Elevated ALT measurement Nonspecific elevation of levels of transaminase or lactic acid dehydrogenase (LDH) Cough Wrist pain- Primary Pain in joint, forearm Elevated ALT measurement Nonspecific elevation of levels of transaminase or lactic acid dehydrogenase (LDH) Pain in joint, multiple sites- Primary Psoriasis Other psoriasis High risk medication use Encounter for long-term (current) use of other medications [facility] Diagnosis Annual physical exam- Primary Routine general medical examination at a health care facility Elevated ALT measurement Nonspecific elevation of levels of transaminase or lactic acid dehydrogenase (LDH) Cough Wrist pain- Primary Pain in joint, forearm Elevated ALT measurement Nonspecific elevation of levels of transaminase or lactic acid dehydrogenase (LDH) Pain in joint, multiple sites documented in this encounter [facility] for referral (narrative)* Diagnostic Procedure Only (Routine) - Pending Review Specialty Diagnoses / Procedures Referred By Mikie martínez Referred To Contact [facility] IMAG[facility] Diagnoses Encounter for screening mammogram for malignant neoplasm of breast Procedures FRANCHESCA SCREENING W EVELIO SCREENING DIGITAL BREAST TOMOSYNTHESIS BI SCREENING MAMMOGRAPHY BI 2-VIEW BREAST INC Ryan Murray MD [address] [place] [address] [facility] [address] [place] [address] Referral ID Status Reason Start Date Expiration Date Visits Requested Visits Authorized [id number] Pending Review Auto-Generat ed Referral 06/02/2022 07/02/2023 1 1 T [facility] for referral (narrative)* Diagnostic Procedure Only (Routine) - Closed Specialty Diagnoses / Procedures Referred By iMkie martínez Referred To Contact BR IMAGING Diagnoses Encounter for screening mammogram for malignant neoplasm of breast Procedures FRANCHSECA SCREENING W EVELIO SCREENING DIGITAL BREAST TOMOSYNTHESIS BI SCREENING MAMMOGRAPHY BI 2-VIEW BREAST INC Ryan Murray MD [address] [place] [address] [facility] [address] [place] [address] Referral ID Status Reason Start Date Expiration Date V isits Requested Visits Authorized [id number] Closed Auto-Generate d Referral 06/02/2022 07/02/2023 1 1 T [facility] for referral (narrative)* Diagnostic Procedure Only (Routine) - Closed Specialty Diagnoses / Procedures Referred By Mikie martínez Referred To Contact [facility] IM[facility] Diagnoses Encounter for gynecological examination (general) (routine) without abnormal findings Encounter for screening mammogram for breast cancer Dense breast tissue Procedures FRANCHESCA SCREENING W EVELIO SCREENING DIGITAL BREAST TOMOSYNTHESIS BI SCREENING MAMMOGRAPHY BI 2-VIEW BREAST INC Atiya Cesar APRN.OFFICE EQUIPMENT MECHANIC [address] [place] [address] [facility] [address] [place] [address] Referral ID Status Reason Start Date Expiration Date V isits Requested Visits Authorized [id number] Closed Auto-Generate d Referral 07/05/2022 08/04/2023 1 1 [facility] for referral (narrative)* Diagnostic Procedure Only (Routine) - New Request Specialty Diagnoses / Procedures Referred By Contac t Referred To Contact XR IMAGING Diagnoses Pain in joint, multiple sites Psoriasis High risk medication use Procedures XR HAND GENERAL 3V PA/LAT/OBL RIGHT RADEX HAND MINIMUM 3 VIEWS Sayra Leavitt PA-C [address] [place] [address] [place] [address] Referral ID Status Reason Start Date Expiration Date Visits Requested Visits Authorized [id number] New Request Auto-Generat ed Referral 4 12/21/2024 1 1 * Diagnostic Procedure Only (Routine) - New Request Specialty Diagnoses / Procedures Referred By Contac t Referred To Contact XR IMAGING Diagnoses Pain in joint, multiple sites Psoriasis High risk medication use Procedures XR HAND GENERAL 3V PA/LAT/OBL LEFT RADEX HAND MINIMUM 3 VIEWS Sayra Leavitt PA-C [address] [place] [address] [place] [address] Referral ID Status Reason Start Date Expiration Date Visits Requested Visits Authorized [id number] New Request Auto-Generat ed Referral 4 12/21/2024 1 1 [facility] for referral (narrative)* Diagnostic Procedure Only (Routine) - Closed Specialty Diagnoses / Procedures Referred By Contac t Referred To Contact XR IMAGING Diagnoses Pain in joint, multiple sites Procedures XR HAND GENERAL 3V PA/LAT/OBL RIGHT RADEX HAND MINIMUM 3 VIEWS Senia Maria MD [address] [place] [address] [place] [address] Referral ID Status Reason Start Date Expiration Date V isits Requested Visits Authorized [id number] Closed Auto-Generate d Referral 09/14/2023 10/13/2024 1 1 * Diagnostic Procedure Only (Routine) - Closed Specialty Diagnoses / Procedures Referred By Mikie t Referred To Contact XR IMAGING Diagnoses Pain in joint, multiple sites Procedures XR HAND GENERAL 3V PA/LAT/OBL LEFT RADEX HAND MINIMUM 3 VIEWS Senia Maria MD [address] [place] [address] [place] [address] Referral ID Status Reason Start Date Expiration Date V isits Requested Visits Authorized [id number] Closed Auto-Generate d Referral 09/14/2023 10/13/2024 1 1 [facility] for referral (narrative)No reason for referral information availableWHighland District Hospital Work Phone: Reason for visit Narrative* Diagnostic Procedure Only (Routine) - Closed Specialty Diagnoses / Procedures Referred By Mikie t Referred To Contact [facility] IMAG[facility] Diagnoses Encounter for screening mammogram for malignant neoplasm of breast Procedures FRANCHESCA SCREENING W EVELIO SCREENING DIGITAL BREAST TOMOSYNTHESIS BI SCREENING MAMMOGRAPHY BI 2-VIEW BREAST INC Ryan Murray MD [address] [place] [address] [facility] [address] [place] [address] Referral ID Status Reason Start Date Expiration Date V isits Requested Visits Authorized [id number] Closed Auto-Generate d Referral 06/02/2022 07/02/2023 1 1 [facility] for visit Narrative* Diagnostic Procedure Only (Routine) - Closed Specialty Diagnoses / Procedures Referred By Mikie t Referred To Contact [facility] Diagnoses Encounter for gynecological examination (general) (routine) without abnormal findings Encounter for screening mammogram for breast cancer Dense breast tissue Procedures FRANCHESCA SCREENING W EVELIO SCREENING DIGITAL BREAST TOMOSYNTHESIS BI SCREENING MAMMOGRAPHY BI 2-VIEW BREAST INC Atiya Cesar, BACKUP OPERATOR.OFFICE EQUIPMENT MECHANIC [address] [place] [place] [address] [facility] [address] [place] [address] Referral ID Status Reason Start Date Expiration Date V isits Requested Visits Authorized [id number] Closed Auto-Generate d Referral 07/05/2022 08/04/2023 1 1 [facility] N[facility]ative* Diagnostic Procedure Only (Routine) - Closed Specialty Diagnoses / Procedures Referred By Mikie martínez Referred To Contact XR IMAGING Diagnoses Pain in joint, multiple sites Procedures XR HAND GENERAL 3V PA/LAT/OBL RIGHT RADEX HAND MINIMUM 3 VIEWS Senia Maria MD [address] [place] [address] [place] [address] Referral ID Status Reason Start Date Expiration Date V isits Requested Visits Authorized [id number] Closed Auto-Generate d Referral 09/14/2023 10/13/2024 1 1 [facility] Chief Complaint and Reason for Visit Chief Complaint SKIN Chief Complaint LT FOOT PAIN Chief Complaint EORDER Chief Complaint EORDER PREPROCEDURAL Chief Complaint EORDER PREPROCEDURAL PREPROCEDURAL Chief Complaint Asthma Reason for Visit Chronic cough Asthma Chief Complaint Asthma CHRONIC COUGH Reason for Visit Chronic cough Asthma Chief Complaint Admit Date RIGHT SHOULDER PAIN. RX HERE August 14 025 4:30pm Family History No Family History Records Found Relationship Condition Age at Onset Recorded Date/T chris son Myocardial infarction 29 father Congestive heart failure Unknown brother Cerebrovascular accident (CVA) Unknown brother Malignant neoplasm Unknown mother Cerebrovascular accident (CVA) Unknown Hypertension Unknown Advance Directives No Advanced Directives Records Found Advance Directive Response Recorded Date/ Time Advance Directives Yes June 17 0 8:08am Living Will Yes June 18, 2019 8 :08am Power of Industrial Safety And Health Technician Yes June 18, 2019 8:08am Advance Directive Response Recorded Date/ Time Advance Directives Yes June 17 0 7:08am Living Will Yes June 18, 2019 7 :08am Power of Industrial Safety And Health Technician Yes June 18, 2019 7:08am Advance Directive Response Recorded Date/ Time Living Will Yes June 18, 2019 8 :08am Do you have a Healthcare Power of Industrial Safety And Health Technician? Yes June 18, 2019 8:08am Advance Directives Yes June 17 0 8:08am Advance Directive Response Recorded Date/ Time Advance Directives Yes June 17 0 8:08am Summary Purpose Additional Source Comments Goals (unrecognized section and content) Goals may be documented in a n alternate sectionGoals may be documented in an alternate sectionGoals may be documented in an alternate sectionGoals may be documented in an alternate sectionGoals may be documented in an alternate sectionGoals may be documented in an alternate sectionGoals may be documented in an alternate sectionGoals may be documented in an alternate sectionGoals may be documented in an alternate sectionGoals may be documented in an alternate section Care Teams (unrecognized sec tion and content) Team Status: Active Member Role Status Dates Dr. Consuelo Alex MD Family Provider Active Dr. Consuelo Alex MD Primary Care Provider Active Team Status: Active Member Role Status Dates Dr. Consuelo Alex MD Primary Care Provider Active Dr. Ramon Larsen MD Attending Provider Active Dr. Michelet Rogers MD Referring Provider Active Team Status: Inactive Member Role Status Dates Dr. Consuelo Alex MD Primary Care Pr ovider, Attending Provider, Referring Provider Active Team Status: Inactive Member Role Status Dates Dr. Consuelo Alex MD Primary Care Provider Active Dr. Michelet Rogers MD Attending Provider, Referr ing Provider Active Team Status: Inactive Member Role Status Dates Dr. Consuelo Alex MD Primary Care Provider Active Dr. Michelet Rogers MD Attending Provider Active Team Status: Inactive Member Role Status Dates Dr. Consuelo Alex MD Primary Care Provider, Referr ing Provider Active Dr. Elmo Hanson MD Attending Provider Active Team Status: Inactive Member Role Status Dates Dr. Consuelo Alex MD Primary Care Provider Active Dr. Elmo Hanson MD Attending Provider, Referring Pr ovider Active Day Care Home Provider Relationship Specialty Start Date End Date Consuelo Alex MD [address] [facility] [address] [place] [address] PCP - General Family Medicine 11/22/23 Day Care Home Provider Relationship Specialty Start Date End Date Consuelo Alex MD [address] [facility] [address] [place] [address] PCP - General Family Medicine 11/22/23 Team Status: Inactive Member Role Status Dates Dr. Consuelo Alex MD Primary Care Provider Active Start: March 05, 2024 End: March 05, 2024 Dr. Consuelo Alex MD Attending Provider Active Start: March 05, 2024 End: March 05, 2024 Dr. Consuelo Alex MD Referring Provider Active Start: March 05, 2024 End: March 05, 2024 Team Status: Inactive Member Role Status Dates Dr. Consuelo Alex MD Primary Care Provider Active Start: May 27, 2024 End: May 27, 2024 Dr. Michelet Rogers MD Attending Provider Active Start: May 27, 2024 End: May 27, 2024 Dr. Michelet Rogers MD Referring Provider Active Start: May 27, 2024 End: May 27, 2024 Team Status: Active Member Role/Relationship Status Dates Dr. Consuelo Alex MD Primary Care Provider Active Team Status: Inactive Member Role/Relationship Status Dates Dr. Consuelo Alex MD Primary Care Provider Active Start: May 27, 2024 End: May 27, 2024 Dr. Michelet Rogers MD Attending Provider Active Start: May 27, 2024 End: May 27, 2024 Dr. Michelet Rogers MD Referring Provider Active Start: May 27, 2024 End: May 27, 2024 Team Status: Inactive Member Role/Relationship Status Dates Dr. Consuelo Alex MD Primary Care Provider Active Start: August 14, 2024 End: August 14, 2024 Dr. Aram Chilel MD Attending Provider Active Start: August 14, 2024 End: August 14, 2024 Dr. Aram Chilel MD Referring Provider Active Start: August 14, 2024 End: August 14, 2024 Source Comments (unrecognize d section and content) In the event this informatio n is protected by the Federal Confidentiality of Alcohol and Drug Abuse Patient Records regulations: The Federal rules restrict any use of the information to criminally investigate or prosecute any alcohol or drug abuse patient.[facility] HospitalIn the event this information is protected by the Federal Confidentiality of Alcohol and Drug Abuse Patient Records regulations: The Federal rules restrict any use of the information to criminally investigate or prosecute any alcohol or drug abuse patient.[facility] HospitalIn the event this information is protected by the Federal Confidentiality of Alcohol and Drug Abuse Patient Records regulations: The Federal rules restrict any use of the information to criminally investigate or prosecute any alcohol or drug abuse patient.[facility] HospitalIn the event this information is protected by the Federal Confidentiality of Alcohol and Drug Abuse Patient Records regulations: The Federal rules restrict any use of the information to criminally investigate or prosecute any alcohol or drug abuse patient.[facility] HospitalIn the event this information is protected by the Federal Confidentiality of Alcohol and Drug Abuse Patient Records regulations: The Federal rules restrict any use of the information to criminally investigate or prosecute any alcohol or drug abuse patient.[facility] HospitalIn the event this information is protected by the Federal Confidentiality of Alcohol and Drug Abuse Patient Records regulations: The Federal rules restrict any use of the information to criminally investigate or prosecute any alcohol or drug abuse patient.[facility] HospitalIn the event this information is protected by the Federal Confidentiality of Alcohol and Drug Abuse Patient Records regulations: The Federal rules restrict any use of the information to criminally investigate or prosecute any alcohol or drug abuse patient.[facility] HospitalIn the event this information is protected by the Federal Confidentiality of Alcohol and Drug Abuse Patient Records regulations: The Federal rules restrict any use of the information to criminally investigate or prosecute any alcohol or drug abuse patient.[facility] HospitalIn the event this information is protected by the Federal Confidentiality of Alcohol and Drug Abuse Patient Records regulations: The Federal rules restrict any use of the information to criminally investigate or prosecute any alcohol or drug abuse patient.[facility] the event this information is protected by the Federal Confidentiality of Alcohol and Drug Abuse Patient Records regulations: The Federal rules restrict any use of the information to criminally investigate or prosecute any alcohol or drug abuse patient.[facility] Reason for Visit (unrecogniz ed section and content) Reason Comments Orders Mammogram Reason Comments Joint Pain Reason Comments Osteopenia BMD 07/19/2022 Joint Pain INFORMATION SOURCE (unrecogn ized section and content) DATE CREATED AUTHOR 07/11/2023 [facility] DATE CREATED AUTHOR AUTHOR'S ORGANIZ ATION 11/30/2023 [facility] DATE CREATED AUTHOR AUTHOR'S ORGANIZ ATION 08/18/2024 [facility] FOR RECORDS PERTAINING TO PATIENTS WHO ARE [...] BE BASED ON THE PRIMARY CLINICAL RECORDS. [facility] [employer] [facility]. provides no warranty or guarantee of the accuracy or completeness of information in this document.
[2025-01-13 08:48] LABS: Hematocrit 37.7 % (37-47); Hemoglobin 12.4 g/dL (12.0-15.0); Immature Granulocytes Count 0.050 X10^3/uL (0.0-0.0); Mean Corp Hgb Conc 32.9 g/dL (32-36); Mean Corpuscular Volume 89.8 fL (81-99); Mean Platelet Vol. 9.2 fl (6.2-12.0); NRBC Flagged by Analyzer 0 % (0-5); Platelet Count 256 K/mm3 (150-450); RBC Distribution Width CV 13.2 % (11.6-14.6); RBC Distribution Width SD 43.1 fl (35.1-43.9); Red Blood Count 4.20 M/mm3 (4.2-5.4); White Blood Count 7.1 K/mm3 (4.4-11.0)
[2025-01-13 09:25] LABS: Anion Gap 9 (5-15); BUN 13 mg/dL (4-19); BUN/Creat Ratio 13.8 RATIO (10-20); Calcium,Total 9.3 mg/dL (7.6-11.0); Carbon Dioxide 26.6 mmol/L (21.0-32.0); Chloride 105 mmol/L (98-108); Glucose 93 mg/dL (70-99); Potassium 4.5 mmol/L (3.3-5.1)
== END | disposition home or self-care (01) ==
PROVIDERS: PCP Family Medicine; Referring Provider Student in an Organized Health Care Education/Training Program; Visit Provider Student in an Organized Health Care Education/Training Program
DX: Z01.818 Encounter for other preprocedural examination (principal)
CPT/HCPCS: 36415; 80048; 85025; 93005